=== PATIENT | female | born 1955 | race Caucasian/White ===

== ENCOUNTER 2016-06-07 20:31 | Emergency (ER) | payer OTHER ==
[~2016-06-07] VITALS: Ht 165.1 cm; Wt 168.6 kg
[2016-06-07 20:34] VITALS: TEMP 36.9; Ht 165.1 cm; Wt 168.6 kg
[2016-06-07] MEDS ORDERED: METHYLPREDNISOLONE 125 MG VIAL IV STA (20:52)
[2016-06-07] MEDS ORDERED: ALBUT/IPRATROP 3MG/0.5MG NEB 3 ML VIAL INH STA (20:52)
[2016-06-07 20:55] VITALS: O2SAT 94
[2016-06-07] MEDS ORDERED: MONT1TAB3 PO (21:18)
[2016-06-07] MEDS ORDERED: ATOR-22 PO (21:18)
[2016-06-07] MEDS ORDERED: VALS160T60 PO (21:18)
[2016-06-07] MEDS ORDERED: CLR/5 PO (21:18)
[2016-06-07] MEDS ORDERED: METF-384 PO (21:18)
[2016-06-07 21:21] LABS: BASO % 0.4 %; BASO ABS # 0.05 K/uL (0-0.2); COMPLETE YES; EOS % 3.5 %; HEMATOCRIT 40.5 % (37-47); IG% 0.3 %; LYMPH ABS # 4.29 K/uL (1.2-3.4); MEAN CELL VOLUME 89.8 fL (80-100); MEAN CORPUSCULAR HEMOGLOBIN 30.2 pg (25-34); MEAN CORPUSCULAR HGB CONC 33.6 g/dl (32-36); MONO % 10.4 %; NEUT % 48.4 %; PLATELET COUNT 293 K/uL (130-400); RED BLOOD COUNT 4.51 M/uL (4.2-5.4); WHITE BLOOD COUNT 11.59 K/uL (4.8-10.8)
--- NOTE | 2016-06-07 21:30 | DIAGNOSTIC IMAGING REPORT ---
SINGLE VIEW CHEST CLINICAL HISTORY: Dyspnea. FINDINGS: An AP, portable, upright chest radiographs are obtained. No prior studies are available for comparison at the time of dictation. The examination is degraded by portable technique, large body habitus, and patient rotation. The heart is top normal for projection. The mediastinal contour is within normal limits. The lungs and pleural spaces are clear. No pneumothorax is seen. The bony thorax is grossly intact. IMPRESSION: No acute cardiopulmonary abnormality. Electronically signed by: Candido Sullivan M.D. 06/07/2016 9:29 PM Dictated Date/Time: 06/07/2016 9:28 PM
[2016-06-07 21:41] LABS: BUN/CREATININE RATIO 13.1 (10-20); CALCIUM 8.8 mg/dl (8.5-10.1); CREATININE 0.81 mg/dl (0.60-1.20); POTASSIUM 3.3 mmol/L (3.5-5.1)
[2016-06-07 21:43] LABS: ALB/GLOB RATIO 0.8 (0.9-2)
[2016-06-07] MEDS ORDERED: PRED20TA2 PO (21:48)
[2016-06-07] MEDS ORDERED: ALBUTEROL HFA 8 GM INHALER INH ONE (22:00)
[2016-06-07 22:05] VITALS: BP 139/58; PULSE 83; O2SAT 92
[2016-06-07 23:18] LABS: INFLUENZA A PCR Neg for Influ A (NEG); INFLUENZA B PCR Neg for Influ B (NEG)
--- NOTE | 2016-06-07 23:19 | EMERGENCY ROOM VISIT NOTE ---
History Report prepared by Kenyatta: Margaret Carvajal Under the Supervision of: Dr. Eliecer Davis M.D. First contact with patient: 20:43 Chief Complaint: CONGESTION Stated Complaint: TIGHTNESS IN CHEST Nursing Triage Summary: Patient reports cough, congestion, and chest tightness since thursday. Patient states "I think I have bronchitis. It was worse but then thursday I felt better." Patient has non productive cough, denies hx asthma. History of Present Illness The patient is a 60 year old female who presents to the Emergency Room with complaints of worsening chest congestion for the past week. She reports a dry, non-productive cough and tightness in her chest. She has a history of bronchitis and states that this feels like her previous bronchitis. The patient has been taking DayQuil and NyQuil for her symptoms. She rates her pain as a 3/ 10. Source of History: patient Onset: 1 week ago Position: chest Symptom Intensity: 3/10 Quality: other (congestion/tightness) Timing: worsening Modifying Factors (Relieving): other (DayQuil/NyQuil) Associated Symptoms: + cough Review of Systems See HPI for pertinent positives & negatives. A total of 10 systems reviewed and were otherwise negative. Past Medical & Surgical Medical Problems: (1) Diabetes mellitus (2) Hypertension Family History Cancer Diabetes mellitus Hypertension Kidney disease Kidney stones Social History Smoking Status: Never Smoker Smokeless Tobacco Use: No Alcohol Use: none Housing Status: lives with family Occupation Status: employed Current/Historical Medications Scheduled Atorvastatin (Lipitor), 1 TAB PO DAILY Desloratadine (Clarinex), 10 MG PO QAM Metformin Hcl (Glucophage), 1,000 MG PO BID Montelukast Sodium (Singulair), 10 MG PO QPM Prednisone (Prednisone Tab), 0 PO DAILY Valsartan/Hctz (Diovan Hct 160MG/25MG), 1 TAB PO DAILY Allergies Coded Allergies: No Known Allergies (Unverified , 06/07/16) Physical Exam Vital Signs Date Time Temp Pulse Resp B/P Pulse Ox O2 Delivery O2 Flow Rate FiO2 06/07/16 22:05 83 20 139/58 92 06/07/16 21:30 87 06/07/16 20:55 94 Room Air 06/07/16 20:55 94 Room Air 06/07/16 20:45 94 Room Air 06/07/16 20:34 36.9 99 20 186/90 90 Room Air Pain Rating (0-10): 0 Physical Exam GENERAL: Patient is a healthy-appearing well-nourished 60 year old female. HEAD: Normocephalic atraumatic EYES: Ocular movements intact pupils equal and react to light OROPHARYNX mucous membranes are moist no exudates present no erythema or edema present NECK: Supple no nuchal rigidity CHEST: Good equal expansion LUNGS: Wheezes on the left CARDIAC: Normal S1 and S2 ABDOMEN: Soft nontender no guarding BACK: No CVA tenderness EXTREMITIES: No pain upon palpation normal muscle strength in all groups no clubbing cyanosis or edema NEURO: Patient is following commands is answering questions appropriately. Alert and oriented x3 Cranial Nerves 2-12 grossly intact Medical Decision & Procedures ER Provider Diagnostic Interpretation: Radiology results as stated below per my review and radiologist interpretation: SINGLE VIEW CHEST CLINICAL HISTORY: Dyspnea. FINDINGS: An AP, portable, upright chest radiographs are obtained. No prior studies are available for comparison at the time of dictation. The examination is degraded by portable technique, large body habitus, and patient rotation. The heart is top normal for projection. The mediastinal contour is within normal limits. The lungs and pleural spaces are clear. No pneumothorax is seen. The bony thorax is grossly intact. IMPRESSION: No acute cardiopulmonary abnormality. Electronically signed by: Candido Sullivan M.D. 06/07/2016 9:29 PM Dictated Date/Time: 06/07/2016 9:28 PM Laboratory Results 06/07/16 21:05 Red Blood Count 4.51, Mean Corpuscular Volume 89.8, Mean Corpuscular Hemoglobin 30.2, Mean Corpuscular Hemoglobin Concent 33.6, Mean Platelet Volume 11.0, Neutrophils (%) (Auto) 48.4, Lymphocytes (%) (Auto) 37.0, Monocytes (%) (Auto) 10.4, Eosinophils (%) (Auto) 3.5, Basophils (%) (Auto) 0.4, Neutrophils # (Auto ) 5.61, Lymphocytes # (Auto) 4.29, Monocytes # (Auto) 1.21, Eosinophils # (Auto ) 0.40, Basophils # (Auto) 0.05 06/07/16 21:05 Test 06/07/16 21:05 06/07/16 21:08 White Blood Count 11.59 K/uL (4.8-10.8) Red Blood Count 4.51 M/uL (4.2-5.4) Hemoglobin 13.6 g/dL (12.0-16.0) Hematocrit 40.5 % (37-47) Mean Corpuscular Volume 89.8 fL (80-100) Mean Corpuscular Hemoglobin 30.2 pg (25-34) Mean Corpuscular Hemoglobin Concent 33.6 g/dl (32-36) Platelet Count 293 K/uL (130-400) Mean Platelet Volume 11.0 fL (7.4-10.4) Neutrophils (%) (Auto) 48.4 % Lymphocytes (%) (Auto) 37.0 % Monocytes (%) (Auto) 10.4 % Eosinophils (%) (Auto) 3.5 % Basophils (%) (Auto) 0.4 % Neutrophils # (Auto) 5.61 K/uL (1.4-6.5) Lymphocytes # (Auto) 4.29 K/uL (1.2-3.4) Monocytes # (Auto) 1.21 K/uL (0.11-0.59) Eosinophils # (Auto) 0.40 K/uL (0-0.5) Basophils # (Auto) 0.05 K/uL (0-0.2) RDW Standard Deviation 48.3 fL (36.4-46.3) RDW Coefficient of Variation 14.8 % (11.5-14.5) Immature Granulocyte % (Auto) 0.3 % Immature Granulocyte # (Auto) 0.03 K/uL (0.00-0.02) Anion Gap 11.0 mmol/L (3-11) Est Creatinine Clear Calc Drug Dose 120.0 ml/min Estimated GFR () 92.1 Estimated GFR (Non- 79.5 BUN/Creatinine Ratio 13.1 (10-20) Calcium Level 8.8 mg/dl (8.5-10.1) Total Bilirubin 0.2 mg/dl (0.2-1) Aspartate Amino Transf (AST/SGOT) 26 U/L (15-37) Alanine Aminotransferase (ALT/SGPT) 29 U/L (12-78) Alkaline Phosphatase 67 U/L (45-117) Total Protein 7.6 gm/dl (6.4-8.2) Albumin 3.4 gm/dl (3.4-5.0) Globulin 4.2 gm/dl (2.5-4.0) Albumin/Globulin Ratio 0.8 (0.9-2) Influenza Type A (RT-PCR) Neg for Influ A (NEG) Influenza Type B (RT-PCR) Neg for Influ B (NEG) Labs reviewed by ED physician. Medications Administered Medications (Trade) Dose Ordered Sig/Hugo Route Start Time Stop Time Status Last Admin Dose Admin Albuterol/ Ipratropium (Duoneb) 3 ml NOW STAT INH 06/07/16 20:52 06/07/16 20:54 DC 06/07/16 21:07 3 ML Methylprednisolone Sodium Succinate (Solu-Medrol IV) 125 mg NOW STAT IV 06/07/16 20:52 06/07/16 20:54 DC 06/07/16 21:07 125 MG ECG Indication: chest pain Rate (beats per minute): 84 Rhythm: sinus rhythm Findings: PVC, no acute ischemic change ED Course 2042: Past medical records reviewed. The patient was evaluated in room B5. A complete history and physical examination was performed. 2051: Solu-Medrol 125 mg IV, Duoneb 3 ml INH 2145: I reassessed the patient at this time. She is feeling better and resting comfortably. I discussed the results and treatment plan with the patient. I answered all pertaining questions that she had. She expressed understanding and verbalized agreement. The patient will be discharged home. Medical Decision Differential diagnosis: Etiologies such as infections, reactive airway disease, pneumonia, pneumothorax , COPD, CHF, cardiac ischemia, pulmonary embolism, musculoskeletal, gastrointestinal, as well as others were entertained. This is a 60-year-old female who presents emergency department complaining of shortness of breath and cough. The patient has a history of bronchitis in the past. For this reason the patient was given hour-long breathing treatment and given Solu-Medrol. The patient is adamantly refusing to be admitted to the hospital. For this reason I'll place the patient on tapering prednisone I recommended breathing treatments twice every 6 hours read I recommended following up with her primary care physician. Patient was in agreement with the treatment plan. Impression Primary Impression: Bronchitis Scribe Attestation The scribe's documentation has been prepared under my direction and personally reviewed by me in its entirety. I confirm that the note above accurately reflects all work, treatment, procedures, and medical decision making performed by me. Departure Information Dispostion Home / Self-Care Prescriptions Prednisone (Prednisone Tab) 20 Mg Tab 0 PO DAILY, #7 TAB 2 TABS DAILY FOR 2 DAYS, THEN 1 TAB DAILY FOR 2 DAYS, THEN 1/2 TAB DAILY FOR 2 DAYS. Prov: Eliecer Davis MD 06/07/16 Referrals RV. Haji MD (PCP) Forms HOME CARE DOCUMENTATION FORM, School Instructions, Work Instructions, IMPORTANT VISIT INFORMATION Patient Instructions Bronchitis Acute, My [facility] Additional Instructions Use inhalers twice every 6 hours Be aware prednisone will increase your sugar You have been examined and treated today on an emergency basis only. This is not a substitute for, or an effort to provide, complete comprehensive medical care. It is impossible to recognize and treat all injuries or illnesses in a single emergency department visit. It is therefore important that you follow up closely with [facility]. Call as soon as possible for an appointment. Thank you for your time and consideration. I look forward to speaking with you again soon. Please don't hesitate to call us if you have any questions.
== END 2016-06-07 22:04 | disposition home or self-care (01) ==
LOC: C.EDB 20:32
DX: J40 Bronchitis, not specified as acute or chronic (principal); E11.9 Type 2 diabetes mellitus without complications; I10 Essential (primary) hypertension; Z79.899 Other long term (current) drug therapy; Z79.84 Long term (current) use of oral hypoglycemic drugs; Z83.3 Family history of diabetes mellitus; Z82.49 Family history of ischemic heart disease and other diseases of the circulatory system; Z84.1 Family history of disorders of kidney and ureter

== ENCOUNTER → 2016-10-07 | Outpatient (CLI) | payer OTHER ==
[~2016-10-07] MED LIST: ATOR-22 PO; CLR/5 PO; METF-384 PO; MONT1TAB3 PO; PRED20TA2 PO; VALS160T60 PO
[2016-10-07 09:38] LABS: URINE APPEARANCE CLEAR (CLEAR); URINE BILIRUBIN NEG (NEG); URINE COLOR YELLOW; URINE EPITHELIAL CELL AUTO >30 /lpf (0-5); URINE NITRITE NEG (NEG); URINE SPECIFIC GRAVITY 1.016 (1.000-1.030); UROBILINOGEN NEG (NEG); ZZUR CULT IF INDIC CLEAN CATCH YES
[2016-10-07 09:45] LABS: ALT/SGPT 23 U/L (12-78); BLOOD UREA NITROGEN 13 mg/dl (7-18); BUN/CREATININE RATIO 16.8 (10-20); CARBON DIOXIDE 31 mmol/L (21-32); CHLORIDE 100 mmol/L (98-107); CREATININE 0.78 mg/dl (0.60-1.20); GLUCOSE 173 mg/dl (70-99); POTASSIUM 3.5 mmol/L (3.5-5.1); SODIUM 141 mmol/L (136-145)
[2016-10-07 09:47] LABS: MANUAL MICROSCOPIC REQUIRED? NO; REVIEW REQ? NO
[2016-10-07 09:48] LABS: ALB/GLOB RATIO 0.7 (0.9-2); ALKALINE PHOSPHATASE 62 U/L (45-117); AST/SGOT 17 U/L (15-37)
[2016-10-07 09:54] LABS: CALCIUM 9.4 mg/dl (8.5-10.1)
[2016-10-07 10:10] LABS: RATIO 17.7 mcg/mg (0-30.0)
[2016-10-07 10:27] LABS: ESTIMATED AVERAGE GLUCOSE 206 mg/dl; HA1C FLAG Normal (Normal)
== END | disposition home or self-care (01) ==
LOC: C.LAB1850 07:31
PROVIDERS: ATTEND Internal Medicine
DX: E11.65 Type 2 diabetes mellitus with hyperglycemia (principal)

== ENCOUNTER → 2017-03-09 | Outpatient (CLI) | payer OTHER ==
[~2017-03-09] MED LIST changes: -PRED20TA2 PO
[2017-03-09 12:48] LABS: ESTIMATED AVERAGE GLUCOSE 157 mg/dl; HA1C FLAG Normal (Normal)
[2017-03-09 12:57] LABS: ALT/SGPT 17 U/L (12-78); AST/SGOT 10 U/L (15-37); BLOOD UREA NITROGEN 11 mg/dl (7-18); BUN/CREATININE RATIO 15.4 (10-20); CALCIUM 8.9 mg/dl (8.5-10.1); CARBON DIOXIDE 34 mmol/L (21-32); CHLORIDE 97 mmol/L (98-107); CREATININE 0.69 mg/dl (0.60-1.20); GLUCOSE 145 mg/dl (70-99); POTASSIUM 3.5 mmol/L (3.5-5.1); SODIUM 138 mmol/L (136-145)
[2017-03-09 13:00] LABS: ALB/GLOB RATIO 0.8 (0.9-2); ALKALINE PHOSPHATASE 69 U/L (45-117); CHOLESTEROL 142 mg/dl (0-200); CHOLESTEROL/HDL RATIO 3.2; HDL CHOLESTEROL 44 mg/dl; LDL CHOLESTEROL CALCULATED 70 mg/dl; TRIGLYCERIDES 140 mg/dl (0-150); VERY LOW DENSITY LIPOPROT CALC 28 mg/dl
== END | disposition home or self-care (01) ==
LOC: C.LAB1850 10:32
PROVIDERS: ATTEND Internal Medicine
DX: E11.65 Type 2 diabetes mellitus with hyperglycemia (principal)

== ENCOUNTER → 2017-08-17 | Outpatient (CLI) | payer OTHER | END | disposition home or self-care (01) | LOC: C.LABSPEC 13:13 | PROVIDERS: ATTEND Obstetrics & Gynecology | DX: Z11.3 Encounter for screening for infections with a predominantly sexual mode of transmission (principal) ==

== ENCOUNTER → 2017-08-17 | Outpatient (CLI) | payer OTHER | END | disposition home or self-care (01) | LOC: C.PAPS 13:45 | PROVIDERS: ATTEND Obstetrics & Gynecology | DX: Z12.4 Encounter for screening for malignant neoplasm of cervix (principal) ==

== ENCOUNTER 2022-06-25 17:10 | Inpatient (IN) ==
--- NOTE | 2022-06-25 17:34 | ED Triage Note ---
Date of Service June 25, 2022 History of Present Illness This patient was briefly evaluated while in triage. An abbreviated physical exam was performed. This patient is a 66-year-old Female who presents to the ED for evaluation of a right upper back infection. sent for abnormal CT-abscess of right posterior neck/upper back going on since March-treated in [place] Off antibiotics since May 16 Physical Exam GENERAL: NAD CARDIOVASCULAR: RRR RESPIRATORY: CTA ABDOMEN: BS x 4. Nontender to palpation. INTEGUMENTARY: Red, tender, indurated area, right shoulder and right chest Initial orders for labs and / or imaging were placed and patient was placed in the waiting area until a bed is available. Please see further documentation for the full ED course. MDM / Impression Impression Impression: Sepsis, Abscess of muscle of neck, Cellulitis, Elevated lactic acid level
[2022-06-25 18:28] LABS: Hematocrit (blood only) 40.9 % (37.0-47.0); Hemoglobin 13.2 g/dl (12.0-16.0); Mean Corpuscular Hemoglobin 28.9 pg (25.0-34.0); Mean Corpuscular Hgb Conc 32.3 g/dL (32.0-36.0); Mean Corpuscular Volume 89.5 fL (80.0-100.0); Mean Platelet Volume 11.3 fL (9.4-12.4); Platelet Count 342 K/uL (130-400); RDW Coefficient of Variation 15.5 % (11.5-14.5); RDW Standard Deviation 50.6 fL (36.4-46.3); Red Blood Count 4.57 M/uL (4.20-5.40)
[2022-06-25 18:49] LABS: Albumin Level 3.5 gm/dl (3.4-5.0); Anion Gap 11 (3-11); Bilirubin,Total 0.4 mg/dl (0.2-1.0); Calcium 9.1 mg/dl (8.5-10.1); Carbon Dioxide 31 mmol/L (21-32); Chloride 101 mmol/L (98-107); Sodium 143 mmol/L (136-145)
[2022-06-25 18:55] LABS: Alanine Aminotransferase 15 U/L (7-52); Albumin Globulin Ratio 0.9 (0.9-2); Alkaline Phosphatase 40 U/L (34-104); Aspartate Aminotransferase 27 U/L (13-39); BUN Creatinine Ratio 9.2 (10-20); Blood Urea Nitrogen 14 mg/dl (6-23); Est GFR (African American) 41.3 ml/min; Est GFR (Non-African American) 35.6 ml/min; Glucose 102 mg/dl (70-99(Fasting)); Total Protein 7.5 gm/dl (6.0-8.3)
[2022-06-25] MEDS ORDERED: SODIUM CHLORIDE 0.9% 1000ML 1,000 ML IV ONE (19:16)
[2022-06-25] MEDS ORDERED: CEFEPIME 2,000 MG in SYRINGE 0 ML IV STA (19:16)
[2022-06-25 19:17] LABS: ALC (manual) 6.57 K/uL (1.2-3.4); ANC (manual) 4.84 K/uL (1.4-6.5); Eosinophils % (manual) 4 %; Large Granular Lymph # (manua 4.34 K/uL; Large Granular Lymph % (manual) 35 %; Lymphocytes # (manual) 2.23 K/uL (1.2-3.4); Lymphocytes % (manual) 18 %; Monocytes % (manual) 4 %; Neutrophils # (manual) 4.84 K/uL (1.40-6.50); Neutrophils % (manual) 39 %
--- NOTE | 2022-06-25 19:21 | Emergency Department Note ---
History of Present Illness General Chief complaint: Abnormal Labs/Diagnostic Testing Stated complaint: ABNORMAL CT SCANS,REF BY DOC Time Seen by Provider: 06/25/22 19:02 Source: patient, family, RN notes reviewed and old records reviewed (Have reviewed the outpatient CT as well as the outpatient notes and her previous CAT scan from [facility]) Mode of arrival: ambulatory Limitations: no limitations History of Present Illness This patient was seen in triage. Initial orders were placed by Katia Ricardo PA-C. I went to see her in the process of seeing her I got a call that her lactic acid was 5.5. When I see the patient she looks well but says "I have an infection". She said that she was in [place] from April 16 through May 02 after she went to rehab. She was on IV medications for antibiotics and then will switch over to p.o. Augmentin which she finished on May 16 since then she has been getting increasingly weak and dizzy she has some swelling in her right shoulder towards her back. Denies any fever denies difficulty speaking or swallowing. She has had some nausea and her primary doctor started on Zofran 2 days ago. No abdominal pain no dysuria no fever no fall or trauma. She had an outpatient CAT scan which showed an abscess in the right shoulder into the soft tissue. Looking through her chart its and talking to the patient sounds like when she was at [place], she had a retropharyngeal abscess that according to the patient was drained. I did review the records she did have septic shock 70 to group a strep pneumo bacteremia arising from the right neck base cellulitis and associated retropharyngeal/deep neck abscess. She did have I&D of the retropharyngeal abscess on 04/21. Home Medications Medication Instructions Recorded Confirmed Type lancets 33 gauge (OneTouch Delica #100 ea 12/24/18 06/04/22 History Lancets) albuterol sulfate 90 mcg/actuation 1 - 2 puff inhalation Q4H PRN 05/01/20 06/25/22 Rx aerosol inhaler shortness of breath or wheezing #8.5 grams desloratadine 5 mg tablet 5 mg PO DAILY #90 tabs 06/20/21 06/25/22 Rx blood sugar diagnostic #100 ea 11/25/21 06/04/22 Rx melatonin 5 mg capsule 10 mg PO HS PRN Sleep 12/16/21 06/25/22 History lisinopril 20 1 tab PO DAILY #90 tabs 01/22/22 06/25/22 Rx mg-hydrochlorothiazide 12.5 mg tablet metformin 1,000 mg tablet 1,000 mg PO Q12H #180 tabs 01/22/22 06/25/22 Rx atorvastatin 10 mg tablet 10 mg PO HS #90 tabs 02/21/22 06/25/22 Rx glipizide 5 mg tablet, extended 5 mg PO BID #180 tabs 02/21/22 06/25/22 Rx release 24 hr sertraline 100 mg tablet 100 mg PO DAILY #90 tabs 02/21/22 06/25/22 Rx metoprolol succinate 25 mg 25 mg PO DAILY #90 tabs 06/04/22 06/25/22 Rx tablet,extended release 24 hr (Toprol XL) ondansetron HCl 4 mg tablet 4 mg PO Q8H PRN nausea and 06/20/22 06/25/22 Rx vomiting #30 tabs montelukast 10 mg tablet 10 mg PO DAILY #90 tabs 06/23/22 06/25/22 Rx Allergies Allergy/AdvReac Type Severity Reaction Status Date / Time amoxicillin [From Augmentin] Allergy Intermediate BLISTERED Verified 06/25/22 21:10 HANDS & FEET clavulanic acid Allergy Intermediate BLISTERED Verified 06/25/22 21:10 [From Augmentin] HANDS & FEET simvastatin AdvReac Intermediate MUSCLE Verified 06/25/22 21:10 PAIN IN SHOULDERS Past Med/Surg History Medical History Depression Diabetes mellitus type 2, uncontrolled Hyperlipidemia Obesity, morbid, BMI 40.0-49.9 Sleep disturbance Surgical History History of tubal ligation S/P tubal ligation Status post repair of nerve Family History Father Myocardial infarction Arthritis Diabetes Mother Diabetes Thyroid disorder Social History Smoking Status: Never smoker Hx Alcohol Use: Yes (social) Preferred Language: Uzbek Communication Ability: Effective Visual Impairment: No Limitations Hearing Ability: Normal Feels Safe at Home: Yes Seatbelt Use: always Review of Systems A total of 10 systems reviewed and were otherwise negative Physical Exam Vital Signs Vital Signs - 24 hr 06/25/22 17:32 06/25/22 19:22 06/25/22 19:31 Temperature 36.6 C Temperature Source Oral Pulse Rate 86 76 Pulse Rate [Apical] Respiratory Rate 18 Respiratory Effort / Characteristics Non-Labored Spontaneous Respiratory Depth Normal Respiratory Pattern Regular Blood Pressure 106/73 Blood Pressure [Left Arm] Blood Pressure Mean 84 Blood Pressure Mean [Left Arm] Blood Pressure Position Sitting Pulse Oximetry 96 94 Oxygen Delivery Method Room Air Room Air Sepsis Recent Fever Within 48 Hours No Sepsis New/Unexplained Change in Mental Status No Sepsis Action Taken by Nursing No Action Required 06/25/22 20:21 06/25/22 22:00 Temperature Temperature Source Pulse Rate Pulse Rate [Apical] 71 71 Respiratory Rate 17 18 Respiratory Effort / Characteristics Non-Labored Spontaneous Respiratory Depth Normal Respiratory Pattern Blood Pressure Blood Pressure [Left Arm] 95/58 L 121/72 Blood Pressure Mean Blood Pressure Mean [Left Arm] 70 88 Blood Pressure Position Pulse Oximetry 96 93 Oxygen Delivery Method Room Air Sepsis Recent Fever Within 48 Hours Sepsis New/Unexplained Change in Mental Status Sepsis Action Taken by Nursing General: Well developed well nourished [id number] nontoxic middle-age female in no acute distress, breathing comfortably on room air. Normal speech HEENT: Normal cephalic atraumatic. Pupils are equal round and reactive to light. Extraocular movements are intact. Oropharynx is pink with moist mucous membranes. No swelling of the mouth lips or tongue. Neck: Supple with a midline trachea. No meningeal signs or stiffness, no JVD or bruits. No Stridor. Speaking and swallowing without any difficulty Chest: Clear to auscultation bilaterally. No wheezes or rhonchi. No increased work of breathing. She does have a red indurated area in the right posterior shoulder. No drainage no fluctuance. The skin is mildly red. Heart: Regular rate and rhythm without murmurs or gallops. Abdomen: Soft nontender, nondistended without rebound guarding or rigidity. Extremities: No cyanosis clubbing or edema. No calf tenderness or assymetry Spine/Back. Non tender to palpation. No CVA tenderness Skin: Good turgor without rashes. Neurologic exam: Cranial nerves two through 12 are intact. Motor and sensation are intact and symmetrical throughout. Course Administered Medications Discontinued Medications Sodium Chloride (Nss 1000ml) 1,000 mls @ 999 mls/hr IV .Q1H1M ONE Stop: 06/25/22 20:16 Last Infusion: 06/25/22 21:26 Dose: 0 mls/hr Documented By: Admin: 06/25/22 20:16 Dose: 999 mls/hr Documented By: BENTON Cefepime HCl 2,000 mg/ Syringe 20 mls @ 5 mls/min IV NOW STA; Protocol Stop: 06/25/22 19:19 Last Admin: 06/25/22 19:43 Dose: 5 mls/min Documented By: SANDRA Vancomycin HCl 2,750 mg/ (Sodium Chloride) 555 mls @ 200 mls/hr IV NOW ONE Stop: 06/25/22 22:22 Last Admin: 06/25/22 21:14 Dose: 200 mls/hr Documented By: SANDRA Metronidazole (Flagyl) 500 mg in 100 mls @ 100 mls/hr IV NOW STA Stop: 06/25/22 20:37 Last Infusion: 06/25/22 21:26 Dose: 0 mls/hr Documented By: Admin: 06/25/22 20:15 Dose: 100 mls/hr Documented By: BENTON Sodium Chloride (Nss 1000ml) 500 mls @ 999 mls/hr IV .Q31M ONE Stop: 06/25/22 21:46 Last Admin: 06/25/22 22:14 Dose: 999 mls/hr Documented By: SANDRA Medical Decision Making Differential Diagnosis Sepsis, abscess, cellulitis, electrolyte or metabolic abnormality, infection Medical Records Attestation: I reviewed the patient's medical records. Home Medications Current Medication List: was personally reviewed by me Laboratory Data Attestation: I reviewed the patient's lab results. 06/25/22 18:06 06/25/22 18:06 Lab Results 06/25/22 06/25/22 06/25/22 Range/Units 18:06 18:06 18:06 WBC 12.40 H (4.8-10.8) K/ul RBC 4.57 (4.20-5.40) M/uL Hgb 13.2 (12.0-16.0) g/dl Hct 40.9 (37.0-47.0) % MCV 89.5 (80.0-100.0) fL MCH 28.9 (25.0-34.0) pg MCHC 32.3 (32.0-36.0) g/dL RDW Std Deviation 50.6 H (36.4-46.3) fL RDW Coeff of Geetha 15.5 H (11.5-14.5) % Plt Count 342 (130-400) K/uL MPV 11.3 (9.4-12.4) fL Neutrophils % (Manual) 39 % Lymphocytes % (Manual) 18 % Monocytes % (Manual) 4 % Eosinophils % (Manual) 4 % Neutrophils # (Manual) 4.84 (1.40-6.50) K/uL Total Absolute Neuts 4.84 (1.4-6.5) K/uL Lymphocytes # (Manual) 2.23 (1.2-3.4) K/uL Total Abs Lymphocytes 6.57 H (1.2-3.4) K/uL Monocytes # (Manual) 0.50 (0.11-0.59) K/uL Eosinophils # (Manual) 0.50 (0-0.50) K/uL Large Granular Lymphs 35 % # Lrg Granular Lymphs 4.34 K/uL Sodium 143 (136-145) mmol/L Potassium 3.0 L (3.5-5.1) mmol/L Chloride 101 (98-107) mmol/L Carbon Dioxide 31 (21-32) mmol/L Anion Gap 11 (3-11) BUN 14 (6-23) mg/dl Creatinine 1.52 H (0.6-1.2) mg/dl Est Cr Clr Drug Dosing Not Reportable Est GFR ( Amer) 41.3 ml/min Est GFR (Non-Af Amer) 35.6 ml/min BUN/Creatinine Ratio 9.2 L (10-20) Glucose 102 H (70-99(Fasting)) mg/dl Lactate 5.5 H* (0.4-2.0) mmol/L Calcium 9.1 (8.5-10.1) mg/dl Total Bilirubin 0.4 (0.2-1.0) mg/dl AST 27 (13-39) U/L ALT 15 (7-52) U/L Alkaline Phosphatase 40 (34-104) U/L Total Protein 7.5 (6.0-8.3) gm/dl Albumin 3.5 (3.4-5.0) gm/dl Globulin 4.0 (2.5-4.0) gm/dl Albumin/Globulin Ratio 0.9 (0.9-2) Procalcitonin (0-0.5) ng/ml SARS-CoV-2, RNA, NAAT (NEGATIVE) 06/25/22 06/25/22 06/25/22 Range/Units 18:06 19:34 19:52 WBC (4.8-10.8) K/ul RBC (4.20-5.40) M/uL Hgb (12.0-16.0) g/dl Hct (37.0-47.0) % MCV (80.0-100.0) fL MCH (25.0-34.0) pg MCHC (32.0-36.0) g/dL RDW Std Deviation (36.4-46.3) fL RDW Coeff of Geetha (11.5-14.5) % Plt Count (130-400) K/uL MPV (9.4-12.4) fL Neutrophils % (Manual) % Lymphocytes % (Manual) % Monocytes % (Manual) % Eosinophils % (Manual) % Neutrophils # (Manual) (1.40-6.50) K/uL Total Absolute Neuts (1.4-6.5) K/uL Lymphocytes # (Manual) (1.2-3.4) K/uL Total Abs Lymphocytes (1.2-3.4) K/uL Monocytes # (Manual) (0.11-0.59) K/uL Eosinophils # (Manual) (0-0.50) K/uL Large Granular Lymphs % # Lrg Granular Lymphs K/uL Sodium (136-145) mmol/L Potassium (3.5-5.1) mmol/L Chloride (98-107) mmol/L Carbon Dioxide (21-32) mmol/L Anion Gap (3-11) BUN (6-23) mg/dl Creatinine (0.6-1.2) mg/dl Est Cr Clr Drug Dosing Est GFR ( Amer) ml/min Est GFR (Non-Af Amer) ml/min BUN/Creatinine Ratio (10-20) Glucose (70-99(Fasting)) mg/dl Lactate 4.4 H* (0.4-2.0) mmol/L Calcium (8.5-10.1) mg/dl Total Bilirubin (0.2-1.0) mg/dl AST (13-39) U/L ALT (7-52) U/L Alkaline Phosphatase (34-104) U/L Total Protein (6.0-8.3) gm/dl Albumin (3.4-5.0) gm/dl Globulin (2.5-4.0) gm/dl Albumin/Globulin Ratio (0.9-2) Procalcitonin < 0.05 (0-0.5) ng/ml SARS-CoV-2, RNA, NAAT NEGATIVE (NEGATIVE) Imaging Data Attestation: I personally reviewed and interpreted this imaging study as follows: My Impression: Chest x-rayno acute infiltrate, failure, pneumothorax seen Radiologist's Impression: Chest X-Ray 06/25/22 19:25 XR chest 1V portable HISTORY: sepsis COMPARISON: Chest 06/07/2016 FINDINGS: The lungs are clear. Cardiac silhouette is normal in size. No pleural effusions. No pneumothorax. IMPRESSION: No acute process. ACT 112: Negative or not required by law. Electronically signed by: Varun Garcia M.D. 06/25/2022 7:45 PM ECG Data Attestation: I personally reviewed and interpreted this ECG as follows: Indication: + weakness Rate (beats per minute): 79 Rhythm: + normal sinus ECG Intervals/blocks: + Normal QRS, + Normal QT and + Normal [place] ECG [place]: + Normal ECG ST segments: + Normal ST segments ECG Findings: no PACs or no PVCs Comparison ECG Date: from (06/07/16) Change: the following changes noted (PVCs are now absent) MDM Narrative This patient comes in as described above. He was sent here by her primary doctor after she had a abnormal CAT scan which shows an abscess and cellulitis. She looks well and is stable vital signs but her lactic was 5.5 her white count is elevated she says it is actually down from when she left the hospital was concerned about sepsis I did gently hydrate her with normal saline and gave her one 1 L IV normal basal bolus initially in reviewing her chart she does have history of reduced EF. I did give her cefepime 2 g IV and multiple blood test was obtained. I did talk to Elizabeth our pharmacist at the hospital who recommended adding vancomycin as well as Flagyl I talked her about the doses of vancomycin as well. The patient did have a chest x-ray was unremarkable EKG was unremarkable. Her lactic acid came back elevated high at 5.5. I reviewed her CAT scan and her old records and I am concerned that she has a recurrent abscess and cellulitis and I do think needs to go back to [place] she has a very complicated patient and did have ENT drained retropharyngeal abscess before she tells me she is not nearly as sick as she was looking back through her chart she did have sepsis related to group a strep. I have discussed this with the family [facility] I did talk to the hospitalist there Dr. Abdi, and she feels that there is nothing we can do for the patient here and wants me to talk to our ENT doctor here. I did this I talked to Dr. Nolasco who looked at the CAT scan she felt the patient's airway and oropharynx looks fine but this abscess was more superficial in the neck and was more of a general surgery and not ENT problem. I also did discuss case with Dr. Edwards who is on-call for ICU and he felt that the patient did need source control. I called back and talk to Dr. Wyatt again who had me talk to their interventional radiologist, Dr. Ybarra, who told me that this was not then I talked to profile mill operator tape control Dr. Mendez who also did not feel the patient was an ICU level patient at this point. I did tell them that she did have 1 blood pressure in the 90s however now it is elevated her lactic acid what went from 5.5-4.4 she is getting fluids and antibiotics and feels well otherwise. Dr. Mendez felt that we should have our local surgeon see the patient and come up with a plan from there. I did consult Royal Chicas who is on-call for surgery. He did evaluate the patient talk to Dr. Chase they will be be operated on the patient's abscess. Medicine will be admitting the patient I did talk to Dr. Ken he saw the patient ER will admit the patient for further treatment evaluation Continuous cardiac monitoring: Orders placed in EMR for continuous cardiac monitoring. Upon my interpretation she was noted to be in normal sinus rhythm with a rate of 70 Impression & Plan Sepsis, Abscess of muscle of neck, Cellulitis, Elevated lactic acid level, Lab test negative for COVID-19 virus Discharge Plan Visit Data Chief Complaint: Abnormal Labs/Diagnostic Testing Stated Complaint: ABNORMAL CT SCANS,REF BY DOC ED Provider: Fracisco Alejandro Discharge Problem: Sepsis, Abscess of muscle of neck, Cellulitis, Elevated lactic acid level, Lab test negative for COVID-19 virus Forms Stand Alone Forms: My [facility] Prescriptions Prescriptions: No Action albuterol sulfate 90 mcg/actuation HFA aerosol inhaler 1 - 2 puff inhalation Q4H PRN (Reason: shortness of breath or wheezing) Qty: 8.5 5RF desloratadine 5 mg tablet 5 mg PO DAILY Qty: 90 3RF (DME) blood sugar diagnostic Strip See Dose Instructions .ROUTE .MEDSUPPLY Qty: 100 2RF Rx Instructions: test once daily dx E11.9 metformin 1,000 mg tablet 1,000 mg PO Q12H Qty: 180 3RF Rx Instructions: TAKE 1 TABLET EVERY 12 HOURS WITH FOOD lisinopril-hydrochlorothiazide 20-12.5 mg tablet 1 tab PO DAILY Qty: 90 3RF atorvastatin 10 mg tablet 10 mg PO HS Qty: 90 1RF glipizide 5 mg tablet extended release 24hr 5 mg PO BID Qty: 180 1RF sertraline 100 mg tablet 100 mg PO DAILY Qty: 90 3RF ondansetron HCl 4 mg tablet 4 mg PO Q8H PRN (Reason: nausea and vomiting) Qty: 30 0RF montelukast 10 mg tablet 10 mg PO DAILY Qty: 90 3RF (DME) lancets [OneTouch Delica Lancets] 33 gauge misc See Dose Instructions .ROUTE .MEDSUPPLY Qty: 100 Rx Instructions: check fasting blood sugar in morning as directed melatonin 5 mg capsule 10 mg PO HS PRN (Reason: Sleep) Patient Comments: as directed metoprolol succinate [Toprol XL] 25 mg tablet extended release 24 hr 25 mg PO DAILY Qty: 90 3RF Referrals Referrals: Van Jane MD [Primary Care Provider] -
[2022-06-25] MEDS ORDERED: VANCOMYCIN CONSULT ACTIVE PRN (19:36)
[2022-06-25] MEDS ORDERED: VANCOMYCIN HCL 2,750 MG in SODIUM CHLORIDE 0.9% 500 ML IV ONE (19:36)
[2022-06-25] MEDS ORDERED: metroNIDAZOLE 500 MG/100 ML BAG IV STA (19:38)
--- NOTE | 2022-06-25 19:46 | XRay Report ---
XR chest 1V portable HISTORY: sepsis COMPARISON: Chest 06/07/2016 FINDINGS: The lungs are clear. Cardiac silhouette is normal in size. No pleural effusions. No pneumot horax. IMPRESSION: No acute process. ACT 112: Negative or not required by law. Electronically signed by: Varun Garcia M.D. 06/25/2022 7:45 PM
[2022-06-25] MEDS ORDERED: SODIUM CHLORIDE 0.9% 1000ML 500 ML IV ONE (21:16)
--- NOTE | 2022-06-25 22:16 | History & Physical Report ---
Date of Service June 25, 2022 Assessment & Plan (1) Abscess of muscle of neck: Plan: Patient is a 66 yo female with PMHx of HTN, DM, HLD, depression/anxiety, pAfib, and recent retropharyngeal abscess admitted to [facility] on 06/25/22 for abscess of neck muscle and cellulitis. Abscess of muscle of neck and cellulitis - Patient recently w/ retropharyngeal abscess requiring I&D ~2 months ago at [place] - Completed IV abx therapy (Unasyn) and subsequent po abx therapy (Augmentin) on 05/16/22 - Since that time, patient with recurrent and progressive concern for cellulitis - CT soft tissue/neck 06/25: "4.2 x 2.7 cm partial peripheral enhancing collection within the right posterior lower neck which partially involves the right latissimus dorsi muscle consistent with a developing abscessandassociated subcutaneous fat stranding within the right posterior lower neck and extending into the right supraclavicular/upper right chest wall region consistent with a cellulitis." - Lactate 4.4 on admission; mild leukocytosis with WBC 12.4 - Fortunately, patient currently appears well and non-toxic. She is not tachycardic. She is not tachypneic. She is normotensive. - Patient does not meet sepsis criteria on admission - Continue to monitor closely - General surgery consulted -- plans to take patient to OR tomorrow morning for I&D - Patient to be made NPO at midnight. Will continue gentle IVF hydration given recent TTE w/ LVEF 40-44%. - Patient has received 1.5 L NSS in the ER with no signs or symptoms of fluid overload. - Blood cultures are pending - Patient received cefepime, vancomycin, and flagyl in the ER prior to admission. Will continue broad spectrum abx therapy with cefepime, vancomycin, and flagyl pending blood cultures and operative findings - Due to progressive weakness and recent inpatient rehab stay w/o subsequent home PT/OT, orders placed for PT/OT evals - Repeat CBC and BMP in AM Paroxysmal Atrial Fibrillation - Currently in NSR - Continue rate control with home metoprolol succinate 25mg po daily - Continue cardiac monitoring Diabetes Mellitus Type 2 - Most recent A1c 6.2% on 06/04/22 - Hold home glipizide and metformin - Start lantus 24 units BID and ISS Depression - Continue home sertraline Hyperlipidemia - Continue home statin Hypertension - Pt normotensive on admission - Hold home lisinopril-HCTZ Insomnia - Continue home melatonin prn Seasonal Allergies - Continue home Singulair and desloratadine DEVONI: NPO, IVF NSS at 125 cc/hr Dispo: admit to [facility] w/ tele Code status: Conditional -- accepts CPR, defibrillation, and ACLS medication; no artificial airway or ventilation Patient does not have advanced directives but states that in a situation where she can not make her own medical decisions, her daughter Bernadine would be medical decision maker. (2) Cellulitis: (3) H/O retropharyngeal abscess: (4) Paroxysmal A-fib: (5) Depression: (6) Hyperlipidemia: (7) Diabetes mellitus: (8) Sleep disturbance: (9) Hypertension: Plan Attending addendum: I have physically seen this patient, have supervised the medical residents activities, and agree with the H&P unless as otherwise noted. Assessment and Plan: Abscess of neck muscle on right side and cellulitis- Recent I&D about 2 months ago of retropharyngeal abscess at [place] Completed IV antibiotic treatment of Unasyn with conversion to oral Augmentin, all completed on 05/16/2022 Since that time, patient was concerned about the development of secondary infection N.p.o. after midnight for surgical drainage tomorrow IV fluid rehydration as noted Blood cultures ordered Vancomycin IV, cefepime IV and Flagyl IV as noted General deconditioning requiring PT/OT assessment and possible return to inpatient rehab Paroxysmal atrial fibrillation/hypertension- Continue metoprolol succinate 25 mg daily Holding lisinopril/HCTZ Diabetes mellitus- Hold glipizide and metformin Continue Lantus 24 units subcu twice daily Place on Accu-Cheks with NovoLog SSI Depression/insomnia- Continue sertraline and melatonin Hyperlipidemia- Continue atorvastatin Remaining orders and notations as noted History of Present Illness Chief Complaint: abscess Primary Care Provider: Van Jane MD Patient is a 66 yo female with PMHx of HTN, DM, HLD, depression/anxiety, pAfib, and recent retropharyngeal abscess who presented to [facility] ER on 06/25/22 with concern for infection. Patient was admitted at [facility] 04/16/22 to 05/02/22 for retropharyngeal abscess requiring I&D. Per chart review, patient also had OCHOA (Cr 5.7/GFR 8) and septic shock secondary to GAS bacteremia arising from the retropharyngeal abscess/right neck cellulitis. Patient required IVF, abx therapy, and pressor support. She did not require urgent intubation. Patient developed paroxysmal atrial fibrillation and was started on metoprolol. TTE 04/16 w/ LVEF 40-44% w/ no evidence of hemodynamically significant valvular abnormalities. On d/c, OCHOA had resolved and final Cr 0.7 and GFR > 90 mL/min. S he was discharged with IV Unasyn that completed on 05/04/22 and subsequently switched to Augmentin 875mg/125mg po BID which she completed on 05/16/22. Patient states that since completion of abx therapy, she has had progressive weakness, intermittent dizziness with standing and ambulation, and some swelling in her right shoulder/upper back that has continued to progress. Due to the weakness, patient states that she is now unable to ambulate independently w/o holding onto things; typically ambulates independently at baseline. She denies fever, throat pain, difficulty speaking, or difficulty swallowing. Patient notes that she was seen by her PCP and started on Zofran for nausea. She has not had any vomiting. Denies abdominal pain, dysuria, hematuria, urinary frequency. Patient had an outpatient CT scan due to ongoing discomfort on the skin above the right shoulder/right neck which revealed "4.2 x 2.7 cm partial peripheral enhancing collection within the right posterior lower neck which partially involves the right latissimus dorsi muscle consistent with a developing abscess and associated subcutaneous fat stranding within the right posterior lower neck and extending into the right supraclavicular/upper right chest wall region consistent with a cellulitis." Patient subsequently instructed to come to the ER for further evaluation. In the ER, labs revealed mild leukocytosis with WBC 12.4. Hypokalemia with K 3.0. OCHOA with Cr 1.52 / GFR 35. Lactate 4.4. Negative procal. Negative COVID. CT soft tissue/neck result reviewed as noted above. Per ED physician, attempted transfer back to [facility], however, patient was not accepted for transfer at this time. ED course: 1.5L NSS, cefepime, vancomycin, flagyl Allergies Allergy/AdvReac Type Severity Reaction Status Date / Time amoxicillin [From Augmentin] Allergy Intermediate BLISTERED Verified 06/25/22 21:10 HANDS & FEET clavulanic acid Allergy Intermediate BLISTERED Verified 06/25/22 21:10 [From Augmentin] HANDS & FEET simvastatin AdvReac Intermediate MUSCLE Verified 06/25/22 21:10 PAIN IN SHOULDERS Home Medications Medication Instructions Recorded Confirmed Type lancets 33 gauge (OneTouch Delica #100 ea 12/24/18 06/04/22 History Lancets) albuterol sulfate 90 mcg/actuation 1 - 2 puff inhalation Q4H PRN 05/01/20 06/25/22 Rx aerosol inhaler shortness of breath or wheezing #8.5 grams desloratadine 5 mg tablet 5 mg PO DAILY #90 tabs 06/20/21 06/25/22 Rx blood sugar diagnostic #100 ea 11/25/21 06/04/22 Rx melatonin 5 mg capsule 10 mg PO HS PRN Sleep 12/16/21 06/25/22 History lisinopril 20 1 tab PO DAILY #90 tabs 01/22/22 06/25/22 Rx mg-hydrochlorothiazide 12.5 mg tablet metformin 1,000 mg tablet 1,000 mg PO Q12H #180 tabs 01/22/22 06/25/22 Rx atorvastatin 10 mg tablet 10 mg PO HS #90 tabs 02/21/22 06/25/22 Rx glipizide 5 mg tablet, extended 5 mg PO BID #180 tabs 02/21/22 06/25/22 Rx release 24 hr sertraline 100 mg tablet 100 mg PO DAILY #90 tabs 02/21/22 06/25/22 Rx metoprolol succinate 25 mg 25 mg PO DAILY #90 tabs 06/04/22 06/25/22 Rx tablet,extended release 24 hr (Toprol XL) ondansetron HCl 4 mg tablet 4 mg PO Q8H PRN nausea and 06/20/22 06/25/22 Rx vomiting #30 tabs montelukast 10 mg tablet 10 mg PO DAILY #90 tabs 06/23/22 06/25/22 Rx Past Med/Surg History Medical History Depression Diabetes mellitus type 2, uncontrolled Hyperlipidemia Obesity, morbid, BMI 40.0-49.9 Sleep disturbance Surgical History (Updated 06/26/22 @ 13:12 by Jyoti Lew RN) History of incision and drainage (06/26/22) Incision and Drainage right shoulder/neck Abscess(Right) - Romeo Chase DO, FACS History of tubal ligation S/P tubal ligation Status post repair of nerve Family History Father Myocardial infarction Arthritis Diabetes Mother Diabetes Thyroid disorder Social History Smoking Status: Never smoker Second Hand Exposure: No; Do You Dip or Chew Tobacco: No; Tobacco Cessation Education Requested by Patient: No Hx Alcohol Use: Yes (social) Hx Substance Use: No Preferred Language: Turkmen Communication Ability: Effective Visual Impairment: No Limitations Hearing Ability: Normal Certified Addiction Counselor Required: No Beliefs That Will Affect Care: None Current Living Situation: Other Current Living Situation Comment: Has home but has been staying with mother, they take care of each other Other Information That Helps Us Care for You: No Feels Safe at Home: Yes Safety Concerns: Feels Safe At This Time Seatbelt Use: always Assistive Devices: Cane Review of Systems Review of Systems: See HPI Physical Exam Physical Exam: GENERAL: No acute distress. Non-toxic appearing. Well developed and well nourished. Vital signs reviewed. EYES: PERRLA. EOMI. Anicteric sclerae. HENT: Moist mucous membranes. No pharyngeal erythema or exudates. NECK: No spinous process tenderness to palpation. There is right paraspinal muscle tenderness to palpation over the right levator scapulae. RESPIRATORY: Clear to auscultation bilaterally. No wheezing, rales, or rhonchi. Unlabored respirations. No conversational dyspnea. CARDIOVASCULAR: Regular rate and rhythm. ABDOMEN: Soft and non-tender. Normal bowel sounds. EXTREMITIES: No edema. Non-tender. 5/5 strength in BUE and BLE. SKIN: Dry. There is an erythematous, indurated area of the right posterior shoulder with a few nodules that are non-tender and without active discharge or drainage. The skin is warm to touch. No streaking. NEUROLOGIC: A/O x3. Normal speech. No focal neurological deficits. Normal speec h. No sensorimotor deficits. PSYCHIATRIC: Cooperative. Appropriate mood and affect. Results & Data Results & Data ([facility]) Vital Signs (Past 12 Hours) Vital Signs Temp Pulse Pulse Resp BP BP Pulse Ox 06/25/22 20:21 71 17 95/58 L 96 06/25/22 19:31 94 06/25/22 19:22 76 06/25/22 17:32 36.6 C 86 18 106/73 96 O2 Del Method 06/25/22 20:21 Room Air 06/25/22 19:31 Room Air 06/25/22 19:22 06/25/22 17:32 Room Air Laboratory Results 06/25/22 06/25/22 06/25/22 Range/Units 19:52 19:34 18:06 WBC (4.8-10.8) K/ul RBC (4.20-5.40) M/uL Hgb (12.0-16.0) g/dl Hct (37.0-47.0) % MCV (80.0-100.0) fL MCH (25.0-34.0) pg MCHC (32.0-36.0) g/dL RDW Std Deviation (36.4-46.3) fL RDW Coeff of Geetha (11.5-14.5) % Plt Count (130-400) K/uL MPV (9.4-12.4) fL Neutrophils % (Manual) % Lymphocytes % (Manual) % Monocytes % (Manual) % Eosinophils % (Manual) % Neutrophils # (Manual) (1.40-6.50) K/uL Total Absolute Neuts (1.4-6.5) K/uL Lymphocytes # (Manual) (1.2-3.4) K/uL Total Abs Lymphocytes (1.2-3.4) K/uL Monocytes # (Manual) (0.11-0.59) K/uL Eosinophils # (Manual) (0-0.50) K/uL Large Granular Lymphs % # Lrg Granular Lymphs K/uL Sodium (136-145) mmol/L Potassium (3.5-5.1) mmol/L Chloride (98-107) mmol/L Carbon Dioxide (21-32) mmol/L Anion Gap (3-11) BUN (6-23) mg/dl Creatinine (0.6-1.2) mg/dl Est Cr Clr Drug Dosing Est GFR ( Amer) ml/min Est GFR (Non-Af Amer) ml/min BUN/Creatinine Ratio (10-20) Glucose (70-99(Fasting)) mg/dl Lactate 4.4 H* (0.4-2.0) mmol/L Calcium (8.5-10.1) mg/dl Total Bilirubin (0.2-1.0) mg/dl AST (13-39) U/L ALT (7-52) U/L Alkaline Phosphatase (34-104) U/L Total Protein (6.0-8.3) gm/dl Albumin (3.4-5.0) gm/dl Globulin (2.5-4.0) gm/dl Albumin/Globulin Ratio (0.9-2) Procalcitonin < 0.05 (0-0.5) ng/ml SARS-CoV-2, RNA, NAAT NEGATIVE (NEGATIVE) 06/25/22 06/25/22 06/25/22 Range/Units 18:06 18:06 18:06 WBC 12.40 H (4.8-10.8) K/ul RBC 4.57 (4.20-5.40) M/uL Hgb 13.2 (12.0-16.0) g/dl Hct 40.9 (37.0-47.0) % MCV 89.5 (80.0-100.0) fL MCH 28.9 (25.0-34.0) pg MCHC 32.3 (32.0-36.0) g/dL RDW Std Deviation 50.6 H (36.4-46.3) fL RDW Coeff of Geetha 15.5 H (11.5-14.5) % Plt Count 342 (130-400) K/uL MPV 11.3 (9.4-12.4) fL Neutrophils % (Manual) 39 % Lymphocytes % (Manual) 18 % Monocytes % (Manual) 4 % Eosinophils % (Manual) 4 % Neutrophils # (Manual) 4.84 (1.40-6.50) K/uL Total Absolute Neuts 4.84 (1.4-6.5) K/uL Lymphocytes # (Manual) 2.23 (1.2-3.4) K/uL Total Abs Lymphocytes 6.57 H (1.2-3.4) K/uL Monocytes # (Manual) 0.50 (0.11-0.59) K/uL Eosinophils # (Manual) 0.50 (0-0.50) K/uL Large Granular Lymphs 35 % # Lrg Granular Lymphs 4.34 K/uL Sodium 143 (136-145) mmol/L Potassium 3.0 L (3.5-5.1) mmol/L Chloride 101 (98-107) mmol/L Carbon Dioxide 31 (21-32) mmol/L Anion Gap 11 (3-11) BUN 14 (6-23) mg/dl Creatinine 1.52 H (0.6-1.2) mg/dl Est Cr Clr Drug Dosing Not Reportable Est GFR ( Amer) 41.3 ml/min Est GFR (Non-Af Amer) 35.6 ml/min BUN/Creatinine Ratio 9.2 L (10-20) Glucose 102 H (70-99(Fasting)) mg/dl Lactate 5.5 H* (0.4-2.0) mmol/L Calcium 9.1 (8.5-10.1) mg/dl Total Bilirubin 0.4 (0.2-1.0) mg/dl AST 27 (13-39) U/L ALT 15 (7-52) U/L Alkaline Phosphatase 40 (34-104) U/L Total Protein 7.5 (6.0-8.3) gm/dl Albumin 3.5 (3.4-5.0) gm/dl Globulin 4.0 (2.5-4.0) gm/dl Albumin/Globulin Ratio 0.9 (0.9-2) Procalcitonin (0-0.5) ng/ml SARS-CoV-2, RNA, NAAT (NEGATIVE) Diagnostic Findings [place], [place] [phone] CT Scan Report Patient:MIKE PEREIRA Admit Date:06/25/22 MR#:[id number] Address1:[place] [address] Acct ID:[id number] Address2: Date:1955 [facility] Zip:[place] [address] Age:66 Location:CT Sex:F Room/Bed: Att [facility]:RV. Haji MD Diagnosis:L02.11 - Cutaneous abscess of neck Suad Phy:RV. Haji MD Service Date:06/25/22 [facility] Phy: Interpreting Phy:Varun Garcia MDAdmit Phy: Ordering Phy:RV. Haji MD cc: ~ CT soft tissue neck w con HISTORY: L02.11 - Cutaneous abscess of neck TECHNIQUE: Multiaxial CT images of the neck were performed following the intravenous administration of 120 cc of Optiray 320. Sagittal and coronal reformations were performed at the lower station by the radiologist. COMPARISON STUDY: None. FINDINGS: The visualized brain parenchyma and orbits are unremarkable. The pterygopalatine fossa and parapharyngeal fat spaces are well-maintained. The major mucosal airways services are intact. Prevertebral soft tissues and the epiglottis are normal in thickness. The thyroid gland enhances normally. The main pulmonary artery is dilated up to 4.2 cm. There is a 5 mm anterior communicate artery aneurysm on image 71. The major cervical vessels enhance normally. The parotid and submandibular glands are symmetric. Mild lower right posterior cervical chain lymphadenopathy. This is likely reactive. There is extensive subcutaneous fat stranding within the right posterior lower neck and extending into the right supraclavicular/upper right chest wall region. There is a 4.2 x 2.7 cm partial peripheral enhancing collection within the right posterior lower neck which partially involves the right latissimus dorsi muscle best seen on image 243. This is consistent with a developing abscess. The lung apices are clear. No acute fractures identified. IMPRESSION: 1. There is a 4.2 x 2.7 cm partial peripheral enhancing collection within the right posterior lower neck which partially involves the right latissimus dorsi muscle consistent with a developing abscess. 2. There is associated subcutaneous fat stranding within the right posterior lower neck and extending into the right supraclavicular/upper right chest wall region consistent with a cellulitis. 3. Mild right lower posterior cervical chain lymphadenopathy which is likely reactive. 4. 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 5. This report was called/faxed to the referring physician following dictation. ACT 112: Positive. There are findings on this exam that require communication between the performing entity and the patient following Patient Test Result Information Act ([place] Act 112) guidelines. Electronically signed by: Varun Garcia M.D. 06/25/2022 2:37 PM Dictated:06/25/[id number] Transcribed: 06/25/22 [address] [facility], [place] [phone] XRay Report Patient:MIKE PEREIRA Admit Date:06/25/22 MR#:[id number] Address1:[place] [address] Acct ID:[id number] Address2: Date:1955 [facility] Zip:[place] [address] Age:66 Location:ED Sex:F Room/Bed: Att Phy: Diagnosis:ABNORMAL CT SCANS,REF BY DOC Suad Phy:RV. Haji MD Service Date:06/25/22 [facility] Phy: Interpreting Phy:Varun Garcia MDAdmit Phy: Ordering Phy:Fracisco Alejandro M.D. cc: ~ XR chest 1V portable HISTORY: sepsis COMPARISON: Chest 06/07/2016 FINDINGS: The lungs are clear. Cardiac silhouette is normal in size. No pleural effusions. No pneumothorax. IMPRESSION: No acute process. ACT 112: Negative or not required by law. Electronically signed by: Varun Garcia M.D. 06/25/2022 7:45 PM Dictated:06/25/221941 Transcribed: 06/25/221941 (2) Cellulitis Site of cellulitis: neck Qualified Code(s): L03.221 - Cellulitis of neck
--- NOTE | 2022-06-25 22:28 | Surgery Consultation ---
Date of Consultation June 25, 2022 Assessment & Plan (1) Abscess of muscle of neck: I discussed with the treating emergency room physician and he notes that he is having the patient mid on the hospitalist service. We recommend proceeding as follows: Implement n.p.o. status Provide hydration with IV fluids Follow serial labs Provide as needed analgesics and antiemetics The patient has had antibiotics in the form of metronidazole, vancomycin, and cefepime initiated. Would recommend continuing broad-spectrum antibiotics. Blood cultures have been sent and antibiotics can be further tailored based on the results of these Patient is scheduled for an incision and drainage of this neck abscess on 06/26/[address] Chase. Additional recommendations concerning the neck abscess in the patient's care will be made based on operative findings. At the present time is to be noted that the patient is normotensive without tachycardia or fever. She does not appear to be in any distress. Her extremities are warm and well perfused and she has palpable pulses in her extremities so it does not appear that she is in septic shock at this time.. History of Present Illness Reason for Consultation: Neck abscess History of Present Illness This is a 66-year-old female who was referred to the emergency department by her primary care physician secondary to concerning findings on a outpatient CT scan. This patient has a complicated Past medical history. The patient notes that she developed an infection on the right side of her posterior neck in the fall 2021. The patient says that she initially did not seek medical attention for this problem however and March 2022 the patient required admission to [facility] on 04/16/2022. The patient presented at that time with hypotension and was found to be septic shock secondary to group A strep bacteremia which was felt to arise from the base of the right side of her neck with associated cellulitis. The patient also had a associated retropharyngeal/deep neck abscess. During that admission the patient had nonoliguric acute kidney injury with hyperkalemia. Patient was treated with broad-spectrum antibiotics and hydration as well as pressor support. The patient underwent an incision and drainage of the retropharyngeal abscess on 04/21/2022 with otolaryngology. This was felt to be necessary as the patient had persistence of the infection despite antibiotics. Following this procedure the patient clinically improved and was weaned off pressor support. Patient was ultimately transitioned to IV antibiotics in form of Unasyn and a PICC line was placed. She was discharged with plans for her to receive intravenous Unasyn through April 27, 2022 with planned conversion to oral Augmentin. It is unclear how long she was taking this antibiotic but she did follow-up with her primary care physician on 06/04/2022 and at that time she was noted to not be taking any antibiotics. When patient saw her primary care physician at that time she noted that she was continuing to have ongoing discomfort at the right side of her neck and it was felt the patient may require general surgery evaluation. The patient was ultimately referred for a an outpatient CT scan of the neck by her primary care physician which was performed on 06/25/2022. This showed the patient had a 4.2 x 2.7 cm partial peripheral enhancing collection in the right posterior lower neck which was felt to be concerning for a developing abscess. Because of these findings her primary care physician referred her to the emergency department for further evaluation. In the emergency department the patient had labs and imaging which independent reviewed. Chest x-ray showed no evidence of pneumonia. Labs include a CBC were white blood cell count was 12.4. Hemoglobin and hematocrit were both within normal range as was her platelet count. Chemistry profile showed sodium was 143 with a potassium of 3.0. BUN and creatinine were 14 and 1.5. Initially upon presentation to the emergency department showed a lactic acid level of 5.5. She was given intravenous fluids and her lactic acid was checked approximately 2 hours later and had increased decreased to 4.4. There is no elevation of patient's procalcitonin that her liver function tests were unremarkable. A COVID test was noted to be negative. I did question the patient on her symptomatology and she denies any fevers, shakes, or chills. She does report some intermittent nausea without vomiting and denies any abdominal pain. She does note that she does feel lightheaded at times but has not had any falls or head injuries. She denies any cough or shortness of breath. She denies any dysphagia. She does report some generalized discomfort of her neck where the abscess is noted. At the time of my interview the patient was resting comfortably in bed and she was in no distress Allergies Allergy/AdvReac Type Severity Reaction Status Date / Time amoxicillin [From Augmentin] Allergy Intermediate BLISTERED Verified 06/25/22 21:10 HANDS & FEET clavulanic acid Allergy Intermediate BLISTERED Verified 06/25/22 21:10 [From Augmentin] HANDS & FEET simvastatin AdvReac Intermediate MUSCLE Verified 06/25/22 21:10 PAIN IN SHOULDERS Home Medications Medication Instructions Recorded Confirmed Type lancets 33 gauge (Pradip Vargas #100 ea 12/24/18 06/04/22 History Lancets) albuterol sulfate 90 mcg/actuation 1 - 2 puff inhalation Q4H PRN 05/01/20 06/25/22 Rx aerosol inhaler shortness of breath or wheezing #8.5 grams desloratadine 5 mg tablet 5 mg PO DAILY #90 tabs 06/20/21 06/25/22 Rx blood sugar diagnostic #100 ea 11/25/21 06/04/22 Rx melatonin 5 mg capsule 10 mg PO HS PRN Sleep 12/16/21 06/25/22 History lisinopril 20 1 tab PO DAILY #90 tabs 01/22/22 06/25/22 Rx mg-hydrochlorothiazide 12.5 mg tablet metformin 1,000 mg tablet 1,000 mg PO Q12H #180 tabs 01/22/22 06/25/22 Rx atorvastatin 10 mg tablet 10 mg PO HS #90 tabs 02/21/22 06/25/22 Rx glipizide 5 mg tablet, extended 5 mg PO BID #180 tabs 02/21/22 06/25/22 Rx release 24 hr sertraline 100 mg tablet 100 mg PO DAILY #90 tabs 02/21/22 06/25/22 Rx metoprolol succinate 25 mg 25 mg PO DAILY #90 tabs 06/04/22 06/25/22 Rx tablet,extended release 24 hr (Toprol XL) ondansetron HCl 4 mg tablet 4 mg PO Q8H PRN nausea and 06/20/22 06/25/22 Rx vomiting #30 tabs montelukast 10 mg tablet 10 mg PO DAILY #90 tabs 06/23/22 06/25/22 Rx Patient History Medical History Depression Diabetes mellitus type 2, uncontrolled Hyperlipidemia Obesity, morbid, BMI 40.0-49.9 Sleep disturbance Surgical History History of tubal ligation S/P tubal ligation Status post repair of nerve Family History Father Myocardial infarction Arthritis Diabetes Mother Diabetes Thyroid disorder Social History Smoking Status: Never smoker Hx Alcohol Use: Yes (social) Preferred Language: Colombian Communication Ability: Effective Visual Impairment: No Limitations Hearing Ability: Normal Feels Safe at Home: Yes Seatbelt Use: always Review of Systems Constitutional: no fever and no chills Eyes: no eye pain Ear, Nose, Mouth, Throat: no ear pain and no dysphagia Respiratory: no cough and no dyspnea Cardiovascular: no chest pain Gastrointestinal: + nausea; no abdominal pain and no vomiting Genitourinary: no dysuria Musculoskeletal: no back pain Integumentary: as per Subjective / HPI Neurologic: no localized weakness Physical Exam Physical Exam: The patient's neck was examined and on the right posterior lateral aspect at the base of her neck patient had approximate 8 cm x 6 cm area of erythema consistent with cellulitis. The central area of this was indurated with some fluctuance. There were no open areas or areas of drainage. There is no crepitus noted in the soft tissue. The area was slightly warm but was nontender to palpation. Constitutional: well developed, well nourished and + obese; no acute distress Eyes: no conjunctival abnormality ENMT: Ears: no hearing impairment and no external ear abnormality Mouth: no trismus The patient was able to converse in a normal manner. She did not have any difficulty with phonation. There is no stridor. Neck: trachea midline Please see above for description of neck cellulitis/area of infection Respiratory: normal respiratory effort; no respiratory distress and no labored breathing Cardiovascular: Rate/Rhythm: regular rate and regular rhythm Vessels: dorsalis pedis pulses present and radial pulses present Gastrointestinal (Abdomen): Abdomen is soft and rotund. It is nondistended. There is no rebound tenderness or guarding. There are no masses. There is no pain with palpation. Musculoskeletal: No calf tenderness. Feet are warm and nonmottled Skin: Please see above for description of neck cellulitis Neurologic: moves all extremities Psychiatric: Orientation: alert and oriented x 3 Results & Data ([facility]) Vital Signs (Past 12 Hours) Vital Signs Temp Pulse Pulse Resp BP BP Pulse Ox 06/25/22 22:00 71 18 121/72 93 06/25/22 20:21 71 17 95/58 L 96 06/25/22 19:31 94 06/25/22 19:22 76 06/25/22 17:32 36.6 C 86 18 106/73 96 O2 Del Method 06/25/22 22:00 06/25/22 20:21 Room Air 06/25/22 19:31 Room Air 06/25/22 19:22 06/25/22 17:32 Room Air PG Care Time/CCT Total # of Minutes Spent Total Time Spent with Patient: Total time spent is greater than 50% in coordination of care (as documented) at patient's floor/unit and/or counseling patient: Coding Level of Care Code 34501 INT INP/OBS CARE 375MIN Diagnoses Abscess of muscle of neck M60.08
[2022-06-26] MEDS ORDERED: ALBUTEROL HFA 8 GM INHALER INH PRN (02:13)
[2022-06-26] MEDS ORDERED: SODIUM CHLORIDE 0.9% 1000ML 1,000 ML IV SCH (02:13)
[2022-06-26] MEDS ORDERED: ONDANSETRON INJ 2 MG/ML 2 ML VIAL IV PRN (02:13)
[2022-06-26] MEDS ORDERED: GLUCOSE 40% GEL 15 GM TUBE PO PRN (02:13)
[2022-06-26] MEDS ORDERED: VANCOMYCIN CONSULT ACTIVE PRN (02:13)
[2022-06-26] MEDS ORDERED: CARBOHYDRATES FOR HYPOGLYCEMIA PO PRN (02:13)
[2022-06-26] MEDS ORDERED: GLUCOSE 10 TAB/TUBE PO PRN (02:13)
[2022-06-26] MEDS ORDERED: POLYETHYLENE (MIRALAX) 17 GM PACK PO PRN (02:13)
[2022-06-26] MEDS ORDERED: GLUCAGON FOR INJ 1 MG VIAL SQ PRN (02:13)
[2022-06-26] MEDS: metroNIDAZOLE 500 MG/100 ML BAG IV SCH ×2 (03:43→14:49)
[2022-06-26] MEDS ORDERED: CEFEPIME 2,000 MG in SYRINGE 0 ML IV SCH (04:00)
[2022-06-26 07:14] LABS: Hematocrit (blood only) 35.3 % (37.0-47.0); Hemoglobin 11.6 g/dl (12.0-16.0); Mean Corpuscular Hemoglobin 29.1 pg (25.0-34.0); Mean Corpuscular Hgb Conc 32.9 g/dL (32.0-36.0); Mean Corpuscular Volume 88.7 fL (80.0-100.0); Mean Platelet Volume 11.7 fL (9.4-12.4); Platelet Count 308 K/uL (130-400); RDW Coefficient of Variation 15.8 % (11.5-14.5); RDW Standard Deviation 51.1 fL (36.4-46.3); Red Blood Count 3.98 M/uL (4.20-5.40)
[2022-06-26] MEDS ORDERED: VANCOMYCIN HCL 2,000 MG in SODIUM CHLORIDE 0.9% 500 ML IV SCH (07:30)
[2022-06-26 07:31] LABS: Calcium 8.4 mg/dl (8.5-10.1); Creatinine Clr Calc Pharmacy 48.3 ml/min; Est GFR (African American) 36.8 ml/min; Est GFR (Non-African American) 31.8 ml/min
[2022-06-26 07:37] LABS: Basophils # (auto) 0.07 K/uL (0-0.2); Basophils % (auto) 0.6 %; Eosinophils # (auto) 0.36 K/uL (0-0.50); Eosinophils % (auto) 3.1 %; Immature Granulocytes # (auto) 0.03 K/uL (0.01-0.20); Immature Granulocytes % (auto) 0.3 %; Lymphocytes # (auto) 6.38 K/uL (1.2-3.4); Lymphocytes % (auto) 54.1 %; Monocytes # (auto) 1.18 K/uL (0.11-0.59); Neutrophils # (auto) 3.78 K/uL (1.40-6.50); Neutrophils % (auto) 31.9 %; RBC Morphology Unremarkable
[2022-06-26] MEDS: DEXTROSE 50% 50 ML SYRINGE IV PRN ×2 (08:12→11:34)
[2022-06-26] MEDS: INSULIN ASPART PER UNIT SC SCH ×4 (08:12→20:01)
[2022-06-26] MEDS: MONTELUKAST SODIUM 10 MG TABLET PO SCH (08:13)
[2022-06-26] MEDS: METOPROLOL SUCC 25MG EXT REL TAB PO SCH (08:13)
[2022-06-26] MEDS: SERTRALINE HCL 100 MG TABLET PO SCH (08:13)
[2022-06-26] MEDS: LORATADINE 10 MG TAB PO SCH (08:13)
[2022-06-26] MEDS: LANTUS PER UNIT CHARGE SQ SCH ×2 (08:45→20:52)
--- NOTE | 2022-06-26 10:08 | Medical Student Progress Note ---
Date of Service June 26, 2022 Assessment & Plan (1) Abscess of muscle of neck: Plan: Patient is a 66 yo female with PMHx of HTN, DM, HLD, depression/anxiety, pAfib, and recent retropharyngeal abscess admitted to [facility] on 06/25/22 for abscess of neck muscle and cellulitis. Abscess of muscle of neck and cellulitis - Patient w/ hx of similar deep neck abscess requiring I&D ~2 months ago at [place]. Completed IV abx therapy (Unasyn) and subsequent po abx therapy (Augmentin) on 05/16/22. Since that time, patient with recurrent and progressive concern for cellulitis. - CT soft tissue/neck 06/25: suggestive of possible 4x3cm abscess + cellulitis on R posterior shoulder. - On admission pt appeared well and non-toxic. Not tachycardic. Not tachypneic. She is normotensive. Elevated lactate (4.4) with mild leukocytosis (12.4). Blood cultures pending. - Patient has not met criteria for sepsis - General surgery consulted -- I&D performed - Patient received cefepime, vancomycin, and flagyl in ED. Will narrow abx therapy to cefepime & vancomycin, plan to switch to Bactrim at discharge Paroxysmal Atrial Fibrillation - Currently in NSR, continue cardiac monitoring - Continue rate control with home metoprolol succinate 25mg po daily Diabetes Mellitus Type 2 - Most recent A1c 6.2% on 06/04/22 - Hold home glipizide and metformin - Start lantus 24 units BID and ISS Depression - Continue home sertraline Hyperlipidemia - Continue home statin Hypertension - Normotensive. Hold home lisinopril-HCTZ Insomnia - Continue home melatonin prn Seasonal Allergies - Continue home Singulair and desloratadine FENGI: Carb consistent diet Dispo: medsurg w/ tele, - Consider d/c tomorrow if clinically stable. Code status: Conditional -- accepts CPR, defibrillation, and ACLS medication; no artificial airway or ventilation Patient does not have advanced directives but states that in a situation where she can not make her own medical decisions, her daughter Bernadine would be medical decision maker. (2) Cellulitis: Site of cellulitis: neck Qualified Code(s): L03.221 - Cellulitis of neck (3) H/O retropharyngeal abscess: (4) Paroxysmal A-fib: (5) Depression: (6) Hyperlipidemia: (7) Diabetes mellitus: (8) Sleep disturbance: (9) Hypertension: Admission and Anticipated Discharge Date Admission Date: June 25, 2022 Supervising Attestation I personally examined the patient and verified all flores points of history and exam, discussed case, and agree with decision making with A David CHATTERJEE and Dr Viveros Feeling okay postop. Surgery input greatly appreciated. Vitals noted, in general she is awake and alert pleasant no distress. HEENT normocephalic atraumatic mucous membranes moist. Breathing unlabored no accessory muscle use good effort. Skin shows no rashes no pallor or icterus. Neuro without focal deficits. Area of surgery dressed, dressing appears clean dry and intact, no erythema beyond margins. Recurrent cellulitis and phlegmonfortunately no abscess. Suspect resistant gram positives, versus far less likely gram-negative. No need for anaerobic coverage given no gas/gangrene situation. Continue Vanco and cefepime for now, follow overnight, anticipate probably safe for home on Bactrim tomorrow. DVT proph - heparin SQ Subjective Patient is a 66 yo female with PMHx of HTN, DM, HLD, depression/anxiety, pAfib, and recent retropharyngeal abscess admitted to [facility] on 06/25/22 for abscess of neck muscle and cellulitis. 32: Pt seen at bedside this AM. She is feeling well. Some pain over R shoulder/neck area. Denies fevers/chills/SOB/chest pain. Looking forward to [facility] & moving forward w/ recovery. Review of Systems Review of Systems: As per HPI. Physical Exam Physical Exam: GENERAL: No acute distress. Non-toxic appearing. Well developed and well nourished. Vital signs reviewed. RESPIRATORY: Clear to auscultation bilaterally. No wheezing, rales, or rhonchi. No increased work of breathing. CARDIOVASCULAR: RRR. No murmurs, rubs, or gallops. EXTREMITIES: No edema. Non-tender. SKIN: Dry. There is an erythematous, indurated area of the right posterior shoulder with a few nodules that are mildly tender to palpation. No active discharge or drainage. The skin is warm to touch. NEUROLOGIC: A/O x3. Normal speech. No focal neurological deficits. PSYCHIATRIC: Cooperative. Appropriate mood and affect. Results & Data ([facility]) Vital Signs (Past 12 Hours) Vital Signs Temp Pulse Pulse Resp BP BP Pulse Ox 06/26/22 07:42 36.6 C 68 20 135/81 95 06/26/22 02:37 06/26/22 02:13 36.8 C 78 18 164/71 H 95 06/26/22 01:52 74 18 128/76 95 06/26/22 01:00 76 18 133/72 94 06/25/22 23:22 71 06/25/22 23:00 73 20 127/79 92 06/25/22 22:00 71 18 121/72 93 O2 Del Method O2 Flow Rate 06/26/22 07:42 Nasal Cannula 2 06/26/22 02:37 Nasal Cannula 2 06/26/22 02:13 Nasal Cannula 2 06/26/22 01:52 Room Air 06/26/22 01:00 Room Air 06/25/22 23:22 06/25/22 23:00 Room Air 06/25/22 22:00
[2022-06-26 10:33] LABS: Appearance Urine Cloudy (Clear); Bacteria Urine Automated Negative (Negative); Bilirubin Urine Negative (Negative); Blood Urine 1+ (Negative); Color Urine Yellow; Epithelial Cell Urine Auto >30 /lpf (0-5); Glucose Urine UA Negative (Negative); Ketones Urine Trace (Negative); Leukocyte Esterase Urine 3+ (Negative); Nitrite Urine Negative (Negative); Protein Urine 1+ (Negative); RBC Urine Automated 0-4 /hpf (0-4); Specific Gravity Urine 1.037 (1.000-1.030); Urobilinogen Urine Negative (Negative); WBC Urine Automated >30 /hpf (0-5)
[2022-06-26] MEDS ORDERED: ePHEDrine sulfate 50 MG/ML AMP IV PRN (11:34)
[2022-06-26] MEDS ORDERED: ATROPINE SULFATE 0.1 MG/ML 10ML SYR IV PRN (11:34)
[2022-06-26] MEDS ORDERED: HYDROmorphone INJ 1 MG/ML SYRINGE IV PRN (11:34)
--- NOTE | 2022-06-26 11:34 | Anesthesiology Consultation ---
Date of Service June 26, 2022 Assessment & Plan Chart Review Chart Review: Acceptable Risk for Surgery Consults Requested none ASA ASA3 Proposed Anesthesia Anesthesia Type: General History Surgery Operation Date: 06/26/22 11:40 Proposed Procedures p Incision and Drainage Neck Abscess - Romeo Chase DO, FACS Height/Weight Height: 5 ft 5 in Weight: 142.3 kg Allergies Allergy/AdvReac Type Severity Reaction Status Date / Time amoxicillin [From Augmentin] Allergy Intermediate BLISTERED Verified 06/25/22 21:10 HANDS & FEET clavulanic acid Allergy Intermediate BLISTERED Verified 06/25/22 21:10 [From Augmentin] HANDS & FEET simvastatin AdvReac Intermediate MUSCLE Verified 06/25/22 21:10 PAIN IN SHOULDERS Medications Home Medications Medication Instructions Recorded Confirmed Last Taken lancets 33 gauge (OneTouch [employer] #100 ea 12/24/18 06/04/22 Unknown Lancets) albuterol sulfate 90 mcg/actuation 1 - 2 puff inhalation Q4H PRN 05/01/20 06/25/22 Unknown aerosol inhaler shortness of breath or wheezing #8.5 grams desloratadine 5 mg tablet 5 mg PO DAILY #90 tabs 06/20/21 06/25/22 06/25/22 blood sugar diagnostic #100 ea 11/25/21 06/04/22 Unknown melatonin 5 mg capsule 10 mg PO HS PRN Sleep 12/16/21 06/25/22 Unknown lisinopril 20 1 tab PO DAILY #90 tabs 01/22/22 06/25/22 06/25/22 mg-hydrochlorothiazide 12.5 mg tablet metformin 1,000 mg tablet 1,000 mg PO Q12H #180 tabs 01/22/22 06/25/22 06/25/22 atorvastatin 10 mg tablet 10 mg PO HS #90 tabs 02/21/22 06/25/22 06/25/22 glipizide 5 mg tablet, extended 5 mg PO BID #180 tabs 02/21/22 06/25/22 06/25/22 release 24 hr sertraline 100 mg tablet 100 mg PO DAILY #90 tabs 02/21/22 06/25/22 06/25/22 metoprolol succinate 25 mg 25 mg PO DAILY #90 tabs 06/04/22 06/25/22 06/25/22 tablet,extended release 24 hr (Toprol XL) ondansetron HCl 4 mg tablet 4 mg PO Q8H PRN nausea and 06/20/22 06/25/22 Unknown vomiting #30 tabs montelukast 10 mg tablet 10 mg PO DAILY #90 tabs 06/23/22 06/25/22 06/25/22 Active Medications Generic Name Dose Route Start Last Admin Trade Name Reedq PRN Reason Stop Dose Admin Dextrose 25 - 50 ml 06/26/22 02:13 06/26/22 11:34 Dextrose 50% 50 Ml Syringe IV 07/26/22 02:12 25 ml UD PRN Administration Hypoglycemia Protocol Protocol Metronidazole 500 mg in 100 mls @ 100 mls/hr 06/26/22 04:00 06/26/22 05:01 Flagyl IV 07/03/22 03:59 Infused Q8H LUCITA Infusion Insulin Aspart 0 units 06/26/22 07:30 06/26/22 11:27 Insulin Aspart Per Unit SC 07/26/22 07:29 Not Given ACHS LUCITA Insulin Glargine 24 units 06/26/22 09:00 06/26/22 08:45 Lantus Per Unit Charge SQ 07/26/22 08:59 10 units BID LUCITA Administration Loratadine 10 mg 06/26/22 09:00 06/26/22 08:13 Loratadine 10 Mg Tab PO 07/26/22 08:59 10 mg DAILY LUCITA Administration Metoprolol Succinate 25 mg 06/26/22 09:00 06/26/22 08:13 Metoprolol Succ 25mg Ext Rel Tab PO 07/26/22 08:59 25 mg DAILY LUCITA Administration Montelukast Sodium 10 mg 06/26/22 09:00 06/26/22 08:13 Montelukast Sodium 10 Mg Tablet PO 07/26/22 08:59 10 mg DAILY LUCITA Administration Sertraline HCl 100 mg 06/26/22 09:00 06/26/22 08:13 Sertraline Hcl 100 Mg Tablet PO 07/26/22 08:59 100 mg DAILY LUCITA Administration Past Medical History Medical History Depression Diabetes mellitus type 2, uncontrolled Hyperlipidemia Obesity, morbid, BMI 40.0-49.9 Sleep disturbance Past Family History Family History Father Myocardial infarction Arthritis Diabetes Mother Diabetes Thyroid disorder Past Surgical History Surgical History History of tubal ligation S/P tubal ligation Status post repair of nerve Social History Smoking Status: Never smoker Do You Dip or Chew Tobacco: No Hx Alcohol Use: Yes (social) Alcohol Intake Frequency Comment: Socially Hx Substance Use: No Physical Exam Vital Signs Last Vital Signs Temp 36.8 C 06/26/22 11:50 Pulse 69 06/26/22 11:50 Resp 18 06/26/22 11:50 BP 121/80 06/26/22 11:50 Pulse Ox 93 06/26/22 11:50 O2 Del Method Room Air 06/26/22 11:50 O2 Flow Rate 2 06/26/22 07:42 Testing Laboratory Results 06/26/22 05:50 06/26/22 05:50 Urine Color Yellow 06/26/22 10:10 Urine Appearance Cloudy (Clear) A 06/26/22 10:10 Urine pH 5.0 (4.5-7.5) 06/26/22 10:10 Ur Specific [place] 1.037 (1.000-1.030) H 06/26/22 10:10 Urine Protein 1+ (Negative) H 06/26/22 10:10 Urine Glucose (UA) Negative (Negative) 06/26/22 10:10 Urine Ketones Trace (Negative) H 06/26/22 10:10 Urine Nitrite Negative (Negative) 06/26/22 10:10 Ur Leukocyte Esterase 3+ (Negative) H 06/26/22 10:10 Urine WBC (Auto) >30 /hpf (0-5) H 06/26/22 10:10 Urine RBC (Auto) 0-4 /hpf (0-4) 06/26/22 10:10 U Hyaline Cast (Auto) 10-30 /lpf (0-5) H 06/26/22 10:10 U Epithel Cells (Auto) >30 /lpf (0-5) H 06/26/22 10:10 Urine Bacteria (Auto) Negative (Negative) 06/26/22 10:10 06/26/22 06/26/22 06/26/22 11:55 11:29 08:44 POC Glucose 95 64 L* 108 H 06/26/22 06/26/22 07:51 07:47 POC Glucose 64 L* 67 L*
[2022-06-26] MEDS ORDERED: ONDANSETRON INJ 2 MG/ML 2 ML VIAL ONE (11:47)
[2022-06-26] MEDS ORDERED: ROCURONIUM BROMIDE 10 MG/ML 5 ML VIAL IV ONE ×6 (11:47→13:47)
[2022-06-26] MEDS ORDERED: LIDOCAINE 2% MPF LOCAL 5 ML VIAL INFIL ONE (11:47)
[2022-06-26] MEDS ORDERED: MIDAZOLAM HCL 1 MG/ML 2ML VIAL ONE (11:47)
[2022-06-26] MEDS ORDERED: SUCCINYLCHOLINE CHLORIDE 20 MG/ML 10 ML VIAL IV ONE (11:47)
[2022-06-26] MEDS ORDERED: PROPOFOL IV EMULSION 10 MG/ML 20 ML VIAL IV ONE (11:47)
[2022-06-26] MEDS ORDERED: fentaNYL citrate 100 MCG/2 ML VIAL ONE (11:47)
[2022-06-26] MEDS ORDERED: BUPIVACAINE/EPINEPHRINE 0.5% MPF 1:200,000 30 ML VIAL ONE (12:07)
--- NOTE | 2022-06-26 12:10 | Surgery Progress Note ---
Date of Service June 26, 2022 Assessment & Plan (1) Abscess of muscle of neck: Plan: Right posterior neck/shoulder abscess Plan for incision and drainage of right posterior neck/shoulder abscess Discussed to include but not limited to bleeding, infection, recurrence, need for future more extensive surgery, demonstrating structures, and the risk of anesthesia Continue IV antibiotics, patient will likely need prolonged antibiotics for the extensive cellulitis and chronicity of her condition We will recommend wound care consult (2) Cellulitis: Admission and Anticipated Discharge Date Admission Date: June 25, 2022 Subjective 66-year-old female admitted with cellulitis of posterior neck/shoulder abscess. Physical Exam Constitutional: WD/WN, vitals as above + morbidly obese Skin: + erythema and + fluctulance Cellulitis on right posterior neck and shoulder extending anteriorly. Area of fluctuance and some bullae. Results & Data ([facility]) Vital Signs (Past 12 Hours) Vital Signs Temp Pulse Pulse Pulse Resp BP BP 06/26/22 11:50 36.8 C 69 18 121/80 06/26/22 11:44 36.8 C 72 72 18 143/74 H 06/26/22 09:46 06/26/22 07:42 36.6 C 68 20 135/81 06/26/22 02:37 06/26/22 02:13 36.8 C 78 18 164/71 H 06/26/22 01:52 74 18 128/76 06/26/22 01:00 76 18 133/72 Pulse Ox O2 Del Method O2 Flow Rate 06/26/22 11:50 93 Room Air 06/26/22 11:44 96 Room Air 06/26/22 09:46 Room Air 06/26/22 07:42 95 Nasal Cannula 2 06/26/22 02:37 Nasal Cannula 2 06/26/22 02:13 95 Nasal Cannula 2 06/26/22 01:52 95 Room Air 06/26/22 01:00 94 Room Air Diagnostic Findings Personally viewed and interpreted the CT scan by myself, agree with the assessment of 4 x 3 cm abscess in the right posterior neck/shoulder. There is extensive cellulitis surrounding this but no other drainable fluid collections on my read. CT soft tissue neck w con HISTORY: L02.11 - Cutaneous abscess of neck TECHNIQUE: Multiaxial CT images of the neck were performed following the intravenous administration of 120 cc of Optiray 320. Sagittal and coronal reformations were performed at the lower station by the radiologist. COMPARISON STUDY: None. FINDINGS: The visualized brain parenchyma and orbits are unremarkable. The pterygopalatine fossa and parapharyngeal fat spaces are well-maintained. The major mucosal airways services are intact. Prevertebral soft tissues and the epiglottis are normal in thickness. The thyroid gland enhances normally. The main pulmonary artery is dilated up to 4.2 cm. There is a 5 mm anterior communicate artery aneurysm on image 71. The major cervical vessels enhance normally. The parotid and submandibular glands are symmetric. Mild lower right posterior cervical chain lymphadenopathy. This is likely reactive. There is extensive subcutaneous fat stranding within the right posterior lower neck and extending into the right supraclavicular/upper right chest wall region. There is a 4.2 x 2.7 cm partial peripheral enhancing collection within the right posterior lower neck which partially involves the right latissimus dorsi muscle best seen on image 243. This is consistent with a developing abscess. The lung apices are clear. No acute fractures identified. IMPRESSION: 1. There is a 4.2 x 2.7 cm partial peripheral enhancing collection within the right posterior lower neck which partially involves the right latissimus dorsi muscle consistent with a developing abscess. 2. There is associated subcutaneous fat stranding within the right posterior lower neck and extending into the right supraclavicular/upper right chest wall region consistent with a cellulitis. 3. Mild right lower posterior cervical chain lymphadenopathy which is likely reactive. 4. 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 5. This report was called/faxed to the referring physician following dictation. PG Care Time/CCT Total # of Minutes Spent Total Time Spent with Patient: Total time spent is greater than 50% in coordination of care (as documented) at patient's floor/unit and/or counseling patient: Coding Level of Care Code 49636 SUB INP/OBS CARE 05/21MIN Diagnoses Abscess of muscle of neck M60.08 Cellulitis L03.221 Site of cellulitis: neck (2) Cellulitis Site of cellulitis: neck Qualified Code(s): L03.221 - Cellulitis of neck
[2022-06-26] MEDS ORDERED: NEOSTIGMINE METHYLSULFATE 1 MG/ML 10ML VIAL ONE (13:02)
[2022-06-26] MEDS ORDERED: GLYCOPYRROLATE 0.2 MG/ML VIAL ONE (13:02)
--- NOTE | 2022-06-26 13:11 | Operative Report ---
PG Post Operative Report Pre & Post Diagnosis Operation Date: 06/26/22 11:40 Pre-Op Diagnosis: Abscess, Cellulitis Post-Op Diagnosis: Abscess, Cellulitis I identified the patient and participated in the time-out.: Yes Procedure Operation Date: 06/26/22 11:40 Actual Procedures p Incision and Drainage right shoulder/neck Abscess(Right) - Romeo Chase DO, JAYE Surgeon Romeo Chase DO, JAYE Cash Register Repairer None Estimated Blood Loss 5 Findings Consistent with Post-Op Diagnosis Incision and drainage performed, mostly phlegmon with significant edema and small pockets of thick pus, muscle viable, no evidence of large abscess or necrotizing infection. Specimens Right shoulder abscess cavity Right shoulder abscess cultures Anesthesia Type General Complications none Disposition Accompanied Patient To Recovery: No Disposition: Recovery Room Indications 66-year-old female with history of retropharyngeal abscess and prolonged hospital stay at [facility], now with chronic cellulitis and possible abscess of her right shoulder/posterior neck. She underwent an outpatient CT scan which suggested a 4 x 2 cm abscess with significant surrounding cellulitis and edema. Plan for incision and drainage of right shoulder/posterior neck abscess. The risks of the procedure were discussed, all questions were answered, and the patient agreed to proceed with surgery as planned. Description of Procedure The patient was properly identified, consented, and taken to the operating room where she was placed in the supine position. General endotracheal anesthesia was induced. SCDs and a safety belt were placed. Preoperative antibiotics were administered. Patient was then placed in the prone position. The patient's posterior neck and right shoulder was prepped and draped in the standard sterile fashion. Surgical timeout was performed and all parties were in agreement that this was the correct patient and procedure to be performed and we continued as planned. Local anesthetic was injected along the skin incision. A elliptical incision was made overlying the abscess identified on CT and deepened down through the subcutaneous tissue with electrocautery. This was taken down to the muscular layer. There was significant edema within the soft tissues, and there were small pockets of pus throughout. There is no large fluid collection. This appeared to be mostly phlegmon in the area of concern. The muscle was viable and did not show any evidence of tracking and was not consistent with a necrotizing soft tissue infection. The elliptical incision was extended anteriorly and medially for other areas of induration and small pockets of pus. It appeared that everything was drained. The area was irrigated and hemostasis achieved. The wound was packed with 2 inch Kerlix gauze. A sterile dressing was applied. The patient was rolled into the supine position and extubated in the operating room and taken to the PACU where she recovered without apparent incident. All sponge, instrument and needle counts were correct at the conclusion of the procedure. The patient tolerated the procedure well. I attest to the content of the Intraoperative Record and any orders documented therein. Any exceptions are noted below.
--- NOTE | 2022-06-26 13:55 | Anesthesiology Progress Note ---
Date of Service June 26, 2022 Anesthesia Post Procedure Vital Signs Vital Signs: Temp Pulse Pulse Pulse Resp BP BP 06/26/22 13:50 70 15 114/72 06/26/22 13:40 72 16 119/64 06/26/22 13:30 77 12 115/70 06/26/22 13:25 36.0 C L 80 20 111/76 06/26/22 11:50 36.8 C 69 18 121/80 06/26/22 11:44 36.8 C 72 72 18 143/74 H 06/26/22 09:46 06/26/22 07:42 36.6 C 68 20 135/81 06/26/22 02:37 06/26/22 02:13 36.8 C 78 18 164/71 H 06/26/22 01:52 74 18 128/76 06/26/22 01:00 76 18 133/72 06/25/22 23:22 71 06/25/22 23:00 73 20 127/79 06/25/22 22:00 71 18 121/72 06/25/22 20:21 71 17 95/58 L 06/25/22 19:31 06/25/22 19:22 76 06/25/22 17:32 36.6 C 86 18 106/73 Pulse Ox O2 Del Method O2 Flow Rate 06/26/22 13:50 95 Nasal Cannula 2 06/26/22 13:40 98 Oxymask 3 06/26/22 13:30 98 Oxymask 6 06/26/22 13:25 96 Oxymask 6 06/26/22 11:50 93 Room Air 06/26/22 11:44 96 Room Air 06/26/22 09:46 Room Air 06/26/22 07:42 95 Nasal Cannula 2 06/26/22 02:37 Nasal Cannula 2 06/26/22 02:13 95 Nasal Cannula 2 06/26/22 01:52 95 Room Air 06/26/22 01:00 94 Room Air 06/25/22 23:22 06/25/22 23:00 92 Room Air 06/25/22 22:00 93 06/25/22 20:21 96 Room Air 06/25/22 19:31 94 Room Air 06/25/22 19:22 06/25/22 17:32 96 Room Air Pain Intensity Neck: Pain Intensity: 0 Transfer of Care Handoff Completed per policy Notes Mental Status: alert / awake / arousable and participated in evaluation Nausea / Vomiting: adequately controlled Pain: adequately controlled Airway Patency, RR, SpO2: stable & adequate BP & HR: stable & adequate Hydration State: stable & adequate Anesthetic Complications: no major complications apparent and Pt Satisfied with anesthetic care
[2022-06-26] MEDS ORDERED: oxyCODONE HCL IR 5 MG TAB (IMMEDIATE RELEASE) PO PRN (14:44)
[2022-06-26] MEDS ORDERED: MoRPHine SULFATE 2 MG/ML CARP IV PRN (14:44)
[2022-06-26] MEDS ORDERED: ACETAMINOPHEN 325 MG TAB PO PRN (14:44)
--- NOTE | 2022-06-26 15:24 | Pharmacy Report ---
Pharmacy PK ABX Note - Date of Service June 26, 2022 - Assessment and Plan Assessment * Ms Siegel is a 66 year old F receiving vancomycin/cefepime/metronidazole for treatment of neck cellulitis/abscess. * Pertinent microbiologic data includes: blood cx pending; wound cx obtained in OR today pending * Approx 2 months ago, pt was admitted to [facility] for retropharyngeal abscess requiring I&D. Reportedly, she also had septic shock 2/2 group A strep bacteremia during that admission, related to this abscess/cellulitis. After discharge, she continued to receive IV Unasyn (completed 05/04/22) and then Augmentin (completed 05/16/22). * Pt presented to [facility] with worsening weakness/dizziness/shoulder swelling. CT neck consistent w/ cellulitis and developing abscess. * Pt was taken to the OR today for I&D. * Some OCHOA on admission (SCr 1.52 --> 1.67, baseline ~0.8) Plan Vancomycin * Loading dose: 2750 mg IV x 1 * Maintenance dose: 1000 mg IV every 24 hours * Regimen is predicted to achieve target AUC/CHAMP of 400-600 mg/L.hr * Will obtain a random level tomorrow morning to assess appropriateness of dosing. Using caution in the setting of OCHOA and obesity (BMI 52.2). Flagyl 500mg IV q8h Cefepime 2gm IV q8h --> reduced to q12h today for CrCl <60mL/min Pharmacy will continue to follow and will adjust dose/frequency as necessary. Thank you. Pharmacy has transitioned to AUC monitoring for vancomycin. AUC/CHAMP is the preferred PK/PD target and is associated with decreased risk of nephrotoxicity compared to traditional trough targets.
[2022-06-26] MEDS: CEFEPIME 2,000 MG in SYRINGE 0 ML IV SCH (16:56)
--- NOTE | 2022-06-26 18:26 | Billing Data ---
Date of Service June 26, 2022 Coding Level of Care Code 61124 SUB INP/OBS CARE
[2022-06-26] MEDS ORDERED: VANCOMYCIN HCL 1,000 MG in SODIUM CHLORIDE 0.9% 250 ML IV SCH (20:00)
[2022-06-26] MEDS: ATORVASTATIN 10 MG TAB PO SCH (20:01)
[2022-06-26] MEDS: HEPARIN SOD 5,000 UNIT/0.5 ML VIAL SQ SCH (20:08)
--- NOTE | 2022-06-27 04:31 | Electrocardiogram Report ---
Test Reason : Blood Pressure : / mmHG Vent. Rate : 079 BPM Atrial Rate : 079 BPM P-R Int : 162 ms QRS Dur : 088 ms QT Int : 416 ms P-R-T Axes : 025 009 027 degrees QTc Int : 477 ms Poor data quality, interpretation may be adversely affected Normal sinus rhythm Nonspecific T wave abnormality Abnormal ECG When compared with ECG of 07-JUN-2016 20:35, Premature ventricular complexes are no longer Present Confirmed by John Montano ([id number]) on 06/27/2022 4:31:36 AM Referred By: Van Mckeon Confirmed By:John Montano
--- NOTE | 2022-06-27 04:45 | Billing Data ---
Date of Service June 27, 2022 Coding Level of Care Code 74490 INT INP/OBS CARE
[2022-06-27] MEDS: CEFEPIME 2,000 MG in SYRINGE 0 ML IV SCH ×3 (05:02→22:07)
[2022-06-27 07:13] LABS: Hematocrit (blood only) 36.6 % (37.0-47.0); Hemoglobin 11.9 g/dl (12.0-16.0); Mean Corpuscular Hemoglobin 28.9 pg (25.0-34.0); Mean Corpuscular Hgb Conc 32.5 g/dL (32.0-36.0); Mean Corpuscular Volume 88.8 fL (80.0-100.0); Mean Platelet Volume 11.4 fL (9.4-12.4); Platelet Count 273 K/uL (130-400); Red Blood Count 4.12 M/uL (4.20-5.40); White Blood Count 14.58 K/ul (4.8-10.8)
[2022-06-27 07:16] LABS: BUN Creatinine Ratio 10.8 (10-20); Calcium 8.4 mg/dl (8.5-10.1); Creatinine Clr Calc Pharmacy 58.2 ml/min; Est GFR (Non-African American) 39.7 ml/min; Potassium 3.2 mmol/L (3.5-5.1)
[2022-06-27 07:55] LABS: ALC (manual) 6.12 K/uL (1.2-3.4); Basophils # (manual) 0.15 K/uL (0-0.2); Basophils % (manual) 1 %; Eosinophils # (manual) 0.44 K/uL (0-0.50); Eosinophils % (manual) 3 %; Large Granular Lymph # (manua 4.67 K/uL; Large Granular Lymph % (manual) 32 %; Lymphocytes # (manual) 1.46 K/uL (1.2-3.4); Lymphocytes % (manual) 10 %; Monocytes # (manual) 0.87 K/uL (0.11-0.59); Monocytes % (manual) 6 %; Neutrophils % (manual) 48 %; RBC Morphology Unremarkable
[2022-06-27] MEDS: METOPROLOL SUCC 25MG EXT REL TAB PO SCH (08:39)
[2022-06-27] MEDS: LORATADINE 10 MG TAB PO SCH (08:39)
[2022-06-27] MEDS: SERTRALINE HCL 100 MG TABLET PO SCH (08:39)
[2022-06-27] MEDS: MONTELUKAST SODIUM 10 MG TABLET PO SCH (08:39)
[2022-06-27] MEDS: INSULIN ASPART PER UNIT SC SCH ×4 (08:40→20:01)
[2022-06-27] MEDS: HEPARIN SOD 5,000 UNIT/0.5 ML VIAL SQ SCH ×2 (08:41→20:00)
[2022-06-27] MEDS ORDERED: POTASSIUM CHLORIDE PWD 20 MEQ PACK PO ONE (08:50)
[2022-06-27] MEDS ORDERED: LACTATED RINGER'S 500 ML IV ONE (08:52)
--- NOTE | 2022-06-27 09:26 | Surgery Progress Note ---
Date of Service June 27, 2022 Assessment & Plan (1) Cellulitis of right shoulder: Plan: POD #1 incision and drainage of right shoulder/neck abscess. Majority of this was just severe cellulitis with no large pocket of fluid. Would recommend prolonged continued antibiotics, consider IV antibiotics, made 1 to discuss with ID Evaluated by wound care nurse at the time of my visit, will likely place V[facility], will turn wound care over to their service Dr. Hagen covering over weekend Surgery will follow peripherally, call with questions or concerns (2) Abscess of muscle of neck: Admission and Anticipated Discharge Date Admission Date: June 25, 2022 Subjective POD #1 incision and drainage of right shoulder abscess. No large fluid collec tion, mostly severe cellulitis with small pockets of fluid, muscle viable. Pain controlled, WBC up slightly, afebrile Physical Exam Constitutional: WD/WN, vitals as above Skin: no rashes, warm and dry + wound Dressing removed, good hemostasis. Cellulitis appears slightly improved, no obvious undrained fluid collections. Results & Data ([facility]) Vital Signs (Past 12 Hours) Vital Signs Temp Pulse Pulse Resp BP Pulse Ox O2 Del Method 06/27/22 07:00 36.6 C 68 16 117/69 94 Nasal Cannula 06/27/22 02:58 36.5 C 67 18 138/82 93 Nasal Cannula 06/26/22 22:00 78 06/26/22 22:58 37.0 C 65 18 131/81 95 Nasal Cannula 06/26/22 22:36 Nasal Cannula O2 Flow Rate 06/27/22 07:00 1 06/27/22 02:58 1 06/26/22 22:00 06/26/22 22:58 1 06/26/22 22:36 2 Laboratory Results Laboratory Results - last 24 hr 06/26/22 06/26/22 06/26/22 10:10 11:29 11:55 WBC RBC Hgb Hct MCV MCH MCHC RDW Std Deviation RDW Coeff of Geetha Plt Count MPV Immature Gran % (Auto) Neut % (Auto) Lymph % (Auto) [place] % (Auto) Eos % (Auto) Baso % (Auto) Neut # (Auto) Lymph # (Auto) [place] # (Auto) Eos # (Auto) Baso # (Auto) Immature Gran # (Auto) Absolute Nucleated RBC Nucleated RBC % (auto) Neutrophils % (Manual) Band Neutrophils % Lymphocytes % (Manual) Prolymphocyte % Reactive Lymphs % (Man) Monocytes % (Manual) Eosinophils % (Manual) Basophils % (Manual) Metamyelocytes % (Man) Myelocytes % (Man) Promyelocytes % (Man) Blast Cells % (Manual) Plasma Cell % (Manual) Other Cells % Nucleated RBC % Neutrophils # (Manual) Band Neutrophils # Total Absolute Neuts Lymphocytes # (Manual) Prolymphocyte # Reactive Lymphs # Total Abs Lymphocytes Monocytes # (Manual) Eosinophils # (Manual) Basophils # (Manual) Metamyelocytes # (Man) Myelocytes # (Manual) Promyelocytes # (Man) Blast Cells # (Man) Plasma Cell # (Manual) Other Cells # Nucleated RBCs # (Man) Hypersegmented Neuts Hyposegmented Neuts Hypogranular Neuts Large Granular Lymphs # Lrg Granular Lymphs Hairy Cells Smudge Cells Toxic Granulation Toxic Vacuolation Dohle Bodies Saima Rods Platelet Estimate Hypogranular Platelets Giant Platelets Platelet Satelliting RBC Morphology Polychromasia Hypochromasia Poikilocytosis Basophilic Stippling Anisocytosis Microcytosis Macrocytosis Spherocytes Pappenheimer Bodies Sickle Cells Target Cells Tear Drop Cells Ovalocytes Stomatocytes Chiu-Ozark Bodies Echinocytes Acanthocytes (Spur) Rouleaux RBC Agglutinates Schistocytes Sezary Cell Sodium Potassium Chloride Carbon Dioxide Anion Gap BUN Creatinine Est Cr Clr Drug Dosing Est GFR ( Amer) Est GFR (Non-Af Amer) BUN/Creatinine Ratio Glucose POC Glucose 64 L* 95 Calcium Magnesium Urine Color Yellow Urine Appearance Cloudy A Urine pH 5.0 Ur Specific Fowler 1.037 H Urine Protein 1+ H Urine Glucose (UA) Negative Urine Ketones Trace H Urine Blood 1+ H Urine Nitrite Negative Urine Bilirubin Negative Urine Urobilinogen Negative Ur Leukocyte Esterase 3+ H Urine WBC (Auto) >30 H Urine RBC (Auto) 0-4 U Hyaline Cast (Auto) 10-30 H U Epithel Cells (Auto) >30 H Urine Bacteria (Auto) Negative Random Vancomycin Blood Parasites ID 06/26/22 06/26/22 06/26/22 13:30 16:52 19:56 WBC RBC Hgb Hct MCV MCH MCHC RDW Std Deviation RDW Coeff of Geetha Plt Count MPV Immature Gran % (Auto) Neut % (Auto) Lymph % (Auto) [place] % (Auto) Eos % (Auto) Baso % (Auto) Neut # (Auto) Lymph # (Auto) [place] # (Auto) Eos # (Auto) Baso # (Auto) Immature Gran # (Auto) Absolute Nucleated RBC Nucleated RBC % (auto) Neutrophils % (Manual) Band Neutrophils % Lymphocytes % (Manual) Prolymphocyte % Reactive Lymphs % (Man) Monocytes % (Manual) Eosinophils % (Manual) Basophils % (Manual) Metamyelocytes % (Man) Myelocytes % (Man) Promyelocytes % (Man) Blast Cells % (Manual) Plasma Cell % (Manual) Other Cells % Nucleated RBC % Neutrophils # (Manual) Band Neutrophils # Total Absolute Neuts Lymphocytes # (Manual) Prolymphocyte # Reactive Lymphs # Total Abs Lymphocytes Monocytes # (Manual) Eosinophils # (Manual) Basophils # (Manual) Metamyelocytes # (Man) Myelocytes # (Manual) Promyelocytes # (Man) Blast Cells # (Man) Plasma Cell # (Manual) Other Cells # Nucleated RBCs # (Man) Hypersegmented Neuts Hyposegmented Neuts Hypogranular Neuts Large Granular Lymphs # Lrg Granular Lymphs Hairy Cells Smudge Cells Toxic Granulation Toxic Vacuolation Dohle Bodies Saima Rods Platelet Estimate Hypogranular Platelets Giant Platelets Platelet Satelliting RBC Morphology Polychromasia Hypochromasia Poikilocytosis Basophilic Stippling Anisocytosis Microcytosis Macrocytosis Spherocytes Pappenheimer Bodies Sickle Cells Target Cells Tear Drop Cells Ovalocytes Stomatocytes Chiu-[place] Bodies Echinocytes Acanthocytes (Spur) Rouleaux RBC Agglutinates Schistocytes Sezary Cell Sodium Potassium Chloride Carbon Dioxide Anion Gap BUN Creatinine Est Cr Clr Drug Dosing Est GFR ( Amer) Est GFR (Non-Af Amer) BUN/Creatinine Ratio Glucose POC Glucose 83 71 79 Calcium Magnesium Urine Color Urine Appearance Urine pH Ur Specific Fowler Urine Protein Urine Glucose (UA) Urine Ketones Urine Blood Urine Nitrite Urine Bilirubin Urine Urobilinogen Ur Leukocyte Esterase Urine WBC (Auto) Urine RBC (Auto) U Hyaline Cast (Auto) U Epithel Cells (Auto) Urine Bacteria (Auto) Random Vancomycin Blood Parasites ID 06/27/22 06/27/22 06/27/22 05:29 05:29 05:29 WBC Cancelled RBC Cancelled Hgb Cancelled Hct Cancelled MCV Cancelled MCH Cancelled MCHC Cancelled RDW Std Deviation Cancelled RDW Coeff of Geetha Cancelled Plt Count Cancelled MPV Cancelled Immature Gran % (Auto) Cancelled Neut % (Auto) Cancelled Lymph % (Auto) Cancelled [place] % (Auto) Cancelled Eos % (Auto) Cancelled Baso % (Auto) Cancelled Neut # (Auto) Cancelled Lymph # (Auto) Cancelled [place] # (Auto) Cancelled Eos # (Auto) Cancelled Baso # (Auto) Cancelled Immature Gran # (Auto) Cancelled Absolute Nucleated RBC Cancelled Nucleated RBC % (auto) Cancelled Neutrophils % (Manual) Cancelled Band Neutrophils % Cancelled Lymphocytes % (Manual) Cancelled Prolymphocyte % Cancelled Reactive Lymphs % (Man) Cancelled Monocytes % (Manual) Cancelled Eosinophils % (Manual) Cancelled Basophils % (Manual) Cancelled Metamyelocytes % (Man) Cancelled Myelocytes % (Man) Cancelled Promyelocytes % (Man) Cancelled Blast Cells % (Manual) Cancelled Plasma Cell % (Manual) Cancelled Other Cells % Cancelled Nucleated RBC % Cancelled Neutrophils # (Manual) Cancelled Band Neutrophils # Cancelled Total Absolute Neuts Cancelled Lymphocytes # (Manual) Cancelled Prolymphocyte # Cancelled Reactive Lymphs # Cancelled Total Abs Lymphocytes Cancelled Monocytes # (Manual) Cancelled Eosinophils # (Manual) Cancelled Basophils # (Manual) Cancelled Metamyelocytes # (Man) Cancelled Myelocytes # (Manual) Cancelled Promyelocytes # (Man) Cancelled Blast Cells # (Man) Cancelled Plasma Cell # (Manual) Cancelled Other Cells # Cancelled Nucleated RBCs # (Man) Cancelled Hypersegmented Neuts Cancelled Hyposegmented Neuts Cancelled Hypogranular Neuts Cancelled Large Granular Lymphs Cancelled # Lrg Granular Lymphs Cancelled Hairy Cells Cancelled Smudge Cells Cancelled Toxic Granulation Cancelled Toxic Vacuolation Cancelled Dohle Bodies Cancelled Saima Rods Cancelled Platelet Estimate Cancelled Hypogranular Platelets Cancelled Giant Platelets Cancelled Platelet Satelliting Cancelled RBC Morphology Cancelled Polychromasia Cancelled Hypochromasia Cancelled Poikilocytosis Cancelled Basophilic Stippling Cancelled Anisocytosis Cancelled Microcytosis Cancelled Macrocytosis Cancelled Spherocytes Cancelled Pappenheimer Bodies Cancelled Sickle Cells Cancelled Target Cells Cancelled Tear Drop Cells Cancelled Ovalocytes Cancelled Stomatocytes Cancelled Chiu-[place] Bodies Cancelled Echinocytes Cancelled Acanthocytes (Spur) Cancelled Rouleaux Cancelled RBC Agglutinates Cancelled Schistocytes Cancelled Sezary Cell Cancelled Sodium 142 Potassium 3.2 L Chloride 105 Carbon Dioxide 30 Anion Gap 7 BUN 15 Creatinine 1.39 H Est Cr Clr Drug Dosing 58.2 Est GFR ( Amer) 46.0 Est GFR (Non-Af Amer) 39.7 BUN/Creatinine Ratio 10.8 Glucose 84 POC Glucose Calcium 8.4 L Magnesium Urine Color Urine Appearance Urine pH Ur Specific Fowler Urine Protein Urine Glucose (UA) Urine Ketones Urine Blood Urine Nitrite Urine Bilirubin Urine Urobilinogen Ur Leukocyte Esterase Urine WBC (Auto) Urine RBC (Auto) U Hyaline Cast (Auto) U Epithel Cells (Auto) Urine Bacteria (Auto) Random Vancomycin Pending Blood Parasites ID Cancelled 06/27/22 06/27/22 06/27/22 06:46 06:47 07:19 WBC 14.58 H RBC 4.12 L Hgb 11.9 L Hct 36.6 L MCV 88.8 MCH 28.9 MCHC 32.5 RDW Std Deviation 52.0 H RDW Coeff of Geetha 16.0 H Plt Count 273 MPV 11.4 Immature Gran % (Auto) Neut % (Auto) Lymph % (Auto) [place] % (Auto) Eos % (Auto) Baso % (Auto) Neut # (Auto) Lymph # (Auto) [place] # (Auto) Eos # (Auto) Baso # (Auto) Immature Gran # (Auto) Absolute Nucleated RBC Nucleated RBC % (auto) Neutrophils % (Manual) 48 Band Neutrophils % Lymphocytes % (Manual) 10 Prolymphocyte % Reactive Lymphs % (Man) Monocytes % (Manual) 6 Eosinophils % (Manual) 3 Basophils % (Manual) 1 Metamyelocytes % (Man) Myelocytes % (Man) Promyelocytes % (Man) Blast Cells % (Manual) Plasma Cell % (Manual) Other Cells % Nucleated RBC % Neutrophils # (Manual) 7.00 H Band Neutrophils # Total Absolute Neuts 7.00 H Lymphocytes # (Manual) 1.46 Prolymphocyte # Reactive Lymphs # Total Abs Lymphocytes 6.12 H Monocytes # (Manual) 0.87 H Eosinophils # (Manual) 0.44 Basophils # (Manual) 0.15 Metamyelocytes # (Man) Myelocytes # (Manual) Promyelocytes # (Man) Blast Cells # (Man) Plasma Cell # (Manual) Other Cells # Nucleated RBCs # (Man) Hypersegmented Neuts Hyposegmented Neuts Hypogranular Neuts Large Granular Lymphs 32 # Lrg Granular Lymphs 4.67 Hairy Cells Smudge Cells Toxic Granulation Toxic Vacuolation Dohle Bodies Saima Rods Platelet Estimate Hypogranular Platelets Giant Platelets Platelet Satelliting RBC Morphology Unremarkable Polychromasia Hypochromasia Poikilocytosis Basophilic Stippling Anisocytosis Microcytosis Macrocytosis Spherocytes Pappenheimer Bodies Sickle Cells Target Cells Tear Drop Cells Ovalocytes Stomatocytes Chiu-[place] Bodies Echinocytes Acanthocytes (Spur) Rouleaux RBC Agglutinates Schistocytes Sezary Cell Sodium Potassium Chloride Carbon Dioxide Anion Gap BUN Creatinine Est Cr Clr Drug Dosing Est GFR ( Amer) Est GFR (Non-Af Amer) BUN/Creatinine Ratio Glucose POC Glucose 87 Calcium Magnesium Pending Urine Color Urine Appearance Urine pH Ur Specific Fowler Urine Protein Urine Glucose (UA) Urine Ketones Urine Blood Urine Nitrite Urine Bilirubin Urine Urobilinogen Ur Leukocyte Esterase Urine WBC (Auto) Urine RBC (Auto) U Hyaline Cast (Auto) U Epithel Cells (Auto) Urine Bacteria (Auto) Random Vancomycin Blood Parasites ID PG Care Time/CCT Total # of Minutes Spent Total Time Spent with Patient: Total time spent is greater than 50% in coordination of care (as documented) at patient's floor/unit and/or counseling patient: Coding Level of Care Code 99937 Post Operative Follow-Up Diagnoses Cellulitis of right shoulder L03.113 Abscess of muscle of neck M60.08
[2022-06-27] MEDS: LANTUS PER UNIT CHARGE SQ SCH (09:39)
[2022-06-27] MEDS: POTASSIUM CHLORIDE / WTR 10 MEQ/100 ML PLCT IV SCH ×2 (10:28→11:38)
[2022-06-27] MEDS: MAGNESIUM SULFATE / D5W 1 GM/100 ML BAG IV SCH ×4 (11:08→19:57)
--- NOTE | 2022-06-27 11:47 | Medical Student Progress Note ---
Date of Service June 27, 2022 Assessment & Plan (1) Abscess of muscle of neck: Plan: Patient is a 66 yo female with PMHx of HTN, DM, HLD, depression/anxiety, pAfib, and recent retropharyngeal abscess admitted to [facility] on 06/25/22 for abscess of neck muscle and cellulitis. Abscess of muscle of neck and cellulitis - Post op day 1: I&D performed for suspected recurrent abscess. Pervious abscess drained and treated with Augmentin. Per gen surg, "Majority of this was just severe cellulitis with no large pocket of fluid." - Wound care also monitoring and wound VAC placed today. - Leukocytosis with slight uptrend (14.58 from 11.80), pt afebrile, not tachycardic. Watchful waiting. - Continue empiric abx with cefepime & vancomycin, plan to switch to Bactrim at d/c. Orthostasis - Pt with orthostatic sx and increased thirst. Creatinine 1.39 (baseline <1), Mag down at 1.0. Orthostasis likely due to volume depletion in setting of recent infection. - Ordered Mag and LR bolus Paroxysmal Atrial Fibrillation - Currently in NSR, continue cardiac monitoring - Continue rate control w/ home metoprolol succinate 25mg qd - Recommend pt f/u with pcp/cardio outpt regarding anticoagulation Diabetes Mellitus Type 2 - Most recent A1c 6.2% on 06/04/22 - Hold home glipizide and metformin - Start lantus 24 units BID and ISS Depression - Continue home sertraline Hyperlipidemia - Continue home statin Hypertension - Normotensive. Hold home lisinopril-HCTZ Insomnia - Continue home melatonin prn Seasonal Allergies - Continue home Singulair and desloratadine FENGI: Carb consistent diet Dispo: medsurg w/ tele, - anticipate d/c to home pending further clinical improvement and home wound VAC set up Code status: Conditional -- accepts CPR, defibrillation, and ACLS medication; no artificial airway or ventilation Patient does not have advanced directives but states that in a situation where she can not make her own medical decisions, her daughter Bernadine would be medical decision maker. (2) Orthostasis: (3) Cellulitis: Site of cellulitis: neck Qualified Code(s): L03.221 - Cellulitis of neck (4) H/O retropharyngeal abscess: (5) Paroxysmal A-fib: (6) Depression: (7) Hyperlipidemia: (8) Diabetes mellitus: (9) Sleep disturbance: (10) Hypertension: Admission and Anticipated Discharge Date Admission Date: June 25, 2022 Supervising Attestation I personally examined the patient and verified all flores points of history and exam, discussed case, and agree with decision making with Yuliana CHATTERJEE and Dr Viveros Feeling pretty good overall. Okay with the need for wound VAC/etc. Vitals noted, in general she is awake and alert pleasant no distress. HEENT normocephalic atraumatic mucous membranes moist. Breathing unlabored no accessory muscle use good effort. Skin shows no rashes no pallor or icterus. Neuro without focal deficits. Wound VAC in place, dull surrounding erythema. CBC/BMP reviewed Recurrent cellulitis and phlegmonsuspect resistant gram positives, versus far less likely gram-negative. No need for anaerobic coverage given no gas/gangrene situation. Continue Vanco and cefepime for now, set up wound VAC for home. Continue current care for now. DVT proph - heparin SQ Otherwise as above Subjective Patient is a 66 yo female with PMHx of HTN, DM, HLD, depression/anxiety, pAfib, and recent retropharyngeal abscess admitted to [facility] on 06/25/22 for abscess of neck muscle and cellulitis. Day 1 s/p I&D of R posterior shoulder cellulitis. Pt seen at bedside this AM. She is feeling well and reports moderate but tolerable pain over surgical area. Denies fevers/chills/SOB/chest pain. Having some lightheadedness while standing and sitting upright. Admits to being "shakey on her feet" but feels she will be well enough for d/c home tomorrow. Pt is not interested in rehab facility. Review of Systems Review of Systems: As per HPI. Physical Exam Physical Exam: GENERAL: No acute distress. Non-toxic appearing. Well developed and well nourished. Vital signs reviewed. RESPIRATORY: Clear to auscultation bilaterally. No wheezing, rales, or rhonchi. No increased work of breathing. CARDIOVASCULAR: RRR. No murmurs, rubs, or gallops. EXTREMITIES: No edema. Non-tender. SKIN: Area of surgery dressed, dressing appears clean dry and intact, no erythema beyond margins. No active discharge or drainage. The skin is warm and dry to touch. NEUROLOGIC: A/O x3. Normal speech. No focal neurological deficits. PSYCHIATRIC: Cooperative. Appropriate mood and affect. Results & Data ([facility]) Vital Signs (Past 12 Hours) Vital Signs Temp Pulse Resp BP Pulse Ox O2 Del Method O2 Flow Rate 06/27/22 07:00 36.6 C 68 16 117/69 94 Nasal Cannula 1 06/27/22 02:58 36.5 C 67 18 138/82 93 Nasal Cannula 1 06/26/22 22:58 37.0 C 65 18 131/81 95 Nasal Cannula 1
[2022-06-27] MEDS: oxyCODONE HCL IR 5 MG TAB (IMMEDIATE RELEASE) PO PRN ×2 (11:51→20:00)
--- NOTE | 2022-06-27 13:57 | Pharmacy Report ---
Pharmacy PK ABX Note - Date of Service June 27, 2022 - Assessment and Plan Assessment 06/27/22 * Blood and shoulder cx are negative to date. * SCr is improving (1.67 --> 1.39 mg/dL). * Random vanc level obtained this morning and dosing regimen was adjusted. 06/26/22 * Ms Siegel is a 66 year old F receiving vancomycin/cefepime/metronidazole for treatment of neck cellulitis/abscess. * Pertinent microbiologic data includes: blood cx pending; wound cx obtained in OR today pending * Approx 2 months ago, pt was admitted to [facility] for retropharyngeal abscess requiring I&D. Reportedly, she also had septic shock 2/2 group A strep bacteremia during that admission, related to this abscess/cellulitis. After discharge, she continued to receive IV Unasyn (completed 05/04/22) and then Augmentin (completed 05/16/22). * Pt presented to [facility] with worsening weakness/dizziness/shoulder swelling. CT neck consistent w/ cellulitis and developing abscess. * Pt was taken to the OR today for I&D. * Some OCHOA on admission (SCr 1.52 --> 1.67, baseline ~0.8) Plan Vancomycin * Increase vancomycin to 1000mg IV q18h * Regimen is predicted to achieve target AUC/CHAMP of 400-600 mg/L.hr * No further levels have been ordered at this time. Will check a level in 1-2 days if patient remains hospitalized and on vanc therapy. * Cautious dosing in the setting of OCHOA and obesity (BMI 52.2) and high likelihood of drug accumulation Flagyl 500mg IV q8h Cefepime 2gm IV q8h --> reduced to q12h today for CrCl <60mL/min Pharmacy will continue to follow and will adjust dose/frequency as necessary. Thank you. Pharmacy has transitioned to AUC monitoring for vancomycin. AUC/CHAMP is the preferred PK/PD target and is associated with decreased risk of nephrotoxicity compared to traditional trough targets.
[2022-06-27] MEDS: VANCOMYCIN HCL 1,000 MG in SODIUM CHLORIDE 0.9% 250 ML IV SCH (14:19)
--- NOTE | 2022-06-27 19:57 | Billing Data ---
Date of Service June 27, 2022 Coding Level of Care Code 54925 SUB INP/OBS CARE
[2022-06-27] MEDS: ATORVASTATIN 10 MG TAB PO SCH (19:59)
[2022-06-27] MEDS: MELATONIN 3 MG TAB PO PRN (20:00)
[2022-06-27] MEDS ORDERED: COUGH DROP (SUGAR FREE) LOZ 24 LOZ/1 BOX BUCCAL PRN (22:34)
[2022-06-27 23:05] LABS: BUN Creatinine Ratio 11.5 (10-20); Calcium 8.1 mg/dl (8.5-10.1); Creatinine Clr Calc Pharmacy 62.3 ml/min; Est GFR (African American) 49.9 ml/min; Magnesium 1.5 mg/dl (1.7-2.4); Potassium 3.5 mmol/L (3.5-5.1)
[2022-06-28] MEDS ORDERED: MAGNESIUM SULFATE / D5W 1 GM/100 ML BAG IV SCH (00:30)
[2022-06-28] MEDS: MAGNESIUM SULFATE / D5W 1 GM/100 ML BAG IV SCH ×3 (01:03→11:39)
[2022-06-28] MEDS: CEFEPIME 2,000 MG in SYRINGE 0 ML IV SCH ×2 (05:35→13:28)
[2022-06-28] MEDS: VANCOMYCIN HCL 1,000 MG in SODIUM CHLORIDE 0.9% 250 ML IV SCH (05:35)
[2022-06-28 06:34] LABS: Basophils # (auto) 0.09 K/uL (0-0.2); Basophils % (auto) 0.9 %; Eosinophils # (auto) 0.67 K/uL (0-0.50); Eosinophils % (auto) 6.6 %; Hematocrit (blood only) 33.9 % (37.0-47.0); Hemoglobin 11.2 g/dl (12.0-16.0); Immature Granulocytes # (auto) 0.02 K/uL (0.01-0.20); Immature Granulocytes % (auto) 0.2 %; Lymphocytes # (auto) 4.69 K/uL (1.2-3.4); Mean Corpuscular Hemoglobin 28.9 pg (25.0-34.0); Mean Corpuscular Volume 87.6 fL (80.0-100.0); Mean Platelet Volume 11.3 fL (9.4-12.4); Monocytes # (auto) 1.15 K/uL (0.11-0.59); Monocytes % (auto) 11.3 %; Neutrophils # (auto) 3.57 K/uL (1.40-6.50); Platelet Count 274 K/uL (130-400); RDW Coefficient of Variation 15.8 % (11.5-14.5); RDW Standard Deviation 50.7 fL (36.4-46.3); Red Blood Count 3.87 M/uL (4.20-5.40); White Blood Count 10.19 K/ul (4.8-10.8)
--- NOTE | 2022-06-28 08:09 | Hospitalist Progress Note ---
Date of Service June 28, 2022 Assessment & Plan (1) Abscess of muscle of neck: Plan: 66 y/o female with PMHx of HTN, DM, HLD, depression/anxiety, parox afib, and recent retropharyngeal abscess admitted to [facility] on 06/25/22 for right neck wound/infection. severe cellulitis of neck - I&D on 06/26. Per gen surg, majority was severe cellulitis w/ no large pocket of fluid identified. Several months prior, patient had abscess drained and had comp leted outpatient Augmentin on 05/16, unclear if full adherence. - wound care consulted. wound VAC placed 06/27 - 06/25 blood cultures and 06/26 wound culture NGTD - vanc+cefepime+metronidazole->vanc+cefepime-> (06/28) vanc+ceftriaxone; tentatively Bactrim upon dispo acute kidney injury, improving, mild - baseline .8. 1.52 this admission-> 1.21 - hold home lisinopril-hctz. - avoid nephrotoxic agents. renally dose. follow BMP HFrEF - 03/2022 EF 40-44% - use caution if providing IV fluids orthostasis - s/p LR bolus. Hold home lisinopril-HCTZ paroxysmal atrial fibrillation - continue home metoprolol succinate 25mg daily - f/u with pcp/cardio outpatient regarding anticoagulation diabetes mellitus - a1c 6.2 06/04/22 - hold home glipizide and metformin - SSI while inpatient. not needing basal depression - continue home sertraline hyperlipidemia - continue home atorvastatin hypertension - normotensive. Hold home lisinopril-HCTZ. seasonal allergies - Continue home Singulair and desloratadine FENGI: DM2, low Na. No maintenance IV fluids Dispo: med tele Code status: conditional, no ventilation (2) Orthostasis: (3) Cellulitis: (4) H/O retropharyngeal abscess: (5) Paroxysmal A-fib: (6) Depression: (7) Hyperlipidemia: (8) Diabetes mellitus: (9) Sleep disturbance: (10) Hypertension: (11) OCHOA (acute kidney injury): Admission and Anticipated Discharge Date Admission Date: June 25, 2022 Supervising Physician Co-Signing Physician Notes I personally examined the patient and verified all flores points of history and exam, discussed case, and agree with decision making with Dr Ceja Feeling pretty good overall. waiting for vac to be set up. Vitals noted, in general she is awake and alert pleasant no distress. HEENT normocephalic atraumatic mucous membranes moist. Breathing unlabored no accessory muscle use good effort. Skin shows no rashes no pallor or icterus. Neuro without focal deficits. Wound VAC in place, dull surrounding erythema better than yesterday. CBC/BMP reviewed Recurrent cellulitis and phlegmonsuspect resistant gram positives, versus far less likely gram-negative. No need for anaerobic coverage given no gas/gangrene situation. continue IV abx, setting up vac for home DVT proph - heparin SQ Otherwise as above Subjective No complaints. No pain, cp, sob, diarr. No F/C. He states he had sore throat last night that was relieved by cough drops. Review of Systems Review of Systems: All systems reviewed & are unremarkable except as noted in HPI & below Physical Exam Physical Exam: General: Grossly A&Ox3. NAD. Cooperative. HEENT: Atraumatic, normocephalic. EOMI Pulm: CTAB anteriorly. -wheezes, -rales, -rhonchi. Symmetrical chest rise. No accessory muscle use. Cardiac: RRR, -mrg. Puffy ankles, no pitting Abdominal: Nontender, nondistended, soft. Integ: Wound vac attached to 2 locations at R neck. Some surrounding erythema slightly duller than yesterday's. Results & Data Results & Data ([facility]) Vital Signs (Past 12 Hours) Vital Signs Temp Pulse Pulse Pulse Resp BP Pulse Ox 06/28/22 07:54 36.5 C 59 L 18 135/83 94 06/27/22 23:15 36.7 C 62 18 105/66 92 06/27/22 23:08 68 06/27/22 22:57 O2 Del Method O2 Flow Rate 06/28/22 07:54 Room Air 06/27/22 23:15 Nasal Cannula 2 06/27/22 23:08 06/27/22 22:57 Nasal Cannula 2 Resident Activity Tracking Resident Involvement: Resident Care Provided Care Provided: Adult Hospital Medicine (3) Cellulitis Site of cellulitis: neck Qualified Code(s): L03.221 - Cellulitis of neck
[2022-06-28] MEDS: HEPARIN SOD 5,000 UNIT/0.5 ML VIAL SQ SCH ×2 (08:12→20:10)
[2022-06-28] MEDS: LORATADINE 10 MG TAB PO SCH (08:12)
[2022-06-28] MEDS: METOPROLOL SUCC 25MG EXT REL TAB PO SCH (08:12)
[2022-06-28] MEDS: MONTELUKAST SODIUM 10 MG TABLET PO SCH (08:12)
[2022-06-28] MEDS: SERTRALINE HCL 100 MG TABLET PO SCH (08:14)
[2022-06-28] MEDS: INSULIN ASPART PER UNIT SC SCH ×4 (08:20→20:24)
[2022-06-28 08:59] LABS: Calcium 8.3 mg/dl (8.5-10.1); Magnesium 1.9 mg/dl (1.7-2.4); Potassium 3.1 mmol/L (3.5-5.1)
[2022-06-28 09:05] LABS: BUN Creatinine Ratio 11.6 (10-20); Creatinine Clr Calc Pharmacy 67.5 ml/min; Est GFR (African American) 54.4 ml/min; Est GFR (Non-African American) 46.9 ml/min; Phosphorus 4.8 mg/dl (2.5-4.9)
[2022-06-28] MEDS ORDERED: POTASSIUM CHLORIDE PWD 20 MEQ PACK PO ONE ×2 (09:15→17:00)
--- NOTE | 2022-06-28 18:48 | Billing Data ---
Date of Service June 28, 2022 Coding Level of Care Code 61270 SUB INP/OBS CARE MIN
[2022-06-28] MEDS: ATORVASTATIN 10 MG TAB PO SCH (20:09)
[2022-06-28] MEDS: cefTRIAXone SODIUM 2,000 MG in DEXTROSE 5% 50 ML IV SCH (20:09)
[2022-06-29] MEDS: VANCOMYCIN HCL 1,000 MG in SODIUM CHLORIDE 0.9% 250 ML IV SCH ×2 (00:11→18:34)
[2022-06-29] MEDS: oxyCODONE HCL IR 5 MG TAB (IMMEDIATE RELEASE) PO PRN (00:11)
[2022-06-29] MEDS: MELATONIN 3 MG TAB PO PRN ×2 (00:11→21:20)
[2022-06-29 07:29] LABS: Hematocrit (blood only) 34.9 % (37.0-47.0); Hemoglobin 11.3 g/dl (12.0-16.0); Mean Corpuscular Hemoglobin 28.8 pg (25.0-34.0); Mean Corpuscular Hgb Conc 32.4 g/dL (32.0-36.0); Mean Corpuscular Volume 88.8 fL (80.0-100.0); Mean Platelet Volume 12.2 fL (9.4-12.4); Platelet Count 267 K/uL (130-400); RDW Coefficient of Variation 15.7 % (11.5-14.5); RDW Standard Deviation 50.6 fL (36.4-46.3); Red Blood Count 3.93 M/uL (4.20-5.40); White Blood Count 10.41 K/ul (4.8-10.8)
[2022-06-29 07:52] LABS: BUN Creatinine Ratio 11.2 (10-20); Calcium 8.8 mg/dl (8.5-10.1); Creatinine Clr Calc Pharmacy 68.8 ml/min; Est GFR (African American) 57.2 ml/min; Est GFR (Non-African American) 49.4 ml/min; Magnesium 1.7 mg/dl (1.7-2.4); Potassium 3.4 mmol/L (3.5-5.1)
[2022-06-29] MEDS: MONTELUKAST SODIUM 10 MG TABLET PO SCH (07:55)
[2022-06-29] MEDS: LORATADINE 10 MG TAB PO SCH (07:55)
[2022-06-29] MEDS: SERTRALINE HCL 100 MG TABLET PO SCH (07:55)
[2022-06-29] MEDS: METOPROLOL SUCC 25MG EXT REL TAB PO SCH (07:55)
[2022-06-29] MEDS: HEPARIN SOD 5,000 UNIT/0.5 ML VIAL SQ SCH ×2 (07:55→21:13)
[2022-06-29] MEDS: INSULIN ASPART PER UNIT SC SCH ×4 (08:05→21:20)
[2022-06-29 08:31] LABS: Eosinophils # (auto) 0.66 K/uL (0-0.50); Eosinophils % (auto) 6.3 %; Immature Granulocytes # (auto) 0.03 K/uL (0.01-0.20); Immature Granulocytes % (auto) 0.3 %; Lymphocytes % (auto) 50.9 %; Monocytes # (auto) 1.04 K/uL (0.11-0.59); Neutrophils # (auto) 3.28 K/uL (1.40-6.50); Neutrophils % (auto) 31.5 %
--- NOTE | 2022-06-29 08:51 | Hospitalist Progress Note ---
Date of Service June 29, 2022 Assessment & Plan (1) Abscess of muscle of neck: Plan: 66 y/o female with PMHx of HTN, DM, HLD, depression/anxiety, parox afib, and recent retropharyngeal abscess admitted to [facility] on 06/25/22 for right neck wound/infection. severe cellulitis of neck - I&D on 06/26. Per gen surg, majority was severe cellulitis w/ no large pocket of fluid identified. Several months prior, patient had abscess drained and had comp leted outpatient Augmentin on 05/16, unclear if full adherence. - wound care consulted. wound VAC placed 06/27 - 06/25 blood cultures and 06/26 wound culture NGTD - vanc+cefepime+metronidazole->vanc+cefepime-> (06/28) vanc+ceftriaxone; abx at dispo TBD, IV vs PO (i.e. Bactrim). acute kidney injury, improving, mild - baseline .8. 1.52 this admission-> 1.21 - hold home lisinopril-hctz. - avoid nephrotoxic agents. renally dose. follow BMP HFrEF - 03/2022 EF 40-44% - use caution if providing IV fluids orthostasis - improved. Hold home lisinopril-HCTZ paroxysmal atrial fibrillation - continue home metoprolol succinate 25mg daily - f/u with pcp/cardio outpatient regarding anticoagulation diabetes mellitus - a1c 6.2 06/04/22 - hold home glipizide and metformin - SSI while inpatient. not needing basal depression - continue home sertraline hyperlipidemia - continue home atorvastatin hypertension - normotensive. Hold home lisinopril-HCTZ. seasonal allergies - Continue home Singulair and desloratadine FENGI: DM2, low Na. No maintenance IV fluids Dispo: downgrade to med surg Code status: conditional, no ventilation (2) Orthostasis: (3) Cellulitis: (4) H/O retropharyngeal abscess: (5) Paroxysmal A-fib: (6) Depression: (7) Hyperlipidemia: (8) Diabetes mellitus: (9) Sleep disturbance: (10) Hypertension: (11) OCHOA (acute kidney injury): Admission and Anticipated Discharge Date Admission Date: June 25, 2022 Supervising Physician Co-Signing Physician Notes I personally examined the patient and verified all flores points of history and exam, discussed case, and agree with decision making with Dr Ceja No new complaints. No new problems. Still waiting for wound VAC to be set up. Vitals noted, in general she is awake and alert pleasant no distress. HEENT normocephalic atraumatic mucous membranes moist. Breathing unlabored no accessory muscle use good effort. Skin shows no rashes no pallor or icterus. Neuro without focal deficits. Wound VAC in place, dull surrounding erythema noted. CBC/BMP reviewed Recurrent cellulitis and phlegmonsuspect resistant gram positives, versus far less likely gram-negative. No need for anaerobic coverage given no gas/gangrene situation. continue IV abx for now, debate on whether to go home on prolonged p.o. such as Bactrim, or IVto be determined. setting up vac for home. hopefully home tomorrow then. DVT proph - heparin SQ Otherwise as above Subjective Doing well overall. Mild ache at R neck. Eating breakfast. Informed of tentative plan for outpt IV abx. States had peeling skin at feet from Augmentin. Review of Systems Review of Systems: All systems reviewed & are unremarkable except as noted in HPI & below Physical Exam Physical Exam: General: Grossly A&Ox3. NAD. Cooperative. HEENT: Atraumatic, normocephalic. EOMI Pulm: CTAB anteriorly. -wheezes, -rales, -rhonchi. Symmetrical chest rise. No accessory muscle use. Cardiac: RRR, -mrg. Puffy ankles, no pitting Abdominal: Nontender, nondistended, soft. Integ: Wound vac attached to 2 locations at R neck. Tactile warmth of feet. Results & Data Results & Data ([facility]) Vital Signs (Past 12 Hours) Vital Signs Temp Pulse Pulse Pulse Resp BP Pulse Ox 06/29/22 07:53 36.9 C 90 18 133/79 91 06/29/22 01:31 06/28/22 22:00 70 06/28/22 23:41 37.1 C 77 18 155/77 H 92 O2 Del Method 06/29/22 07:53 Room Air 06/29/22 01:31 Room Air 06/28/22 22:00 06/28/22 23:41 Room Air Resident Activity Tracking Resident Involvement: Resident Care Provided Care Provided: Adult Hospital Medicine (3) Cellulitis Site of cellulitis: neck Qualified Code(s): L03.221 - Cellulitis of neck
--- NOTE | 2022-06-29 10:28 | Pharmacy Report ---
Pharmacy PK ABX Note - Date of Service June 29, 2022 - Assessment and Plan Assessment 06/29/22: * Blood and should cultures NGTD * Renal function stable * Day # 5 antibiotic therapy * Random vanc level this AM (~ 6.5 hr level), 21.5mcg/mL expected to achieve an AUCss 509mg/L.hr, Probability of AUC24 > 400: 95 % Ctrough,ss: 17.9 mg/L -- therapeutic 06/27/22 * Blood and shoulder cx are negative to date. * SCr is improving (1.67 --> 1.39 mg/dL). * Random vanc level obtained this morning and dosing regimen was adjusted. 06/26/22 * Ms Siegel is a 66 year old F receiving vancomycin/cefepime/metronidazole for treatment of neck cellulitis/abscess. * Pertinent microbiologic data includes: blood cx pending; wound cx obtained in OR today pending * Approx 2 months ago, pt was admitted to [facility] for retropharyngeal abscess requiring I&D. Reportedly, she also had septic shock 2/2 group A strep bacteremia during that admission, related to this abscess/cellulitis. After discharge, she continued to receive IV Unasyn (completed 05/04/22) and then Augmentin (completed 05/16/22). * Pt presented to [facility] with worsening weakness/dizziness/shoulder swelling. CT neck consistent w/ cellulitis and developing abscess. * Pt was taken to the OR today for I&D. * Some OCHOA on admission (SCr 1.52 --> 1.67, baseline ~0.8) Plan Vancomycin * Continue vancomycin to 1000mg IV q18h * Regimen is predicted to achieve target AUC/CHAMP of 400-600 mg/L.hr * Will check a level in ~48h if patient remains hospitalized and on vanc therapy. * Cautious dosing in the setting of OCHOA and obesity (BMI 52.2) and high likelihood of drug accumulation Pharmacy will continue to follow and will adjust dose/frequency as necessary. Thank you. Pharmacy has transitioned to AUC monitoring for vancomycin. AUC/CHAMP is the preferred PK/PD target and is associated with decreased risk of nephrotoxicity compared to traditional trough targets.
[2022-06-29] MEDS ORDERED: POTASSIUM CHLORIDE CRTAB 20 MEQ TABCR PO STA (15:39)
[2022-06-29] MEDS: MAGNESIUM SULFATE / D5W 1 GM/100 ML BAG IV SCH ×2 (16:43→18:34)
--- NOTE | 2022-06-29 20:13 | Billing Data ---
Date of Service June 29, 2022 Coding Level of Care Code 52449 SUB INP/OBS CARE
[2022-06-29] MEDS: ATORVASTATIN 10 MG TAB PO SCH (21:13)
[2022-06-29] MEDS: cefTRIAXone SODIUM 2,000 MG in DEXTROSE 5% 50 ML IV SCH (21:37)
[2022-06-30 06:52] LABS: Hematocrit (blood only) 32.9 % (37.0-47.0); Hemoglobin 10.8 g/dl (12.0-16.0); Mean Corpuscular Hemoglobin 29.1 pg (25.0-34.0); Mean Corpuscular Hgb Conc 32.8 g/dL (32.0-36.0); Mean Corpuscular Volume 88.7 fL (80.0-100.0); Mean Platelet Volume 11.6 fL (9.4-12.4); Platelet Count 279 K/uL (130-400); RDW Coefficient of Variation 15.6 % (11.5-14.5); RDW Standard Deviation 50.4 fL (36.4-46.3); Red Blood Count 3.71 M/uL (4.20-5.40); White Blood Count 10.94 K/ul (4.8-10.8)
[2022-06-30 07:09] LABS: BUN Creatinine Ratio 9.4 (10-20); Calcium 8.9 mg/dl (8.5-10.1); Creatinine Clr Calc Pharmacy 67.1 ml/min; Est GFR (African American) 56.6 ml/min; Est GFR (Non-African American) 48.9 ml/min; Magnesium 1.6 mg/dl (1.7-2.4); Potassium 3.5 mmol/L (3.5-5.1)
[2022-06-30 07:54] LABS: ALC (manual) 6.24 K/uL (1.2-3.4); ANC (manual) 3.06 K/uL (1.4-6.5); Basophils # (manual) 0.44 K/uL (0-0.2); Basophils % (manual) 4 %; Eosinophils # (manual) 1.09 K/uL (0-0.50); Eosinophils % (manual) 10 %; Large Granular Lymph # (manua 4.38 K/uL; Large Granular Lymph % (manual) 40 %; Lymphocytes # (manual) 1.86 K/uL (1.2-3.4); Lymphocytes % (manual) 17 %; Monocytes # (manual) 0.11 K/uL (0.11-0.59); Monocytes % (manual) 1 %; Neutrophils # (manual) 3.06 K/uL (1.40-6.50); Neutrophils % (manual) 28 %; Target Cells 1+
[2022-06-30] MEDS: LORATADINE 10 MG TAB PO SCH (08:05)
[2022-06-30] MEDS: SERTRALINE HCL 100 MG TABLET PO SCH (08:06)
[2022-06-30] MEDS: METOPROLOL SUCC 25MG EXT REL TAB PO SCH (08:06)
[2022-06-30] MEDS: MONTELUKAST SODIUM 10 MG TABLET PO SCH (08:06)
[2022-06-30] MEDS: HEPARIN SOD 5,000 UNIT/0.5 ML VIAL SQ SCH ×2 (08:08→20:26)
[2022-06-30] MEDS: INSULIN ASPART PER UNIT SC SCH ×4 (09:10→20:40)
[2022-06-30] MEDS: oxyCODONE HCL IR 5 MG TAB (IMMEDIATE RELEASE) PO PRN ×2 (10:18→20:28)
[2022-06-30] MEDS: VANCOMYCIN HCL 1,000 MG in SODIUM CHLORIDE 0.9% 250 ML IV SCH (12:24)
[2022-06-30] MEDS: metroNIDAZOLE 500 MG/100 ML BAG IV SCH ×3 (12:39→20:27)
--- NOTE | 2022-06-30 15:19 | Hospitalist Progress Note ---
Medical Student Supervision Note: I was personally present during medical student patient encounter and independently interviewed and examined the patient and verified the flores history and physical, reviewed labs and image studies, discussed the case with Jemal Hilliard and agree with the findings and care plan. no concerns today. denies any pain at the wound site no fever o/e - no distress AAOx3 wound site on right lower neck region - mild erythema in surrounding area. wound vac in place. a/p - Cellulitis/Abscess of right neck - s/p recent abscess drained and treated with abx I and D on 06/26. Cultures negative. ID consult for input considering recurrence and neg culture - recommend adding flagyl to vanc+cefepime. --review abx duration and route in am Sujata - improving. hctz on hold chronic systolic CHF -staying euvolemic. Heparin SQ Date of Service June 30, 2022 Assessment & Plan (1) Abscess of muscle of neck: (2) Orthostasis: (3) Cellulitis: (4) H/O retropharyngeal abscess: (5) Paroxysmal A-fib: (6) Depression: (7) Hyperlipidemia: (8) Diabetes mellitus: (9) Sleep disturbance: (10) Hypertension: (11) SUJATA (acute kidney injury): Plan 66 y/o female with PMHx of HTN, DM, HLD, depression/anxiety, parox afib, and recent retropharyngeal abscess admitted to [facility] on 06/25/22 for right neck wound/infection. Severe cellulitis vs abscess of right neck - I&D on 06/26. Per gen surg, majority was severe cellulitis w/ no large pocket of fluid identified. Several months prior, patient had abscess drained and had completed outpatient Augmentin on 05/16, unclear if full adherence. - Wound care consulted. Wound VAC placed 06/27. Continuing to drain. - 06/25 blood cultures and 06/26 wound culture NGTD. - vanc+cefepime+metronidazole->vanc+cefepime-> (06/28) vanc+ceftriaxone - Given extensive nature of wound, history of recent prior hospital admission for similar, and negative wound cultures to date, consulted infectious disease on 06/30 for antibiotic regimen recommendations. - Adding Flagyl, futher ID recs to be determined. Acute kidney injury, improving, mild - Baseline .8. 1.52 this admission-> 1.17 today. - Hold home lisinopril-hctz. - Avoid nephrotoxic agents. Renally dose. Follow BMP. HFrEF - 03/2022 EF 40-44% - Use caution if providing IV fluids Orthostasis - resolved Paroxysmal atrial fibrillation - Continue home metoprolol succinate 25mg daily - f/u with pcp/cardio outpatient regarding anticoagulation Diabetes mellitus - a1c 6.2 06/04/22 - hold home glipizide and metformin - SSI while inpatient. not needing basal Depression - continue home sertraline Hyperlipidemia - continue home atorvastatin Hypertension - normotensive. see above. Seasonal allergies - Continue home Singulair and desloratadine FENGI: DM2, low Na. No maintenance IV fluids. Dispo: Med surg. Code status: conditional, no ventilation. Admission and Anticipated Discharge Date Admission Date: June 25, 2022 Tono Alonso is a 66 year old female with a past medical history of hypertension, diabetes mellitus, hyperlipidemia, depression/anxiety, paroxysmal atrial fibrillation, and past retropharyngeal abscess that was medically treated who presented to [facility] on 06/25/22 for a right neck abscess. Doing well overall today. Reports virtually no pain at R neck. Reports slight itch at the site of the wound vac but no other symptoms. Eating normal diet. States had peeling skin at feet from Augmentin. No headache, fever, or chills. Informed of tentative plan for outpatient IV abx and the need to confirm this discharge plan with infectious disease prior to discharge due to negative culture growth. Review of Systems Review of Systems: Constitutional: No fever, No chills, No fatigue. Respiratory: No shortness of breath, No cough, No wheezing. Cardiovascular: No lightheadedness/presyncope, No chest pain, No palpitations. Gastrointestinal: No nausea, No vomiting, No diarrhea, No constipation, No heartburn, No abdominal pain. Musculoskeletal: No back pain, Mild neck discomfort at infection/surgical site. No joint pain, No muscle pain, Normal range of motion. Skin: No rash, No pruritus. Peeling skin on feet. Mild itch at surgical site. Neurologic: No abnormal balance, No numbness, No tingling, No headache. Physical Exam Physical Exam: General: Alert and oriented x3. No acute distress. HEENT: Normocephalic, moist oral mucosa. Wound vac in place. Surgical site is intact, dry, with no evidence of erythema or inflammation. Cardiovascular: RRR, no M/R/G. Puffy ankles, no pitting. Respiratory: Lungs clear to auscultation, Respirations non-labored, Breath sounds equal. No wheezes, rales, rhonchi. Gastrointestinal: Soft, Non-tender, Non-distended, Normal bowel sounds. Musculoskeletal: Normal range of motion, normal strength. Neurologic: Normal sensory, Normal motor function, CN II-XII grossly intact. Integumentary: Warm, Dry. No rashes. Wound vac in place at right lateral neck. Continuing to drain. Surgical site is intact, dry, with no evidence of erythema or inflammation. Psych: Appropriate mood and affect. Speech is of normal pace and content Results & Data Results & Data ([facility]) Vital Signs (Past 12 Hours) Vital Signs Temp Pulse Pulse Pulse Resp BP Pulse Ox 06/30/22 07:42 36.6 C 66 16 139/85 94 06/29/22 21:20 06/29/22 21:11 36.8 C 68 16 137/73 94 06/29/22 18:01 68 95 06/29/22 17:31 37.0 C 69 18 146/73 H 91 06/29/22 15:23 37.3 C 64 18 129/79 97 06/29/22 15:00 71 Laboratory Results CBC 06/30/22 Range/Units 06:14 WBC 10.94 H (4.8-10.8) K/ul RBC 3.71 L (4.20-5.40) M/uL Hgb 10.8 L (12.0-16.0) g/dl Hct 32.9 L (37.0-47.0) % Plt Count 279 (130-400) K/uL Comprehensive Metabolic Panel 06/30/22 Range/Units 06:14 Sodium 142 (136-145) mmol/L Potassium 3.5 (3.5-5.1) mmol/L Chloride 108 H (98-107) mmol/L Carbon Dioxide 31 (21-32) mmol/L BUN 11 (6-23) mg/dl Creatinine 1.17 (0.6-1.2) mg/dl Glucose 108 H (70-99(Fasting)) mg/dl Calcium 8.9 (8.5-10.1) mg/dl Diagnostic Findings 06/26/22 12:52 Shoulder,Right Gram Stain - Final 06/26/22 12:52 Shoulder,Right Aerobic and Anaerobic Culture - Preliminary No growth to date. (3) Cellulitis Site of cellulitis: neck Qualified Code(s): L03.221 - Cellulitis of neck
[2022-06-30] MEDS ORDERED: POTASSIUM CHLORIDE PWD 20 MEQ PACK PO ONE (15:29)
[2022-06-30] MEDS: MAGNESIUM SULFATE / D5W 1 GM/100 ML BAG IV SCH ×2 (15:47→17:42)
[2022-06-30] MEDS: ATORVASTATIN 10 MG TAB PO SCH (20:26)
[2022-06-30] MEDS: cefTRIAXone SODIUM 2,000 MG in DEXTROSE 5% 50 ML IV SCH (20:27)
[2022-06-30] MEDS: MELATONIN 3 MG TAB PO PRN (20:28)
[2022-07-01] MEDS: metroNIDAZOLE 500 MG/100 ML BAG IV SCH ×3 (04:36→20:13)
[2022-07-01] MEDS: VANCOMYCIN HCL 1,000 MG in SODIUM CHLORIDE 0.9% 250 ML IV SCH (05:38)
[2022-07-01 07:17] LABS: Hematocrit (blood only) 32.4 % (37.0-47.0); Hemoglobin 10.7 g/dl (12.0-16.0); Mean Corpuscular Hemoglobin 29.6 pg (25.0-34.0); Mean Corpuscular Volume 89.5 fL (80.0-100.0); Mean Platelet Volume 11.7 fL (9.4-12.4); Platelet Count 316 K/uL (130-400); RDW Coefficient of Variation 15.9 % (11.5-14.5); RDW Standard Deviation 51.6 fL (36.4-46.3); Red Blood Count 3.62 M/uL (4.20-5.40); White Blood Count 11.73 K/ul (4.8-10.8)
[2022-07-01 07:47] LABS: BUN Creatinine Ratio 10.3 (10-20); C Reactive Protein 1.74 mg/dl (0-0.5); Calcium 8.9 mg/dl (8.5-10.1); Creatinine Clr Calc Pharmacy 67.1 ml/min; Est GFR (African American) 56.6 ml/min; Est GFR (Non-African American) 48.9 ml/min; Magnesium 1.6 mg/dl (1.7-2.4); Potassium 3.7 mmol/L (3.5-5.1)
[2022-07-01] MEDS: HEPARIN SOD 5,000 UNIT/0.5 ML VIAL SQ SCH ×2 (07:50→20:18)
[2022-07-01] MEDS: LORATADINE 10 MG TAB PO SCH (07:51)
[2022-07-01] MEDS: MONTELUKAST SODIUM 10 MG TABLET PO SCH (07:51)
[2022-07-01] MEDS: METOPROLOL SUCC 25MG EXT REL TAB PO SCH (07:51)
[2022-07-01] MEDS: SERTRALINE HCL 100 MG TABLET PO SCH (07:51)
--- NOTE | 2022-07-01 08:07 | Infectious Disease Consult ---
Date of Consultation July 01, 2022 Assessment & Plan (1) Cellulitis of right shoulder: #R shoulder upper back abscess s/p I+D #Recent h/o GAS septic shock, RP abscess #obesity 66yo F with h/o HTN, DM, HLD, depression/anxiety, pAfib, recently admitted to [facility] for GAS septic shock and retropharyngeal abscess s/p IV unasyn through 05/04/22 admitted to [facility] on 06/25 with right neck/shoulder infection. Infectious Diseases consulted for antibiotic management. Patient was admitted to [facility] 04/16/22 to 05/02/22 for retropharyngeal abscess requiring I&D. She developed septic shock secondary to GAS bacteremia arising from the retropharyngeal abscess and possibly Right neck cellulitis. A TTE on 04/16 revealed LVEF 40-44% no noted vegetations or valvular abnormalities. On d/c, OCHOA had resolved and final Cr 0.7 and GFR > 90 mL/min. She was discharged with IV Unasyn that completed on 05/04/22 and subsequently switched to Augmentin 875mg/125mg po BID which she completed on 05/16/22. She began to develop progressive weakness and shoulder/upper back pain and swelling that continued to progress. She had an outpatient CT on that area which showed 4.2 x 2.7 cm partial peripheral enhancing collection within the right posterior lower neck which partially involves the right latissimus dorsi muscle consistent with a developing abscess and associated subcutaneous fat stranding within the right posterior lower neck and extending into the right supraclavicular/upper right chest wall region consistent with a cellulitis. Admitted on 06/25, vitals stable. Labs WBC 12.4. Hypokalemia with K 3.0. OCHOA with Cr 1.52 / GFR 35. Lactate 4.4. 06/25 Blood cultures no growth. She was taken to OR by Dr. Chase on 06/26 for I+D. OR notable for significant edema within the soft tissues, and there were small pockets of pus throughout. No large fluid collection. No necrosis. Viable muscle Aerobic and anaerobic bacterial cultures are NG. Pathology shows Fibroadipose tissue with prominent granulomatous and acute/chronic inflammation. Currently on Vancomycin, Ceftriaxone, Flagyl Discussion: While I suspect this to be a bacterial process, pathology does show granulomatous tissue. There are no AFB cultures and therefore diagnosis for Nontuberculous mycobacterium skin lesions or other types of infections related to granulomas whould be difficult to make. I called pathology to discuss granuloma findings. If thre is further concern I will ask for staining of tissue if possible. (2) Abscess of muscle of neck: Plan -C/W Ceftriaxone 2G IV daily -Recommended adding Flagyl 500mg po TID -Currently on Vancomycin, although no MRSA growth and nares are negative we may consider continuing this given progression of abscess despite prior treatment (although could argue for lack of debridement and source control) -Surgery obtaining further imaging from [facility] Thank you for this consult. ID will follow Yesi Delarosa MD Department of Infectious Diseases [facility] Consultation Information Consultation was provided via telemedicine using two-way real-time interactive telecommunication between the patient and the telemedicine provider. For the duration of the visit, the provider was performing the assessment from a different facility than the patient. This includesuse of bluetooth stethoscope forauscultationperformed by the telepresenter that the telemedicine provider can hear if described in the physical exam. Ore Tester contact information: Please call [facility] [phone]. (Phone Number For Physician Use Only) After establishing a telemedicine visit, patient was: Patient was verified with two unique identifiers, Patient/authorized rep acknowledged consent and understanding and Gave permission to continue telehealth session Time Spent with Patient: Initial => 55 min History of Present Illness Reason for Consultation: Abscess of neck Requesting Physician: Linda Carbajal MD Attending Physician: Linda Carbajal MD History of Present Illness 66yo F with h/o HTN, DM, HLD, depression/anxiety, pAfib, recently admitted to [facility] for GAS septic shock and retropharyngeal abscess s/p IV unasyn through 05/04/22 admitted to [facility] on 06/25 with right neck/shoulder infection. Infectious Diseases consulted for antibiotic management. Patient was admitted to [facility] 04/16/22 to 05/02/22 for retropharyngeal abscess requiring I&D. She developed septic shock secondary to GAS bacteremia arising from the retropharyngeal abscess and possibly Right neck cellulitis. A TTE on 04/16 revealed LVEF 40-44% no noted vegetations or valvular abnormalities. On d/c, OCHOA had resolved and final Cr 0.7 and GFR > 90 mL/min. She was discharged with IV Unasyn that completed on 05/04/22 and subsequently switched to Augmentin 875mg/125mg po BID which she completed on 05/16/22. She began to develop progressive weakness and shoulder/upper back pain and swelling that continued to progress. She had an outpatient CT on that area which showed 4.2 x 2.7 cm partial peripheral enhancing collection within the right posterior lower neck which partially involves the right latissimus dorsi m uscle consistent with a developing abscess and associated subcutaneous fat stranding within the right posterior lower neck and extending into the right supraclavicular/upper right chest wall region consistent with a cellulitis. Admitted on 06/25, vitals stable. Labs WBC 12.4. Hypokalemia with K 3.0. OCHOA with Cr 1.52 / GFR 35. Lactate 4.4. 06/25 Blood cultures no growth. She was taken to OR by Dr. Chase on 06/26 for I+D. OR notable for significant edema within the soft tissues, and there were small pockets of pus throughout. No large fluid collection. No necrosis. Viable muscle Aerobic and anaerobic bacterial cultures are NG. Pathology shows Fibroadipose tissue with prominent granulomatous and acute/chronic inflammation. Currently on Vancomycin, Ceftriaxone, Flagyl Patient states lesion on back started as a small pimple in the fall. It was painful and tender at prior hospitalization but was never drained. She is feeling dizzy somewhat but overall improved. She did have blistering on hands and feet with Augmentin. I confirmed stop date on 05/16. Allergies Allergy/AdvReac Type Severity Reaction Status Date / Time amoxicillin [From Augmentin] Allergy Intermediate BLISTERED Verified 06/25/22 21:10 HANDS & FEET clavulanic acid Allergy Intermediate BLISTERED Verified 06/25/22 21:10 [From Augmentin] HANDS & FEET simvastatin AdvReac Intermediate MUSCLE Verified 06/25/22 21:10 PAIN IN SHOULDERS Home Medications Medication Instructions Recorded Confirmed Type lancets 33 gauge ([employer] Periscapeguillermina #100 ea 12/24/18 06/04/22 History Lancets) albuterol sulfate 90 mcg/actuation 1 - 2 puff inhalation Q4H PRN 05/01/20 06/25/22 Rx aerosol inhaler shortness of breath or wheezing #8.5 grams desloratadine 5 mg tablet 5 mg PO DAILY #90 tabs 06/20/21 06/25/22 Rx blood sugar diagnostic #100 ea 11/25/21 06/04/22 Rx melatonin 5 mg capsule 10 mg PO HS PRN Sleep 12/16/21 06/25/22 History lisinopril 20 1 tab PO DAILY #90 tabs 01/22/22 06/25/22 Rx mg-hydrochlorothiazide 12.5 mg tablet metformin 1,000 mg tablet 1,000 mg PO Q12H #180 tabs 01/22/22 06/25/22 Rx atorvastatin 10 mg tablet 10 mg PO HS #90 tabs 02/21/22 06/25/22 Rx glipizide 5 mg tablet, extended 5 mg PO BID #180 tabs 02/21/22 06/25/22 Rx release 24 hr sertraline 100 mg tablet 100 mg PO DAILY #90 tabs 02/21/22 06/25/22 Rx metoprolol succinate 25 mg 25 mg PO DAILY #90 tabs 06/04/22 06/25/22 Rx tablet,extended release 24 hr (Toprol XL) ondansetron HCl 4 mg tablet 4 mg PO Q8H PRN nausea and 06/20/22 06/25/22 Rx vomiting #30 tabs montelukast 10 mg tablet 10 mg PO DAILY #90 tabs 06/23/22 06/25/22 Rx Patient History Medical History (Updated 06/28/22 @ 17:53 by Prince Ceja MD) Cellulitis of right shoulder Depression Diabetes mellitus type 2, uncontrolled Hyperlipidemia Obesity, morbid, BMI 40.0-49.9 Sleep disturbance Surgical History (Updated 06/26/22 @ 13:12 by Jyoti Lew RN) History of incision and drainage (06/26/22) Incision and Drainage right shoulder/neck Abscess(Right) - Romeo Chase DO, FACS History of tubal ligation S/P tubal ligation Status post repair of nerve Family History Father Myocardial infarction Arthritis Diabetes Mother Diabetes Thyroid disorder Social History Smoking Status: Never smoker Second Hand Exposure: No; Hx Alcohol Use: Yes (social) Hx Substance Use: No Preferred Language: Pashto Communication Ability: Effective Visual Impairment: No Limitations Hearing Ability: Normal Operations Forester Required: No Beliefs That Will Affect Care: None Current Living Situation: Other Current Living Situation Comment: Has home but has been staying with mother, they take care of each other Feels Safe at Home: Yes Seatbelt Use: always Assistive Devices: Cane Review of System as per HPI Physical Exam Physical Exam: Appear well, NAD, OOB to chair Wound vac on R shoulder/upper back, draining serosanguinous fluid PIVs No rash or other skin lesions Results & Data ([facility]) Vital Signs (Past 12 Hours) Vital Signs Temp Pulse Pulse Resp BP Pulse Ox O2 Del Method 07/01/22 08:00 95 Room Air 07/01/22 07:18 36.6 C 62 16 130/84 93 Room Air 06/30/22 21:55 36.7 C 69 16 113/71 92 Room Air Laboratory Results Laboratory Results - last 48 hr 06/29/22 06/29/22 06/29/22 06:46 06:46 07:44 WBC RBC Hgb Hct MCV MCH MCHC RDW Std Deviation RDW Coeff of Geetha Plt Count MPV Immature Gran % (Auto) 0.3 Neut % (Auto) 31.5 Lymph % (Auto) 50.9 [place] % (Auto) 10.0 Eos % (Auto) 6.3 Baso % (Auto) 1.0 Neut # (Auto) 3.28 Lymph # (Auto) 5.30 H [place] # (Auto) 1.04 H Eos # (Auto) 0.66 H Baso # (Auto) 0.10 Immature Gran # (Auto) 0.03 Neutrophils % (Manual) Lymphocytes % (Manual) Monocytes % (Manual) Eosinophils % (Manual) Basophils % (Manual) Neutrophils # (Manual) Total Absolute Neuts Lymphocytes # (Manual) Total Abs Lymphocytes Monocytes # (Manual) Eosinophils # (Manual) Basophils # (Manual) Large Granular Lymphs # Lrg Granular Lymphs Blood Smear Review Target Cells ESR Sodium Potassium Chloride Carbon Dioxide Anion Gap BUN Creatinine Est Cr Clr Drug Dosing Est GFR ( Amer) Est GFR (Non-Af Amer) BUN/Creatinine Ratio Glucose POC Glucose 111 H Calcium Magnesium C-Reactive Protein Random Vancomycin 21.5 H 06/29/22 06/29/22 06/29/22 11:30 16:41 20:35 WBC RBC Hgb Hct MCV MCH MCHC RDW Std Deviation RDW Coeff of Geetha Plt Count MPV Immature Gran % (Auto) Neut % (Auto) Lymph % (Auto) [place] % (Auto) Eos % (Auto) Baso % (Auto) Neut # (Auto) Lymph # (Auto) [place] # (Auto) Eos # (Auto) Baso # (Auto) Immature Gran # (Auto) Neutrophils % (Manual) Lymphocytes % (Manual) Monocytes % (Manual) Eosinophils % (Manual) Basophils % (Manual) Neutrophils # (Manual) Total Absolute Neuts Lymphocytes # (Manual) Total Abs Lymphocytes Monocytes # (Manual) Eosinophils # (Manual) Basophils # (Manual) Large Granular Lymphs # Lrg Granular Lymphs Blood Smear Review Target Cells ESR Sodium Potassium Chloride Carbon Dioxide Anion Gap BUN Creatinine Est Cr Clr Drug Dosing Est GFR ( Amer) Est GFR (Non-Af Amer) BUN/Creatinine Ratio Glucose POC Glucose 130 H 105 H 141 H Calcium Magnesium C-Reactive Protein Random Vancomycin 06/30/22 06/30/22 06/30/22 06:14 06:14 08:01 WBC 10.94 H RBC 3.71 L Hgb 10.8 L Hct 32.9 L MCV 88.7 MCH 29.1 MCHC 32.8 RDW Std Deviation 50.4 H RDW Coeff of Geetha 15.6 H Plt Count 279 MPV 11.6 Immature Gran % (Auto) Neut % (Auto) Lymph % (Auto) [place] % (Auto) Eos % (Auto) Baso % (Auto) Neut # (Auto) Lymph # (Auto) [place] # (Auto) Eos # (Auto) Baso # (Auto) Immature Gran # (Auto) Neutrophils % (Manual) 28 Lymphocytes % (Manual) 17 Monocytes % (Manual) 1 Eosinophils % (Manual) 10 Basophils % (Manual) 4 Neutrophils # (Manual) 3.06 Total Absolute Neuts 3.06 Lymphocytes # (Manual) 1.86 Total Abs Lymphocytes 6.24 H Monocytes # (Manual) 0.11 Eosinophils # (Manual) 1.09 H Basophils # (Manual) 0.44 H Large Granular Lymphs 40 # Lrg Granular Lymphs 4.38 Blood Smear Review Target Cells 1+ ESR Sodium 142 Potassium 3.5 Chloride 108 H Carbon Dioxide 31 Anion Gap 3 BUN 11 Creatinine 1.17 Est Cr Clr Drug Dosing 67.1 Est GFR ( Amer) 56.6 Est GFR (Non-Af Amer) 48.9 BUN/Creatinine Ratio 9.4 L Glucose 108 H POC Glucose 107 H Calcium 8.9 Magnesium 1.6 L C-Reactive Protein Random Vancomycin 06/30/22 06/30/22 06/30/22 12:11 16:53 20:17 WBC RBC Hgb Hct MCV MCH MCHC RDW Std Deviation RDW Coeff of Geetha Plt Count MPV Immature Gran % (Auto) Neut % (Auto) Lymph % (Auto) [place] % (Auto) Eos % (Auto) Baso % (Auto) Neut # (Auto) Lymph # (Auto) [place] # (Auto) Eos # (Auto) Baso # (Auto) Immature Gran # (Auto) Neutrophils % (Manual) Lymphocytes % (Manual) Monocytes % (Manual) Eosinophils % (Manual) Basophils % (Manual) Neutrophils # (Manual) Total Absolute Neuts Lymphocytes # (Manual) Total Abs Lymphocytes Monocytes # (Manual) Eosinophils # (Manual) Basophils # (Manual) Large Granular Lymphs # Lrg Granular Lymphs Blood Smear Review Target Cells ESR Sodium Potassium Chloride Carbon Dioxide Anion Gap BUN Creatinine Est Cr Clr Drug Dosing Est GFR ( Amer) Est GFR (Non-Af Amer) BUN/Creatinine Ratio Glucose POC Glucose 135 H 128 H 153 H Calcium Magnesium C-Reactive Protein Random Vancomycin 07/01/22 07/01/22 07/01/22 06:35 06:35 06:35 WBC 11.73 H RBC 3.62 L Hgb 10.7 L Hct 32.4 L MCV 89.5 MCH 29.6 MCHC 33.0 RDW Std Deviation 51.6 H RDW Coeff of Geetha 15.9 H Plt Count 316 MPV 11.7 Immature Gran % (Auto) Neut % (Auto) Lymph % (Auto) [place] % (Auto) Eos % (Auto) Baso % (Auto) Neut # (Auto) Lymph # (Auto) [place] # (Auto) Eos # (Auto) Baso # (Auto) Immature Gran # (Auto) Neutrophils % (Manual) Lymphocytes % (Manual) Monocytes % (Manual) Eosinophils % (Manual) Basophils % (Manual) Neutrophils # (Manual) Total Absolute Neuts Lymphocytes # (Manual) Total Abs Lymphocytes Monocytes # (Manual) Eosinophils # (Manual) Basophils # (Manual) Large Granular Lymphs # Lrg Granular Lymphs Blood Smear Review Target Cells ESR 60 H Sodium 141 Potassium 3.7 Chloride 108 H Carbon Dioxide 29 Anion Gap 4 BUN 12 Creatinine 1.17 Est Cr Clr Drug Dosing 67.1 Est GFR ( Amer) 56.6 Est GFR (Non-Af Amer) 48.9 BUN/Creatinine Ratio 10.3 Glucose 125 H POC Glucose Calcium 8.9 Magnesium 1.6 L C-Reactive Protein 1.74 H Random Vancomycin Microbiology 06/25/22 20:07 Blood Aerobic Blood Culture - Final No growth in Aerobic bottle after 5 days. 06/25/22 20:07 Blood Anaerobic Blood Culture - Final No growth in Anaerobic bottle after 5 days. 06/25/22 18:06 Blood Aerobic Blood Culture - Final No growth in Aerobic bottle after 5 days. 06/25/22 18:06 Blood Anaerobic Blood Culture - Final No growth in Anaerobic bottle after 5 days. 06/26/22 12:52 Shoulder,Right Gram Stain - Final 06/26/22 12:52 Shoulder,Right Aerobic and Anaerobic Culture - Preliminary No growth to date. 06/26/22 10:10 Urine,Clean Catch Urine Culture - Final More than three types of organisms present, all high counts mixed probable skin drew - No further identifications or sensitivities to follow. Medications Administered Current Inpatient Medications Acetaminophen (Acetaminophen 325 Mg Tab) 650 mg PO Q4H PRN PRN Reason: Mild Pain (Scale 1, 2, 3) Stop: 07/26/22 14:43 Albuterol (Albuterol Hfa 8 Gm Inhaler) 1 - 2 puffs INH Q4H PRN PRN Reason: shortness of breath or wheezin Stop: 07/26/22 02:12 Atorvastatin Calcium (Atorvastatin 10 Mg Tab) 10 mg PO HS [facility] Stop: 07/26/22 20:59 Last Admin: 06/30/22 20:26 Dose: 10 mg Dextrose (Dextrose 50% 50 Ml Syringe) 25 - 50 ml IV UD PRN; Protocol PRN Reason: Hypoglycemia Protocol Stop: 07/26/22 02:12 Last Admin: 06/26/22 11:34 Dose: 25 ml Glucagon (Glucagon For Inj 1 Mg Vial) 1 mg SQ UD PRN; Protocol PRN Reason: Hypoglycemia Protocol Stop: 07/26/22 02:12 Glucose (Glucose 10 Tab/Tube) 4 - 8 tab PO UD PRN; Protocol PRN Reason: Hypoglycemia Treatment Stop: 07/26/22 02:12 Glucose (Glucose 40% Gel 15 Gm Tube) 15 - 30 gm PO UD PRN; Protocol PRN Reason: Hypoglycemia Protocol Stop: 07/26/22 02:12 Heparin Sodium (Porcine) (Heparin Sod 5,000 Unit/0.5 Ml Vial) 5,000 units SQ Q12 [facility] Stop: 07/26/22 20:59 Last Admin: 07/01/22 07:50 Dose: 5,000 units Vancomycin HCl 1,000 mg/ (Sodium Chloride) 270 mls @ 200 mls/hr IV Q18H [facility]; Protocol Stop: 07/07/22 11:59 Last Infusion: 07/01/22 07:55 Dose: Infused Ceftriaxone Sodium 2,000 mg/ (Dextrose) 70 mls @ 100 mls/hr IV Q24H [facility]; Protocol Stop: 07/05/22 20:59 Last Infusion: 06/30/22 21:51 Dose: Infused Metronidazole (Flagyl) 500 mg in 100 mls @ 100 mls/hr IV Q8H [facility] Stop: 07/07/22 12:29 Last Infusion: 07/01/22 05:38 Dose: Infused Insulin Aspart (Insulin Aspart Per Unit) 0 units SC ACHS [facility] Stop: 07/26/22 07:29 Last Admin: 06/30/22 20:40 Dose: 1 units Loratadine (Loratadine 10 Mg Tab) 10 mg PO DAILY [facility] Stop: 07/26/22 08:59 Last Admin: 07/01/22 07:51 Dose: 10 mg Melatonin (Melatonin 3 Mg Tab) 9 mg PO HS PRN PRN Reason: Sleep Stop: 07/26/22 02:53 Last Admin: 06/30/22 20:28 Dose: 9 mg Menthol (Cough Drop (Sugar Free) Kyung 24 Kyung/1 Box) 1 kyung BUCCAL Q1H PRN PRN Reason: Sore Throat Stop: 07/27/22 22:33 Last Admin: 06/28/22 01:02 Dose: 1 kyung Metoprolol Succinate (Metoprolol Succ 25mg Ext Rel Tab) 25 mg PO DAILY [facility] Stop: 07/26/22 08:59 Last Admin: 07/01/22 07:51 Dose: 25 mg Miscellaneous (Carbohydrates For Hypoglycemia ) 15 - 30 gm PO UD PRN PRN Reason: Hypoglycemia Protocol Stop: 07/26/22 02:12 Miscellaneous Information (Vancomycin Consult Active) 1 each N/A UD PRN PRN Reason: Consult Stop: 07/26/22 02:12 Montelukast Sodium (Montelukast Sodium 10 Mg Tablet) 10 mg PO DAILY [facility] Stop: 07/26/22 08:59 Last Admin: 07/01/22 07:51 Dose: 10 mg Morphine Sulfate (Morphine Sulfate 2 Mg/Ml Carp) 2 mg IV Q2H PRN PRN Reason: severe pain Stop: 07/10/22 14:43 Last Admin: 06/26/22 19:59 Dose: 2 mg Ondansetron HCl (Ondansetron Inj 2 Mg/Ml 2 Ml Vial) 4 mg IV Q6H PRN PRN Reason: Nausea Stop: 07/26/22 02:12 Oxycodone HCl (Oxycodone Hcl Ir 5 Mg Tab (Immediate Release)) 5 mg PO Q4H PRN PRN Reason: Moderate Pain (Scale 4, 5, 6) Stop: 07/10/22 14:43 Last Admin: 07/01/22 04:43 Dose: 5 mg Oxycodone HCl (Oxycodone Hcl Ir 5 Mg Tab (Immediate Release)) 10 mg PO Q4H PRN PRN Reason: Severe Pain (Scale 7, 8, 9,10) Stop: 07/10/22 14:43 Last Admin: 06/30/22 20:28 Dose: 10 mg Polyethylene Glycol (Polyethylene (Miralax) 17 Gm Pack) 17 gm PO DAILY PRN PRN Reason: Constipation Stop: 07/26/22 02:12 Sertraline HCl (Sertraline Hcl 100 Mg Tablet) 100 mg PO DAILY [facility] Stop: 07/26/22 08:59 Last Admin: 07/01/22 07:51 Dose: 100 mg
[2022-07-01] MEDS: INSULIN ASPART PER UNIT SC SCH ×4 (09:20→20:19)
[2022-07-01 09:23] LABS: Basophils # (auto) 0.08 K/uL (0-0.2); Basophils % (auto) 0.7 %; Eosinophils % (auto) 5.1 %; Immature Granulocytes # (auto) 0.02 K/uL (0.01-0.20); Immature Granulocytes % (auto) 0.2 %; Lymphocytes # (auto) 6.17 K/uL (1.2-3.4); Lymphocytes % (auto) 52.6 %; Monocytes # (auto) 1.14 K/uL (0.11-0.59); Monocytes % (auto) 9.7 %; Neutrophils # (auto) 3.72 K/uL (1.40-6.50); Neutrophils % (auto) 31.7 %; RBC Morphology Unremarkable
--- NOTE | 2022-07-01 12:58 | Hospitalist Progress Note ---
Medical Student Supervision Note: I was personally present during medical student patient encounter and independently interviewed and examined the patient and verified the flores history and physical, reviewed labs and image studies, discussed the case with Jemal Hilliard and agree with the findings and care plan. continues to deny any pain at the wound site no fever o/e - no distress AAOx3 unchanged exam - wound site on right lower neck region - mild erythema in surrounding area. wound vac in place. a/p - Cellulitis/Abscess of right neck - s/p recent abscess drained and treated with abx I and D on 06/26. Cultures negative. Wound vac + ID consult for input considering recurrence and neg culture - recommend adding flagyl to cefepime. ok to continue vanco. awaiting path report from [facility]. --to futher review abx duration Sujata - improving. hctz on hold chronic systolic CHF -staying euvolemic. Heparin SQ Date of Service July 01, 2022 Assessment & Plan (1) Abscess of muscle of neck: (2) Orthostasis: (3) Cellulitis: (4) H/O retropharyngeal abscess: (5) Paroxysmal A-fib: (6) Depression: (7) Hyperlipidemia: (8) Diabetes mellitus: (9) Sleep disturbance: (10) Hypertension: (11) SUJATA (acute kidney injury): Plan 66 y/o female with PMHx of HTN, DM, HLD, depression/anxiety, parox afib, and recent retropharyngeal abscess admitted to [facility] on 06/25/22 for right neck wound/infection. Severe cellulitis vs abscess of right neck - I&D on 06/26. Per gen surg, majority was severe cellulitis w/ no large pocket of fluid identified. Several months prior, patient had abscess drained and had completed outpatient Augmentin on 05/16, unclear if full adherence. - Wound care consulted. Wound VAC placed 06/27. Continuing to drain. - 06/25 blood cultures and 06/26 wound culture NGTD. - vanc+cefepime+metronidazole->vanc+cefepime-> (06/28) vanc+ceftriaxone - Given extensive nature of wound, history of recent prior hospital admission for similar, and negative wound cultures to date, consulted infectious disease on 06/30 for antibiotic regimen recommendations. - Added Flagyl, further ID recs to be determined after patient consult and review of pathology from previous hospitalization at [facility] facility. - Attempting to acquire [facility] radiology reports and ENT notes (I&D) from retropharyngeal abscess and neck cellulitis Acute kidney injury, improving, mild - Baseline .8. 1.52 on admission -> 1.17 today. - Hold home lisinopril-hctz. - Avoid nephrotoxic agents. Renally dose. Follow BMP. HFrEF - remains euvolemic - 03/2022 EF 40-44% - Use caution if providing IV fluids Orthostasis - resolved Paroxysmal atrial fibrillation - Continue home metoprolol succinate 25mg daily - f/u with pcp/cardio outpatient regarding anticoagulation Diabetes mellitus - a1c 6.2 06/04/22 - hold home glipizide and metformin - SSI while inpatient. not needing basal Depression - continue home sertraline Hyperlipidemia - continue home atorvastatin Hypertension - normotensive. see above. Seasonal allergies - Continue home Singulair and desloratadine FENGI: DM2, low Na. No maintenance IV fluids. DVT ppx: sq Heparin Dispo: Med surg. Code status: conditional, no ventilation. Admission and Anticipated Discharge Date Admission Date: June 25, 2022 Tono Alonso is a 66 year old female with a past medical history of hypertension, diabetes mellitus, hyperlipidemia, depression/anxiety, paroxysmal atrial fibrillation, and past retropharyngeal abscess that was medically treated who presented to [facility] on 06/25/22 for a right neck abscess. Doing well overall today. Reports virtually no pain at R neck, though there was some overnight following dressing change and wound vac replacement. No headache, fever, or chills. Informed of tentative plan for outpatient IV abx which would be delivered using home healthcare and the need to confirm this discharge plan with infectious disease prior to discharge due to negative culture growth. Review of Systems Review of Systems: Constitutional: No fever, No chills, No fatigue. Respiratory: No shortness of breath, No cough, No wheezing. Cardiovascular: No lightheadedness/presyncope, No chest pain, No palpitations. Gastrointestinal: No nausea, No vomiting, No diarrhea, No constipation, No heartburn, No abdominal pain. Musculoskeletal: No back pain, Mild neck discomfort at infection/surgical site. No joint pain, No muscle pain, Normal range of motion. Skin: No rash, No pruritus. Peeling skin on feet. Mild itch at surgical site. Neurologic: No abnormal balance, No numbness, No tingling, No headache. Physical Exam Physical Exam: General: Alert and oriented x3. No acute distress. HEENT: Normocephalic, moist oral mucosa. Wound vac in place. Surgical site is intact, dry, with no evidence of erythema or inflammation. Cardiovascular: RRR, no M/R/G. Puffy ankles, no pitting. Respiratory: Lungs clear to auscultation, Respirations non-labored, Breath sounds equal. No wheezes, rales, rhonchi. Gastrointestinal: Soft, Non-tender, Non-distended, Normal bowel sounds. Musculoskeletal: Normal range of motion, normal strength. Neurologic: Normal sensory, Normal motor function, CN II-XII grossly intact. Integumentary: Warm, Dry. No rashes. Wound vac in place at right lateral neck. Continuing to drain. Surgical site is clean, dry, and intact, with no erythema or inflammation. Psych: Appropriate mood and affect. Speech is of normal pace and content Results & Data Results & Data ([facility]) Vital Signs (Past 12 Hours) Vital Signs Temp Pulse Resp BP Pulse Ox O2 Del Method 07/01/22 08:00 95 Room Air 07/01/22 07:18 36.6 C 62 16 130/84 93 Room Air Laboratory Results CBC 07/01/22 Range/Units 06:35 WBC 11.73 H (4.8-10.8) K/ul RBC 3.62 L (4.20-5.40) M/uL Hgb 10.7 L (12.0-16.0) g/dl Hct 32.4 L (37.0-47.0) % Plt Count 316 (130-400) K/uL Neut # (Auto) 3.72 (1.40-6.50) K/uL Lymph # (Auto) 6.17 H (1.2-3.4) K/uL [place] # (Auto) 1.14 H (0.11-0.59) K/uL Eos # (Auto) 0.60 H (0-0.50) K/uL Baso # (Auto) 0.08 (0-0.2) K/uL Comprehensive Metabolic Panel 07/01/22 Range/Units 06:35 Sodium 141 (136-145) mmol/L Potassium 3.7 (3.5-5.1) mmol/L Chloride 108 H (98-107) mmol/L Carbon Dioxide 29 (21-32) mmol/L BUN 12 (6-23) mg/dl Creatinine 1.17 (0.6-1.2) mg/dl Glucose 125 H (70-99(Fasting)) mg/dl Calcium 8.9 (8.5-10.1) mg/dl (3) Cellulitis Site of cellulitis: neck Qualified Code(s): L03.221 - Cellulitis of neck
[2022-07-01] MEDS: cefTRIAXone SODIUM 2,000 MG in DEXTROSE 5% 50 ML IV SCH (20:14)
[2022-07-01] MEDS: ATORVASTATIN 10 MG TAB PO SCH (20:18)
[2022-07-01] MEDS: oxyCODONE HCL IR 5 MG TAB (IMMEDIATE RELEASE) PO PRN (20:21)
[2022-07-01] MEDS: MELATONIN 3 MG TAB PO PRN (20:21)
[2022-07-02] MEDS: VANCOMYCIN HCL 1,000 MG in SODIUM CHLORIDE 0.9% 250 ML IV SCH ×2 (00:22→18:08)
[2022-07-02] MEDS: metroNIDAZOLE 500 MG/100 ML BAG IV SCH (05:26)
[2022-07-02 07:46] LABS: Hematocrit (blood only) 32.5 % (37.0-47.0); Mean Corpuscular Hemoglobin 29.9 pg (25.0-34.0); Mean Corpuscular Hgb Conc 33.8 g/dL (32.0-36.0); Mean Corpuscular Volume 88.3 fL (80.0-100.0); Mean Platelet Volume 11.8 fL (9.4-12.4); Platelet Count 294 K/uL (130-400); RDW Coefficient of Variation 15.9 % (11.5-14.5); RDW Standard Deviation 51.8 fL (36.4-46.3); Red Blood Count 3.68 M/uL (4.20-5.40); White Blood Count 11.74 K/ul (4.8-10.8)
[2022-07-02 08:01] LABS: BUN Creatinine Ratio 11.1 (10-20); Calcium 8.8 mg/dl (8.5-10.1); Creatinine Clr Calc Pharmacy 68.9 ml/min; Est GFR (African American) 56.6 ml/min; Est GFR (Non-African American) 48.9 ml/min; Potassium 3.8 mmol/L (3.5-5.1)
[2022-07-02 08:39] LABS: ALC (manual) 7.16 K/uL (1.2-3.4); ANC (manual) 3.29 K/uL (1.4-6.5); Basophils # (manual) 0.23 K/uL (0-0.2); Basophils % (manual) 2 %; Eosinophils % (manual) 6 %; Large Granular Lymph # (manua 3.87 K/uL; Large Granular Lymph % (manual) 33 %; Lymphocytes # (manual) 3.29 K/uL (1.2-3.4); Lymphocytes % (manual) 28 %; Metamyelocytes # (manual) 0.12 K/uL (0-0); Metamyelocytes % (manual) 1 %; Monocytes # (manual) 0.35 K/uL (0.11-0.59); Monocytes % (manual) 3 %; Neutrophils # (manual) 3.29 K/uL (1.40-6.50); Neutrophils % (manual) 28 %
[2022-07-02] MEDS: oxyCODONE HCL IR 5 MG TAB (IMMEDIATE RELEASE) PO PRN ×2 (09:09→19:48)
[2022-07-02] MEDS: METOPROLOL SUCC 25MG EXT REL TAB PO SCH (09:44)
[2022-07-02] MEDS: SERTRALINE HCL 100 MG TABLET PO SCH (09:44)
[2022-07-02] MEDS: LORATADINE 10 MG TAB PO SCH (09:44)
[2022-07-02] MEDS: HEPARIN SOD 5,000 UNIT/0.5 ML VIAL SQ SCH ×2 (09:44→19:40)
[2022-07-02] MEDS: MONTELUKAST SODIUM 10 MG TABLET PO SCH (09:45)
[2022-07-02] MEDS: INSULIN ASPART PER UNIT SC SCH ×4 (09:57→21:53)
[2022-07-02] MEDS: metroNIDAZOLE 500 MG TAB PO SCH ×3 (09:57→19:40)
--- NOTE | 2022-07-02 10:29 | Hospitalist Progress Note ---
Date of Service July 02, 2022 Assessment & Plan (1) Abscess of muscle of neck: (2) Orthostasis: (3) Cellulitis: (4) H/O retropharyngeal abscess: (5) Paroxysmal A-fib: (6) Depression: (7) Hyperlipidemia: (8) Diabetes mellitus: (9) Sleep disturbance: (10) Hypertension: (11) SUJATA (acute kidney injury): Plan 66 y/o female with PMHx of HTN, DM, HLD, depression/anxiety, parox afib, and recent retropharyngeal abscess admitted to [facility] on 06/25/22 for right neck wound/infection. Severe cellulitis vs abscess of right neck - I&D on 06/26. Per gen surg, majority was severe cellulitis w/ no large pocket of fluid identified. Several months prior, patient had abscess drained and had completed outpatient Augmentin on 05/16, unclear if full adherence. - Wound care consulted. Wound VAC placed 06/27. Continuing to drain. - 06/25 blood cultures and 06/26 wound culture NGTD. - vanc+cefepime+metronidazole->vanc+cefepime-> (06/28) vanc+ceftriaxone - Given extensive nature of wound, history of recent prior hospital admission for similar, and negative wound cultures to date, consulted infectious disease on 06/30 for antibiotic regimen recommendations. - Added Flagyl, further ID recs to be determined after review of pathology and CT scans from previous hospitalization at [facility]. Acute kidney injury, improving, mild - Baseline .8. 1.52 on admission -> 1.17 today. - Hold home lisinopril-hctz. - Avoid nephrotoxic agents. Renally dose. Follow BMP. HFrEF - remains euvolemic - 03/2022 EF 40-44% - Use caution if providing IV fluids Orthostasis - resolved Paroxysmal atrial fibrillation - Continue home metoprolol succinate 25mg daily - f/u with pcp/cardio outpatient regarding anticoagulation Diabetes mellitus - a1c 6.2 06/04/22 - hold home glipizide and metformin - SSI while inpatient. not needing basal Depression - continue home sertraline Hyperlipidemia - continue home atorvastatin Hypertension - normotensive. see above. Seasonal allergies - Continue home Singulair and desloratadine FENGI: DM2, low Na. No maintenance IV fluids. DVT ppx: sq Heparin Dispo: Med surg. Code status: conditional, no ventilation. Admission and Anticipated Discharge Date Admission Date: June 25, 2022 Supervising Physician Co-Signing Physician Notes Medical Student Supervision Note: I was personally present during medical student patient encounter and independently interviewed and examined the patient and verified the flores history and physical, reviewed labs and image studies, discussed the case with Jemal Hilliard and agree with the findings and care plan. continues to deny any pain at the wound site no fever o/e - no distress AAOx3 unchanged exam - wound site on right lower neck region - mild erythema in surrounding area. wound vac in place. a/p - Cellulitis/Abscess of right neck - s/p recent abscess drained and treated with abx I and D on 06/26. Cultures negative. Wound vac + ID consult for input considering recurrence and neg culture - recommend adding flagyl to ceftriaxone 2gms. ok to continue vanco while inpatient - switch to PO on discharge. ---wkly cbc, cmp per pcp ---will need midline. Sujata - resolved. resume lisinopril/hctz - 15/04.5. chronic systolic CHF -staying euvolemic. Heparin SQ Subjective Celeste is a 66 year old female with a past medical history of hypertension, diabetes mellitus, hyperlipidemia, depression/anxiety, paroxysmal atrial fibrillation, and past retropharyngeal abscess that was medically treated who pr esented to [facility] on 06/25/22 for a right neck abscess. Doing well overall today. Reports virtually no pain at R neck, though yesterday it was sore after she used her shoulder more than normal. No headache, fever, or chills. Talked with ID yesterday. Informed of tentative plan for outpatient IV abx which would be delivered using home healthcare and the need to confirm this discharge plan and the duration of abx with infectious disease prior to discharge. Informed of steps needed to be taken prior to discharge and amenable. Review of Systems Review of Systems: Constitutional: No fever, No chills, No fatigue. Respiratory: No shortness of breath, No cough, No wheezing. Cardiovascular: Slight dizziness with standing, but this is at baseline for the patient. No chest pain, No palpitations. Gastrointestinal: No nausea, No vomiting, No diarrhea, No constipation, No heartburn, No abdominal pain. Musculoskeletal: No back pain, Mild neck discomfort at infection/surgical site, especially with movement. No joint pain, No muscle pain, Normal range of motion. Skin: No rash, No pruritus. Peeling skin on feet. Mild itch at surgical site. Neurologic: No abnormal balance, No numbness, No tingling, No headache. Physical Exam Physical Exam: General: Alert and oriented x3. No acute distress. HEENT: Normocephalic, moist oral mucosa. Wound vac in place. Surgical site is intact, dry, with no evidence of erythema or inflammation. Cardiovascular: RRR, no M/R/G. Puffy ankles, no pitting. Respiratory: Lungs clear to auscultation, Respirations non-labored, Breath sounds equal. No wheezes, rales, rhonchi. Gastrointestinal: Soft, Non-tender, Non-distended, Normal bowel sounds. Musculoskeletal: Normal range of motion, normal strength. Neurologic: Normal sensory, Normal motor function, CN II-XII grossly intact. Integumentary: Warm, Dry. No rashes. Wound vac in place at right lateral neck. Continuing to drain. Surgical site is clean, dry, and intact, with no erythema or inflammation. Psych: Appropriate mood and affect. Speech is of normal pace and content Results & Data Results & Data ([facility]) Vital Signs (Past 12 Hours) Vital Signs Temp Pulse Resp BP Pulse Ox O2 Del Method 07/02/22 07:53 36.7 C 64 17 142/83 H 90 Room Air Laboratory Results CBC 07/02/22 Range/Units 07:18 WBC 11.74 H (4.8-10.8) K/ul RBC 3.68 L (4.20-5.40) M/uL Hgb 11.0 L (12.0-16.0) g/dl Hct 32.5 L (37.0-47.0) % Plt Count 294 (130-400) K/uL Comprehensive Metabolic Panel 07/02/22 Range/Units 07:18 Sodium 143 (136-145) mmol/L Potassium 3.8 (3.5-5.1) mmol/L Chloride 110 H (98-107) mmol/L Carbon Dioxide 30 (21-32) mmol/L BUN 13 (6-23) mg/dl Creatinine 1.17 (0.6-1.2) mg/dl Glucose 124 H (70-99(Fasting)) mg/dl Calcium 8.8 (8.5-10.1) mg/dl (3) Cellulitis Site of cellulitis: neck Qualified Code(s): L03.221 - Cellulitis of neck
--- NOTE | 2022-07-02 11:57 | Communication Note ---
Date of Service: July 02, 2022 Obtained additional outside records. [facility] 04/21/22 deep wound culture from retropharyngeal abscess I&D w/ 2 colonies yeast, no anaerobic growt h. [facility] 04/15/22 blood culture w/ pansensitive group A strep. Reviewed radiology PACS images sent from [facility] ~04/21 CT soft tissue neck. Discussed w/ radiology. The 06/27/22 CT soft tissue neck shows marked improvement in the retropharyngeal abscess (abscess was more on left side, but inflammation is extensive and went to right as well). Possibility of prior sinus tract connection between the right posterior neck and the retropharyngeal space cannot be excluded on either scan when correlated with the clinical history.
--- NOTE | 2022-07-02 14:22 | Pharmacy Report ---
Pharmacy PK ABX Note - Date of Service July 02, 2022 - Assessment and Plan Assessment 07/02/22: * Random vanc level obtained this morning (~11hr level), indicating that current regimen is still appropriate. * SCr has been stable. No changes in micro. Pt remains afebrile. * No evidence of vancomycin accumulation, based on levels obtained throughout therapy thus far. 06/29/22 * Blood and should cultures NGTD * Renal function stable * Day # 5 antibiotic therapy * Random vanc level this AM (~ 6.5 hr level), 21.5mcg/mL expected to achieve an AUCss 509mg/L.hr, Probability of AUC24 > 400: 95 % * Ctrough,ss: 17.9 mg/L -- therapeutic 06/27/22 * Blood and shoulder cx are negative to date. * SCr is improving (1.67 --> 1.39 mg/dL). * Random vanc level obtained this morning and dosing regimen was adjusted. 06/26/22 * Ms Siegel is a 66 year old F receiving vancomycin/cefepime/metronidazole for treatment of neck cellulitis/abscess. * Pertinent microbiologic data includes: blood cx pending; wound cx obtained in OR today pending * Approx 2 months ago, pt was admitted to [facility] for retropharyngeal abscess requiring I&D. Reportedly, she also had septic shock 2/2 group A strep bacteremia during that admission, related to this abscess/cellulitis. After discharge, she continued to receive IV Unasyn (completed 05/04/22) and then Augmentin (completed 05/16/22). * Pt presented to [facility] with worsening weakness/dizziness/shoulder swelling. CT neck consistent w/ cellulitis and developing abscess. * Pt was taken to the OR today for I&D. * Some OCHOA on admission (SCr 1.52 --> 1.67, baseline ~0.8) Plan Vancomycin * Continue vancomycin to 1000mg IV q18h * Regimen is predicted to achieve target AUC/CHAMP of 400-600 mg/L.hr * No further levels have been ordered at this time. If patient remains hospitalized and on vancomycin therapy, will re-consider the need for additional monitoring in 2-3 days. Pharmacy will continue to follow and will adjust dose/frequency as necessary. Thank you. Pharmacy has transitioned to AUC monitoring for vancomycin. AUC/CHAMP is the preferred PK/PD target and is associated with decreased risk of nephrotoxicity compared to traditional trough targets.
--- NOTE | 2022-07-02 14:54 | Infectious Disease Progress Nt ---
Date of Service July 02, 2022 Assessment & Plan (1) Cellulitis of right shoulder: Plan: #R shoulder upper back abscess s/p I+D, Cultures are No Growth #Recent h/o GAS septic shock, RP abscess #obesity #Augmentin allergy 66yo F with h/o HTN, DM, HLD, depression/anxiety, pAfib, recently admitted to [facility] for GAS septic shock and retropharyngeal abscess s/p IV unasyn through 05/04/22 admitted to [facility] on 06/25 with right neck/shoulder infection. Infectious Diseases consulted for antibiotic management. Patient was admitted to [facility] 04/16/22 to 05/02/22 for retropharyngeal abscess requiring I&D. She developed septic shock secondary to GAS bacteremia arising from the retropharyngeal abscess and possibly Right neck cellulitis. A TTE on 04/16 revealed LVEF 40-44% no noted vegetations or valvular abnormalities. On d/c, OCHOA had resolved and final Cr 0.7 and GFR > 90 mL/min. She was discharged with IV Unasyn that completed on 05/04/22 and subsequently switched to Augmentin 875mg/125mg po BID which she completed on 05/16/22. She began to develop progressive weakness and shoulder/upper back pain and swelling that continued to progress. She had an outpatient CT on that area which showed 4.2 x 2.7 cm partial peripheral enhancing collection within the right posterior lower neck which partially involves the right latissimus dorsi muscle consistent with a developing abscess and associated subcutaneous fat stranding within the right posterior lower neck and extending into the right supraclavicular/upper right chest wall region consistent with a cellulitis. Admitted on 06/25, vitals stable. Labs WBC 12.4. Hypokalemia with K 3.0. OCHOA with Cr 1.52 / GFR 35. Lactate 4.4. 06/25 Blood cultures no growth. She was taken to OR by Dr. Chase on 06/26 for I+D. OR notable for significant edema within the soft tissues, and there were small pockets of pus throughout. No large fluid collection. No necrosis. Viable muscle Aerobic and anaerobic bacterial cultures are NG. Pathology shows Fibroadipose tissue with prominent granulomatous and acute/chronic inflammation. Currently on Vancomycin, Ceftriaxone, Flagyl Discussion: I spoke with pathology and confirmed no granulomas and c/w bacterial infection. She has not grown MRSA in past and nares are negative however her cellulitis seems to have resolved and returned. Would recommend a 3 week treatment for a deep SSTI. Given her obesity, I would recommend IV treatment focused on strep. We can change Vancomycin to doxycycline po and c/w flagyl for anaerobic coverage. (2) Abscess of muscle of neck: Plan -C/W Ceftriaxone 2G IV daily, Flagyl 500mg po TID through 07/17/22 -On discharge dc Vancomycin, and start Doxycycline 100mg po BID with food through 07/17/22 -While on oral doxycycline she should avoid taking medicine with dairy products or use of magnesium, calcium within 2 hours before and after medication -Weekly CBC with diff, CMP to patients primary care physician -Wound vac to be managed by Surgery -Can place midline I spoke with Dr. Ceja Please page me with any questions or concerns. ID will s/o at this time. Yesi Delarosa MD Department of Infectious Diseases [facility] Admission and Anticipated Discharge Date Admission Date: June 25, 2022 Subjective This patient recommendation is based on a telemedicine consult request which was completed asynchronously through chart review and information provided by the primary physician. The patient was not seen or examined today. The evaluation is consultative in nature and all patient care and treatment decisions can either be accepted or rejected by the patient's primary hospital-based treating physician using their own independent medical judgment for their patient. Time Spent Reviewing Chart: 21 - 30 minutes 24hours: MESERET I spoke with Pathology and there were no granulomas seen. Findings are c/w bacterial infection VSS WBC 11.7 Results & Data ([facility]) Vital Signs (Past 12 Hours) Vital Signs Temp Pulse Resp BP Pulse Ox O2 Del Method 07/02/22 12:02 36.6 C 61 18 152/83 H 94 Room Air 07/02/22 07:50 Room Air 07/02/22 07:53 36.7 C 64 17 142/83 H 90 Room Air Laboratory Results Short CBC 07/02/22 Range/Units 07:18 WBC 11.74 H (4.8-10.8) K/ul Hgb 11.0 L (12.0-16.0) g/dl Hct 32.5 L (37.0-47.0) % Plt Count 294 (130-400) K/uL BMP 07/02/22 07:18 Sodium 143 Potassium 3.8 Chloride 110 H Carbon Dioxide 30 BUN 13 Creatinine 1.17 Glucose 124 H Calcium 8.8 Microbiology 06/26/22 12:52 Shoulder,Right Gram Stain - Final 06/26/22 12:52 Shoulder,Right Aerobic and Anaerobic Culture - Final No growth 06/25/22 20:07 Blood Aerobic Blood Culture - Final No growth in Aerobic bottle after 5 days. 06/25/22 20:07 Blood Anaerobic Blood Culture - Final No growth in Anaerobic bottle after 5 days. 06/25/22 18:06 Blood Aerobic Blood Culture - Final No growth in Aerobic bottle after 5 days. 06/25/22 18:06 Blood Anaerobic Blood Culture - Final No growth in Anaerobic bottle after 5 days. 06/26/22 10:10 Urine,Clean Catch Urine Culture - Final More than three types of organisms present, all high counts mixed probable skin drew - No further identifications or sensitivities to follow. Medications Administered Current Inpatient Medications Acetaminophen (Acetaminophen 325 Mg Tab) 650 mg PO Q4H PRN PRN Reason: Mild Pain (Scale 1, 2, 3) Stop: 07/26/22 14:43 Albuterol (Albuterol Hfa 8 Gm Inhaler) 1 - 2 puffs INH Q4H PRN PRN Reason: shortness of breath or wheezin Stop: 07/26/22 02:12 Atorvastatin Calcium (Atorvastatin 10 Mg Tab) 10 mg PO HS [facility] Stop: 07/26/22 20:59 Last Admin: 07/01/22 20:18 Dose: 10 mg Dextrose (Dextrose 50% 50 Ml Syringe) 25 - 50 ml IV UD PRN; Protocol PRN Reason: Hypoglycemia Protocol Stop: 07/26/22 02:12 Last Admin: 06/26/22 11:34 Dose: 25 ml Glucagon (Glucagon For Inj 1 Mg Vial) 1 mg SQ UD PRN; Protocol PRN Reason: Hypoglycemia Protocol Stop: 07/26/22 02:12 Glucose (Glucose 10 Tab/Tube) 4 - 8 tab PO UD PRN; Protocol PRN Reason: Hypoglycemia Treatment Stop: 07/26/22 02:12 Glucose (Glucose 40% Gel 15 Gm Tube) 15 - 30 gm PO UD PRN; Protocol PRN Reason: Hypoglycemia Protocol Stop: 07/26/22 02:12 Heparin Sodium (Porcine) (Heparin Sod 5,000 Unit/0.5 Ml Vial) 5,000 units SQ Q12 [facility] Stop: 07/26/22 20:59 Last Admin: 07/02/22 09:44 Dose: 5,000 units Vancomycin HCl 1,000 mg/ (Sodium Chloride) 270 mls @ 200 mls/hr IV Q18H [facility]; Protocol Stop: 07/07/22 11:59 Last Infusion: 07/02/22 01:45 Dose: Infused Ceftriaxone Sodium 2,000 mg/ (Dextrose) 70 mls @ 100 mls/hr IV Q24H [facility]; Protocol Stop: 07/05/22 20:59 Last Infusion: 07/01/22 21:24 Dose: Infused Insulin Aspart (Insulin Aspart Per Unit) 0 units SC ACHS [facility] Stop: 07/26/22 07:29 Last Admin: 07/02/22 13:29 Dose: 3 units Loratadine (Loratadine 10 Mg Tab) 10 mg PO DAILY [facility] Stop: 07/26/22 08:59 Last Admin: 07/02/22 09:44 Dose: 10 mg Melatonin (Melatonin 3 Mg Tab) 9 mg PO HS PRN PRN Reason: Sleep Stop: 07/26/22 02:53 Last Admin: 07/01/22 20:21 Dose: 9 mg Menthol (Cough Drop (Sugar Free) Mya 24 Mya/1 Box) 1 mya BUCCAL Q1H PRN PRN Reason: Sore Throat Stop: 07/27/22 22:33 Last Admin: 06/28/22 01:02 Dose: 1 mya Metoprolol Succinate (Metoprolol Succ 25mg Ext Rel Tab) 25 mg PO DAILY [facility] Stop: 07/26/22 08:59 Last Admin: 07/02/22 09:44 Dose: 25 mg Metronidazole (Metronidazole 500 Mg Tab) 500 mg PO TID [facility] Stop: 07/07/22 23:59 Last Admin: 07/02/22 13:29 Dose: 500 mg Miscellaneous (Carbohydrates For Hypoglycemia ) 15 - 30 gm PO UD PRN PRN Reason: Hypoglycemia Protocol Stop: 07/26/22 02:12 Miscellaneous Information (Vancomycin Consult Active) 1 each N/A UD PRN PRN Reason: Consult Stop: 07/26/22 02:12 Montelukast Sodium (Montelukast Sodium 10 Mg Tablet) 10 mg PO DAILY [facility] Stop: 07/26/22 08:59 Last Admin: 07/02/22 09:45 Dose: 10 mg Morphine Sulfate (Morphine Sulfate 2 Mg/Ml Carp) 2 mg IV Q2H PRN PRN Reason: severe pain Stop: 07/10/22 14:43 Last Admin: 06/26/22 19:59 Dose: 2 mg Ondansetron HCl (Ondansetron Inj 2 Mg/Ml 2 Ml Vial) 4 mg IV Q6H PRN PRN Reason: Nausea Stop: 07/26/22 02:12 Oxycodone HCl (Oxycodone Hcl Ir 5 Mg Tab (Immediate Release)) 5 mg PO Q4H PRN PRN Reason: Moderate Pain (Scale 4, 5, 6) Stop: 07/10/22 14:43 Last Admin: 07/01/22 04:43 Dose: 5 mg Oxycodone HCl (Oxycodone Hcl Ir 5 Mg Tab (Immediate Release)) 10 mg PO Q4H PRN PRN Reason: Severe Pain (Scale 7, 8, 9,10) Stop: 07/10/22 14:43 Last Admin: 07/02/22 09:09 Dose: 10 mg Polyethylene Glycol (Polyethylene (Miralax) 17 Gm Pack) 17 gm PO DAILY PRN PRN Reason: Constipation Stop: 07/26/22 02:12 Sertraline HCl (Sertraline Hcl 100 Mg Tablet) 100 mg PO DAILY [facility] Stop: 07/26/22 08:59 Last Admin: 07/02/22 09:44 Dose: 100 mg
[2022-07-02] MEDS: cefTRIAXone SODIUM 2,000 MG in DEXTROSE 5% 50 ML IV SCH (19:39)
[2022-07-02] MEDS: ATORVASTATIN 10 MG TAB PO SCH (19:39)
[2022-07-02] MEDS: MELATONIN 3 MG TAB PO PRN (19:48)
[2022-07-03] MEDS: LORATADINE 10 MG TAB PO SCH (09:21)
[2022-07-03] MEDS: SERTRALINE HCL 100 MG TABLET PO SCH (09:21)
[2022-07-03] MEDS: metroNIDAZOLE 500 MG TAB PO SCH ×3 (09:21→20:36)
[2022-07-03] MEDS: MONTELUKAST SODIUM 10 MG TABLET PO SCH (09:21)
[2022-07-03] MEDS: METOPROLOL SUCC 25MG EXT REL TAB PO SCH (09:21)
[2022-07-03] MEDS: INSULIN ASPART PER UNIT SC SCH ×4 (09:21→20:14)
[2022-07-03] MEDS: HEPARIN SOD 5,000 UNIT/0.5 ML VIAL SQ SCH ×2 (09:22→20:37)
[2022-07-03] MEDS: LISINOPRIL/HCTZ 20/12.5MG 1 TAB TAB PO SCH (09:22)
[2022-07-03 11:27] LABS: Hematocrit (blood only) 33.7 % (37.0-47.0); Hemoglobin 10.9 g/dl (12.0-16.0); Mean Corpuscular Hemoglobin 29.1 pg (25.0-34.0); Mean Corpuscular Hgb Conc 32.3 g/dL (32.0-36.0); Mean Corpuscular Volume 89.9 fL (80.0-100.0); Mean Platelet Volume 11.4 fL (9.4-12.4); Platelet Count 324 K/uL (130-400); RDW Coefficient of Variation 16.2 % (11.5-14.5); RDW Standard Deviation 52.8 fL (36.4-46.3); Red Blood Count 3.75 M/uL (4.20-5.40); White Blood Count 11.76 K/ul (4.8-10.8)
--- NOTE | 2022-07-03 11:29 | Hospitalist Progress Note ---
Date of Service July 03, 2022 Assessment & Plan (1) Abscess of muscle of neck: (2) Orthostasis: (3) Cellulitis: (4) H/O retropharyngeal abscess: (5) Paroxysmal A-fib: (6) Depression: (7) Hyperlipidemia: (8) Diabetes mellitus: (9) Sleep disturbance: (10) Hypertension: (11) OCHOA (acute kidney injury): Plan 66 y/o female with PMHx of HTN, DM, HLD, depression/anxiety, parox afib, and recent retropharyngeal abscess admitted to [facility] on 06/25/22 for right neck wound/infection. Severe cellulitis vs abscess of right neck - I&D on 06/26. Per gen surg, majority was severe cellulitis w/ no large pocket of fluid identified. Several months prior, patient had abscess drained and had completed outpatient Augmentin on 05/16, unclear if full adherence. - Wound care consulted. Wound VAC placed 06/27. Continuing to drain. - 06/25 blood cultures and 06/26 wound culture NGTD. - vanc+cefepime+metronidazole->vanc+cefepime-> (06/28) vanc+ceftriaxone - Received and reviewed pathology and flims from past [facility] hospitalization. - Given the above, ID has given the following recommendations: -C/W Ceftriaxone 2G IV daily, Flagyl 500mg po TID through 07/17/22 -On discharge dc Vancomycin, and start Doxycycline 100mg po BID with food through 07/17/22 -While on oral doxycycline she should avoid taking medicine with dairy products or use of magnesium, calcium within 2 hours before and after medication -Weekly CBC with diff, CMP to patients primary care physician -Wound vac to be managed by Surgery -Can place midline - Consented and will place midline today or tomorrow. - Home health will start Thursday. Will plan to keep her overnight to receive antibiotics tomorrow morning and then discharge. Acute kidney injury - resolved - Baseline .8. 1.52 on admission. Stable at 1.17 today. - Resume home lisinopril-hctz. HFrEF - remains euvolemic - 03/2022 EF 40-44% - Use caution if providing IV fluids. Orthostasis - resolved Paroxysmal atrial fibrillation - Continue home metoprolol succinate 25mg daily - f/u with pcp/cardio outpatient regarding anticoagulation Diabetes mellitus - a1c 6.2 06/04/22 - hold home glipizide and metformin - SSI while inpatient. not needing basal Depression - continue home sertraline Hyperlipidemia - continue home atorvastatin Hypertension - normotensive. see above. Seasonal allergies - Continue home Singulair and desloratadine DEVONI: DM2, low Na. No maintenance IV fluids. DVT ppx: sq Heparin Dispo: Med surg. Code status: conditional, no ventilation. Admission and Anticipated Discharge Date Admission Date: June 25, 2022 Supervising Physician Co-Signing Physician Notes Medical Student Supervision Note: I was personally present during medical student patient encounter and independently interviewed and examined the patient and verified the flores history and physical, reviewed labs and image studies, discussed the case with Jemal Hilliard and agree with the findings and care plan. continues to deny any pain at the wound site no fever. no new concerns overnight. o/e - no distress AAOx3 unchanged exam - wound site on right lower neck region - mild erythema in surrounding area. wound vac in place. a/p - Cellulitis/Abscess of right neck - s/p recent abscess drained and treated with abx I and D on 06/26. Cultures negative. Wound vac + ID consult for input considering recurrence and neg culture - recommended adding flagyl to ceftriaxone 2gms. ok to continue vanco while inpatient - switch to PO Doxycycline on discharge. ---wkly cbc, cmp per pcp ---Has USG guided line which should suffice for the duration of antibiotic treatment. Ochoa - resolved. resume lisinopril/hctz - 12.5. chronic systolic CHF -staying euvolemic. Heparin SQ Subjective Celeste is a 66 year old female with a past medical history of hypertension, diabetes mellitus, hyperlipidemia, depression/anxiety, paroxysmal atrial fibrillation, and past retropharyngeal abscess that was medically treated who presented to [facility] on 06/25/22 for a right neck abscess. Doing well overall today. Reports virtually no pain at R neck, though can get sore after she uses her shoulder more and after dressing changes. No headache, fever, or chills. Amenable to plan for home IV abx via home health. Review of Systems Review of Systems: Constitutional: No fever, No chills, No fatigue. Respiratory: No shortness of breath, No cough, No wheezing. Cardiovascular: Slight dizziness with standing, but this is at baseline for the patient. No chest pain, No palpitations. Gastrointestinal: No nausea, No vomiting, No diarrhea, No constipation, No heartburn, No abdominal pain. Musculoskeletal: No back pain, Mild neck discomfort at infection/surgical site, especially with movement. No joint pain, No muscle pain, Normal range of motion. Skin: No rash, No pruritus. Peeling skin on feet. Mild itch at surgical site. Neurologic: No abnormal balance, No numbness, No tingling, No headache. Physical Exam Physical Exam: General: Alert and oriented x3. No acute distress. HEENT: Normocephalic, moist oral mucosa. Cardiovascular: RRR, no M/R/G. Puffy ankles, no pitting. Respiratory: Lungs clear to auscultation, Respirations non-labored, Breath sounds equal. No wheezes, rales, rhonchi. Gastrointestinal: Soft, Non-tender, Non-distended, Normal bowel sounds. Musculoskeletal: Normal range of motion, normal strength. Neurologic: Normal sensory, Normal motor function, CN II-XII grossly intact. Integumentary: Warm, Dry. No rashes. Wound vac in place at right lateral neck. Continuing to drain. Surgical site is clean, dry, and intact, with mild erythema or inflammation. Psych: Appropriate mood and affect. Speech is of normal pace and content Results & Data Results & Data ([facility]) Vital Signs (Past 12 Hours) Vital Signs Temp Pulse Resp BP Pulse Ox O2 Del Method 07/03/22 07:15 36.3 C L 65 16 120/70 94 Room Air Laboratory Results CBC 07/03/22 Range/Units 10:56 WBC 11.76 H (4.8-10.8) K/ul RBC 3.75 L (4.20-5.40) M/uL Hgb 10.9 L (12.0-16.0) g/dl Hct 33.7 L (37.0-47.0) % Plt Count 324 (130-400) K/uL Comprehensive Metabolic Panel 07/03/22 Range/Units 10:56 Sodium 142 (136-145) mmol/L Potassium 3.9 (3.5-5.1) mmol/L Chloride 107 (98-107) mmol/L Carbon Dioxide 31 (21-32) mmol/L BUN 11 (6-23) mg/dl Creatinine 1.17 (0.6-1.2) mg/dl Glucose 171 H (70-99(Fasting)) mg/dl Calcium 8.7 (8.5-10.1) mg/dl (3) Cellulitis Site of cellulitis: neck Qualified Code(s): L03.221 - Cellulitis of neck
[2022-07-03 11:47] LABS: BUN Creatinine Ratio 9.4 (10-20); Calcium 8.7 mg/dl (8.5-10.1); Creatinine Clr Calc Pharmacy 68.9 ml/min; Est GFR (African American) 56.6 ml/min; Est GFR (Non-African American) 48.9 ml/min; Potassium 3.9 mmol/L (3.5-5.1)
[2022-07-03 13:08] LABS: ALC (manual) 6.23 K/uL (1.2-3.4); Basophils # (manual) 0.24 K/uL (0-0.2); Basophils % (manual) 2 %; Eosinophils # (manual) 0.35 K/uL (0-0.50); Eosinophils % (manual) 3 %; Large Granular Lymph # (manua 3.53 K/uL; Large Granular Lymph % (manual) 30 %; Lymphocytes % (manual) 23 %; Monocytes # (manual) 0.35 K/uL (0.11-0.59); Monocytes % (manual) 3 %; Neutrophils % (manual) 40 %
[2022-07-03] MEDS: VANCOMYCIN HCL 1,000 MG in SODIUM CHLORIDE 0.9% 250 ML IV SCH (13:10)
[2022-07-03] MEDS: ATORVASTATIN 10 MG TAB PO SCH (20:37)
[2022-07-03] MEDS: cefTRIAXone SODIUM 2,000 MG in DEXTROSE 5% 50 ML IV SCH (20:42)
[2022-07-03] MEDS: MELATONIN 3 MG TAB PO PRN (20:42)
[2022-07-04] MEDS: VANCOMYCIN HCL 1,000 MG in SODIUM CHLORIDE 0.9% 250 ML IV SCH (05:59)
[2022-07-04] MEDS: metroNIDAZOLE 500 MG TAB PO SCH ×2 (08:34→14:09)
[2022-07-04] MEDS: METOPROLOL SUCC 25MG EXT REL TAB PO SCH (08:34)
[2022-07-04] MEDS: LORATADINE 10 MG TAB PO SCH (08:34)
[2022-07-04] MEDS: LISINOPRIL/HCTZ 20/12.5MG 1 TAB TAB PO SCH (08:35)
[2022-07-04] MEDS: SERTRALINE HCL 100 MG TABLET PO SCH (08:35)
[2022-07-04] MEDS: MONTELUKAST SODIUM 10 MG TABLET PO SCH (08:35)
[2022-07-04 08:36] LABS: Hematocrit (blood only) 32.7 % (37.0-47.0); Hemoglobin 10.7 g/dl (12.0-16.0); Mean Corpuscular Hemoglobin 29.1 pg (25.0-34.0); Mean Corpuscular Hgb Conc 32.7 g/dL (32.0-36.0); Mean Corpuscular Volume 88.9 fL (80.0-100.0); Mean Platelet Volume 11.6 fL (9.4-12.4); Nucleated RBC # (auto) 0.02 K/uL (0-0.12); Nucleated RBC % (auto) 0.2 %; Platelet Count 301 K/uL (130-400); RDW Coefficient of Variation 15.9 % (11.5-14.5); RDW Standard Deviation 51.1 fL (36.4-46.3); Red Blood Count 3.68 M/uL (4.20-5.40); White Blood Count 11.38 K/ul (4.8-10.8)
[2022-07-04] MEDS: INSULIN ASPART PER UNIT SC SCH ×2 (08:41→12:44)
[2022-07-04] MEDS: HEPARIN SOD 5,000 UNIT/0.5 ML VIAL SQ SCH (08:45)
[2022-07-04 09:01] LABS: Calcium 8.6 mg/dl (8.5-10.1); Potassium 3.8 mmol/L (3.5-5.1)
[2022-07-04 09:07] LABS: BUN Creatinine Ratio 10.2 (10-20); Creatinine Clr Calc Pharmacy 68.3 ml/min; Est GFR (Non-African American) 48.4 ml/min
--- NOTE | 2022-07-04 09:56 | Discharge Summary ---
Date of Service July 04, 2022 Admission HPI Per Admitting Provider Patient is a 66 yo female with PMHx of HTN, DM, HLD, depression/anxiety, pAfib, and recent retropharyngeal abscess who presented to [facility] on 06/25/22 with concern for infection. Patient was admitted at [facility] 04/16/22 to 05/02/22 for retropharyngeal abscess requiring I&D. Per chart review, patient also had OCHOA (Cr 5.7/GFR 8) and septic shock secondary to GAS bacteremia arising from the retropharyngeal abscess/right neck cellulitis. Patient required IVF, abx therapy, and pressor support. She did not require urgent intubation. Patient developed paroxysmal atrial fibrillation and was started on metoprolol. TTE 04/16 w/ LVEF 40-44% w/ no evidence of hemodynamically significant valvular abnormalities. On d/c, OCHOA had resolved and final Cr 0.7 and GFR > 90 mL/min. She was discharged with IV Unasyn that completed on 05/04/22 and subsequently switched to Augmentin 875mg/125mg po BID which she completed on 05/16/22. Patient states that since completion of abx therapy, she has had progressive weakness, intermittent dizziness with standing and ambulation, and some swelling in her right shoulder/upper back that has continued to progress. Due to the weakness, patient states that she is now unable to ambulate independently w/o holding onto things; typically ambulates independently at baseline. She denies fever, throat pain, difficulty speaking, or difficulty swallowing. Patient notes that she was seen by her PCP and started on Zofran for nausea. She has not had any vomiting. Denies abdominal pain, dysuria, hematuria, urinary frequency. Patient had an outpatient CT scan due to ongoing discomfort on the skin above the right shoulder/right neck which revealed "4.2 x 2.7 cm partial peripheral enhancing collection within the right posterior lower neck which partially involves the right latissimus dorsi muscle consistent with a developing abscess and associated subcutaneous fat stranding within the right posterior lower neck and extending into the right supraclavicular/upper right chest wall region consistent with a cellulitis." Patient subsequently instructed to come to the ER for further evaluation. In the ER, labs revealed mild leukocytosis with WBC 12.4. Hypokalemia with K 3.0. OCHOA with Cr 1.52 / GFR 35. Lactate 4.4. Negative procal. Negative COVID. CT soft tissue/neck result reviewed as noted above. Per ED physician, attempted transfer back to [facility], however, patient was not accepted for transfer at this time. ED course: 1.5L NSS, cefepime, vancomycin, flagyl Admission Exam Per Admitting Provider GENERAL: No acute distress. Non-toxic appearing. Well developed and well nourished. Vital signs reviewed. EYES: PERRLA. EOMI. Anicteric sclerae. HENT: Moist mucous membranes. No pharyngeal erythema or exudates. NECK: No spinous process tenderness to palpation. There is right paraspinal muscle tenderness to palpation over the right levator scapulae. RESPIRATORY: Clear to auscultation bilaterally. No wheezing, rales, or rhonchi. Unlabored respirations. No conversational dyspnea. CARDIOVASCULAR: Regular rate and rhythm. ABDOMEN: Soft and non-tender. Normal bowel sounds. EXTREMITIES: No edema. Non-tender. 5/5 strength in BUE and BLE. SKIN: Dry. There is an erythematous, indurated area of the right posterior shoulder with a few nodules that are non-tender and without active discharge or drainage. The skin is warm to touch. No streaking. NEUROLOGIC: A/O x3. Normal speech. No focal neurological deficits. Normal speech. No sensorimotor deficits. PSYCHIATRIC: Cooperative. Appropriate mood and affect. Principal Diagnosis Right neck wound Discharge Exam General: Alert and oriented x3. No acute distress. HEENT: Normocephalic, moist oral mucosa. Cardiovascular: RRR, no M/R/G. Puffy ankles, no pitting. Respiratory: Lungs clear to auscultation, Respirations non-labored, Breath sounds equal. No wheezes, rales, rhonchi. Gastrointestinal: Soft, Non-tender, Non-distended, Normal bowel sounds. Musculoskeletal: Normal range of motion, normal strength. Neurologic: Normal sensory, Normal motor function, CN II-XII grossly intact. Integumentary: Warm, Dry. No rashes. Wound vac in place at right lateral neck. Continuing to drain. Surgical site is clean, dry, and intact, with mild erythema and mild inflammation. Psych: Appropriate mood and affect. Speech is of normal pace and content Discharge Data Allergies Allergy/AdvReac Type Severity Reaction Status Date / Time amoxicillin [From Augmentin] Allergy Intermediate BLISTERED Verified 06/25/22 21:10 HANDS & FEET clavulanic acid Allergy Intermediate BLISTERED Verified 06/25/22 21:10 [From Augmentin] HANDS & FEET simvastatin AdvReac Intermediate MUSCLE Verified 06/25/22 21:10 PAIN IN SHOULDERS Consultations 06/25/22 22:17 ED Decision to Admit Stat 06/26/22 02:13 Consult General Surgery Routine 06/30/22 11:40 Consult Infectious Diseases Routine Procedures Performed Operation Date: 06/26/22 11:40 Actual Procedures p Incision and Drainage Neck Abscess(Right) - Romeo Chase, DO, FACS Ordered Studies CBC 07/03/22 07/04/22 Range/Units 10:56 07:54 WBC 11.76 H 11.38 H (4.8-10.8) K/ul RBC 3.75 L 3.68 L (4.20-5.40) M/uL Hgb 10.9 L 10.7 L (12.0-16.0) g/dl Hct 33.7 L 32.7 L (37.0-47.0) % Plt Count 324 301 (130-400) K/uL Comprehensive Metabolic Panel 07/03/22 07/04/22 Range/Units 10:56 07:54 Sodium 142 143 (136-145) mmol/L Potassium 3.9 3.8 (3.5-5.1) mmol/L Chloride 107 109 H (98-107) mmol/L Carbon Dioxide 31 30 (21-32) mmol/L BUN 11 12 (6-23) mg/dl Creatinine 1.17 1.18 (0.6-1.2) mg/dl Glucose 171 H 131 H (70-99(Fasting)) mg/dl Calcium 8.7 8.6 (8.5-10.1) mg/dl Microbiology 06/26/22 12:52 Shoulder,Right Gram Stain - Final 06/26/22 12:52 Shoulder,Right Aerobic and Anaerobic Culture - Final No growth 06/25/22 20:07 Blood Aerobic Blood Culture - Final No growth in Aerobic bottle after 5 days. 06/25/22 20:07 Blood Anaerobic Blood Culture - Final No growth in Anaerobic bottle after 5 days. 06/25/22 18:06 Blood Aerobic Blood Culture - Final No growth in Aerobic bottle after 5 days. 06/25/22 18:06 Blood Anaerobic Blood Culture - Final No growth in Anaerobic bottle after 5 days. 06/26/22 10:10 Urine,Clean Catch Urine Culture - Final More than three types of organisms present, all high counts mixed probable skin drew - No further identifications or sensitivities to follow. Chest X-Ray 06/25/22 19:25 XR chest 1V portable HISTORY: sepsis COMPARISON: Chest 06/07/2016 FINDINGS: The lungs are clear. Cardiac silhouette is normal in size. No pleural effusions. No pneumothorax. IMPRESSION: No acute process. ACT 112: Negative or not required by law. Electronically signed by: Varun Garcia M.D. 06/25/2022 7:[address] soft tissue neck w con HISTORY: L02.11 - Cutaneous abscess of neck TECHNIQUE: Multiaxial CT images of the neck were performed following the intravenous administration of 120 cc of Optiray 320. Sagittal and coronal reformations were performed at the lower station by the radiologist. COMPARISON STUDY: None. FINDINGS: The visualized brain parenchyma and orbits are unremarkable. The pterygopalatine fossa and parapharyngeal fat spaces are well-maintained. The major mucosal airways services are intact. Prevertebral soft tissues and the epiglottis are normal in thickness. The thyroid gland enhances normally. The main pulmonary artery is dilated up to 4.2 cm. There is a 5 mm anterior communicate artery aneurysm on image 71. The major cervical vessels enhance normally. The parotid and submandibular glands are symmetric. Mild lower right posterior cervical chain lymphadenopathy. This is likely reactive. There is extensive subcutaneous fat stranding within the right posterior lower neck and extending into the right supraclavicular/upper right chest wall region. There is a 4.2 x 2.7 cm partial peripheral enhancing collection within the right posterior lower neck which partially involves the right latissimus dorsi muscle best seen on image 243. This is consistent with a developing abscess. The lung apices are clear. No acute fractures identified. IMPRESSION: 1. There is a 4.2 x 2.7 cm partial peripheral enhancing collection within the right posterior lower neck which partially involves the right latissimus dorsi muscle consistent with a developing abscess. 2. There is associated subcutaneous fat stranding within the right posterior lower neck and extending into the right supraclavicular/upper right chest wall region consistent with a cellulitis. 3. Mild right lower posterior cervical chain lymphadenopathy which is likely reactive. 4. 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 5. This report was called/faxed to the referring physician following dictation. ACT 112: Positive. There are findings on this exam that require communication between the performing entity and the patient following Patient Test Result Information Act ([place] Act 112) guidelines. Electronically signed by: Varun Garcia M.D. 06/25/2022 2:37 PM EKG Test Reason : Blood Pressure : / mmHG Vent. Rate : 079 BPM Atrial Rate : 079 BPM P-R Int : 162 ms QRS Dur : 088 ms QT Int : 416 ms P-R-T Axes : 025 009 027 degrees QTc Int : 477 ms Poor data quality, interpretation may be adversely affected Normal sinus rhythm Nonspecific T wave abnormality Abnormal ECG When compared with ECG of 07-JUN-2016 20:35, Premature ventricular complexes are no longer Present Confirmed by John Montano ([id number]) on 06/27/2022 4:31:36 AM Hospital Course (1) Abscess of muscle of neck: (2) Orthostasis: (3) Cellulitis: (4) H/O retropharyngeal abscess: (5) Paroxysmal A-fib: (6) Depression: (7) Hyperlipidemia: (8) Diabetes mellitus: (9) Sleep disturbance: (10) Hypertension: (11) OCHOA (acute kidney injury): Plan 66 y/o female with PMHx of HTN, DM, HLD, depression/anxiety, parox afib, and recent retropharyngeal abscess admitted to [facility] on 06/25/22 for right neck wound/infection. Severe cellulitis vs abscess of right neck Patient presented with right neck deep cellulitis this admission. She had I&D of this on 06/26/22. As shown by the scanned pictures, the wound is large, but is progressively healing. Patient has been using wound vac. VISup CT images from 04/21 were reviewed w/ radiology and it is possible that the neck cellultis had connection to the retropharyngeal abscess from 04/21 2022. However, per the 06/26/22 CT, the retropharyngeal abscess has improved significantly/resolved while the right neck wound is relatively superficial. Patient received Rocephin+cefepime->Rocephin+metronidazole followed by Rocephin+metronidazole+azithro. Per ID rec, she will receive Rocephin 24h, doxycycline 100mg PO BID (for MRSA coverage), and metronidazole 500mg PO TID. End date for antibiotics will be on 06/19/22, PCP to extend if indicated. Weekly CBC w/ diff and CMP while on antibiotics. Outpatient follow-up with wound care and general surgery. Acute kidney injury - resolved - Baseline .8. 1.52 on admission. Stable at 1.17-8 throughout admission. - Resume home lisinopril-hctz. HFrEF - 03/2022 EF 40-44%; euvolemic Orthostasis - resolved Paroxysmal atrial fibrillation - Continue home metoprolol succinate 25mg daily - f/u with pcp/cardio outpatient regarding anticoagulation Diabetes mellitus - a1c 6.2 06/04/22 - hold home glipizide and metformin - SSI while inpatient. not needing basal Depression - continue home sertraline Hyperlipidemia - continue home atorvastatin Hypertension - normotensive. see above. Seasonal allergies - Continue home Singulair and desloratadine Patient was conditional code this admission - no mechanical ventilation. Total Time Total Time Spent Total Time Spent (In Minutes): Per attending addendum. Discharge Plan Discharge Items Patient Disposition: Home - Home Health Services Reason For Visit: ABSCESS, CELLULITIS Discharge Diagnosis: right neck infection Activity: Per Instructions section Non-emergency contact: Primary Care Provider Call non-emergency contact if: your symptoms worsen Follow-up/Referrals: Van Jane MD [Primary Care Provider] - 07/09/22 10:00 am Romeo Chase DO, FACS [Physician] - 07/28/22 10:30 am (follow up in clinic within 3-4 weeks) Diet: Regular Addtl Attending Provider Instructions: You were admitted to [facility] for infection of the right neck. You were treated with an incision and drainage and IV antibiotics while in the hospital. Follow-up: * You should be seen by your primary physician within the next week. * Please follow up with general surgery after discharge. * Please follow up with wound care as below in the additional technical healthcare consultant instructions. Medications: Your antibiotics will be taken through 07/17/22, w/ potential extension if deemed necessary. * You will be sent home with the intravenous (IV) antibiotic Ceftriaxone 2g daily to be administered once a day. This will be administered via the US- guided IV line. * You will be taking the oral antibiotic metronidazole (avoid alcohol) 500mg to take three times a day (approx every 8 hours) for two weeks. First dose is due 11:59PM 07/04/22. * You will be taking the oral antibiotic doxycycline (use sunscreen. take on empty stomach if possible. avoid milk, magnesium, and calcium supplement within 2 hours of taking) 100mg to take twice a day (approx every 12 hours) for two weeks. First dose is due 11:59 PM 07/04/22. While on the antibiotics, PCP to check weekly CBC w/ diff and CMP. CONTACT YOUR PRIMARY CARE PROVIDER if you experience any of the following: * Fevers or shaking chills * Shortness of breath not relieved by inhalers, fainting * Sudden abdominal distension not relieved by catheterization. * Difficulty following your treatment plan, or difficulty taking medications CALL 911 OR GO TO THE EMERGENCY DEPARTMENT if you experience any of the following: * Sudden, severe abdominal pain or nausea/vomiting * Severe chest pain, or chest pain that radiates (moves) to your jaw or arm * Sudden, severe shortness of breath or difficulty breathing Addtl Chef Assistant Provider Instructions: follow up in the wound care center upon discharge [address], [address], [place] [address] #[phone] Pending Studies at Discharge: No Stand-Alone Forms: [facility], Smoking Cessation Medications and DC Order Prescriptions: New metronidazole 500 mg Tablet 500 mg PO TID 15 Days Qty: 45 0RF doxycycline hyclate 100 mg capsule 100 mg PO BID 15 Days Qty: 30 0RF Continued albuterol sulfate 90 mcg/actuation HFA aerosol inhaler 1 - 2 puff inhalation Q4H PRN (Reason: shortness of breath or wheezing) Qty: 8.5 5RF (DME) blood sugar diagnostic Strip See Dose Instructions .ROUTE .MEDSUPPLY Qty: 100 2RF Rx Instructions: test once daily dx E11.9 metformin 1,000 mg tablet 1,000 mg PO Q12H Qty: 180 3RF Rx Instructions: TAKE 1 TABLET EVERY 12 HOURS WITH FOOD lisinopril-hydrochlorothiazide 20-12.5 mg tablet 1 tab PO DAILY Qty: 90 3RF atorvastatin 10 mg tablet 10 mg PO HS Qty: 90 1RF glipizide 5 mg tablet extended release 24hr 5 mg PO BID Qty: 180 1RF sertraline 100 mg tablet 100 mg PO DAILY Qty: 90 3RF ondansetron HCl 4 mg tablet 4 mg PO Q8H PRN (Reason: nausea and vomiting) Qty: 30 0RF montelukast 10 mg tablet 10 mg PO DAILY Qty: 90 3RF desloratadine 5 mg tablet 5 mg PO DAILY Qty: 90 3RF (DME) lancets [OneTouch Delica Lancets] 33 gauge misc See Dose Instructions .ROUTE .MEDSUPPLY Qty: 100 Rx Instructions: check fasting blood sugar in morning as directed melatonin 5 mg capsule 10 mg PO HS PRN (Reason: Sleep) Patient Comments: as directed metoprolol succinate [Toprol XL] 25 mg tablet extended release 24 hr 25 mg PO DAILY Qty: 90 3RF Discharge Orders: Discharge Order (Routine); Ordered 07/04/22 Ordered By: Prince Swenson/Other Patient Handouts: Negative Pressure Wound Therapy Admission Data Admit Date/Time: 06/25/22 23:03 Attending Provider: Linda Carbajal Admit Provider: Ginny Walters Primary Care Provider: Van Jane V. Other Providers: Byron Banuelos ; Romeo Chase ; Dejuan Luz ; Terra Menjivar ; Ryan Sosa ; Mayra Alvarado ; Sara Guerrero ; Zelda Gregorio ; Yesi Delarosa ; Willow Morales ; Cheryl Bedoya ; Nieves Nuno Other Interventions: Discharge Summary Assessment (RN) Last Done: 07/04/22 15:44 Supervising Physician Co-Signing Physician Notes Medical Student Supervision Note: I was personally present during medical student patient encounter and independently interviewed and examined the patient and verified the flores history and physical, reviewed labs and image studies, discussed the case with Jemal Hilliard and agree with the findings and care plan. 66 y/o F here for recurrence of neck abscess - this time on right side. Last abscess on left side - treated at [facility] with drainage, IV antibiotcs. See above for more detailed HPI. o/e - no distress AAOx3 unchanged exam - wound site on right lower neck region - mild erythema in surrounding area. wound vac in place. a/p - Severe Cellulitis/Abscess of right neck - s/p recent abscess drained and treated with abx I and D on 06/26. Cultures negative. Wound vac + ID consult for input considering recurrence and neg culture - received different combination of abx including cefepime, rocephin, azithromycin and flagyl. -ID recommended adding flagyl to ceftriaxone 2gms. ok to continue vanco while inpatient - switch to PO Doxycycline on discharge. -wkly cbc, cmp per pcp -Has USG guided line which should suffice for the duration of antibiotic treatment. End of abx on 07/17. [facility] CT images from 04/21 were reviewed w/ radiology and it is possible that the neck cellultis had connection to the retropharyngeal abscess from 04/21 2022. However, per the 06/26/22 CT, the retropharyngeal abscess has improved significantly/resolved while the right neck wound is relatively superficial. ---Outpatient f/u with surgery Ochoa - resolved. resumed lisinopril/hctz - 15/04.5 before discharge chronic systolic CHF -stayed euvolemic during hospital stay.
[2022-07-04] MEDS ORDERED: cefTRIAXone SODIUM 2,000 MG in DEXTROSE 5% 50 ML IV ONE (16:00)
== END 2022-07-04 17:13 | disposition home health service (06) | DRG 603 ==
LOC: ED 17:10 → SUATTDRO 23:03 → 2W 23:03 → 3N 06-29 17:34

== ENCOUNTER 2022-07-21 12:28 | Inpatient (IN) ==
--- NOTE | 2022-07-21 14:11 | Emergency Department Note ---
Impression & Plan Syncope, Hypomagnesemia, Hypokalemia, Diarrhea, Weakness ED Provider Note NAME: MIKE PEREIRA AGE: 66 SEX: F : 1955 ARRIVES VIA: Ambulance INFORMANT: Patient, ED PROVIDER(S): Kain Correa MD CHIEF COMPLAINT: Syncope, diarrhea MEDICAL DECISION MAKING: The patient did have blood work obtained and IV was established and the patient was ordered IV fluids. The patient is a white count 14 with a normal H&H and platelet count. Hypokalemia at 2.6 in addition to hypomagnesemia at 1. The patient was ordered 2 g of magnesium for replacement. COVID-negative. Troponin is slightly above normal. Patient denies any chest pains or shortness of breath given the patient's diarrheal illness stool culture and C. difficile were also obtained given her recent antibiotic use. I did speak the on-call hospital service Deirdre Cheng PA-C and the patient was admitted by Dr. Hayes. Prior /Outside records reviewed: Did review the patient's primary care visit from July 10 the patient did have a retropharyngeal abscess post I&D of right- sided shoulder neck subcutaneous infection patient was on Unasyn until May 04 and PICC line was removed. Oral Augmentin recommended until cellulitis had resolved until ID follow-up. I did review the patient's most recent discharge summary from July 04 which showed the patient does have prior history of hypertension diabetes hyperlipidemia cited pression A-fib recent retropharyngeal abscess patient was in admitted at the time of her most recent admission for cefepime Vanco and Flagyl. Patient did have progressively improving healing of her skin. The patient has been using the wound VAC. The patient was to receive Rocephin every 24 doxycycline 100 p.o. twice daily and Flagyl 3 times daily with expected end date of antibiotics to be July 17. Differential diagnosis: Vasovagal event, dehydration, infection, hypoglycemia, electrolyte abnormalities, cardiac sources, intracerebral event, pulmonary embolism, seizure, toxicologic, neurologic, as well as other pathologies. Diagnostics, as interpreted by me: ECG: Normal sinus rhythm, rate of 72, normal AL and QRS prolonged QTc, normal axis slight ST depressions in the lateral leads. No ST elevations. Cardiac monitoring: An order was placed for continuous cardiac monitoring. The monitor shows a rate of 77 with sinus rhythm. Patient was placed on pulse oximetry Medical decision rules: none Imaging studies: See below HPI: Patient presents due to concern for syncope. The patient states that she was having home health help with a bandage change for an area of wound VAC with the patient did have a surgical debridement completed by Dr. Chase in the past. The patient did have retropharyngeal abscess with subsequent extension into the neck and shoulder area back in April as recently admitted here in June. Patient denies any headache or neck pain. The patient has complained of decreased p.o. intake appetite as well as diarrhea of 4 bowel movements per day over the last several days that are primarily just water. Patient denies any abdominal pain. Patient states that when they were changing the wound VAC the patient did have a syncopal event. The patient does admit to feeling ligh theaded and dizzy. No reported trauma. PAST MEDICAL HISTORY: See Below PAST SURGICAL HISTORY: See Below SOCIAL HISTORY: See Below HOME MEDICATIONS: See Below ALLERGIES: See Below VITALS: See Below PHYSICAL EXAMINATION: GENERAL: NAD, wearing a mask, non-toxic. Morbidly obese. EYE EXAM: Normal conjunctiva. PERRL, no anisocoria and EOM's grossly intact w/o pain. Oropharynx: Dry mucous membranes. NECK: Supple, no nuchal rigidity, no adenopathy, non-tender. No signs of meningismus. FROM of the neck with good chin to chest and neck extension. No stridor. LUNGS: Clear to auscultation. Normal chest wall mechanics. HEART: NSR, no MRG. ABDOMEN: Abdomen soft, non-tender, normo-active bowel sounds, no masses, no rebound or guarding. BACK: No CVA TTP. SKIN: Bandage in place over the right mid trapezius area without any surrounding erythema fluctuance or drainage. UPPER EXTREMITIES: Upper extremities are grossly normal. LOWER EXTREMITIES: Grossly normal, no edema. NEURO EXAM: A&O x3, cranial nerves II-XII grossly intact, normal speech, moves all 4 extremities. Past Med/Surg History Medical History Abnormal blood test Abscess of skin of neck OCHOA (acute kidney injury) Cellulitis Cellulitis of right shoulder Diabetes mellitus Diabetes mellitus type 2, uncontrolled Elevated lactic acid level Health care maintenance High risk medication use Knee pain, bilateral Lab test negative for COVID-19 virus Left knee DJD Menopausal state Obesity, morbid, BMI 40.0-49.9 Orthostasis Pain medication agreement Right knee DJD Sepsis Sleep disturbance Surgical History History of incision and drainage (06/26/22) Incision and Drainage right shoulder/neck Abscess(Right) - Romeo Chase DO, FACS History of tubal ligation S/P tubal ligation Status post repair of nerve Family History Father Myocardial infarction Arthritis Diabetes Mother Diabetes Thyroid disorder Social History Smoking Status: Never smoker Second Hand Exposure: No; Hx Alcohol Use: Yes (social) Hx Substance Use: No Preferred Language: Spanish Communication Ability: Effective Visual Impairment: No Limitations Hearing Ability: Normal Surfacer Required: No Beliefs That Will Affect Care: None Current Living Situation: Other Current Living Situation Comment: Has home but has been staying with mother, they take care of each other Feels Safe at Home: Yes Seatbelt Use: always Assistive Devices: Cane Allergies Allergies Allergy/AdvReac Type Severity Reaction Status Date / Time amoxicillin [From Augmentin] Allergy Intermediate BLISTERED Verified 06/25/22 21:10 HANDS & FEET clavulanic acid Allergy Intermediate BLISTERED Verified 06/25/22 21:10 [From Augmentin] HANDS & FEET simvastatin AdvReac Intermediate MUSCLE Verified 06/25/22 21:10 PAIN IN SHOULDERS Home Meds Home Medications Medication Instructions Recorded Confirmed melatonin 5 mg capsule 10 mg PO HS PRN Sleep 12/16/21 07/21/22 Previous Rx's Medication Instructions Recorded albuterol sulfate 90 mcg/actuation 1 - 2 puff inhalation Q4H PRN 05/01/20 aerosol inhaler shortness of breath or wheezing #8.5 grams lisinopril 20 1 tab PO DAILY #90 tabs 01/22/22 mg-hydrochlorothiazide 12.5 mg tablet metformin 1,000 mg tablet 1,000 mg PO Q12H #180 tabs 01/22/22 atorvastatin 10 mg tablet 10 mg PO HS #90 tabs 02/21/22 glipizide 5 mg tablet, extended 5 mg PO BID #180 tabs 02/21/22 release 24 hr sertraline 100 mg tablet 100 mg PO DAILY #90 tabs 02/21/22 metoprolol succinate 25 mg 25 mg PO DAILY #90 tabs 06/04/22 tablet,extended release 24 hr (Toprol XL) montelukast 10 mg tablet 10 mg PO DAILY #90 tabs 06/23/22 desloratadine 5 mg tablet 5 mg PO DAILY #90 tabs 07/02/22 ondansetron HCl 4 mg tablet 4 mg PO Q8H PRN nausea and 07/11/22 vomiting #30 tabs Results & Data (ED) Vital Signs Vital Signs - 24 hr 07/21/22 12:43 07/21/22 12:56 07/21/22 12:56 Temperature 36.8 C Temperature Source Oral Pulse Rate 75 Pulse Rate [Right Apical] 71 Pulse Rate from SpO2 Sensor Respiratory Rate 18 18 Respiratory Effort / Characteristics Non-Labored Spontaneous Non-Labored Spontaneous Respiratory Depth Normal Normal Respiratory Pattern Regular Regular Blood Pressure 139/113 H Blood Pressure [Right Arm] 139/113 H Blood Pressure Mean 121 Blood Pressure Mean [Right Arm] 121 Pulse Oximetry 93 93 93 Oxygen Delivery Method Room Air Room Air Room Air Sepsis Recent Fever Within 48 Hours No Sepsis New/Unexplained Change in Mental Status No Sepsis Action Taken by Nursing No Action Required 07/21/22 12:59 07/21/22 13:42 07/21/22 13:03 Temperature Temperature Source Pulse Rate 72 71 Pulse Rate [Right Apical] Pulse Rate from SpO2 Sensor 71 Respiratory Rate 18 14 Respiratory Effort / Characteristics Respiratory Depth Respiratory Pattern Blood Pressure 144/85 H Blood Pressure [Right Arm] Blood Pressure Mean 104 Blood Pressure Mean [Right Arm] Pulse Oximetry 97 95 Oxygen Delivery Method Room Air Room Air Sepsis Recent Fever Within 48 Hours Sepsis New/Unexplained Change in Mental Status Sepsis Action Taken by Nursing 07/21/22 13:30 07/21/22 14:00 07/21/22 14:01 Temperature Temperature Source Pulse Rate Pulse Rate [Right Apical] Pulse Rate from SpO2 Sensor 67 66 Respiratory Rate 16 Respiratory Effort / Characteristics Respiratory Depth Respiratory Pattern Blood Pressure 156/90 H Blood Pressure [Right Arm] Blood Pressure Mean 112 134 Blood Pressure Mean [Right Arm] Pulse Oximetry 94 90 Oxygen Delivery Method Room Air Room Air Sepsis Recent Fever Within 48 Hours Sepsis New/Unexplained Change in Mental Status Sepsis Action Taken by Nursing 07/21/22 14:01 07/21/22 14:30 Temperature Temperature Source Pulse Rate Pulse Rate [Right Apical] Pulse Rate from SpO2 Sensor 65 63 Respiratory Rate Respiratory Effort / Characteristics Respiratory Depth Respiratory Pattern Blood Pressure Blood Pressure [Right Arm] Blood Pressure Mean Blood Pressure Mean [Right Arm] Pulse Oximetry 90 93 Oxygen Delivery Method Room Air Room Air Sepsis Recent Fever Within 48 Hours Sepsis New/Unexplained Change in Mental Status Sepsis Action Taken by [facility] Medications Current Medication List: was personally reviewed by me Laboratory Data Attestation: I reviewed the patient's lab results. 07/21/22 14:23 07/21/22 14:23 Lab Results 07/21/22 07/21/22 07/21/22 Range/Units 14:23 14: 14:23 WBC 14.30 H (4.8-10.8) K/ul RBC 4.67 (4.20-5.40) M/uL Hgb 13.6 (12.0-16.0) g/dl Hct 40.8 (37.0-47.0) % MCV 87.4 (80.0-100.0) fL MCH 29.1 (25.0-34.0) pg MCHC 33.3 (32.0-36.0) g/dL RDW Std Deviation 50.0 H (36.4-46.3) fL RDW Coeff of Geetha 15.9 H (11.5-14.5) % Plt Count 295 (130-400) K/uL MPV 12.1 (9.4-12.4) fL Neutrophils % (Manual) 69 % Lymphocytes % (Manual) 12 % Reactive Lymphs % (Man) 13 % Monocytes % (Manual) 6 % Neutrophils # (Manual) 9.87 H (1.40-6.50) K/uL Total Absolute Neuts 9.87 H (1.4-6.5) K/uL Lymphocytes # (Manual) 1.72 (1.2-3.4) K/uL Reactive Lymphs # 1.86 K/uL Total Abs Lymphocytes 3.58 H (1.2-3.4) K/uL Monocytes # (Manual) 0.86 H (0.11-0.59) K/uL Tear Drop Cells 1+ Sodium 143 (136-145) mmol/L Potassium 2.6 L (3.5-5.1) mmol/L Chloride 100 (98-107) mmol/L Carbon Dioxide 33 H (21-32) mmol/L Anion Gap 10 (3-11) BUN 17 (6-23) mg/dl Creatinine 1.19 (0.6-1.2) mg/dl Est Cr Clr Drug Dosing 64.3 ml/min Est GFR ( Amer) 55.5 ml/min Est GFR (Non-Af Amer) 47.9 ml/min BUN/Creatinine Ratio 14.3 (10-20) Glucose 97 (70-99(Fasting)) mg/dl Calcium 8.7 (8.6-10.3) mg/dl Magnesium 1.0 L (1.7-2.4) mg/dl Total Bilirubin 0.5 (0.2-1.0) mg/dl AST 55 H (13-39) U/L ALT 18 (7-52) U/L Alkaline Phosphatase 52 (34-104) U/L Troponin I High Sens 44.7 H (0-14) pg/ml Total Protein 7.4 (6.0-8.3) gm/dl Albumin 3.2 L (3.4-5.0) gm/dl Globulin 4.2 H (2.5-4.0) gm/dl Albumin/Globulin Ratio 0.8 L (0.9-2) Procalcitonin (0-0.5) ng/ml TSH 2.037 (0.300-4.500) uIu/ml SARS-CoV-2, RNA, NAAT (NEGATIVE) 07/21/22 07/21/22 Range/Units 14:23 16:00 WBC (4.8-10.8) K/ul RBC (4.20-5.40) M/uL Hgb (12.0-16.0) g/dl Hct (37.0-47.0) % MCV (80.0-100.0) fL MCH (25.0-34.0) pg MCHC (32.0-36.0) g/dL RDW Std Deviation (36.4-46.3) fL RDW Coeff of Geetha (11.5-14.5) % Plt Count (130-400) K/uL MPV (9.4-12.4) fL Neutrophils % (Manual) % Lymphocytes % (Manual) % Reactive Lymphs % (Man) % Monocytes % (Manual) % Neutrophils # (Manual) (1.40-6.50) K/uL Total Absolute Neuts (1.4-6.5) K/uL Lymphocytes # (Manual) (1.2-3.4) K/uL Reactive Lymphs # K/uL Total Abs Lymphocytes (1.2-3.4) K/uL Monocytes # (Manual) (0.11-0.59) K/uL Tear Drop Cells Sodium (136-145) mmol/L Potassium (3.5-5.1) mmol/L Chloride (98-107) mmol/L Carbon Dioxide (21-32) mmol/L Anion Gap (3-11) BUN (6-23) mg/dl Creatinine (0.6-1.2) mg/dl Est Cr Clr Drug Dosing ml/min Est GFR ( Amer) ml/min Est GFR (Non-Af Amer) ml/min BUN/Creatinine Ratio (10-20) Glucose (70-99(Fasting)) mg/dl Calcium (8.6-10.3) mg/dl Magnesium (1.7-2.4) mg/dl Total Bilirubin (0.2-1.0) mg/dl AST (13-39) U/L ALT (7-52) U/L Alkaline Phosphatase (34-104) U/L Troponin I High Sens (0-14) pg/ml Total Protein (6.0-8.3) gm/dl Albumin (3.4-5.0) gm/dl Globulin (2.5-4.0) gm/dl Albumin/Globulin Ratio (0.9-2) Procalcitonin < 0.05 (0-0.5) ng/ml TSH (0.300-4.500) uIu/ml SARS-CoV-2, RNA, NAAT NEGATIVE (NEGATIVE) Administered Medications Atorvastatin Calcium (Atorvastatin 10 Mg Tab) 10 mg PO HS LUCITA Stop: 08/20/22 20:59 Last Admin: 07/21/22 21:07 Dose: 10 mg Documented By: WILLIAM Heparin Sodium (Porcine) (Heparin Sod 5,000 Unit/0.5 Ml Vial) 5,000 units SQ Q12 LUCITA Stop: 08/20/22 20:59 Last Admin: 07/21/22 21:08 Dose: 5,000 units Documented By: WILLIAM Famotidine 20 mg/ Syringe 5 mls @ 2.5 mls/min IV QAM LUCITA Stop: 08/20/22 19:54 Last Admin: 07/21/22 21:06 Dose: 2.5 mls/min Documented By: WILLIAM Insulin Aspart (Insulin Aspart Per Unit Charge) 0 units SC ACHS [facility] Stop: 08/20/22 20:59 Last Admin: 07/22/22 08:25 Dose: Not Given Documented By: Admin: 07/21/22 20:52 Dose: Not Given Documented By: WILLIAM Melatonin (Melatonin 3 Mg Tab) 9 mg PO HSZ PRN PRN Reason: Sleep Stop: 08/20/22 20:10 Last Admin: 07/22/22 03:54 Dose: 9 mg Documented By: WILLIAM Metformin HCl (Metformin Hcl 500 Mg Tab) 1,000 mg PO BIDM [facility] Stop: 08/20/22 22:29 Last Admin: 07/21/22 23:48 Dose: 1,000 mg Documented By: WILLIAM Ondansetron HCl (Ondansetron Inj 2 Mg/Ml 2 Ml Vial) 4 mg IV Q6H PRN PRN Reason: Nausea Stop: 08/20/22 19:54 Last Admin: 07/22/22 00:29 Dose: 4 mg Documented By: WILLIAM Discontinued Medications Sodium Chloride (Nss 1000ml) 1,000 mls @ 999 mls/hr IV .Q1H1M [facility] Stop: 07/21/22 15:30 Last Infusion: 07/21/22 15:38 Dose: 0 mls/hr Documented By: Admin: 07/21/22 14:27 Dose: 999 mls/hr Documented By: KEISHA Magnesium Sulfate/Dextrose (Magnesium Sulfate / D5w) 1 gm in 100 mls @ 200 mls/hr IV Q30M [facility] Stop: 07/21/22 16:51 Last Infusion: 07/21/22 17:25 Dose: 0 mls/hr Documented By: Admin: 07/21/22 16:46 Dose: 200 mls/hr Documented By: Infusion: 07/21/22 16:39 Dose: 200 mls/hr Documented By: Admin: 07/21/22 16:09 Dose: 200 mls/hr Documented By: KEI Magnesium Sulfate/Dextrose (Magnesium Sulfate / D5w) 1 gm in 100 mls @ 50 mls/hr IV Q2H LCUITA Stop: 07/21/22 20:59 Last Infusion: 07/21/22 23:08 Dose: 0 mls/hr Documented By: Admin: 07/21/22 21:06 Dose: 50 mls/hr Documented By: Infusion: 07/21/22 20:52 Dose: 0 mls/hr Documented By: Admin: 07/21/22 18:43 Dose: 50 mls/hr Documented By: KEI Potassium Chloride/Sodium Chloride (Normal Saline W/20 Meq Kcl) 20 meq in 1,000 mls @ 80 mls/hr IV .[id number] [facility] Stop: 07/22/22 08:24 Last Admin: 07/21/22 21:06 Dose: 80 mls/hr Documented By: WILLIAM Potassium Chloride (Potassium Chloride Crtab 20 Meq Tabcr) 20 meq PO NOW STA Stop: 07/21/22 16:43 Last Admin: 07/21/22 18:43 Dose: 20 meq Documented By: KEI Potassium Chloride (Potassium Chloride Crtab 20 Meq Tabcr) 40 meq PO NOW STA Stop: 07/21/22 16:51 Last Admin: 07/21/22 18:43 Dose: 40 meq Documented By: KEI Raspberry (Raspberry Syrup 5 Ml Udp) 5 ml PO Q6 [facility]A Stop: 07/31/22 19:54 Last Admin: 07/21/22 21:07 Dose: 5 ml Documented By: WILLIAM Vancomycin HCl (Vancomycin Hcl 125 Mg/2.5ml Soln) 125 mg PO Q6 [facility]A Stop: 07/31/22 19:54 Last Admin: 07/21/22 21:07 Dose: 125 mg Documented By: WILLIAM Discharge Plan Visit Data Chief Complaint: Syncope Stated Complaint: SYNCOPE ED Provider: Kain Correa Discharge Problem: Syncope, Hypomagnesemia, Hypokalemia, Diarrhea, Weakness Patient Disposition: Admitted As Inpatient Discharge Instructions Interventions: ED Discharge Assessment Last Done: 07/21/22 19:32
[2022-07-21] MEDS ORDERED: SODIUM CHLORIDE 0.9% 1000ML 1,000 ML IV SCH (14:30)
[2022-07-21 14:49] LABS: Hematocrit (blood only) 40.8 % (37.0-47.0); Hemoglobin 13.6 g/dl (12.0-16.0); Mean Corpuscular Hemoglobin 29.1 pg (25.0-34.0); Mean Corpuscular Hgb Conc 33.3 g/dL (32.0-36.0); Mean Corpuscular Volume 87.4 fL (80.0-100.0); Mean Platelet Volume 12.1 fL (9.4-12.4); Platelet Count 295 K/uL (130-400); RDW Coefficient of Variation 15.9 % (11.5-14.5); Red Blood Count 4.67 M/uL (4.20-5.40)
[2022-07-21 15:11] LABS: Albumin Level 3.2 gm/dl (3.4-5.0); Bilirubin,Total 0.5 mg/dl (0.2-1.0); Calcium 8.7 mg/dl (8.6-10.3); Potassium 2.6 mmol/L (3.5-5.1)
[2022-07-21 15:17] LABS: Albumin Globulin Ratio 0.8 (0.9-2); BUN Creatinine Ratio 14.3 (10-20); Creatinine Clr Calc Pharmacy 64.3 ml/min; Est GFR (African American) 55.5 ml/min; Est GFR (Non-African American) 47.9 ml/min; Globulin 4.2 gm/dl (2.5-4.0); Total Protein 7.4 gm/dl (6.0-8.3); Troponin I High Sensitivity 44.7 pg/ml (0-14)
--- NOTE | 2022-07-21 15:17 | Electrocardiogram Report ---
Test Reason : Blood Pressure : / mmHG Vent. Rate : 072 BPM Atrial Rate : 072 BPM P-R Int : 180 ms QRS Dur : 094 ms QT Int : 440 ms P-R-T Axes : 067 024 008 degrees QTc Int : 481 ms Normal sinus rhythm Abnormal ECG When compared with ECG of 25-JUN-2022 17:58, Nonspecific T wave abnormality no longer evident in Anterior leads T wave inversion now evident in Lateral leads Confirmed by Oneil Warren ([id number]) on 07/21/2022 3:17:17 PM Referred By: Confirmed By:Oneil Warren
[2022-07-21 16:01] LABS: ALC (manual) 3.58 K/uL (1.2-3.4); ANC (manual) 9.87 K/uL (1.4-6.5); Lymphocytes # (manual) 1.72 K/uL (1.2-3.4); Lymphocytes % (manual) 12 %; Monocytes # (manual) 0.86 K/uL (0.11-0.59); Monocytes % (manual) 6 %; Neutrophils # (manual) 9.87 K/uL (1.40-6.50); Neutrophils % (manual) 69 %; Reactive Lymphocytes # (manual) 1.86 K/uL; Reactive Lymphocytes % (manual) 13 %; Tear Drop Cells 1+
[2022-07-21] MEDS: MAGNESIUM SULFATE / D5W 1 GM/100 ML BAG IV SCH ×4 (16:09→21:06)
--- NOTE | 2022-07-21 16:32 | History & Physical Report ---
Date of Service July 21, 2022 Assessment & Plan (1) Syncope: (2) Diarrhea: Plan: reported weakness, decreased PO intake ALCOHOL STILL OPERATOR/dehydration, recent abx for RPA -- long course -- see HPI for history since last March at [place] Mag found to be 1.0 on admission, K 2.5 Checking stool studies/cdiff given recent abx use/diarrhea, very possible she could have underlying cdiff, will place in isolation given reports diarrhea of note, recently started PPI w/ omeprazole and increased to BID for reflux symptoms will start empiric vancomycin QID given strong suspicion/diarrhea/recent PPI use Mag/K replacement ordered, suspect weakness partially attributed to electrolyte derangements, repeat labs this evening/additional replacement as indicated Check CXR/UA/KUB/blood cultures, check procal (note was negative last admit w/ current RPA) WBC 14k, similar to prior RPA -- repeat CT soft tissue for eval as well No fever/chills, other infectious obvious on exam at this time Monitor labs on repeat PT/OT consultations prior to dc (3) Weakness: Plan: likely 2nd to electrolyte derrangements replacement ordered and monitor on repeat check CXR/UA/CT soft tissue as above, blood cultures, procal PT/OT evals (4) Hypomagnesemia: Plan: Mag 1.0, K 2.6 IV mag/PO Kcl replacement ordered Monitor repeat labs this evening and further as needed Monitor in AM (5) Hypokalemia: Plan: as above (6) Paroxysmal A-fib: Plan: EKG on admit w/o evidence (however she notes possibly in EMS -- no record at present of such), not on anticoagulation prior paroxysmal hx in setting of GAS bacteremia at [facility] earlier this year TSH wnl On metoprolol, continued monitor on telemetry Keep K/mag replete as above (7) Hyperlipidemia: Plan: continue statin (8) H/O retropharyngeal abscess: Plan: hx of such as above check CT soft tissue give prior recurrence since March earlier this month for eval wound rn consulted for wound vac (9) Hypertension: Plan: continue lisinopril but will hold HCTZ to prevent dehydration for BP control (161/100 presently, no headache/CP/SOB reported) continue metoprolol 25mg daily Monitor (10) Diabetes mellitus: Plan: hold home agents, prior A1c 6.2 earlier this year BSG AC/HS while inpatient Monitor BSGs (11) Depression: Plan: continue sertraline (12) Gait difficulty: Plan: 2nd to prolonged hospitalizations/etc as above PT/OT consults will be undertaken DVT proph: Heparin SQ while inpatient Plan patient hopeful to return home tomorrow Admission and Anticipated Discharge Date Admission Date: I personally saw and examined the patient. I verified all flores points and agree with Deirdre Chen PA-C with the following exceptions and/or additions: 66 year old female admission for syncopal episode. She reported feeling lightheaded and dizzy prior to a syncopal episode this morning with her eyes rolling back. O/E A&Ox3, morbidly obese, HS RRR, no murmurs, Chest CTAB, Abdo SNT, wound vac in place on neck without surrounding cellulitis A/P Syncope - suspect due to orthostasis as below. Monitor on telemetry for arrhythmia. Echocardiogram completed in March and suspected alternative etiology therefore will not repeat. Orthostasis - this was present last admission and was noted to have resolved with holding lisinopril and HCTZ. These were however resumed on discharge. Will discontinue lisinopril and HCTZ. Orthostatics q shift. Acute hypokalemia/hypomagnesemia - suspect secondary to HCTZ, this should be discontinued, potassium supplementation as above Diarrhea - she reports this has been going on for the last few months since her admission at [place] and is no worse than usual. Will stop empiric vancomycin. Await stool and c. diff PCR. T2DM - HbA1C 6.2, will resume her usual medications to make sure hypoglycemia not contributing towards dizziness. Insulin for correction factor only. I suspect she is over treated and likely will need to reduce or stop her glipizide. Paroxysmal atrial fibrillation - I am unclear on the origin of this diagnosis. Added at PCP visit [06/03/22] mentions "cardiology given patient report paroxysmal AFib restarting prescription metoprolol 25 mg extended release once daily given fast heart rate/EKG June 04, 2022 88 beats per minute no evidence for arrhythmia", no a. fib on that outpatient EKG. She was advised to start taking "Toprol XL 12.5mg PO daily as part of GDMT" [facility] summary [05/02/22] which translates as guideline directed medical therapy for heart failure as her LVEF was noted to be 40-44% but no episode of atrial fibrillation mentioned. Recommend confirming with PCP tomorrow but I could not find any evidence of this is a true diagnosis. Cardiomyopathy - continue metoprolol succinate 25mg PO daily. She should have cardiology follow up for this. HFrEF noted on previous admission but I see no evidence of this - she has tolerated significant amounts of fluids fine and I do not see a need for diuretics with taking her off HCTZ for hypokalemia. History of Present Illness Chief Complaint: dehydration, diarrhea, weakness Primary Care Provider: Van Jane MD 66yo female with recent admission for retropharyngeal abscess s/p ID 06/[address] Chase and seen by ID and sent completed course of abx with Ceftriaxone IV, Flagyl PO, Doxycycline through 07/17. Previously was admitted at [facility] for septic shock 2nd to GAS bacteremia arising from RPA//right neck cellulitis. Did not require intubation at that time. Developed pAfib and was sta rted on metoprolol PACO at that time w/ LVEF 40-44% w/o significant valvular abnormalities. She had been d/c on Unasyn from [facility], complted on 05/04/22 and switched to Augmentin BID completed 05/16 prior to returning to [facility] ER 06/25/22. PMHx significant for HFrEF, paroxysmal afib, HTN, HLD, depression. Patient had home health come in today and concerns for decreased PO intake, 3-4 watery BM daily and reports when HH tried to change wound vac wasn't feeling well and felt like passing out. She notes that she had recently been started on omeprazole for reflux symptoms without significant improvement and had increased these to twice daily over the past week for assistance. Discussed concerns for cdiff, she does note all liquid BMs recently. No blood noted per patient. Completed her abx on 07/17 last week and tolerated well. Hopeful to not require any further antibiotics. No abdominal pain at present but did have nausea prior to the Zofran by EMS in route to hospital. No chest pain/shortness of breath, issues with oral intake/swallowing issues reported. Inquiring if she is able to have a gingerale. Dressing looks good for wound vac, some surrounding erythema appears from dressing (she agrees issues w/ prior), nontender. No fevers at home. Mag found to be 1.0, K 2.6. Denied any palpitations/cramping/dizziness but did feel like passing out as above. Hx paroxysmal afib w/ prior infection but NSR on EKG (she believes possible afib in EMS noted), not on anticoagulation. Trop 44.7. EKG NSR, TWI in lateral leads Chest CXR, negative for acute process, discussed w/ patient and will check CT soft tissue for eval/ensure prior sx resolved given leukocytosis. Making urine, denies urinary sx at present. Will be admitted for electrolyte replacement and monitoring. Patient full code, ok w/ CPR/intubation if needed temporarily but no [facility] measures. States her family are aware of her wishes as well. Allergies Allergy/AdvReac Type Severity Reaction Status Date / Time amoxicillin [From Augmentin] Allergy Intermediate BLISTERED Verified 06/25/22 21:10 HANDS & FEET clavulanic acid Allergy Intermediate BLISTERED Verified 06/25/22 21:10 [From Augmentin] HANDS & FEET simvastatin AdvReac Intermediate MUSCLE Verified 06/25/22 21:10 PAIN IN SHOULDERS Home Medications Medication Instructions Recorded Confirmed Type albuterol sulfate 90 mcg/actuation 1 - 2 puff inhalation Q4H PRN 05/01/20 07/21/22 Rx aerosol inhaler shortness of breath or wheezing #8.5 grams melatonin 5 mg capsule 10 mg PO HS PRN Sleep 12/16/21 07/21/22 History lisinopril 20 1 tab PO DAILY #90 tabs 01/22/22 07/21/22 Rx mg-hydrochlorothiazide 12.5 mg tablet metformin 1,000 mg tablet 1,000 mg PO Q12H #180 tabs 01/22/22 07/21/22 Rx atorvastatin 10 mg tablet 10 mg PO HS #90 tabs 02/21/22 07/21/22 Rx glipizide 5 mg tablet, extended 5 mg PO BID #180 tabs 02/21/22 07/21/22 Rx release 24 hr sertraline 100 mg tablet 100 mg PO DAILY #90 tabs 02/21/22 07/21/22 Rx metoprolol succinate 25 mg 25 mg PO DAILY #90 tabs 06/04/22 07/21/22 Rx tablet,extended release 24 hr (Toprol XL) montelukast 10 mg tablet 10 mg PO DAILY #90 tabs 06/23/22 07/21/22 Rx desloratadine 5 mg tablet 5 mg PO DAILY #90 tabs 07/02/22 07/21/22 Rx ondansetron HCl 4 mg tablet 4 mg PO Q8H PRN nausea and 07/11/22 07/21/22 Rx vomiting #30 tabs Past Med/Surg History Medical History Abnormal blood test Abscess of skin of neck OCHOA (acute kidney injury) Cellulitis Cellulitis of right shoulder Diabetes mellitus Diabetes mellitus type 2, uncontrolled Elevated lactic acid level Health care maintenance High risk medication use Knee pain, bilateral Lab test negative for COVID-19 virus Left knee DJD Menopausal state Obesity, morbid, BMI 40.0-49.9 Orthostasis Pain medication agreement Right knee DJD Sepsis Sleep disturbance Surgical History History of incision and drainage (06/26/22) Incision and Drainage right shoulder/neck Abscess(Right) - Romeo Chase DO, FACS History of tubal ligation S/P tubal ligation Status post repair of nerve Family History Father Myocardial infarction Arthritis Diabetes Mother Diabetes Thyroid disorder Social History Smoking Status: Never smoker Second Hand Exposure: No; Hx Alcohol Use: Yes (social) Hx Substance Use: No Preferred Language: [place] Communication Ability: Effective Visual Impairment: No Limitations Hearing Ability: Normal Motorcycle Mechanic Required: No Beliefs That Will Affect Care: None Current Living Situation: Other Current Living Situation Comment: Has home but has been staying with mother, they take care of each other Feels Safe at Home: Yes Seatbelt Use: always Assistive Devices: Cane Physical Exam Physical Exam: General: chronically ill appearing female sitting up in bed, NAD, inquiring about gingerale HEENT: head normocephalic, wound vac w/ tegaderm dressing in place to R neck/shoulder region, slight erythema around dressing but clear around sponge, no drainage/warmth Resp: CTA, on room air CV: RRR, frequent PVC, no significant m/r/g, no pitting edema/calf tenderness, pulses palpable GI: +BS, soft/NT : no perez MSK/Neuro: CN intact grossly, no deficit/slurred speech/facial droop Psych: AOx3, pleasant and cooperative Results & Data Results & Data Vital Signs (Past 12 Hours) Vital Signs Temp Pulse Pulse Resp BP BP Pulse Ox 07/21/22 13:30 16 156/90 H 94 07/21/22 13:03 71 14 144/85 H 95 07/21/22 13:42 18 97 07/21/22 12:59 72 07/21/22 12:56 71 18 139/113 H 93 07/21/22 12:56 93 07/21/22 12:43 36.8 C 75 18 139/113 H 93 O2 Del Method 07/21/22 13:30 Room Air 07/21/22 13:03 Room Air 07/21/22 13:42 Room Air 07/21/22 12:59 07/21/22 12:56 Room Air 07/21/22 12:56 Room Air 07/21/22 12:43 Room Air Laboratory Results 07/21/22 07/21/22 07/21/22 Range/Units 16:00 14:23 14:23 WBC (4.8-10.8) K/ul RBC (4.20-5.40) M/uL Hgb (12.0-16.0) g/dl Hct (37.0-47.0) % MCV (80.0-100.0) fL MCH (25.0-34.0) pg MCHC (32.0-36.0) g/dL RDW Std Deviation (36.4-46.3) fL RDW Coeff of Geetha (11.5-14.5) % Plt Count (130-400) K/uL MPV (9.4-12.4) fL Neutrophils % (Manual) % Lymphocytes % (Manual) % Reactive Lymphs % (Man) % Monocytes % (Manual) % Neutrophils # (Manual) (1.40-6.50) K/uL Total Absolute Neuts (1.4-6.5) K/uL Lymphocytes # (Manual) (1.2-3.4) K/uL Reactive Lymphs # K/uL Total Abs Lymphocytes (1.2-3.4) K/uL Monocytes # (Manual) (0.11-0.59) K/uL Tear Drop Cells Sodium 143 (136-145) mmol/L Potassium 2.6 L (3.5-5.1) mmol/L Chloride 100 (98-107) mmol/L Carbon Dioxide 33 H (21-32) mmol/L Anion Gap 10 (3-11) BUN 17 (6-23) mg/dl Creatinine 1.19 (0.6-1.2) mg/dl Est Cr Clr Drug Dosing 64.3 ml/min Est GFR ( Amer) 55.5 ml/min Est GFR (Non-Af Amer) 47.9 ml/min BUN/Creatinine Ratio 14.3 (10-20) Glucose 97 (70-99(Fasting)) mg/dl Calcium 8.7 (8.6-10.3) mg/dl Magnesium 1.0 L (1.7-2.4) mg/dl Total Bilirubin 0.5 (0.2-1.0) mg/dl AST 55 H (13-39) U/L ALT 18 (7-52) U/L Alkaline Phosphatase 52 (34-104) U/L Troponin I High Sens 44.7 H (0-14) pg/ml Total Protein 7.4 (6.0-8.3) gm/dl Albumin 3.2 L (3.4-5.0) gm/dl Globulin 4.2 H (2.5-4.0) gm/dl Albumin/Globulin Ratio 0.8 L (0.9-2) TSH 2.037 (0.300-4.500) uIu/ml SARS-CoV-2, RNA, NAAT NEGATIVE (NEGATIVE) 07/21/22 Range/Units 14:23 WBC 14.30 H (4.8-10.8) K/ul RBC 4.67 (4.20-5.40) M/uL Hgb 13.6 (12.0-16.0) g/dl Hct 40.8 (37.0-47.0) % MCV 87.4 (80.0-100.0) fL MCH 29.1 (25.0-34.0) pg MCHC 33.3 (32.0-36.0) g/dL RDW Std Deviation 50.0 H (36.4-46.3) fL RDW Coeff of Geetha 15.9 H (11.5-14.5) % Plt Count 295 (130-400) K/uL MPV 12.1 (9.4-12.4) fL Neutrophils % (Manual) 69 % Lymphocytes % (Manual) 12 % Reactive Lymphs % (Man) 13 % Monocytes % (Manual) 6 % Neutrophils # (Manual) 9.87 H (1.40-6.50) K/uL Total Absolute Neuts 9.87 H (1.4-6.5) K/uL Lymphocytes # (Manual) 1.72 (1.2-3.4) K/uL Reactive Lymphs # 1.86 K/uL Total Abs Lymphocytes 3.58 H (1.2-3.4) K/uL Monocytes # (Manual) 0.86 H (0.11-0.59) K/uL Tear Drop Cells 1+ Sodium (136-145) mmol/L Potassium (3.5-5.1) mmol/L Chloride (98-107) mmol/L Carbon Dioxide (21-32) mmol/L Anion Gap (3-11) BUN (6-23) mg/dl Creatinine (0.6-1.2) mg/dl Est Cr Clr Drug Dosing ml/min Est GFR ( Amer) ml/min Est GFR (Non-Af Amer) ml/min BUN/Creatinine Ratio (10-20) Glucose (70-99(Fasting)) mg/dl Calcium (8.6-10.3) mg/dl Magnesium (1.7-2.4) mg/dl Total Bilirubin (0.2-1.0) mg/dl AST (13-39) U/L ALT (7-52) U/L Alkaline Phosphatase (34-104) U/L Troponin I High Sens (0-14) pg/ml Total Protein (6.0-8.3) gm/dl Albumin (3.4-5.0) gm/dl Globulin (2.5-4.0) gm/dl Albumin/Globulin Ratio (0.9-2) TSH (0.300-4.500) uIu/ml SARS-CoV-2, RNA, NAAT (NEGATIVE) Diagnostic Findings Chest X-Ray 07/21/22 16:42 XR chest 1V portable HISTORY: 66 years-old Female leukocytosis COMPARISON: Chest radiograph 06/25/2022 TECHNIQUE: AP view of the chest FINDINGS: Cardiac silhouette is upper limits of normal in size. No pneumothorax, large pleural effusion or overt pulmonary edema. Degenerative changes of the shoulders and spine. IMPRESSION: No acute process. ACT 112: Negative or not required by law. The above report was generated using voice recognition software. It may contain grammatical, syntax or spelling errors. Electronically signed by: Beranbe Vilchis M.D. 07/21/2022 4:57 PM PG Care Time/CCT Total # of Minutes Spent Total Time Spent with Patient: Total time spent is greater than 50% in coordination of care (as documented) at patient's floor/unit and/or counseling patient: Coding Level of Care Code 81844 INT INP/OBS CARE 3/75MIN Diagnoses Syncope R55 Diarrhea R19.7 Weakness R53.1 Hypomagnesemia E83.42 Hypokalemia E87.6 Paroxysmal A-fib I48.0 Hyperlipidemia E78.5 H/O retropharyngeal abscess Z87.09 Hypertension I10 Diabetes mellitus E11.9 Depression F32.9 Gait difficulty R26.9
[2022-07-21] MEDS ORDERED: POTASSIUM CHLORIDE CRTAB 20 MEQ TABCR PO STA ×3 (16:41→16:50)
--- NOTE | 2022-07-21 16:58 | XRay Report ---
XR chest 1V portable HISTORY: 66 years-old Female leukocytosis COMPARISON: Chest radiograph 06/25/2022 TECHNIQUE: AP view of the chest FINDINGS: Cardiac silhouette is upper limits of normal in size. No pneumothorax, large pleural effusion or over t pulmonary edema. Degenerative changes of the shoulders and spine. IMPRESSION: No acute process. ACT 112: Negative or not required by law. The above report was generated using voice recognition software. It may contain grammatical, syntax o r spelling errors. Electronically signed by: Bernabe Vilchis M.D. 07/21/2022 4:57 PM
--- NOTE | 2022-07-21 18:41 | XRay Report ---
KUB HISTORY: Acute generalized abdominal pain leukocytosis, diarrhea, poor PO intake COMPARISON: Chest radiograph of same day FINDINGS: Stone filled gallbladder. Nonobstructive bowel gas pattern. Pelvic basin calcifications are suggestive of phleboliths. No renal calculi. No ureteral calculi. No pneumoperitoneum or pneumatosi s. Degenerative changes of the spine, pelvis and hips. No fracture. IMPRESSION: 1. Nonobstructive bowel gas pattern. 2. Cholelithiasis. ACT 112: Negative or not required by law. The above report was generated using voice recognition software. It may contain grammatical, syntax o r spelling errors. Electronically signed by: Bernabe Vilchis M.D. 07/21/2022 6:40 PM
--- NOTE | 2022-07-21 18:51 | CT Scan Report ---
CT soft tissue neck wo con HISTORY: 66 years-old Female hx RPA, leukocytosis acute neck pain with leukocytosis COMPARISON: CT soft tissue neck 06/25/2022 TECHNIQUE: Multiple axial CT images of the soft tissues of the neck were obtained without the IV cont rast. A dose lowering technique was used consistent with the principals of HAYDER. FINDINGS: Extensive inflammatory stranding with soft tissue thickening is again noted within the right superior back involving the superior fibers of the latissimus dorsi muscle. Evaluation for residual abscess i s limited without the use of IV contrast. Additional stranding extending into the right supraclavicul ar tissues and right upper chest similar to prior. Atherosclerosis of the left greater than right car otid bulbs. Decreased size of the previous noted right cervical chain lymph nodes which are likely re active and are now subcentimeter. 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 Patent airway. No prevertebral or parapharyngeal inflammation. Lung apices are clear. Mastoid air cells and paranasal sinuses are clear. Multilevel degenerative yamil nges of the cervical spine. IMPRESSION: 1. Prominent inflammatory changes of the right upper back extending into the latissimus dorsi muscle are redemonstrated and appear similar to the study from 06/25/2022. There is limited evaluation for res idual abscess without the use of IV contrast. 2. Improving reactive cervical chain lymphadenopathy. 3. No new or worsening inflammatory changes or fluid collections identified. ACT 112: Negative or not required by law. The above report was generated using voice recognition software. It may contain grammatical, syntax o r spelling errors. Electronically signed by: Bernabe Vilchis M.D. 07/21/2022 6:49 PM
[2022-07-21] MEDS ORDERED: GLUCOSE 40% GEL 15 GM TUBE PO PRN (19:55)
[2022-07-21] MEDS ORDERED: ALBUTEROL HFA 8 GM INHALER INH PRN (19:55)
[2022-07-21] MEDS ORDERED: GLUCAGON FOR INJ 1 MG VIAL SQ PRN (19:55)
[2022-07-21] MEDS ORDERED: RASPBERRY SYRUP 5 ML UDP PO SCH (19:55)
[2022-07-21] MEDS ORDERED: DEXTROSE 50% 50 ML SYRINGE IV PRN (19:55)
[2022-07-21] MEDS ORDERED: CARBOHYDRATES FOR HYPOGLYCEMIA PO PRN (19:55)
[2022-07-21] MEDS ORDERED: NSS + 20MEQ KCL 20 MEQ/1,000 ML BAG IV SCH (19:55)
[2022-07-21] MEDS ORDERED: VANCOMYCIN HCL 125 MG/2.5ML SOLN PO SCH (19:55)
[2022-07-21] MEDS ORDERED: ACETAMINOPHEN 325 MG TAB PO PRN (19:55)
[2022-07-21] MEDS ORDERED: GLUCOSE 10 TAB/TUBE PO PRN (19:55)
[2022-07-21] MEDS: INSULIN ASPART PER UNIT CHARGE SC SCH (20:52)
[2022-07-21] MEDS: FAMOTIDINE 20 MG in SYRINGE 3 ML IV SCH (21:06)
[2022-07-21] MEDS: ATORVASTATIN 10 MG TAB PO SCH (21:07)
[2022-07-21] MEDS: HEPARIN SOD 5,000 UNIT/0.5 ML VIAL SQ SCH (21:08)
[2022-07-21 23:13] LABS: Appearance Urine Cloudy (Clear); Bacteria Urine Automated Negative (Negative); Bilirubin Urine Negative (Negative); Blood Urine 2+ (Negative); Color Urine Dark Yellow; Epithelial Cell Urine Auto >30 /lpf (0-5); Glucose Urine UA Negative (Negative); Ketones Urine Trace (Negative); Leukocyte Esterase Urine 2+ (Negative); Nitrite Urine Negative (Negative); Protein Urine 1+ (Negative); Specific Gravity Urine 1.016 (1.000-1.030); Urobilinogen Urine Negative (Negative); WBC Urine Automated >30 /hpf (0-5)
[2022-07-21 23:47] LABS: BUN Creatinine Ratio 12.3 (10-20); Calcium 8.3 mg/dl (8.6-10.3); Creatinine Clr Calc Pharmacy 62.7 ml/min; Est GFR (African American) 53.8 ml/min; Est GFR (Non-African American) 46.5 ml/min; Magnesium 1.8 mg/dl (1.7-2.4); Potassium 2.7 mmol/L (3.5-5.1)
[2022-07-21] MEDS: metFORMIN HCL 500 MG TAB PO SCH (23:48)
[2022-07-21 23:51] LABS: Mucus Urine Present (None Prsent); RBC Urine Automated 0-4 /hpf (0-4)
[2022-07-22] MEDS: ONDANSETRON INJ 2 MG/ML 2 ML VIAL IV PRN ×2 (00:29→08:55)
[2022-07-22 00:39] LABS: Adenovirus F 40/41 PCR Not Detected (NotDetected); Astrovirus PCR Not Detected (NotDetected); Campylobacter PCR Not Detected (NotDetected); Cryptosporidium PCR Not Detected (NotDetected); Cyclospora cayetanensis PCR Not Detected (NotDetected); Entamoeba histolytica PCR Not Detected (NotDetected); Enteroaggregative E.coli(EAEC) Not Detected (NotDetected); Enteropathogenic E.coli (EPEC) Not Detected (NotDetected); Enterotoxigenic E.coli (ETEC) Not Detected (NotDetected); Giardia lamblia PCR Not Detected (NotDetected); Norovirus GI/GII PCR Not Detected (NotDetected); Plesiomonas shigelloides PCR Not Detected (NotDetected); Rotavirus A PCR Not Detected (NotDetected); Salmonella PCR Not Detected (NotDetected); Sapovirus PCR Not Detected (NotDetected); Shiga-like Toxin E.coli (STEC) Not Detected (NotDetected); Shigella/Enteroinvasive E.coli Not Detected (NotDetected); Vibrio cholerae PCR Not Detected (NotDetected); Vibrio species PCR Not Detected (NotDetected); Yersinia enterocolitica PCR Not Detected (NotDetected)
[2022-07-22 02:24] LABS: Hematocrit (blood only) 34.5 % (37.0-47.0); Hemoglobin 11.6 g/dl (12.0-16.0); Mean Corpuscular Hemoglobin 29.1 pg (25.0-34.0); Mean Corpuscular Hgb Conc 33.6 g/dL (32.0-36.0); Mean Corpuscular Volume 86.7 fL (80.0-100.0); Platelet Count 266 K/uL (130-400); RDW Coefficient of Variation 15.8 % (11.5-14.5); RDW Standard Deviation 49.7 fL (36.4-46.3); Red Blood Count 3.98 M/uL (4.20-5.40); White Blood Count 13.82 K/ul (4.8-10.8)
[2022-07-22 02:53] LABS: Albumin Globulin Ratio 0.8 (0.9-2); Albumin Level 2.8 gm/dl (3.4-5.0); BUN Creatinine Ratio 12.7 (10-20); Bilirubin,Total 0.5 mg/dl (0.2-1.0); Calcium 8.4 mg/dl (8.6-10.3); Creatinine Clr Calc Pharmacy 69.6 ml/min; Est GFR (Non-African American) 52.6 ml/min; Globulin 3.5 gm/dl (2.5-4.0); Magnesium 1.6 mg/dl (1.7-2.4); Potassium 3.3 mmol/L (3.5-5.1); Total Protein 6.3 gm/dl (6.0-8.3)
[2022-07-22 03:06] LABS: Basophils # (auto) 0.07 K/uL (0-0.2); Basophils % (auto) 0.5 %; Eosinophils # (auto) 0.23 K/uL (0-0.50); Eosinophils % (auto) 1.7 %; Immature Granulocytes # (auto) 0.05 K/uL (0.01-0.20); Immature Granulocytes % (auto) 0.4 %; Lymphocytes # (auto) 5.49 K/uL (1.2-3.4); Lymphocytes % (auto) 39.7 %; Monocytes # (auto) 1.34 K/uL (0.11-0.59); Monocytes % (auto) 9.7 %; Neutrophils # (auto) 6.64 K/uL (1.40-6.50); Target Cells 1+
[2022-07-22 03:15] LABS: Troponin I High Sensitivity 66.9 pg/ml (0-14)
[2022-07-22] MEDS: MELATONIN 3 MG TAB PO PRN ×2 (03:54→21:10)
--- NOTE | 2022-07-22 07:21 | Hospitalist Progress Note ---
Date of Service July 22, 2022 Assessment & Plan (1) Syncope: Plan: 66 y/o female presented to the ED after a syncopal episode admitted for management of electrolyte derangements, acute dehydration, and further workup. #Syncope #Dehydration Likely multifactorial with dehydration, orthostatic hypotension, and vasovagal response. Patient was sitting in a chair had prodromal symptoms of clamminess and feeling lightheaded while having her wound vac changed. She then had a syncopal episode. No head trauma. Patient has had GI upset while on abx for known right shoulder wound requiring wound vac. Patient was hospitalized several times over the last few months most recently 06/25-07/04. Patient decreased PO intake and diarrhea while on antibiotics. No blood in stools, no foul odor, is a mix of watery and loose. Patient was started on vanc on admit. C. dif negative d/c vanc and contact precautions. Patient s/p fluid resuscitation. Will continue maintenance fluids. Tolerating PO. Replete electrolytes as indicated. [] s/p fluid resuscitation [] patient tolerating PO [] QS orthostatics #Diarrhea/Nausea Likely in the setting of abx use. C. dif neg. Symptoms may be exacerbated by dyspepsia. Would aggressively acid suppress with pantoprazole BID and famotidine BID. Would also do zofran scheduled. [] AM EKG to monitor QTC [] Hugo Zofran [] PPI & H2 #Weakness Patient's weakness likely due to known wound, known diarrhea, and acute dehydration. CXR, UA, blood cx, CT soft tissue to r/o other causes for weakness. PT/OT [] PT/OT [] f/u cultures #DM Patient on metformin 1000 mg BID and glipizide at home. HbA1c 6.2. There is some concern that the patient may be overtreated as HbA1c corresponds to an average blood glucose of around 140. Patient has lost a significant amount of weight as well which may have lessened her insulin resistance. Thus, there may be a component of hypoglycemia contributing to recent syncopal episode. May consider de-escalating treatment outpatient. [] sliding scale while inpatient #Electrolyte derangements Hypo Mag/K. Replete as indicated #Wound Patient has had a long course with this would s/p multiple debridements and abx courses. Patient has current right shoulder wound s/p extended course of abx and wound vac placement. Wound not concerning at present as it does not appear to need debridement or further abx use. Continue with wound vac. #Cholelithiasis KUB notable for a stone filled gallbladder. No ductal stones noted. Unlikely that this is the cause of her symptoms. No obvious dilation or signs of gal lbladder irritation. Will continue to monitor. May rec outpatient cholecystectomy. 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 fib. No atrial fibrillation noted on d/c summary 05/02/22. Patient is not on anticoagulation. Would rec confirming diagnosis with PCP. 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 Patient appears euvolemic. Tolerating fluid resuscitation. Will closely monitor fluid status [] strict Is and Os #HLD continue statin #HTN Continue lisinopril for BP control. Hold HCTZ to prevent dehydration. Continue metoprolol 25mg daily. 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 She was initially seen at [facility] for septic shock 2/2 GAS bacteremia from this RPA/right neck cellulitis. Treated initially with Unasyn --> Augmentin with a 3 week course. She was seen here early June and underwent ID with wound vac placement 06/26. Patient then completed 21 day course of abx - ceftriaxone, flagyl, and doxycycline. Repeat CT soft tissue given prior recurrence/worsening of symptoms. CT did not show worsening. [] wound rn consulted for wound vac #Gait Disturbances 2nd to prolonged hospitalizations/etc as above PT/OT consults will be undertaken #Depression continue sertraline Code status: full DVT ppx: SQ Heparin FENGI: Light hydration 80 mL/hr NS. Carb consistent, heart healthy Dispo: med/tele - anticipate home with home-health (2) Diarrhea: (3) Weakness: (4) Hypomagnesemia: (5) Hypokalemia: (6) Paroxysmal A-fib: (7) Hyperlipidemia: (8) H/O retropharyngeal abscess: (9) Hypertension: (10) Diabetes mellitus: (11) Depression: (12) Gait difficulty: Admission and Anticipated Discharge Date Admission Date: July 21, 2022 Supervising Physician Co-Signing Physician Notes I personally examined the patient and verified all flores points of history and exam, discussed case, and agree with decision making with Dr Gil Feeling better, but still not really able to eat well. Diarrhea is slowing down some. Vitals noted, in general she is pleasant no distress. Breathing unlabored no accessory muscle use, wound VAC in place with no surrounding erythema nothing consistent with cellulitis, CBC, complete metabolic panel, magnesium, troponin all noted. Syncope/due to dehydrationwhich in turn is due to poor p.o. intake from nausea vomiting diarrheawhich appears inturned to be due to prolonged need for antibiotics. Since her need for antibiotics is now passed, hopefully this should improve with time. At the same time, to help her upper GI symptoms will manage as gastritis/a bit of a chemical induced nauseatwice daily Pepcid, twice daily Protonix, scheduled Zofran for now, p.o. intake as tolerated. As far as her diarrheano C. difficile, will try to slow down her diarrhea with fiber supplementation. Troponin likely demand ischemia. Hypomagnesemia, hypokalemia from diarrhea. otherwise as above Subjective Patient notes she is feeling better. Reports continued nausea described as "queasy". Has had 2 BM since admit. No pain. No fevers or chills. Is able to eat and drink. Review of Systems Review of Systems: See HPI Physical Exam Constitutional: Gen: well appearing female in NAD HEENT: AT NC Resp: CTAB no wheezing CV: RRR no m/r/g Abd: obese, soft, non-distended, non-tender Psych: appropriate mood and affect Neuro: alert and oriented MSK: moving all extremities spontaneously Wound right shoulder: no foul odor, adequate perfusion noted, no obvious necrotic tissue area pink Results & Data Results & Data Vital Signs (Past 12 Hours) Vital Signs Temp Pulse Pulse Resp BP Pulse Ox O2 Del Method 07/22/22 03:37 36.5 C 76 18 117/70 94 Room Air 07/21/22 23:44 74 07/21/22 20:15 71 07/21/22 23:17 37 C 76 18 105/65 94 Room Air 07/21/22 19:56 Room Air 07/21/22 19:55 36.8 C 72 20 142/79 H 90 Room Air Laboratory Results 07/22/22 02:05 07/22/22 02:05 Diagnostic Findings Chest X-Ray 07/21/22 16:42 XR chest 1V portable HISTORY: 66 years-old Female leukocytosis COMPARISON: Chest radiograph 06/25/2022 TECHNIQUE: AP view of the chest FINDINGS: Cardiac silhouette is upper limits of normal in size. No pneumothorax, large pleural effusion or overt pulmonary edema. Degenerative changes of the shoulders and spine. IMPRESSION: No acute process. Soft Tissue Neck CT 07/21/22 16:49 CT soft tissue neck wo con HISTORY: 66 years-old Female hx RPA, leukocytosis acute neck pain with leukocytosis COMPARISON: CT soft tissue neck 06/25/2022 TECHNIQUE: Multiple axial CT images of the soft tissues of the neck were obtained without the IV contrast. A dose lowering technique was used consistent with the principals of HAYDER. FINDINGS: Extensive inflammatory stranding with soft tissue thickening is again noted within the right superior back involving the superior fibers of the latissimus dorsi muscle. Evaluation for residual abscess is limited without the use of IV contrast. Additional stranding extending into the right supraclavicular tissues and right upper chest similar to prior. Atherosclerosis of the left greater than right carotid bulbs. Decreased size of the previous noted right cervical chain lymph nodes which are likely reactive and are now subcentimeter. 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 Patent airway. No prevertebral or parapharyngeal inflammation. Lung apices are clear. Mastoid air cells and paranasal sinuses are clear. Multilevel degenerative changes of the cervical spine. IMPRESSION: 1. Prominent inflammatory changes of the right upper back extending into the latissimus dorsi muscle are redemonstrated and appear similar to the study from 06/25/2022. There is limited evaluation for residual abscess without the use of IV contrast. 2. Improving reactive cervical chain lymphadenopathy. 3. No new or worsening inflammatory changes or fluid collections identified. KUB X-Ray 07/21/22 16:50 KUB HISTORY: Acute generalized abdominal pain leukocytosis, diarrhea, poor PO intake COMPARISON: Chest radiograph of same day FINDINGS: Stone filled gallbladder. Nonobstructive bowel gas pattern. Pelvic basin calcifications are suggestive of phleboliths. No renal calculi. No ureteral calculi. No pneumoperitoneum or pneumatosis. Degenerative changes of the spine, pelvis and hips. No fracture. IMPRESSION: 1. Nonobstructive bowel gas pattern. 2. Cholelithiasis. Resident Activity Tracking Resident Involvement: Resident Care Provided Care Provided: Adult [facility]
[2022-07-22] MEDS ORDERED: glipiZIDE ER 2.5 MG TABCR PO SCH (08:00)
[2022-07-22] MEDS ORDERED: POTASSIUM CHLORIDE CRTAB 20 MEQ TABCR PO STA (08:09)
[2022-07-22] MEDS: INSULIN ASPART PER UNIT CHARGE SC SCH ×4 (08:25→20:10)
[2022-07-22] MEDS: metFORMIN HCL 500 MG TAB PO SCH (08:38)
[2022-07-22] MEDS: MONTELUKAST SODIUM 10 MG TABLET PO SCH (08:40)
[2022-07-22] MEDS: HEPARIN SOD 5,000 UNIT/0.5 ML VIAL SQ SCH ×2 (08:40→20:06)
[2022-07-22] MEDS: SERTRALINE HCL 100 MG TABLET PO SCH (08:40)
[2022-07-22] MEDS: METOPROLOL SUCC 25MG EXT REL TAB PO SCH (08:41)
[2022-07-22] MEDS: FAMOTIDINE 20 MG in SYRINGE 3 ML IV SCH (08:53)
[2022-07-22] MEDS: MAGNESIUM SULFATE / D5W 1 GM/100 ML BAG IV SCH ×2 (08:53→11:17)
[2022-07-22] MEDS ORDERED: lisinopril 20 MG TAB PO SCH (09:00)
[2022-07-22] MEDS ORDERED: FAMOTIDINE 20 MG in SYRINGE 3 ML IV SCH (14:30)
[2022-07-22] MEDS: PSYLLIUM or GUAR GUM FIBER POWDER PACKET PO SCH (15:28)
[2022-07-22] MEDS: ONDANSETRON INJ 2 MG/ML 2 ML VIAL IV SCH ×2 (15:28→20:04)
[2022-07-22] MEDS ORDERED: SODIUM CHLORIDE 0.9% 1000ML 1,000 ML IV SCH (17:15)
--- NOTE | 2022-07-22 18:04 | Billing Data ---
Date of Service July 22, 2022 Coding Level of Care Code 74936 SUB INP/OBS CARE MIN
[2022-07-22] MEDS: PANTOprazole 40 MG TAB PO SCH (20:05)
[2022-07-22] MEDS: FAMOTIDINE 20 MG TAB PO SCH (20:05)
[2022-07-22] MEDS: LORATADINE 10 MG TAB PO SCH (20:05)
[2022-07-22] MEDS: ATORVASTATIN 10 MG TAB PO SCH (20:06)
[2022-07-23] MEDS: ONDANSETRON INJ 2 MG/ML 2 ML VIAL IV SCH ×3 (03:49→16:05)
[2022-07-23 06:54] LABS: Hematocrit (blood only) 34.5 % (37.0-47.0); Hemoglobin 11.4 g/dl (12.0-16.0); Mean Corpuscular Hemoglobin 28.9 pg (25.0-34.0); Mean Corpuscular Volume 87.6 fL (80.0-100.0); Mean Platelet Volume 12.4 fL (9.4-12.4); Platelet Count 265 K/uL (130-400); RDW Coefficient of Variation 15.4 % (11.5-14.5); RDW Standard Deviation 49.3 fL (36.4-46.3); Red Blood Count 3.94 M/uL (4.20-5.40)
[2022-07-23 07:46] LABS: Albumin Globulin Ratio 0.8 (0.9-2); Albumin Level 2.6 gm/dl (3.4-5.0); BUN Creatinine Ratio 9.3 (10-20); Bilirubin,Total 0.3 mg/dl (0.2-1.0); Calcium 8.2 mg/dl (8.6-10.3); Creatinine Clr Calc Pharmacy 65.2 ml/min; Est GFR (Non-African American) 48.4 ml/min; Globulin 3.3 gm/dl (2.5-4.0); Magnesium 1.7 mg/dl (1.7-2.4); Potassium 3.5 mmol/L (3.5-5.1); Total Protein 5.9 gm/dl (6.0-8.3)
[2022-07-23] MEDS: INSULIN ASPART PER UNIT CHARGE SC SCH ×4 (07:46→20:40)
--- NOTE | 2022-07-23 08:18 | Hospitalist Progress Note ---
Date of Service July 23, 2022 Assessment & Plan (1) Syncope: Plan: 66 y/o female presented to the ED after a syncopal episode admitted for management of electrolyte derangements, acute dehydration, and further workup now stable will work on strengthening with PT today and plan for discharge tomorrow. #Syncope #Dehydration Likely multifactorial with dehydration, orthostatic hypotension, and vasovagal response. Patient was sitting in a chair had prodromal symptoms of clamminess and feeling lightheaded while having her wound vac changed. She then had a syncopal episode. No head trauma. Patient has had GI upset while on abx for known right shoulder wound requiring wound vac. Patient was hospitalized several times over the last few months most recently 06/25-07/04. Patient decreased PO intake and diarrhea while on antibiotics. No blood in stools, no foul odor, is a mix of watery and loose. Patient was started on vanc on admit. C. dif negative d/c vanc and contact precautions. Patient s/p fluid resuscitation. Will continue maintenance fluids. Tolerating PO. Replete electrolytes as indicated. [] s/p fluid resuscitation [] patient tolerating PO [] QS orthostatics #Diarrhea/Nausea Likely in the setting of abx use. C. dif neg. Symptoms may be exacerbated by dyspepsia. Would aggressively acid suppress with pantoprazole BID and famotidine BID. Would also do zofran scheduled. [] AM EKG to monitor QTC [] Hugo Zofran [] PPI & H2 #Weakness Patient's weakness likely due to known wound, known diarrhea, and acute dehydration. CXR, UA, blood cx, CT soft tissue to r/o other causes for weakness. PT/OT [] PT/OT [] f/u cultures #DM Patient on metformin 1000 mg BID and glipizide at home. HbA1c 6.2. There is some concern that the patient may be overtreated as HbA1c corresponds to an average blood glucose of around 140. Patient has lost a significant amount of weight as well which may have lessened her insulin resistance. Thus, there may be a compon ent of hypoglycemia contributing to recent syncopal episode. May consider de- escalating treatment outpatient. [] sliding scale while inpatient #Electrolyte derangements Hypo Mag/K. Replete as indicated #Wound Patient has had a long course with this would s/p multiple debridements and abx courses. Patient has current right shoulder wound s/p extended course of abx and wound vac placement. Wound not concerning at present as it does not appear to need debridement or further abx use. Continue with wound vac. #Cholelithiasis KUB notable for a stone filled gallbladder. No ductal stones noted. Unlikely that this is the cause of her symptoms. No obvious dilation or signs of gallbladder irritation. Will continue to monitor. May rec outpatient cholecystectomy. 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 fib. No atrial fibrillation noted on d/c summary 05/02/22. Patient is not on anticoagulation. Would rec confirming diagnosis with PCP. Monitored on tele. 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 Patient appears euvolemic. Tolerating fluid resuscitation. Will closely monitor fluid status. Strict Is and Os #HLD continue statin #HTN Continue lisinopril for BP control. Hold HCTZ to prevent dehydration. Continue metoprolol 25mg daily. 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 She was initially seen at [facility] for septic shock 2/2 GAS bacteremia from this RPA/right neck cellulitis. Treated initially with Unasyn --> Augmentin with a 3 week course. She was seen here early June and underwent ID with wound vac placement 06/26. Patient then completed 21 day course of abx - ceftriaxone, flagyl, and doxycycline. Repeat CT soft tissue given prior recurrence/worsening of symptoms. CT did not show worsening. [] wound rn consulted for wound vac #Gait Disturbances 2nd to prolonged hospitalizations/etc as above PT/OT consults will be undertaken #Depression continue sertraline Code status: full DVT ppx: SQ Heparin FENGI: Light hydration 80 mL/hr NS. Carb consistent, heart healthy Dispo: med/tele - anticipate home with home-health (2) Diarrhea: (3) Weakness: (4) Hypomagnesemia: (5) Hypokalemia: (6) Paroxysmal A-fib: (7) Hyperlipidemia: (8) H/O retropharyngeal abscess: (9) Hypertension: (10) Diabetes mellitus: (11) Depression: (12) Gait difficulty: Admission and Anticipated Discharge Date Admission Date: July 21, 2022 Supervising Physician Co-Signing Physician Notes I personally examined the patient and verified all flores points of history and exam, discussed case, and agree with decision making with Dr Gil Feeling much better overall, but fairly weak. Really wants to go home and not rehab, but when directly asked to hypothetical ("it is 2 AM and you have to pee, does not go well or does it and with a wet bed or broken hip"she recognized that right now she would not be strong enough to navigate this kind of a faraz). He is eating and drinking much better, diarrhea has slowed significantly and stools are firming up. Vitals noted, in general she is awake and alert pleasant no distress. Looks much brighter. Breathing unlabored. CBC, BMP noted, AST 76. Syncope/due to dehydrationwhich in turn is due to poor p.o. intake from nausea vomiting diarrheawhich appears in turn to be due to prolonged need for antibiotics. Since her need for antibiotics is now passed, hopefully this should improve with time. Fortunately aggressive mucosal management/antiemetic management (twice daily Protonix, twice daily Pepcid, every 6 hours Zofran) has helpedreduce Zofran to as needed again. Diarrhea improving with fiber. T roponin likely demand ischemia. Hypomagnesemia, hypokalemia from diarrhea, have improved. As it relates to her weakness, she really would like to go home instead of rehab, but understands that in her current state she would be too weak. She would like to see if she gets strongerwe discussed that normally people only get weaker in the hospital given general lack of mobility and the unfortunately short duration at which inpatient therapy is able to work with someone, but at the same time given that today was the first use really ate or drank well, as today goes into tomorrow it would be very reasonable to watch for progress. If she is not really showing progress or improvement, then she u nderstands and would be amenable to look to go to rehab. DVT prophylaxisheparin subcu otherwise as above Subjective Notes feeling improved this AM. Less nausea. Stools are more formed. No fevers or chills. No wound pain. Overall improving. Does note feeling weak. Would like to work with PT today. Review of Systems Review of Systems: See HPI Physical Exam Physical Exam: Gen: well appearing female in NAD HEENT: AT NC Resp: CTAB no wheezing CV: RRR no m/r/g Abd: obese, soft, non-distended, non-tender Psych: appropriate mood and affect Neuro: alert and oriented MSK: moving all extremities spontaneously Results & Data Results & Data Vital Signs (Past 12 Hours) Vital Signs Temp Pulse Pulse Resp BP Pulse Ox O2 Del Method 07/23/22 07:57 36.5 C 73 20 149/69 H 96 Room Air 07/23/22 06:03 61 07/22/22 23:00 68 07/23/22 03:18 36.6 C 69 17 152/85 H 94 Room Air 07/22/22 22:50 36.6 C 67 18 145/84 H 93 Room Air Laboratory Results 07/23/22 06:19 07/23/22 06:19 Resident Activity Tracking Resident Involvement: Resident Care Provided Care Provided: Adult Hospital Medicine (1) Syncope Syncope type: unspecified Qualified Code(s): R55 - Syncope and collapse (2) Diarrhea Diarrhea type: unspecified type Qualified Code(s): R19.7 - Diarrhea, unspe cified
[2022-07-23] MEDS: PANTOprazole 40 MG TAB PO SCH ×2 (09:26→20:39)
[2022-07-23] MEDS: HEPARIN SOD 5,000 UNIT/0.5 ML VIAL SQ SCH ×2 (09:26→20:39)
[2022-07-23] MEDS: METOPROLOL SUCC 25MG EXT REL TAB PO SCH (09:27)
[2022-07-23] MEDS: MONTELUKAST SODIUM 10 MG TABLET PO SCH (09:27)
[2022-07-23] MEDS: FAMOTIDINE 20 MG TAB PO SCH ×2 (09:27→20:39)
[2022-07-23] MEDS: SERTRALINE HCL 100 MG TABLET PO SCH (09:27)
[2022-07-23] MEDS: PSYLLIUM or GUAR GUM FIBER POWDER PACKET PO SCH (09:27)
--- NOTE | 2022-07-23 13:06 | Electrocardiogram Report ---
Test Reason : Blood Pressure : / mmHG Vent. Rate : 070 BPM Atrial Rate : 070 BPM P-R Int : 156 ms QRS Dur : 088 ms QT Int : 316 ms P-R-T Axes : -19 025 -09 degrees QTc Int : 341 ms Normal sinus rhythm Low voltage QRS Possible Inferior infarct , age undetermined Abnormal ECG When compared with ECG of 21-JUL-2022 12:49, QRS voltage has decreased Nonspecific T wave abnormality now evident in Anterior leads Nonspecific T wave abnormality has replaced inverted T waves in Lateral leads QT has shortened Confirmed by Oneil Warren ([id number]) on 07/23/2022 1:06:35 PM Referred By: REFERRED SELF Confirmed By:Oneil Warren
--- NOTE | 2022-07-23 17:17 | Billing Data ---
Date of Service July 23, 2022 Coding Level of Care Code 47132 SUB INP/OBS CARE MIN
--- NOTE | 2022-07-23 17:21 | Billing Data ---
Date of Service July 23, 2022 Coding Level of Care Code 06830 SUB INP/OBS CARE MIN
[2022-07-23] MEDS: MELATONIN 3 MG TAB PO PRN (20:38)
[2022-07-23] MEDS: ATORVASTATIN 10 MG TAB PO SCH (20:39)
[2022-07-23] MEDS: LORATADINE 10 MG TAB PO SCH (20:39)
[2022-07-24] MEDS: ONDANSETRON INJ 2 MG/ML 2 ML VIAL IV PRN ×3 (03:25→16:39)
[2022-07-24 07:03] LABS: Hemoglobin 11.3 g/dl (12.0-16.0); Mean Corpuscular Hemoglobin 28.8 pg (25.0-34.0); Mean Corpuscular Hgb Conc 33.2 g/dL (32.0-36.0); Mean Corpuscular Volume 86.5 fL (80.0-100.0); Mean Platelet Volume 12.6 fL (9.4-12.4); Platelet Count 263 K/uL (130-400); RDW Standard Deviation 50.5 fL (36.4-46.3); Red Blood Count 3.93 M/uL (4.20-5.40); White Blood Count 11.48 K/ul (4.8-10.8)
--- NOTE | 2022-07-24 07:08 | Hospitalist Progress Note ---
Date of Service July 24, 2022 Assessment & Plan (1) Syncope: (2) Diarrhea: (3) Weakness: (4) Hypomagnesemia: (5) Hypokalemia: (6) Paroxysmal A-fib: (7) Hyperlipidemia: (8) H/O retropharyngeal abscess: (9) Hypertension: (10) Diabetes mellitus: (11) Depression: (12) Gait difficulty: Admission and Anticipated Discharge Date Admission Date: July 21, 2022 Subjective Notes feeling improved this AM. Less nausea. Stools are more formed. No fevers or chills. No wound pain. Overall improving. Does note feeling weak. Would like to work with PT today. Review of Systems Review of Systems: See HPI Results & Data Results & Data Vital Signs (Past 12 Hours) Vital Signs Temp Pulse Pulse Resp BP Pulse Ox O2 Del Method 07/23/22 23:00 64 07/24/22 03:27 60 18 123/85 95 Room Air 07/23/22 20:00 Room Air 07/23/22 23:00 36.6 C 63 18 113/71 94 Room Air 07/23/22 20:43 36.9 C 18 95 Room Air (1) Syncope Syncope type: unspecified Qualified Code(s): R55 - Syncope and collapse (2) Diarrhea Diarrhea type: unspecified type Qualified Code(s): R19.7 - Diarrhea, unspecified
[2022-07-24 07:32] LABS: Calcium 8.3 mg/dl (8.6-10.3); Creatinine Clr Calc Pharmacy 65.4 ml/min; Est GFR (Non-African American) 48.4 ml/min; Potassium 3.5 mmol/L (3.5-5.1)
[2022-07-24] MEDS: INSULIN ASPART PER UNIT CHARGE SC SCH ×3 (07:58→16:54)
[2022-07-24] MEDS: PANTOprazole 40 MG TAB PO SCH (08:01)
[2022-07-24] MEDS: FAMOTIDINE 20 MG TAB PO SCH (08:01)
[2022-07-24] MEDS: SERTRALINE HCL 100 MG TABLET PO SCH (08:02)
[2022-07-24] MEDS: MONTELUKAST SODIUM 10 MG TABLET PO SCH (08:02)
[2022-07-24] MEDS: PSYLLIUM or GUAR GUM FIBER POWDER PACKET PO SCH (08:02)
[2022-07-24] MEDS: METOPROLOL SUCC 25MG EXT REL TAB PO SCH (08:03)
[2022-07-24] MEDS: HEPARIN SOD 5,000 UNIT/0.5 ML VIAL SQ SCH (08:03)
--- NOTE | 2022-07-24 11:48 | Discharge Summary ---
Date of Service July 24, 2022 Admission HPI Per Admitting Provider Patient is a 66 yo female with PMHx of HTN, DM, HLD, depression/anxiety, pAfib, and recent retropharyngeal abscess who presented to [facility] ER on 06/25/22 with concern for infection. Patient was admitted at [facility] 04/16/22 to 05/02/22 for retropharyngeal abscess requiring I&D. Per chart review, patient also had OHCOA (Cr 5.7/GFR 8) and septic shock secondary to GAS bacteremia arising from the retropharyngeal abscess/right neck cellulitis. Patient required IVF, abx therapy, and pressor support. She did not require urgent intubation. Patient developed paroxysmal atrial fibrillation and was started on metoprolol. TTE 04/16 w/ LVEF 40-44% w/ no evidence of hemodynamically significant valvular abnormalities. On d/c, OCHOA had resolved and final Cr 0.7 and GFR > 90 mL/min. She was discharged with IV Unasyn that completed on 05/04/22 and subsequently switched to Augmentin 875mg/125mg po BID which she completed on 05/16/22. Patient states that since completion of abx therapy, she has had progressive weakness, intermittent dizziness with standing and ambulation, and some swelling in her right shoulder/upper back that has continued to progress. Due to the weakness, patient states that she is now unable to ambulate independently w/o holding onto things; typically ambulates independently at baseline. She denies fever, throat pain, difficulty speaking, or difficulty swallowing. Patient notes that she was seen by her PCP and started on Zofran for nausea. She has not had any vomiting. Denies abdominal pain, dysuria, hematuria, urinary frequency. Patient had an outpatient CT scan due to ongoing discomfort on the skin above the right shoulder/right neck which revealed "4.2 x 2.7 cm partial peripheral enhancing collection within the right posterior lower neck which partially involves the right latissimus dorsi muscle consistent with a developing abscess and associated subcutaneous fat stranding within the right posterior lower neck and extending into the right supraclavicular/upper right chest wall region consistent with a cellulitis." Patient subsequently instructed to come to the ER for further evaluation. In the ER, labs revealed mild leukocytosis with WBC 12.4. Hypokalemia with K 3.0. OCHOA with Cr 1.52 / GFR 35. Lactate 4.4. Negative procal. Negative COVID. CT soft tissue/neck result reviewed as noted above. Per ED physician, attempted transfer back to [facility], however, ludy carrizales was not accepted for transfer at this time. ED course: 1.5L NSS, cefepime, vancomycin, flagyl Admission Exam Per Admitting Provider General: chronically ill appearing female sitting up in bed, NAD, inquiring about gingerale HEENT: head normocephalic, wound vac w/ tegaderm dressing in place to R neck/shoulder region, slight erythema around dressing but clear around sponge, no drainage/warmth Resp: CTA, on room air CV: RRR, frequent PVC, no significant m/r/g, no pitting edema/calf tenderness, pulses palpable GI: +BS, soft/NT : no perez MSK/Neuro: CN intact grossly, no deficit/slurred speech/facial droop Psych: AOx3, pleasant and cooperative Principal Diagnosis dehydration syncope Discharge Exam Gen: well appearing female in NAD HEENT: AT AL Resp: CTAB no wheezing CV: RRR no m/r/g Abd: obese, soft, non-distended, non-tender Psych: appropriate mood and affect Neuro: alert and oriented MSK: moving all extremities spontaneously Discharge Data Allergies Allergy/AdvReac Type Severity Reaction Status Date / Time amoxicillin [From Augmentin] Allergy Intermediate BLISTERED Verified 06/25/22 21:10 HANDS & FEET clavulanic acid Allergy Intermediate BLISTERED Verified 06/25/22 21:10 [From Augmentin] HANDS & FEET simvastatin AdvReac Intermediate MUSCLE Verified 06/25/22 21:10 PAIN IN SHOULDERS Consultations 07/21/22 15:53 ED Decision to Admit Stat Ordered Studies 07/24/22 06:22 07/24/22 06:22 Chest X-Ray 07/21/22 16:42 XR chest 1V portable HISTORY: 66 years-old Female leukocytosis COMPARISON: Chest radiograph 06/25/2022 TECHNIQUE: AP view of the chest FINDINGS: Cardiac silhouette is upper limits of normal in size. No pneumothorax, large pleural effusion or overt pulmonary edema. Degenerative changes of the shoulders and spine. IMPRESSION: No acute process. Soft Tissue Neck CT 07/21/22 16:49 CT soft tissue neck wo con HISTORY: 66 years-old Female hx RPA, leukocytosis acute neck pain with leukocytosis COMPARISON: CT soft tissue neck 06/25/2022 TECHNIQUE: Multiple axial CT images of the soft tissues of the neck were obtained without the IV contrast. A dose lowering technique was used consistent with the principals of HAYDER. FINDINGS: Extensive inflammatory stranding with soft tissue thickening is again noted w ithin the right superior back involving the superior fibers of the latissimus dorsi muscle. Evaluation for residual abscess is limited without the use of IV contrast. Additional stranding extending into the right supraclavicular tissues and right upper chest similar to prior. Atherosclerosis of the left greater than right carotid bulbs. Decreased size of the previous noted right cervical chain lymph nodes which are likely reactive and are now subcentimeter. 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 Patent airway. No prevertebral or parapharyngeal inflammation. Lung apices are clear. Mastoid air cells and paranasal sinuses are clear. Multil evel degenerative changes of the cervical spine. IMPRESSION: 1. Prominent inflammatory changes of the right upper back extending into the latissimus dorsi muscle are redemonstrated and appear similar to the study from 06/25/2022. There is limited evaluation for residual abscess without the use of IV contrast. 2. Improving reactive cervical chain lymphadenopathy. 3. No new or worsening inflammatory changes or fluid collections identified. KUB X-Ray 07/21/22 16:50 KUB HISTORY: Acute generalized abdominal pain leukocytosis, diarrhea, poor PO intake COMPARISON: Chest radiograph of same day FINDINGS: Stone filled gallbladder. Nonobstructive bowel gas pattern. Pelvic basin calcifications are suggestive of phleboliths. No renal calculi. No ureteral calculi. No pneumoperitoneum or pneumatosis. Degenerative changes of the spine, pelvis and hips. No fracture. IMPRESSION: 1. Nonobstructive bowel gas pattern. 2. Cholelithiasis. Hospital Course (1) Syncope: 66 y/o female presented to the ED after a syncopal episode admitted for management of electrolyte derangements, acute dehydration, and further workup now stable will work on strengthening with PT today and plan for discharge today. #Syncope #Dehydration Likely multifactorial with dehydration, orthostatic hypotension, and vasovagal response. Patient was sitting in a chair had prodromal symptoms of clamminess and feeling lightheaded while having her wound vac changed. She then had a syncopal episode. No head trauma. Patient has had GI upset while on abx for known right shoulder wound requiring wound vac. Patient was hospitalized several times over the last few months most recently 06/25-07/04. Patient decreased PO intake and diarrhea while on antibiotics. No blood in stools, no foul odor, is a mix of watery and loose. Patient was started on vanc on admit. C. dif negative d/c vanc and contact precautions. Patient s/p fluid resuscitation. Will continue maintenance fluids. Tolerating PO. Repleted electrolytes as indicated. #Diarrhea/Nausea Likely in the setting of abx use. C. dif neg. Symptoms may be exacerbated by dyspepsia. Would aggressively acid suppress with pantoprazole BID and famotidine BID. In addition to zofran schedule for 24 hours then PRN. Will continue pantoprazole and famotidine BID outpatient. Likely 1 week of dual therapy. With a subsequent week of PPI. Would also do zofran PRN. Fiber does seem to be help ing as well. Would continue until BM normalize then attempt to taper. #Weakness Patient's weakness likely due to known wound, known diarrhea, and acute dehydration. CXR, UA, blood cx, CT soft tissue to r/o other causes for weakness. PT/OT. Cultures NGTD x48. #DM Patient on metformin 1000 mg BID and glipizide at home. HbA1c 6.2. There is some concern that the patient may be overtreated as HbA1c corresponds to an average blood glucose of around 140. Patient has lost a significant amount of weight as well which may have lessened her insulin resistance. Thus, there may be a component of hypoglycemia contributing to recent syncopal episode. May consider de-escalating treatment outpatient. #Electrolyte derangements Hypo Mag/K. Replete as indicated #Wound Patient has had a long course with this would s/p multiple debridements and abx courses. Patient has current right shoulder wound s/p extended course of abx and wound vac placement. Wound not concerning at present as it does not appear to need debridement or further abx use. Continue with wound vac. #Cholelithiasis KUB notable for a stone filled gallbladder. No ductal stones noted. Unlikely that this is the cause of her symptoms. No obvious dilation or signs of gallbladder irritation. Will continue to monitor. May rec outpatient cholecystectomy. 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 fib. No atrial fibrillation noted on d/c summary 05/02/22. Patient is not on anticoagulation. Would rec confirming diagnosis with PCP. Monitored on tele. 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 Patient appears euvolemic. Tolerating fluid resuscitation. Will closely monitor fluid status. Strict Is and Os #HLD continue statin #HTN Continue lisinopril for BP control. Hold HCTZ to prevent dehydration. Continue metoprolol 25mg daily. 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 She was initially seen at [facility] for septic shock 2/2 GAS bacteremia from this RPA/right neck cellulitis. Treated initially with Unasyn --> Augmentin with a 3 week course. She was seen here early June and underwent ID with wound vac placement 06/26. Patient then completed 21 day course of abx - ceftriaxone, flagyl, and doxycycline. Repeat CT soft tissue given prior recurrence/worsening of symptoms. CT did not show worsening. Would continue with current regimen. #Gait Disturbances 2nd to prolonged hospitalizations/etc as above PT/OT consults will be undertaken #Depression continue sertraline Code status: full DVT ppx: SQ Heparin FENGI: Light hydration 80 mL/hr NS. Carb consistent, heart healthy Dispo: med/tele - anticipate home with home-health (2) Diarrhea: (3) Weakness: (4) Hypomagnesemia: (5) Hypokalemia: (6) Paroxysmal A-fib: (7) Hyperlipidemia: (8) H/O retropharyngeal abscess: (9) Hypertension: (10) Diabetes mellitus: (11) Depression: (12) Gait difficulty: Total Time Total Time Spent Total Time Spent (In Minutes): <30 Discharge Plan Discharge Items Patient Disposition: Home - Home Health Services Reason For Visit: SYNCOPE Discharge Diagnosis: dehydration syncope Activity: Per Instructions section Non-emergency contact: Primary Care Provider Call non-emergency contact if: your symptoms worsen and your temperature is above 101.5 Follow-up/Referrals: Van Jane MD [Primary Care Provider] - 07/31/22 11:00 am (with Bhavani Licona ) Romeo Chase DO, JAYE [Physician] - 07/28/22 10:30 am Diet: Carb Consistent or DM2 and Heart Healthy Addtl Attending Provider Instructions: You were admitted to the hospital after passing out. This was likely multifactorial in the setting of dehydration, electrolyte imbalances, and vasovagal response. You were treated with anti-emetics, IV fluids, and acid suppression. Would recommend hydration and fiber supplementation. You are no longer on antibiotics so hopefully your diarrhea and appetite will improve. Would also give PPI and H2 matilde. Take pantoprazole 40 mg twice a day for the next two weeks. Take famotidine 20 mg twice a day for the next week. Follow up on GI symptoms with your primary care physician. A discharge summary will be sent to your primary care physician to ensure continuity of care. Please bring this discharge summary with you to your next office appointment so that your provider can review it at that time. Follow-up appointments: We have requested a follow-up appointment with your primary care physician within one week of discharge. Please call their office if you do not hear from them. Keep all your follow-up appointments as already scheduled. If you cannot make an appointment, notify your provider. Medications: Your medication list has been reviewed and reconciled upon discharge to ensure accuracy and continuity of care. An updated list of all your medications is included with your hospital discharge paperwork. Please review this list closely, and make note of any changes. -We sent a new medication called Metamucil to your pharmacy. Take this medication once a day for the next 1 week to help with diarrhea. Can wean off of this if having normal BMs. -We sent a new medication called pantoprazole to your pharmacy. Take this medication twice a day for the next 2 weeks for acid suppression. -We sent a new medication called famotidine to your pharmacy. Take this medication twice a day for the next week for acid suppression. -We sent a new medication called zofran to your pharmacy. Take this medication as needed for nausea/vomiting. If you have any issues filling these prescriptions, please call [phone] and ask to leave a message for Dr. Paules Take your medications as instructed; do not skip a dose of your medicines. Make sure all of your doctors know every medicine you are taking (including [id number] medicines, vitamins, and supplements). Call your primary care provider before taking any new medicines (including edtj-[id number] medicines, vitamins, and supplements), because some of these may interact with your current medications, or may make your symptoms worse. Tell your primary care provider if you cannot afford your medications. CONTACT YOUR PRIMARY CARE PROVIDER if you experience any of the following: nausea, vomiting, weakness passing out, heart racing, palpitations Difficulty following your treatment plan, or difficulty taking medications CALL 911 OR GO TO THE EMERGENCY DEPARTMENT if you experience any of the following: Sudden, severe abdominal pain or nausea/vomiting Severe chest pain, or chest pain that radiates (moves) to your jaw or arm Sudden, severe shortness of breath or difficulty breathing Thank you for allowing us to participate in your care Pending Studies at Discharge: No Stand-Alone Forms: [facility] [employer], Smoking Cessation Medications and DC Order Prescriptions: New famotidine 20 mg Tablet 20 mg PO BID 7 Days Qty: 14 0RF pantoprazole 40 mg Tablet,Delayed Release (Dr/Ec) 40 mg PO BID 14 Days Qty: 28 0RF Psyllium Or Guar Gum Fiber Sup [Metamucil Or Nutrisource Fiber Supplement] 1 pkg PO BID Qty: 1 1RF ondansetron 4 mg tablet,disintegrating 4 mg PO .PRN 5 Days Qty: 20 0RF Continued albuterol sulfate 90 mcg/actuation HFA aerosol inhaler 1 - 2 puff inhalation Q4H PRN (Reason: shortness of breath or wheezing) Qty: 8.5 5RF metformin 1,000 mg tablet 1,000 mg PO Q12H Qty: 180 3RF Rx Instructions: TAKE 1 TABLET EVERY 12 HOURS WITH FOOD lisinopril-hydrochlorothiazide 20-12.5 mg tablet 1 tab PO DAILY Qty: 90 3RF atorvastatin 10 mg tablet 10 mg PO HS Qty: 90 1RF glipizide 5 mg tablet extended release 24hr 5 mg PO BID Qty: 180 1RF sertraline 100 mg tablet 100 mg PO DAILY Qty: 90 3RF montelukast 10 mg tablet 10 mg PO DAILY Qty: 90 3RF desloratadine 5 mg tablet 5 mg PO DAILY Qty: 90 3RF ondansetron HCl 4 mg tablet 4 mg PO Q8H PRN (Reason: nausea and vomiting) Qty: 30 0RF melatonin 5 mg capsule 10 mg PO HS PRN (Reason: Sleep) Patient Comments: as directed metoprolol succinate [Toprol XL] 25 mg tablet extended release 24 hr 25 mg PO DAILY Qty: 90 3RF Discharge Orders: Discharge Order (Routine); Ordered 07/24/22 Ordered By: Jennifer Gil Admission Data Admit Date/Time: 07/21/22 17:01 Attending Provider: Dejuan Luz Admit Provider: Khadar Hayes Primary Care Provider: Van Jane V. Other Providers: Khadar Hayes Other Interventions: Discharge Summary Assessment (RN) Last Done: 07/24/22 13:32 Supervising Physician Co-Signing Physician Notes I personally examined the patient and verified all flores points of history and e xam, discussed case, and agree with decision making with Dr Gil Feeling much better overall. Feels better, was able to walk to the bathroom by herself, and feels like she would be safe at home. Vitals noted, in general she is awake and alert pleasant no distress. HEENT normocephalic atraumatic mucous membranes moist. Breathing unlabored no accessory muscle use good effort. Skin shows no rashes no pallor or icterus. Syncope/due to dehydrationwhich in turn is due to poor p.o. intake from nausea vomiting diarrheawhich appears in turn to be due to prolonged need for antibiotics. Since her need for antibiotics is now passed, hopefully this should improve with time. Fortunately aggressive mucosal management/antiemetic management (twice daily Protonix, twice daily Pepcid, every 6 hours Zofran) has helpedreduce Zofran to as needed again. Diarrhea improving with fiber. Troponin likely demand ischemia. Hypomagnesemia, hypokalemia from diarrhea, have improved. Fortunately safe/stable for home. Outpatient follow-up. DVT prophylaxisheparin subcu otherwise as above Resident Activity Tracking Resident Involvement: Resident Care Provided Care Provided: Adult Hospital Medicine
--- NOTE | 2022-07-24 17:07 | Billing Data ---
Date of Service July 24, 2022 Coding Level of Care Code 33669 IN/OBS DISCH 30 MIN/LESS
== END 2022-07-24 18:31 | disposition home health service (06) | DRG 641 ==
LOC: ED 12:28 → 2S 17:01 → SUATTDRO 17:01 → 2S 19:32

== ENCOUNTER 2022-07-25 01:40 | Inpatient (IN) ==
[2022-07-25] MEDS ORDERED: SODIUM CHLORIDE 0.9% 1000ML 500 ML IV ONE (01:49)
--- NOTE | 2022-07-25 01:53 | Emergency Department Note ---
History of Present Illness General Chief complaint: Leg Weakness, Bilateral Time Seen by Provider: 07/25/22 01:45 History of Present Illness 66-year-old female presents via EMS complaining of weakness. Patient states she was too weak to get up to go the bathroom and called EMS. She was just discharged. Patient denies chest pain, dyspnea, fevers, back pain, numbness, tingling. Patient states has been getting progressively more weak. Home Medications Medication Instructions Recorded Confirmed Type albuterol sulfate 90 mcg/actuation 1 - 2 puff inhalation Q4H PRN 05/01/20 07/25/22 Rx aerosol inhaler shortness of breath or wheezing #8.5 grams melatonin 5 mg capsule 10 mg PO HS PRN Sleep 12/16/21 07/25/22 History lisinopril 20 1 tab PO DAILY #90 tabs 01/22/22 07/25/22 Rx mg-hydrochlorothiazide 12.5 mg tablet metformin 1,000 mg tablet 1,000 mg PO Q12H #180 tabs 01/22/22 07/25/22 Rx atorvastatin 10 mg tablet 10 mg PO HS #90 tabs 02/21/22 07/25/22 Rx glipizide 5 mg tablet, extended 5 mg PO BID #180 tabs 02/21/22 07/25/22 Rx release 24 hr sertraline 100 mg tablet 100 mg PO DAILY #90 tabs 02/21/22 07/25/22 Rx metoprolol succinate 25 mg 25 mg PO DAILY #90 tabs 06/04/22 07/25/22 Rx tablet,extended release 24 hr (Toprol XL) montelukast 10 mg tablet 10 mg PO DAILY #90 tabs 06/23/22 07/25/22 Rx desloratadine 5 mg tablet 5 mg PO DAILY #90 tabs 07/02/22 07/25/22 Rx famotidine 20 mg tablet 20 mg PO BID 7 days #14 tabs 07/24/22 07/25/22 Rx pantoprazole 40 mg tablet,delayed 40 mg PO BID 2 weeks #28 tabs 07/24/22 07/25/22 Rx release ondansetron 4 mg disintegrating 4 mg PO Q8H PRN NAUSEA/VOMITING 07/25/22 07/25/22 History tablet psyllium 1 packet PO BID 07/25/22 07/25/22 History Allergies Allergy/AdvReac Type Severity Reaction Status Date / Time amoxicillin [From Augmentin] Allergy Intermediate BLISTERED Verified 07/25/22 02:20 HANDS & FEET clavulanic acid Allergy Intermediate BLISTERED Verified 07/25/22 02:20 [From Augmentin] HANDS & FEET simvastatin AdvReac Intermediate MUSCLE Verified 07/25/22 02:20 PAIN IN SHOULDERS Past Med/Surg History Medical History Abnormal blood test Abscess of skin of neck OCHOA (acute kidney injury) Cellulitis Cellulitis of right shoulder Diabetes mellitus Diabetes mellitus type 2, uncontrolled Elevated lactic acid level Health care maintenance High risk medication use Knee pain, bilateral Lab test negative for COVID-19 virus Left knee DJD Menopausal state Obesity, morbid, BMI 40.0-49.9 Orthostasis Pain medication agreement Right knee DJD Sepsis Sleep disturbance Surgical History History of incision and drainage (06/26/22) Incision and Drainage right shoulder/neck Abscess(Right) - Romeo Chase, , FACS History of tubal ligation S/P tubal ligation Status post repair of nerve Family History Father Myocardial infarction Arthritis Diabetes Mother Diabetes Thyroid disorder Social History Smoking Status: Former smoker Second Hand Exposure: No; Hx Alcohol Use: Yes (social) Hx Substance Use: No Preferred Language: [place] Communication Ability: Effective Visual Impairment: No Limitations Hearing Ability: Normal Cooker Operator Required: No Beliefs That Will Affect Care: None Current Living Situation: Other Current Living Situation Comment: Has home but has been staying with mother, they take care of each other Feels Safe at Home: Yes Seatbelt Use: always Assistive Devices: Walker Review of Systems A total of 10 systems reviewed and were otherwise negative Physical Exam Vital Signs Vital Signs - 24 hr 07/25/22 01:50 07/25/22 01:58 Temperature 36.7 C Temperature Source Oral Pulse Rate 71 77 Respiratory Rate 20 Respiratory Effort / Characteristics Non-Labored Spontaneous Respiratory Depth Normal Blood Pressure 148/79 H Blood Pressure Mean 102 Pulse Oximetry 97 Oxygen Delivery Method Room Air Sepsis Recent Fever Within 48 Hours No Sepsis New/Unexplained Change in Mental Status No Sepsis Action Taken by Nursing No Action Required VITALS: Vitals are noted on the nurse's note and reviewed by myself. Vital signs stable. GENERAL: White female with a wound VAC to the right upper shoulder blade, in no acute distress, nondiaphoretic, well-developed well-nourished. SKIN: Wound VAC to the right upper back, the rest of the skin was without rashes, erythema, or bruising. There is no tenting of the skin. Capillary reflex less than 2 seconds. HEAD: Normocephalic atraumatic. EARS: External auditory canals clear, EYES: Pupils equal round and reactive to light and accommodation. Conjunctivae without injection, sclerae without icterus. Extraocular movements intact. NOSE: Patent, turbinates without inflammation or discharge. MOUTH: Mucous membranes moist. Pharynx without erythema or exudate. Uvula midline. Airway patent. Tongue does not deviate. NECK: Supple without nuchal rigidity. No lymphadenopathy. No thyromegaly. Cervical spine is nontender. No JVD. HEART: Regular rate and rhythm LUNGS: Clear to auscultation bilaterally without wheezes, rales or rhonchi. No retractions or accessory muscle use. ABDOMEN: Positive bowel sounds x 4. Normal tympanic percussion. Soft, nontender, without masses or organomegaly. Babcock sign negative. No guarding or rebound tenderness. No CVA tenderness MUSCULOSKELETAL: No muscle atrophy, erythema, noted. No thoracic or lumbar tenderness. Patient can move all extremities. NEURO: Patient was alert and oriented to person place and time. Normal sensation to light and sharp touch. No focal neurological deficits. Course Administered Medications Discontinued Medications Sodium Chloride (Nss 1000ml) 500 mls @ 999 mls/hr IV .Q31M ONE Stop: 07/25/22 02:19 Last Admin: 07/25/22 03:02 Dose: 999 mls/hr Documented By: HARVINDER Medical Decision Making Medical Records Attestation: I reviewed the patient's medical records. Home Medications Current Medication List: was personally reviewed by me Laboratory Data Attestation: I reviewed the patient's lab results. 07/25/22 02:23 07/25/22 02:23 Lab Results 07/25/22 07/25/22 07/25/22 Range/Units 02:23 02:23 02:23 WBC 12.65 H (4.8-10.8) K/ul RBC 4.31 (4.20-5.40) M/uL Hgb 12.5 (12.0-16.0) g/dl Hct 37.5 (37.0-47.0) % MCV 87.0 (80.0-100.0) fL MCH 29.0 (25.0-34.0) pg MCHC 33.3 (32.0-36.0) g/dL RDW Std Deviation 50.5 H (36.4-46.3) fL RDW Coeff of Geetha 16.0 H (11.5-14.5) % Plt Count 293 (130-400) K/uL MPV 12.6 H (9.4-12.4) fL Immature Gran % (Auto) 0.4 % Neut % (Auto) 50.4 % Lymph % (Auto) 36.5 % [place] % (Auto) 9.1 % Eos % (Auto) 2.8 % Baso % (Auto) 0.8 % Neut # (Auto) 6.38 (1.40-6.50) K/uL Lymph # (Auto) 4.62 H (1.2-3.4) K/uL [place] # (Auto) 1.15 H (0.11-0.59) K/uL Eos # (Auto) 0.35 (0-0.50) K/uL Baso # (Auto) 0.10 (0-0.2) K/uL Immature Gran # (Auto) 0.05 (0.01-0.20) K/uL Sodium 140 (136-145) mmol/L Potassium 2.8 L (3.5-5.1) mmol/L Chloride 102 (98-107) mmol/L Carbon Dioxide 31 (21-32) mmol/L Anion Gap 7 (3-11) BUN 15 (6-23) mg/dl Creatinine 1.37 H (0.6-1.2) mg/dl Est Cr Clr Drug Dosing 57.5 ml/min Est GFR ( Amer) 46.8 ml/min Est GFR (Non-Af Amer) 40.4 ml/min BUN/Creatinine Ratio 10.9 (10-20) Glucose 133 H (70-99(Fasting)) mg/dl Calcium 8.7 (8.6-10.3) mg/dl Magnesium 1.3 L (1.7-2.4) mg/dl Total Bilirubin 0.4 (0.2-1.0) mg/dl AST 42 H (13-39) U/L ALT 29 (7-52) U/L Alkaline Phosphatase 55 (34-104) U/L Total Creatine Kinase 408 H (26-192) U/L Troponin I High Sens 199.9 H* (0-14) pg/ml Total Protein 7.4 D (6.0-8.3) gm/dl Albumin 3.2 L (3.4-5.0) gm/dl Globulin 4.2 H (2.5-4.0) gm/dl Albumin/Globulin Ratio 0.8 L (0.9-2) TSH 3.516 (0.300-4.500) uIu/ml Imaging Data Attestation: I personally reviewed and interpreted this imaging study as follows: MDM Narrative Prior records/ancillary studies reviewed and summarized above. Nursing notes reviewed. Additional history obtained from nursing. The patient's history was concerning for weakness. Differential diagnosis: Etiologies such as metabolic, infection, hypo/hyperglycemia, electrolyte abnormalities, cardiac sources, intracerebral event, toxicologic, neurologic, as well as others were entertained. Physical examination: As above. ER treatment provided: IV Lock An order was placed for continuous cardiac monitoring. The monitor shows a rate of 60-100 with a sinus rhythm per my interpretation. IV fluids, potassium and magnesium were ordered On reassessment the patient felt better. Diagnostics interpretation by me: ECG: Ordered for weakness EKG: Normal sinus, normal intervals, no acute ST-T wave changes. Impression normal sinus rhythm independently interpreted by myself I think arrhythmia is unlikely. EKG shows normal sinus rhythm with no interval abnormalities such as QT prolongation or WPW. There are no findings to suggest Brugada syndrome. Cardiac monitoring in the emergency department reveals no tachycardic or bradycardic dysrhythmia. Hypertrophic cardiomyopathy was considered but there are no clear historical elements pointing toward this. EKG is not suggestive. The QRS voltage is not extremely large and there are no suggestive Q waves. The labs Independently Interpreted by myself revealed low potassium and magnesium and this was replaced orally and intravenously Elevated troponin and repeat was ordered Imaging studies: Chest x-ray with no acute consolidation, pneumothorax or free air per my independent interpretation Consultation: A consultation was placed with the hospitalist. The case was discussed and diagnostics were reviewed. The patient was evaluated in the ER for further treatment. HEART SCORE: Hx: high/mod/low suspicion: 0 ECG: ST depression/nonspecific changes/normal: 0 Age: Greater than 65/45-64/less than 45: 2 Risk factors: (Hypertension, hyperlipidemia, diabetes, coronary disease, tobacco use, cocaine use): 2 Troponin: Greater than 2 times normal limits/1-2 times normal limits/normal: 2 Total: 6 Exam and history seem consistent with generalized weakness with electrolyte abnormalities and elevated troponin. EKG is nonischemic. Patient had no chest pain. Labs and diagnostics were independently interpreted by myself. Patient was too weak. Medicine is consulted and the case was discussed. She will be admitted to the medical service. By the evaluation outlined above emergent etiologies such as intracerebral event, toxologic, neurologic, abnormalities blood glucose, metabolic, as well as others were deemed relatively unlikely. The pt informed about the findings as listed above. All questions were answered and pleased with the treatment. The chart was completed utilizing [employer] Speech voice recognition software. Grammatical errors, random word insertions, pronoun errors, and incomplete sentences are an occassional consequence of this system due to software limitations, ambient noise, and hardware issues. Any formal questions or concerns about the content, text, or information contained within the body of this dictation should be directly addressed to the physician library clerical assistant for clarification. Impression & Plan Weakness, Elevated troponin, Hypomagnesemia, Hypokalemia Discharge Plan Visit Data Chief Complaint: Leg Weakness, Bilateral ED Provider: Romeo Gamino. ED Midlevel Provider: Ciera Gongora Discharge Problem: Weakness, Elevated troponin, Hypomagnesemia, Hypokalemia Patient Disposition: Admitted As Inpatient Condition: Good Forms Stand Alone Forms: My [employer] Prescriptions Prescriptions: No Action albuterol sulfate 90 mcg/actuation HFA aerosol inhaler 1 - 2 puff inhalation Q4H PRN (Reason: shortness of breath or wheezing) Qty: 8.5 5RF metformin 1,000 mg tablet 1,000 mg PO Q12H Qty: 180 3RF Rx Instructions: TAKE 1 TABLET EVERY 12 HOURS WITH FOOD lisinopril-hydrochlorothiazide 20-12.5 mg tablet 1 tab PO DAILY Qty: 90 3RF atorvastatin 10 mg tablet 10 mg PO HS Qty: 90 1RF glipizide 5 mg tablet extended release 24hr 5 mg PO BID Qty: 180 1RF sertraline 100 mg tablet 100 mg PO DAILY Qty: 90 3RF montelukast 10 mg tablet 10 mg PO DAILY Qty: 90 3RF desloratadine 5 mg tablet 5 mg PO DAILY Qty: 90 3RF melatonin 5 mg capsule 10 mg PO HS PRN (Reason: Sleep) Patient Comments: as directed metoprolol succinate [Toprol XL] 25 mg tablet extended release 24 hr 25 mg PO DAILY Qty: 90 3RF famotidine 20 mg Tablet 20 mg PO BID 7 Days Qty: 14 0RF pantoprazole 40 mg Tablet,Delayed Release (Dr/Ec) 40 mg PO BID 14 Days Qty: 28 0RF Metamucil Packet 1 packet PO BID Rx Instructions: mix into at least 8 oz of water or juice before administering ondansetron 4 mg tablet,disintegrating 4 mg PO Q8H PRN (Reason: NAUSEA/VOMITING) Referrals Referrals: Van Jane MD [Primary Care Provider] -
[2022-07-25 02:45] LABS: Basophils % (auto) 0.8 %; Eosinophils # (auto) 0.35 K/uL (0-0.50); Eosinophils % (auto) 2.8 %; Hematocrit (blood only) 37.5 % (37.0-47.0); Hemoglobin 12.5 g/dl (12.0-16.0); Immature Granulocytes # (auto) 0.05 K/uL (0.01-0.20); Immature Granulocytes % (auto) 0.4 %; Lymphocytes # (auto) 4.62 K/uL (1.2-3.4); Lymphocytes % (auto) 36.5 %; Mean Corpuscular Hgb Conc 33.3 g/dL (32.0-36.0); Mean Platelet Volume 12.6 fL (9.4-12.4); Monocytes # (auto) 1.15 K/uL (0.11-0.59); Monocytes % (auto) 9.1 %; Neutrophils # (auto) 6.38 K/uL (1.40-6.50); Neutrophils % (auto) 50.4 %; Platelet Count 293 K/uL (130-400); RDW Standard Deviation 50.5 fL (36.4-46.3); Red Blood Count 4.31 M/uL (4.20-5.40); White Blood Count 12.65 K/ul (4.8-10.8)
[2022-07-25 03:21] LABS: Albumin Globulin Ratio 0.8 (0.9-2); Albumin Level 3.2 gm/dl (3.4-5.0); BUN Creatinine Ratio 10.9 (10-20); Bilirubin,Total 0.4 mg/dl (0.2-1.0); Calcium 8.7 mg/dl (8.6-10.3); Creatinine Clr Calc Pharmacy 57.5 ml/min; Est GFR (African American) 46.8 ml/min; Est GFR (Non-African American) 40.4 ml/min; Globulin 4.2 gm/dl (2.5-4.0); Magnesium 1.3 mg/dl (1.7-2.4); Potassium 2.8 mmol/L (3.5-5.1); Total Protein 7.4 gm/dl (6.0-8.3); Troponin I High Sensitivity 199.9 pg/ml (0-14)
[2022-07-25] MEDS ORDERED: POTASSIUM CHLORIDE 10 MEQ TABCR PO STA (03:34)
[2022-07-25] MEDS: MAGNESIUM SULFATE / D5W 1 GM/100 ML BAG IV SCH ×4 (04:05→15:25)
[2022-07-25] MEDS: POTASSIUM CHLORIDE / WTR 10 MEQ/100 ML PLCT IV SCH ×2 (04:06→06:43)
--- NOTE | 2022-07-25 04:20 | History & Physical Report ---
Date of Service July 25, 2022 Assessment & Plan (1) Ambulatory dysfunction: Plan: 66 yo female PMHx of HFrEF, paroxysmal afib, HTN, HLD, depression, DM2, and GERD presents for weakness. #Lower extremity weakness #Ambulatory dysfunction -Likely multifactorial from recent hospitalization, morbid obesity, hypokalemia, hypomagnesemia, dehydration. No signs for saddle anesthesia or active infection. -PT/OT ordered -will likely need SNF/rehab following this hospitalization #Hypokalemia -2.8 on admission -replenished, recheck am #Hypomagnesemia -1.3 on admission -replenished, recheck am #Elevated troponin -199 on admission. 2hr repeat 220. Cont. to trend. EKG with subtle ST depressions. Pt denies chest pain. Suspect demand however cannot r/o ACS. #DM2 -hold home meds -placed on SSI #Wound R shoulder -wound vac in place, due for follow up. #HTN #HFrEF #Afib -cont. lisinopril-HCTZ combo, metoprolol #HLD -cont. 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 Initially seen at [facility] for septic shock 2/2 GAS bacteremia from this RPA/right neck cellulitis. Treated initially with Unasyn --> Augmentin with a 3 week course. She was seen here early June and underwent ID with wound vac placement 06/26. Patient then completed 21 day course of abx - ceftriaxone, flagyl, and doxycycline. Repeat CT soft tissue without worsening. -wound vac in place, due for follow up. #Depression -cont. sertraline DVT ppx: lovenox FEN/GI: HH, DM2 Code Status: full Dispo: med surg (2) Elevated troponin: (3) Weakness: (4) Hypokalemia: (5) Hypomagnesemia: (6) Paroxysmal A-fib: (7) Hyperlipidemia: (8) Depression: (9) Diabetes mellitus: (10) Obesity, morbid, BMI 40.0-49.9: (11) Cellulitis of right shoulder: History of Present Illness Chief Complaint: weakness Primary Care Provider: Van Jane MD 66 yo female PMHx of HFrEF, paroxysmal afib, HTN, HLD, depression, DM2, and GERD presents for weakness. She was just discharged from the hospital yesterday evening after being hospitalized for syncopal event attributed to multifactorial causes including with dehydration, orthostatic hypotension, and vasovagal response. She states when she got home she was doing well with walker but felt a little weak in her legs. When she went to use toilet later in the night she was so weak she could barely stand and sat down on the toilet and was unable to get up prompting her to go the ER. Denies headache, dysuria, chest pain, sob, fever, abd pain, N/V/D, constipation, lower extremity numbness/tingling, back pain. No symptoms of saddle anesthesia. She thinks she needs rehab. Allergies Allergy/AdvReac Type Severity Reaction Status Date / Time amoxicillin [From Augmentin] Allergy Intermediate BLISTERED Verified 07/25/22 02:20 HANDS & FEET clavulanic acid Allergy Intermediate BLISTERED Verified 07/25/22 02:20 [From Augmentin] HANDS & FEET simvastatin AdvReac Intermediate MUSCLE Verified 07/25/22 02:20 PAIN IN SHOULDERS Home Medications Medication Instructions Recorded Confirmed Type albuterol sulfate 90 mcg/actuation 1 - 2 puff inhalation Q4H PRN 05/01/20 07/25/22 Rx aerosol inhaler shortness of breath or wheezing #8.5 grams melatonin 5 mg capsule 10 mg PO HS PRN Sleep 12/16/21 07/25/22 History lisinopril 20 1 tab PO DAILY #90 tabs 01/22/22 07/25/22 Rx mg-hydrochlorothiazide 12.5 mg tablet metformin 1,000 mg tablet 1,000 mg PO Q12H #180 tabs 01/22/22 07/25/22 Rx atorvastatin 10 mg tablet 10 mg PO HS #90 tabs 02/21/22 07/25/22 Rx glipizide 5 mg tablet, extended 5 mg PO BID #180 tabs 02/21/22 07/25/22 Rx release 24 hr sertraline 100 mg tablet 100 mg PO DAILY #90 tabs 02/21/22 07/25/22 Rx metoprolol succinate 25 mg 25 mg PO DAILY #90 tabs 06/04/22 07/25/22 Rx tablet,extended release 24 hr (Toprol XL) montelukast 10 mg tablet 10 mg PO DAILY #90 tabs 06/23/22 07/25/22 Rx desloratadine 5 mg tablet 5 mg PO DAILY #90 tabs 07/02/22 07/25/22 Rx famotidine 20 mg tablet 20 mg PO BID 7 days #14 tabs 07/24/22 07/25/22 Rx pantoprazole 40 mg tablet,delayed 40 mg PO BID 2 weeks #28 tabs 07/24/22 07/25/22 Rx release ondansetron 4 mg disintegrating 4 mg PO Q8H PRN NAUSEA/VOMITING 07/25/22 07/25/22 History tablet psyllium 1 packet PO BID 07/25/22 07/25/22 History Past Med/Surg History Medical History Abnormal blood test Abscess of skin of neck OCHOA (acute kidney injury) Cellulitis Cellulitis of right shoulder Diabetes mellitus Diabetes mellitus type 2, uncontrolled Elevated lactic acid level Health care maintenance High risk medication use Knee pain, bilateral Lab test negative for COVID-19 virus Left knee DJD Menopausal state Obesity, morbid, BMI 40.0-49.9 Orthostasis Pain medication agreement Right knee DJD Sepsis Sleep disturbance Surgical History History of incision and drainage (06/26/22) Incision and Drainage right shoulder/neck Abscess(Right) - Romeo Chase, , FACS History of tubal ligation S/P tubal ligation Status post repair of nerve Family History Father Myocardial infarction Arthritis Diabetes Mother Diabetes Thyroid disorder Social History Smoking Status: Never smoker Second Hand Exposure: No; Hx Alcohol Use: Yes Hx Substance Use: Yes Preferred Language: [place] Communication Ability: Effective Visual Impairment: No Limitations Hearing Ability: Normal Infusion Nurse Required: No Beliefs That Will Affect Care: None Current Living Situation: Alone Current Living Situation Comment: Has home but has been staying with mother, they take care of each other Other Information That Helps Us Care for You: No Feels Safe at Home: Yes Safety Concerns: Feels Safe At This Time Seatbelt Use: always Assistive Devices: Walker and Other Review of Systems Review of Systems: All systems reviewed & are unremarkable except as noted in HPI & below Physical Exam Physical Exam: Constitutional: morbidly obese, in no acute distress, pleasant. AOx3. Vitals as above. HEENT: No scleral injection or discharge. Moist mucous membranes. Neck: Supple without lymphadenopathy or thyromegaly. Trachea midline. Lungs: Clear to auscultation bilaterally with good effort. Cardiac: Regular rate and rhythm. No murmurs. No extremity edema. 2+ distal peripheral pulses. Abdomen: Soft, nontender, and nondistended.No guarding. No hepatosplenomegaly. MSK: No cyanosis or clubbing. Extremities motor strength 5/5. Neg straight leg raise. Full sensation. Skin: +wound vac R posterior shoulder Neurologic: no focal deficits Results & Data Results & Data Vital Signs (Past 12 Hours) Vital Signs Temp Pulse Pulse Resp BP BP Pulse Ox 07/25/22 04:10 63 17 97 07/25/22 04:10 63 17 135/92 98 07/25/22 01:58 77 07/25/22 01:50 36.7 C 71 20 148/79 H 97 O2 Del Method 07/25/22 04:10 Room Air 07/25/22 04:10 Room Air 07/25/22 01:58 07/25/22 01:50 Room Air Laboratory Results Laboratory Results WBC 12.65 K/ul (4.8-10.8) H 07/25/22 02:23 RBC 4.31 M/uL (4.20-5.40) 07/25/22 02:23 Hgb 12.5 g/dl (12.0-16.0) 07/25/22 02:23 Hct 37.5 % (37.0-47.0) 07/25/22 02:23 MCV 87.0 fL (80.0-100.0) 07/25/22 02:23 MCH 29.0 pg (25.0-34.0) 07/25/22 02:23 MCHC 33.3 g/dL (32.0-36.0) 07/25/22 02:23 RDW Std Deviation 50.5 fL (36.4-46.3) H 07/25/22 02:23 RDW Coeff of Geetha 16.0 % (11.5-14.5) H 07/25/22 02:23 Plt Count 293 K/uL (130-400) 07/25/22 02: MPV 12.6 fL (9.4-12.4) H 07/25/22 02:23 Immature Gran % (Auto) 0.4 % 07/25/22 02: Neut % (Auto) 50.4 % 07/25/22 02: Lymph % (Auto) 36.5 % 07/25/22 02:23 [place] % (Auto) 9.1 % 07/25/22 02:23 Eos % (Auto) 2.8 % 07/25/22 02:23 Baso % (Auto) 0.8 % 07/25/22 02: Neut # (Auto) 6.38 K/uL (1.40-6.50) 07/25/22 02: Lymph # (Auto) 4.62 K/uL (1.2-3.4) H 07/25/22 02:23 [place] # (Auto) 1.15 K/uL (0.11-0.59) H 07/25/22 02:23 Eos # (Auto) 0.35 K/uL (0-0.50) 07/25/22 02:23 Baso # (Auto) 0.10 K/uL (0-0.2) 07/25/22 02:23 Immature Gran # (Auto) 0.05 K/uL (0.01-0.20) 07/25/22 02:23 Sodium 140 mmol/L (136-145) 07/25/22 02:23 Potassium 2.8 mmol/L (3.5-5.1) L 07/25/22 02: Chloride 102 mmol/L (98-107) 07/25/22 02:23 Carbon Dioxide 31 mmol/L (21-32) 07/25/22 02:23 Anion Gap 7 (3-11) 07/25/22 02:23 BUN 15 mg/dl (6-23) 07/25/22 02:23 Creatinine 1.37 mg/dl (0.6-1.2) H 07/25/22 02: Est Cr Clr Drug Dosing 57.5 ml/min 07/25/22 02:23 Est GFR ( Amer) 46.8 ml/min 07/25/22 02:23 Est GFR (Non-Af Amer) 40.4 ml/min 07/25/22 02:23 BUN/Creatinine Ratio 10.9 (10-20) 07/25/22 02:23 Glucose 133 mg/dl (70-99(Fasting)) H 07/25/22 02:23 Calcium 8.7 mg/dl (8.6-10.3) 07/25/22 02:23 Magnesium 1.3 mg/dl (1.7-2.4) L 07/25/22 02:23 Total Bilirubin 0.4 mg/dl (0.2-1.0) 07/25/22 02:23 AST 42 U/L (13-39) H 07/25/22 02:23 ALT 29 U/L (7-52) 07/25/22 02:23 Alkaline Phosphatase 55 U/L (34-104) 07/25/22 02:23 Total Creatine Kinase 408 U/L (26-192) H 07/25/22 02:23 Troponin I High Sens 222.9 pg/ml (0-14) H* 07/25/22 03:34 Total Protein 7.4 gm/dl (6.0-8.3) D 07/25/22 02:23 Albumin 3.2 gm/dl (3.4-5.0) L 07/25/22 02:23 Globulin 4.2 gm/dl (2.5-4.0) H 07/25/22 02:23 Albumin/Globulin Ratio 0.8 (0.9-2) L 07/25/22 02:23 TSH 3.516 uIu/ml (0.300-4.500) 07/25/22 02:23 Urine Color Yellow 07/25/22 03:14 Urine Appearance Cloudy (Clear) A 07/25/22 03:14 Urine pH 6.0 (4.5-7.5) 07/25/22 03:14 Ur Specific [place] 1.010 (1.000-1.030) 07/25/22 03:14 Urine Protein Negative (Negative) 07/25/22 03:14 Urine Glucose (UA) Negative (Negative) 07/25/22 03:14 Urine Ketones Negative (Negative) 07/25/22 03:14 Urine Blood Negative (Negative) 07/25/22 03:14 Urine Nitrite Negative (Negative) 07/25/22 03:14 Urine Bilirubin Negative (Negative) 07/25/22 03:14 Urine Urobilinogen Negative (Negative) 07/25/22 03:14 Ur Leukocyte Esterase 1+ (Negative) H 07/25/22 03:14 Urine WBC (Auto) 5-10 /hpf (0-5) H 07/25/22 03:14 Urine RBC (Auto) 0-4 /hpf (0-4) 07/25/22 03:14 U Hyaline Cast (Auto) 1-5 /lpf (0-5) 07/25/22 03:14 U Epithel Cells (Auto) >30 /lpf (0-5) H 07/25/22 03:14 Urine Bacteria (Auto) Negative (Negative) 07/25/22 03:14 Code Status & VTE Plan VTE Prophylaxis Plan VTE Prophylaxis will be ordered: Yes Supervising Physician Co-Signing Physician Notes Attending addendum: I have physically seen this patient, have supervised the medical residents activities, and agree with the H&P unless as otherwise noted. Assessment and Plan: Elevated troponin/hypertension/HFrEF/A-fib-The patient will be admitted to telemetry for serial cardiac enzymes, serial EKG's, cardiac rhythm monitoring Troponin 199 on admission with follow-up 220 Likely supply demand mismatch Continue metoprolol, lisinopril Hold HCTZ, since likely cause of low potassium and low magnesium Ambulatory dysfunction/failure to thrive- Chronic lower extremity weakness, patient reports difficulty getting up off the toilet and called EMS Contributing factors include but not limited to recent hospitalization, morbid obesity, hypokalemia, hypomagnesemia and dehydration Consult PT/OT Will need inpatient rehab Hypokalemia- Potassium 2.8 on admission Replace both orally and IV and recheck laboratories in a.m. Hypomagnesemia- Magnesium 1.3 on admission Replace both orally and IV and recheck laboratories in a.m. Remaining orders and notations as noted Resident Activity Tracking Resident Involvement: Resident Care Provided Care Provided: Adult [facility]
[2022-07-25 04:38] LABS: Appearance Urine Cloudy (Clear); Bacteria Urine Automated Negative (Negative); Bilirubin Urine Negative (Negative); Blood Urine Negative (Negative); Color Urine Yellow; Epithelial Cell Urine Auto >30 /lpf (0-5); Glucose Urine UA Negative (Negative); Ketones Urine Negative (Negative); Leukocyte Esterase Urine 1+ (Negative); Nitrite Urine Negative (Negative); Protein Urine Negative (Negative); RBC Urine Automated 0-4 /hpf (0-4); Urobilinogen Urine Negative (Negative)
--- NOTE | 2022-07-25 07:53 | XRay Report ---
XR chest 1V portable HISTORY: 66 years-old Female weakness acute weakness COMPARISON: 07/21/2022 TECHNIQUE: AP view of the chest FINDINGS: Cardiac silhouette is enlarged. No pneumothorax, large pleural effusion, airspace consolidation or pu lmonary edema. Degenerative changes of the shoulders and spine. IMPRESSION: Cardiomegaly without acute process. ACT 112: Negative or not required by law. The above report was generated using voice recognition software. It may contain grammatical, syntax o r spelling errors. Electronically signed by: Bernabe Vilchis M.D. 07/25/2022 7:52 AM
[2022-07-25] MEDS ORDERED: GLUCOSE 40% GEL 15 GM TUBE PO PRN (10:12)
[2022-07-25] MEDS ORDERED: ACETAMINOPHEN 325 MG TAB PO PRN (10:12)
[2022-07-25] MEDS ORDERED: GLUCAGON FOR INJ 1 MG VIAL SQ PRN (10:12)
[2022-07-25] MEDS ORDERED: GLUCOSE 10 TAB/TUBE PO PRN (10:12)
[2022-07-25] MEDS ORDERED: DEXTROSE 50% 50 ML SYRINGE IV PRN (10:12)
[2022-07-25] MEDS ORDERED: CARBOHYDRATES FOR HYPOGLYCEMIA PO PRN (10:12)
[2022-07-25 10:53] LABS: Magnesium 1.6 mg/dl (1.7-2.4)
[2022-07-25 10:55] LABS: BUN Creatinine Ratio 10.4 (10-20); Calcium 8.5 mg/dl (8.6-10.3); Est GFR (African American) 52.3 ml/min; Est GFR (Non-African American) 45.1 ml/min; Potassium 3.1 mmol/L (3.5-5.1)
[2022-07-25] MEDS: ENOXAPARIN INJ 40 MG/0.4 ML SYR SQ SCH ×2 (11:33→20:31)
[2022-07-25] MEDS: METOPROLOL SUCC 25MG EXT REL TAB PO SCH (11:34)
[2022-07-25] MEDS: MONTELUKAST SODIUM 10 MG TABLET PO SCH (11:34)
[2022-07-25] MEDS: PSYLLIUM or GUAR GUM FIBER POWDER PACKET PO SCH ×2 (11:34→20:31)
[2022-07-25] MEDS: LISINOPRIL/HCTZ 20/12.5MG 1 TAB TAB PO SCH (11:34)
[2022-07-25] MEDS: FAMOTIDINE 20 MG TAB PO SCH ×2 (11:34→20:30)
[2022-07-25] MEDS: SERTRALINE HCL 100 MG TABLET PO SCH (11:34)
[2022-07-25] MEDS: LORATADINE 10 MG TAB PO SCH (11:34)
[2022-07-25] MEDS: PANTOprazole 40 MG TAB PO SCH ×2 (11:34→20:31)
[2022-07-25] MEDS: INSULIN ASPART PER UNIT CHARGE SC SCH ×4 (11:35→20:34)
[2022-07-25 11:45] LABS: Troponin I High Sensitivity 268.9 pg/ml (0-14)
--- NOTE | 2022-07-25 12:45 | Hospitalist Progress Note ---
Date of Service July 25, 2022 Assessment & Plan (1) Ambulatory dysfunction: Plan: 66 yo female PMHx of HFrEF, paroxysmal afib, HTN, HLD, depression, DM2, and GERD presents for weakness. #Lower extremity weakness #Ambulatory dysfunction -Likely multifactorial from recent hospitalization, morbid obesity, hypokalemia, hypomagnesemia, dehydration. No signs for saddle anesthesia or active infection. -PT/OT ordered -will likely need SNF/rehab following this hospitalization #Hypoxia Patient seen in the ED this AM. Patient acutely hypoxic while asleep. Oxygenation improved with rebreather. No SOB or CP. Asymptomatic. Notes that her saturation does drop while sleeping. No previous sleep study. No diagnosis of EPHRAIM. Likely OHS. Hypoxia resolved. Patient on RA. Would benefit from outpatient sleep study vs overnight pulse ox. May require CPAP at night. #Hypokalemia -2.8 on admission -replenished, recheck am #Hypomagnesemia -1.3 on admission -replenished, recheck am #Elevated troponin -199 on admission. 2hr repeat 220. Cont. to trend. EKG with subtle ST depressions. Pt denies chest pain. Suspect demand however cannot r/o ACS. [] ECHO [] afternoon HStrop #DM2 -hold home meds -placed on SSI #Wound R shoulder -wound vac in place, due for follow up. #HTN #HFrEF #Afib -cont. lisinopril-HCTZ combo, metoprolol #HLD -cont. 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 Initially seen at [facility] for septic shock 2/2 GAS bacteremia from this RPA/right neck cellulitis. Treated initially with Unasyn --> Augmentin with a 3 week course. She was seen here early June and underwent ID with wound vac placement 06/26. Patient then completed 21 day course of abx - ceftriaxone, flagyl, and doxycycline. Repeat CT soft tissue without worsening. -wound vac in place, due for follow up. #Depression -cont. sertraline DVT ppx: lovenox FEN/GI: HH, DM2 Code Status: full Dispo: med surg, may need inpatient rehab (2) Elevated troponin: (3) Weakness: (4) Hypokalemia: (5) Hypomagnesemia: (6) Paroxysmal A-fib: (7) Hyperlipidemia: (8) Depression: (9) Diabetes mellitus: (10) Obesity, morbid, BMI 40.0-49.9: (11) Cellulitis of right shoulder: Admission and Anticipated Discharge Date Admission Date: July 25, 2022 Supervising Physician Co-Signing Physician Notes I personally examined the patient and verified all flores points of history and exam, discussed case, and agree with decision making with Dr Gil Given hypoxia this morning, but rapid resolution. Deliberately wait until later in the day to see patient to ensure stability. Absolutely no breathing issues now. Notes that she was just weak at home. Try to go to the bathroom, was really too weak to do anythingso she was able to sit on the toilet without falling. And then came back to the ER for rehab placement. No distress vitals noted 97 on room air no conversational dyspnea no accessory muscles. Suspect hypoxia was either erroneous reading, some sleep apnea physiology, or combination of both. Weakness/deconditioningwas weak here, but progressed to where by all accounts she looks like she would be okay at home, unfortunately she was not. For rehab placement. Otherwise as above Subjective Patient seen in the ED this AM. Patient acutely hypoxic while asleep. Oxygenation improved with rebreather. No SOB or CP. Asymptomatic. Notes that her saturation does drop while sleeping. No previous sleep study. No diagnosis of EPHRAIM. In addition she became weak again once she got home. Review of Systems Review of Systems: See HPI Physical Exam Physical Exam: Constitutional: morbidly obese, in no acute distress, pleasant. AOx3. Vitals as above. HEENT: No scleral injection or discharge. Moist mucous membranes. Neck: Supple without lymphadenopathy or thyromegaly. Trachea midline. Lungs: No increased work of breathing CV: Clinically well perfused Abdomen: Non-distended, soft MSK: No cyanosis or clubbing. Well perfused. No bruising Skin: +wound vac R posterior shoulder Neurologic: no focal deficits Results & Data Results & Data Vital Signs (Past 12 Hours) Vital Signs Temp Pulse Pulse Resp BP BP Pulse Ox 07/25/22 11:38 36.6 C 75 17 146/73 H 96 07/25/22 10:42 36.9 C 65 16 145/106 H 95 07/25/22 10:09 36.8 C 71 20 145/106 H 95 07/25/22 09:42 63 18 147/72 H 97 07/25/22 08:30 100 07/25/22 08:10 62 14 148/83 H 100 07/25/22 08:10 50 L 07/25/22 05:37 72 07/25/22 04:10 63 17 97 07/25/22 04:10 63 17 135/92 98 07/25/22 01:58 77 07/25/22 01:50 36.7 C 71 20 148/79 H 97 O2 Del Method O2 Flow Rate 07/25/22 11:38 Room Air 07/25/22 10:42 Room Air 07/25/22 10:09 Room Air 07/25/22 09:42 Nasal Cannula 2 07/25/22 08:30 Nasal Cannula 2 07/25/22 08:10 Non-rebreather 15 07/25/22 08:10 Room Air 07/25/22 05:37 07/25/22 04:10 Room Air 07/25/22 04:10 Room Air 07/25/22 01:58 07/25/22 01:50 Room Air Laboratory Results 07/25/22 07/25/22 07/25/22 Range/Units Unknown 11:28 10:24 WBC (4.8-10.8) K/ul RBC (4.20-5.40) M/uL Hgb (12.0-16.0) g/dl Hct (37.0-47.0) % MCV (80.0-100.0) fL MCH (25.0-34.0) pg MCHC (32.0-36.0) g/dL RDW Std Deviation (36.4-46.3) fL RDW Coeff of Geetha (11.5-14.5) % Plt Count (130-400) K/uL MPV (9.4-12.4) fL Immature Gran % (Auto) % Neut % (Auto) % Lymph % (Auto) % [place] % (Auto) % Eos % (Auto) % Baso % (Auto) % Neut # (Auto) (1.40-6.50) K/uL Lymph # (Auto) (1.2-3.4) K/uL [place] # (Auto) (0.11-0.59) K/uL Eos # (Auto) (0-0.50) K/uL Baso # (Auto) (0-0.2) K/uL Immature Gran # (Auto) (0.01-0.20) K/uL Sodium 142 (136-145) mmol/L Potassium 3.1 L (3.5-5.1) mmol/L Chloride 105 (98-107) mmol/L Carbon Dioxide 32 (21-32) mmol/L Anion Gap 5 (3-11) BUN 13 (6-23) mg/dl Creatinine 1.25 H (0.6-1.2) mg/dl Est Cr Clr Drug Dosing 63.0 ml/min Est GFR ( Amer) 52.3 ml/min Est GFR (Non-Af Amer) 45.1 ml/min BUN/Creatinine Ratio 10.4 (10-20) Glucose 117 H (70-99(Fasting)) mg/dl POC Glucose 103 H (70-99) mg/dl Calcium 8.5 L (8.6-10.3) mg/dl Magnesium (1.7-2.4) mg/dl Total Bilirubin (0.2-1.0) mg/dl AST (13-39) U/L ALT (7-52) U/L Alkaline Phosphatase (34-104) U/L Total Creatine Kinase 349 H (26-192) U/L Troponin I High Sens (0-14) pg/ml Total Protein (6.0-8.3) gm/dl Albumin (3.4-5.0) gm/dl Globulin (2.5-4.0) gm/dl Albumin/Globulin Ratio (0.9-2) TSH (0.300-4.500) uIu/ml Urine Color Urine Appearance (Clear) Urine pH (4.5-7.5) Ur Specific [place] (1.000-1.030) Urine Protein (Negative) Urine Glucose (UA) (Negative) Urine Ketones (Negative) Urine Blood (Negative) Urine Nitrite (Negative) Urine Bilirubin (Negative) Urine Urobilinogen (Negative) Ur Leukocyte Esterase (Negative) Urine WBC (Auto) (0-5) /hpf Urine RBC (Auto) (0-4) /hpf U Hyaline Cast (Auto) (0-5) /lpf U Epithel Cells (Auto) (0-5) /lpf Urine Bacteria (Auto) (Negative) SARS-CoV-2 (PCR) SARS-CoV-2, RNA, NAAT NEGATIVE (NEGATIVE) 07/25/22 07/25/22 07/25/22 Range/Units 10:24 04:35 03:34 WBC (4.8-10.8) K/ul RBC (4.20-5.40) M/uL Hgb (12.0-16.0) g/dl Hct (37.0-47.0) % MCV (80.0-100.0) fL MCH (25.0-34.0) pg MCHC (32.0-36.0) g/dL RDW Std Deviation (36.4-46.3) fL RDW Coeff of Geetha (11.5-14.5) % Plt Count (130-400) K/uL MPV (9.4-12.4) fL Immature Gran % (Auto) % Neut % (Auto) % Lymph % (Auto) % [place] % (Auto) % Eos % (Auto) % Baso % (Auto) % Neut # (Auto) (1.40-6.50) K/uL Lymph # (Auto) (1.2-3.4) K/uL [place] # (Auto) (0.11-0.59) K/uL Eos # (Auto) (0-0.50) K/uL Baso # (Auto) (0-0.2) K/uL Immature Gran # (Auto) (0.01-0.20) K/uL Sodium (136-145) mmol/L Potassium (3.5-5.1) mmol/L Chloride (98-107) mmol/L Carbon Dioxide (21-32) mmol/L Anion Gap (3-11) BUN (6-23) mg/dl Creatinine (0.6-1.2) mg/dl Est Cr Clr Drug Dosing ml/min Est GFR ( Amer) ml/min Est GFR (Non-Af Amer) ml/min BUN/Creatinine Ratio (10-20) Glucose (70-99(Fasting)) mg/dl POC Glucose (70-99) mg/dl Calcium (8.6-10.3) mg/dl Magnesium 1.6 L (1.7-2.4) mg/dl Total Bilirubin (0.2-1.0) mg/dl AST (13-39) U/L ALT (7-52) U/L Alkaline Phosphatase (34-104) U/L Total Creatine Kinase (26-192) U/L Troponin I High Sens 268.9 H* D 222.9 H* (0-14) pg/ml Total Protein (6.0-8.3) gm/dl Albumin (3.4-5.0) gm/dl Globulin (2.5-4.0) gm/dl Albumin/Globulin Ratio (0.9-2) TSH (0.300-4.500) uIu/ml Urine Color Urine Appearance (Clear) Urine pH (4.5-7.5) Ur Specific [place] (1.000-1.030) Urine Protein (Negative) Urine Glucose (UA) (Negative) Urine Ketones (Negative) Urine Blood (Negative) Urine Nitrite (Negative) Urine Bilirubin (Negative) Urine Urobilinogen (Negative) Ur Leukocyte Esterase (Negative) Urine WBC (Auto) (0-5) /hpf Urine RBC (Auto) (0-4) /hpf U Hyaline Cast (Auto) (0-5) /lpf U Epithel Cells (Auto) (0-5) /lpf Urine Bacteria (Auto) (Negative) SARS-CoV-2 (PCR) Cancelled SARS-CoV-2, RNA, NAAT (NEGATIVE) 07/25/22 07/25/22 07/25/22 Range/Units 03:14 02:23 02:23 WBC (4.8-10.8) K/ul RBC (4.20-5.40) M/uL Hgb (12.0-16.0) g/dl Hct (37.0-47.0) % MCV (80.0-100.0) fL MCH (25.0-34.0) pg MCHC (32.0-36.0) g/dL RDW Std Deviation (36.4-46.3) fL RDW Coeff of Geetha (11.5-14.5) % Plt Count (130-400) K/uL MPV (9.4-12.4) fL Immature Gran % (Auto) % Neut % (Auto) % Lymph % (Auto) % [place] % (Auto) % Eos % (Auto) % Baso % (Auto) % Neut # (Auto) (1.40-6.50) K/uL Lymph # (Auto) (1.2-3.4) K/uL [place] # (Auto) (0.11-0.59) K/uL Eos # (Auto) (0-0.50) K/uL Baso # (Auto) (0-0.2) K/uL Immature Gran # (Auto) (0.01-0.20) K/uL Sodium 140 (136-145) mmol/L Potassium 2.8 L (3.5-5.1) mmol/L Chloride 102 (98-107) mmol/L Carbon Dioxide 31 (21-32) mmol/L Anion Gap 7 (3-11) BUN 15 (6-23) mg/dl Creatinine 1.37 H (0.6-1.2) mg/dl Est Cr Clr Drug Dosing 57.5 ml/min Est GFR ( Amer) 46.8 ml/min Est GFR (Non-Af Amer) 40.4 ml/min BUN/Creatinine Ratio 10.9 (10-20) Glucose 133 H (70-99(Fasting)) mg/dl POC Glucose (70-99) mg/dl Calcium 8.7 (8.6-10.3) mg/dl Magnesium 1.3 L (1.7-2.4) mg/dl Total Bilirubin 0.4 (0.2-1.0) mg/dl AST 42 H (13-39) U/L ALT 29 (7-52) U/L Alkaline Phosphatase 55 (34-104) U/L Total Creatine Kinase 408 H (26-192) U/L Troponin I High Sens 199.9 H* (0-14) pg/ml Total Protein 7.4 D (6.0-8.3) gm/dl Albumin 3.2 L (3.4-5.0) gm/dl Globulin 4.2 H (2.5-4.0) gm/dl Albumin/Globulin Ratio 0.8 L (0.9-2) TSH 3.516 (0.300-4.500) uIu/ml Urine Color Yellow Urine Appearance Cloudy A (Clear) Urine pH 6.0 (4.5-7.5) Ur Specific [place]orman 1.010 (1.000-1.030) Urine Protein Negative (Negative) Urine Glucose (UA) Negative (Negative) Urine Ketones Negative (Negative) Urine Blood Negative (Negative) Urine Nitrite Negative (Negative) Urine Bilirubin Negative (Negative) Urine Urobilinogen Negative (Negative) Ur Leukocyte Esterase 1+ H (Negative) Urine WBC (Auto) 5-10 H (0-5) /hpf Urine RBC (Auto) 0-4 (0-4) /hpf U Hyaline Cast (Auto) 1-5 (0-5) /lpf U Epithel Cells (Auto) >30 H (0-5) /lpf Urine Bacteria (Auto) Negative (Negative) SARS-CoV-2 (PCR) SARS-CoV-2, RNA, NAAT (NEGATIVE) 07/25/22 Range/Units 02:23 WBC 12.65 H (4.8-10.8) K/ul RBC 4.31 (4.20-5.40) M/uL Hgb 12.5 (12.0-16.0) g/dl Hct 37.5 (37.0-47.0) % MCV 87.0 (80.0-100.0) fL MCH 29.0 (25.0-34.0) pg MCHC 33.3 (32.0-36.0) g/dL RDW Std Deviation 50.5 H (36.4-46.3) fL RDW Coeff of Geetha 16.0 H (11.5-14.5) % Plt Count 293 (130-400) K/uL MPV 12.6 H (9.4-12.4) fL Immature Gran % (Auto) 0.4 % Neut % (Auto) 50.4 % Lymph % (Auto) 36.5 % [place] % (Auto) 9.1 % Eos % (Auto) 2.8 % Baso % (Auto) 0.8 % Neut # (Auto) 6.38 (1.40-6.50) K/uL Lymph # (Auto) 4.62 H (1.2-3.4) K/uL [place] # (Auto) 1.15 H (0.11-0.59) K/uL Eos # (Auto) 0.35 (0-0.50) K/uL Baso # (Auto) 0.10 (0-0.2) K/uL Immature Gran # (Auto) 0.05 (0.01-0.20) K/uL Sodium (136-145) mmol/L Potassium (3.5-5.1) mmol/L Chloride (98-107) mmol/L Carbon Dioxide (21-32) mmol/L Anion Gap (3-11) BUN (6-23) mg/dl Creatinine (0.6-1.2) mg/dl Est Cr Clr Drug Dosing ml/min Est GFR ( Amer) ml/min Est GFR (Non-Af Amer) ml/min BUN/Creatinine Ratio (10-20) Glucose (70-99(Fasting)) mg/dl POC Glucose (70-99) mg/dl Calcium (8.6-10.3) mg/dl Magnesium (1.7-2.4) mg/dl Total Bilirubin (0.2-1.0) mg/dl AST (13-39) U/L ALT (7-52) U/L Alkaline Phosphatase (34-104) U/L Total Creatine Kinase (26-192) U/L Troponin I High Sens (0-14) pg/ml Total Protein (6.0-8.3) gm/dl Albumin (3.4-5.0) gm/dl Globulin (2.5-4.0) gm/dl Albumin/Globulin Ratio (0.9-2) TSH (0.300-4.500) uIu/ml Urine Color Urine Appearance (Clear) Urine pH (4.5-7.5) Ur Specific [place] (1.000-1.030) Urine Protein (Negative) Urine Glucose (UA) (Negative) Urine Ketones (Negative) Urine Blood (Negative) Urine Nitrite (Negative) Urine Bilirubin (Negative) Urine Urobilinogen (Negative) Ur Leukocyte Esterase (Negative) Urine WBC (Auto) (0-5) /hpf Urine RBC (Auto) (0-4) /hpf U Hyaline Cast (Auto) (0-5) /lpf U Epithel Cells (Auto) (0-5) /lpf Urine Bacteria (Auto) (Negative) SARS-CoV-2 (PCR) SARS-CoV-2, RNA, NAAT (NEGATIVE) Diagnostic Findings Chest X-Ray 07/25/22 01:46 XR chest 1V portable HISTORY: 66 years-old Female weakness acute weakness COMPARISON: 07/21/2022 TECHNIQUE: AP view of the chest FINDINGS: Cardiac silhouette is enlarged. No pneumothorax, large pleural effusion, airspace consolidation or pulmonary edema. Degenerative changes of the shoulders and spine. IMPRESSION: Cardiomegaly without acute process. Resident Activity Tracking Resident Involvement: Resident Care Provided Care Provided: Adult Hospital Medicine
--- NOTE | 2022-07-25 13:43 | XCELERA ---
[id number] \\[id number]
[2022-07-25] MEDS: POTASSIUM CHLORIDE CRTAB 20 MEQ TABCR PO SCH ×4 (13:55→20:30)
--- NOTE | 2022-07-25 14:44 | Electrocardiogram Report ---
Test Reason : Blood Pressure : / mmHG Vent. Rate : 070 BPM Atrial Rate : 070 BPM P-R Int : 166 ms QRS Dur : 096 ms QT Int : 420 ms P-R-T Axes : 007 022 023 degrees QTc Int : 453 ms Normal sinus rhythm Nonspecific ST abnormality Abnormal ECG When compared with ECG of 22-JUL-2022 17:18, Borderline criteria for Inferior infarct are no longer Present Nonspecific T wave abnormality, improved in Inferior leads Nonspecific T wave abnormality no longer evident in Anterolateral leads QT has lengthened Confirmed by Oneil Warren ([id number]) on 07/25/2022 2:44:07 PM Referred By: REFERRED SELF Confirmed By:Oneil Warren
[2022-07-25] MEDS: ATORVASTATIN 10 MG TAB PO SCH (20:30)
[2022-07-26 07:42] LABS: Hematocrit (blood only) 33.2 % (37.0-47.0); Mean Corpuscular Hemoglobin 29.4 pg (25.0-34.0); Mean Corpuscular Hgb Conc 33.1 g/dL (32.0-36.0); Mean Corpuscular Volume 88.8 fL (80.0-100.0); Mean Platelet Volume 12.3 fL (9.4-12.4); Platelet Count 272 K/uL (130-400); RDW Coefficient of Variation 16.2 % (11.5-14.5); RDW Standard Deviation 52.6 fL (36.4-46.3); Red Blood Count 3.74 M/uL (4.20-5.40); White Blood Count 10.51 K/ul (4.8-10.8)
[2022-07-26] MEDS: INSULIN ASPART PER UNIT CHARGE SC SCH ×4 (07:45→20:44)
[2022-07-26 08:03] LABS: Albumin Globulin Ratio 0.8 (0.9-2); Albumin Level 2.8 gm/dl (3.4-5.0); Bilirubin,Total 0.3 mg/dl (0.2-1.0); Calcium 8.7 mg/dl (8.6-10.3); Creatinine Clr Calc Pharmacy 70.8 ml/min; Est GFR (African American) 61.7 ml/min; Est GFR (Non-African American) 53.2 ml/min; Globulin 3.5 gm/dl (2.5-4.0); Magnesium 1.7 mg/dl (1.7-2.4); Potassium 3.8 mmol/L (3.5-5.1); Total Protein 6.3 gm/dl (6.0-8.3)
[2022-07-26] MEDS: LISINOPRIL/HCTZ 20/12.5MG 1 TAB TAB PO SCH (08:18)
[2022-07-26] MEDS: LORATADINE 10 MG TAB PO SCH (08:18)
[2022-07-26] MEDS: PSYLLIUM or GUAR GUM FIBER POWDER PACKET PO SCH ×2 (08:18→20:58)
[2022-07-26] MEDS: FAMOTIDINE 20 MG TAB PO SCH ×2 (08:18→20:57)
[2022-07-26] MEDS: PANTOprazole 40 MG TAB PO SCH ×2 (08:18→20:56)
[2022-07-26] MEDS: METOPROLOL SUCC 25MG EXT REL TAB PO SCH (08:18)
[2022-07-26] MEDS: SERTRALINE HCL 100 MG TABLET PO SCH (08:19)
[2022-07-26] MEDS: MONTELUKAST SODIUM 10 MG TABLET PO SCH (08:19)
[2022-07-26] MEDS: ENOXAPARIN INJ 40 MG/0.4 ML SYR SQ SCH ×2 (08:19→20:58)
--- NOTE | 2022-07-26 08:19 | Hospitalist Progress Note ---
Date of Service July 26, 2022 Assessment & Plan (1) Ambulatory dysfunction: Plan: 66 yo female PMHx of HFrEF, paroxysmal afib, HTN, HLD, depression, DM2, and GERD presents for weakness. Lower extremity weakness/ambulatory dysfunction -Likely multifactorial from recent hospitalization, morbid obesity, hypokalemia, hypomagnesemia, dehydration. No signs for saddle anesthesia or active infection. -Will likely need placement to SNF/inpatient rehab. Currently awaiting PT/OT recommendations. * Appreciate PT recs Hypoxia resolved Patient seen in the ED this AM. Patient acutely hypoxic while asleep. Oxygenatio n improved with rebreather. No SOB or CP. Asymptomatic. Notes that her saturation does drop while sleeping. No previous sleep study. No diagnosis of EPHRAIM. Likely OHS. Hypoxia resolved. Patient on RA. Would benefit from outpatient sleep study vs overnight pulse ox. May require CPAP at night. Hypokalemiaresolved -2.8 on admission. Repleted per protocol * Trend daily labs Hypomagnesemiaresolved -1.3 on admission. Repleted following admission. * Trend daily labs. Elevated troponinresolved -199 on admission. 2hr repeat 220. EKG with subtle ST depressions. Pt denies chest pain. -Echocardiogram: Normal LV systolic function without wall motion abnormalities; EF = 55-60%; mild MR; borderline concentric LVH. -Downtrending (206.9) as of 07/25/2022. DM2 -Home glipizide, metformin held on admission. 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 Initially seen at [facility] for septic shock 2/2 GAS bacteremia from this RPA/right neck cellulitis. Treated initially with Unasyn --> Augmentin with a 3 week course. -She was seen here early June: underwent ID with wound vac placement 06/26, completed 21-day total antibiotics course (ceftriaxone, flagyl, doxycycline). -Repeat CT soft tissue without worsening. * Wound VAC, as above. Otherwise nothing to do. Depression * Continue home sertraline DVT ppx: Lovenox FEN/GI: Heart healthy; carb consistent Code Status: Full code Dispo: med surg. Awaiting PT OT evaluation, likely dispo to SNF/inpatient rehab (2) Elevated troponin: (3) Weakness: (4) Hypokalemia: (5) Hypomagnesemia: (6) Paroxysmal A-fib: (7) Hyperlipidemia: (8) Depression: (9) Diabetes mellitus: (10) Obesity, morbid, BMI 40.0-49.9: (11) Cellulitis of right shoulder: Admission and Anticipated Discharge Date Admission Date: July 25, 2022 Supervising Physician Co-Signing Physician Notes I personally examined the patient and verified all flores points of history and exam, discussed case, and agree with decision making with Dr Keating Only new complaint is that I had forgotten to alter her diet from heart healthy so that she could have shelton for breakfast. Still weak, happy that she got out of bed, happy that she was able to get on and off the toilet on her own, but notes that she still definitely feels like she needs rehab. I agree. Vitals noted, in general she is awake and alert pleasant no distress. HEENT normocephalic atraumatic mucous membranes moist. Breathing unlabored no accessory muscle use good effort. Skin shows no rashes no pallor or icterus. Neuro without focal deficits. Suspect hypoxia was either erroneous reading, some sleep apnea physiology, or combination of both. Weakness/deconditioningwas weak here, but progressed to where by all accounts she looks like she would be okay at home, unfortunately she was not. Stable for rehab placement once insurance approval. Subjective On arrival, patient is awake in bed. She has no acute concerns or complaints at this time. Review of Systems Review of Systems: All systems reviewed & are unremarkable except as noted in HPI & below Physical Exam Physical Exam: General: No acute distress HEENT: PERRLA. Normal conjunctiva, anicteric sclera. Oropharynx normal. Respiratory: Normal respiratory effort, CTABL. Cardiovascular: RRR without murmurs, gallops, or rubs. No edema. GI: Soft abdomen with normal bowel sounds heard on auscultation. Nontender x4 quadrants Neuro: Alert and oriented x3. Results & Data Results & Data Vital Signs (Past 12 Hours) Vital Signs Temp Pulse Pulse Resp BP Pulse Ox O2 Del Method 07/26/22 08:09 36.5 C 65 18 143/76 H 19 L Nasal Cannula 07/26/22 01:48 64 07/26/22 01:50 Nasal Cannula 07/26/22 01:50 36.7 C 66 20 112/75 96 Room Air 07/25/22 23:45 67 07/25/22 22:30 36.6 C 63 18 122/80 96 Room Air 07/25/22 20:47 36.5 C 61 18 119/66 96 Room Air O2 Flow Rate 07/26/22 08:09 2.0 07/26/22 01:48 07/26/22 01:50 2 07/26/22 01:50 07/25/22 23:45 07/25/22 22:30 07/25/22 20:47 Resident Activity Tracking Resident Involvement: Resident Care Provided Care Provided: Adult Hospital Medicine
--- NOTE | 2022-07-26 16:56 | Billing Data ---
Date of Service July 26, 2022 Coding Level of Care Code 67153 SUB INP/OBS CARE
[2022-07-26] MEDS: ATORVASTATIN 10 MG TAB PO SCH (20:56)
--- NOTE | 2022-07-26 21:39 | Billing Data ---
Date of Service July 26, 2022 Coding Level of Care Code 27825 INT INP/OBS CARE
[2022-07-26] MEDS: MELATONIN 3 MG TAB PO PRN (21:40)
[2022-07-27 07:41] LABS: Hematocrit (blood only) 33.7 % (37.0-47.0); Hemoglobin 11.2 g/dl (12.0-16.0); Mean Corpuscular Hgb Conc 33.2 g/dL (32.0-36.0); Mean Corpuscular Volume 87.3 fL (80.0-100.0); Mean Platelet Volume 12.1 fL (9.4-12.4); Platelet Count 272 K/uL (130-400); RDW Coefficient of Variation 16.7 % (11.5-14.5); RDW Standard Deviation 53.2 fL (36.4-46.3); Red Blood Count 3.86 M/uL (4.20-5.40); White Blood Count 13.14 K/ul (4.8-10.8)
[2022-07-27 07:54] LABS: Albumin Globulin Ratio 0.8 (0.9-2); Albumin Level 2.9 gm/dl (3.4-5.0); BUN Creatinine Ratio 12.6 (10-20); Bilirubin,Total 0.2 mg/dl (0.2-1.0); Calcium 8.8 mg/dl (8.6-10.3); Creatinine Clr Calc Pharmacy 64.9 ml/min; Est GFR (African American) 55.5 ml/min; Est GFR (Non-African American) 47.9 ml/min; Globulin 3.5 gm/dl (2.5-4.0); Magnesium 1.4 mg/dl (1.7-2.4); Phosphorus 4.6 mg/dl (2.5-4.9); Potassium 3.9 mmol/L (3.5-5.1); Total Protein 6.4 gm/dl (6.0-8.3)
[2022-07-27] MEDS: MONTELUKAST SODIUM 10 MG TABLET PO SCH (08:29)
[2022-07-27] MEDS: SERTRALINE HCL 100 MG TABLET PO SCH (08:29)
[2022-07-27] MEDS: PSYLLIUM or GUAR GUM FIBER POWDER PACKET PO SCH ×2 (08:29→20:15)
[2022-07-27] MEDS: PANTOprazole 40 MG TAB PO SCH ×2 (08:30→20:14)
[2022-07-27] MEDS: FAMOTIDINE 20 MG TAB PO SCH ×2 (08:30→20:13)
[2022-07-27] MEDS: LISINOPRIL/HCTZ 20/12.5MG 1 TAB TAB PO SCH (08:30)
[2022-07-27] MEDS: METOPROLOL SUCC 25MG EXT REL TAB PO SCH (08:30)
[2022-07-27] MEDS: LORATADINE 10 MG TAB PO SCH (08:30)
[2022-07-27] MEDS: INSULIN ASPART PER UNIT CHARGE SC SCH ×4 (08:36→20:15)
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
[2022-07-27] MEDS: ENOXAPARIN INJ 40 MG/0.4 ML SYR SQ SCH ×2 (10:42→21:09)
[2022-07-27] MEDS: MAGNESIUM SULFATE / D5W 1 GM/100 ML BAG IV SCH ×4 (11:43→17:59)
--- NOTE | 2022-07-27 15:02 | Billing Data ---
Date of Service July 27, 2022 Coding Level of Care Code 25831 SUB INP/OBS CARE
[2022-07-27] MEDS: ATORVASTATIN 10 MG TAB PO SCH (20:14)
[2022-07-27] MEDS: MELATONIN 3 MG TAB PO PRN (20:22)
--- NOTE | 2022-07-28 06:17 | Hospitalist Progress Note ---
Date of Service July 28, 2022 Assessment & Plan (1) Ambulatory dysfunction: Plan: 66 yo female PMHx of HFrEF, paroxysmal afib, HTN, HLD, depression, DM2, and GERD presents for weakness. Lower extremity weakness/ambulatory dysfunction -Likely multifactorial from recent hospitalization, morbid obesity, hypokalemia, hypomagnesemia, dehydration. No signs for saddle anesthesia or active infection. -PT recommends short-term rehab placement. 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 Initially seen at [facility] for septic shock 2/2 GAS bacteremia from this RPA/right neck cellulitis. Treated initially with Unasyn --> Augmentin with a 3 week course. -She was seen here early June: underwent ID with wound vac placement 06/26, completed 21-day total antibiotics course (ceftriaxone, flagyl, doxycycline). -Repeat CT soft tissue without worsening. -Wound VAC, as above. Stable at this time. Elevated troponinresolved -199 on admission. 2hr repeat 220. EKG with subtle ST depressions. Pt denies chest pain. -Echocardiogram: Normal LV systolic function without wall motion abnormalities; EF = 55-60%; mild MR; borderline concentric LVH. -Downtrending (206.9) as of 07/25/2022. Hypoxia nocturnal -Recommend outpatient sleep study. May require CPAP at night. DM2 -Home glipizide, metformin held on admission. -SSI, per protocol Hypertension/HFrEF/A-fib -Continue home lisinopril-HCTZ, metoprolol Hyperlipidemia -Continue home atorvastatin Depression -Continue home sertraline DVT ppx: Lovenox FEN/GI: Heart healthy; carb consistent Code Status: Full code Dispo: med surg. Pending placement (2) Elevated troponin: (3) Weakness: (4) Hypokalemia: (5) Hypomagnesemia: (6) Paroxysmal A-fib: (7) Hyperlipidemia: (8) Depression: (9) Diabetes mellitus: (10) Obesity, morbid, BMI 40.0-49.9: (11) Cellulitis of right shoulder: Admission and Anticipated Discharge Date Admission Date: July 25, 2022 Supervising Physician Co-Signing Physician Notes Resident Physician Supervision Note: I independently interviewed and examined the patient and verified the flores history and physical, reviewed labs and image studies and agree with resident findings and care plan. Subjective Patient was seen bedside this morning. No issues or concerns at this time. States that she has been breathing okay and not having any shortness of breath. States that she has been using a walker around the room with PT, denies use of a walker at home. Review of Systems Review of Systems: All systems reviewed & are unremarkable except as noted in Subjective Physical Exam Constitutional: WD/WN, vitals as above Eyes: PERRL, conjunctivae normal, anicteric sclerae ENMT: external ear and nose normal, oropharynx normal Respiratory: normal respiratory effort, lungs clear to auscultation Cardiovascular: RRR, no murmur, no edema Gastrointestinal (Abdomen): normal bowel sounds, soft, nontender, no hepatosplenomegaly Musculoskeletal: no cyanosis or clubbing, extremities motor strength 5/5 Skin: Right shoulder wound VAC in place Psychiatric: A+Ox3, euthymic affect Results & Data Results & Data Vital Signs (Past 12 Hours) Vital Signs Temp Pulse Pulse Resp BP BP Pulse Ox 07/27/22 22:00 07/27/22 22:00 37.1 C 71 18 115/68 96 07/27/22 19:47 36.8 C 60 18 148/82 H 96 07/27/22 19:48 O2 Del Method 07/27/22 22:00 Room Air 07/27/22 22:00 Room Air 07/27/22 19:47 Room Air 07/27/22 19:48 Room Air Resident Activity Tracking Resident Involvement: Resident Care Provided Care Provided: Adult Hospital Medicine
[2022-07-28 08:39] LABS: Hematocrit (blood only) 32.7 % (37.0-47.0); Hemoglobin 11.1 g/dl (12.0-16.0); Mean Corpuscular Hgb Conc 33.9 g/dL (32.0-36.0); Mean Corpuscular Volume 85.4 fL (80.0-100.0); Mean Platelet Volume 12.7 fL (9.4-12.4); Platelet Count 263 K/uL (130-400); RDW Coefficient of Variation 16.6 % (11.5-14.5); Red Blood Count 3.83 M/uL (4.20-5.40); White Blood Count 9.98 K/ul (4.8-10.8)
[2022-07-28] MEDS: METOPROLOL SUCC 25MG EXT REL TAB PO SCH (09:00)
[2022-07-28] MEDS: FAMOTIDINE 20 MG TAB PO SCH ×2 (09:00→20:55)
[2022-07-28] MEDS: PANTOprazole 40 MG TAB PO SCH ×2 (09:00→20:55)
[2022-07-28] MEDS: LISINOPRIL/HCTZ 20/12.5MG 1 TAB TAB PO SCH (09:00)
[2022-07-28] MEDS: LORATADINE 10 MG TAB PO SCH (09:00)
[2022-07-28] MEDS: MONTELUKAST SODIUM 10 MG TABLET PO SCH (09:00)
[2022-07-28] MEDS: PSYLLIUM or GUAR GUM FIBER POWDER PACKET PO SCH ×2 (09:06→20:53)
[2022-07-28] MEDS: ENOXAPARIN INJ 40 MG/0.4 ML SYR SQ SCH ×2 (09:07→20:55)
[2022-07-28] MEDS: INSULIN ASPART PER UNIT CHARGE SC SCH ×4 (09:17→21:02)
[2022-07-28] MEDS: SERTRALINE HCL 100 MG TABLET PO SCH (09:18)
[2022-07-28 09:50] LABS: Albumin Globulin Ratio 0.8 (0.9-2); Albumin Level 2.8 gm/dl (3.4-5.0); BUN Creatinine Ratio 10.4 (10-20); Bilirubin,Total 0.2 mg/dl (0.2-1.0); Calcium 8.7 mg/dl (8.6-10.3); Creatinine Clr Calc Pharmacy 57.7 ml/min; Est GFR (African American) 48.1 ml/min; Est GFR (Non-African American) 41.5 ml/min; Globulin 3.4 gm/dl (2.5-4.0); Magnesium 1.8 mg/dl (1.7-2.4); Phosphorus 4.9 mg/dl (2.5-4.9); Potassium 3.5 mmol/L (3.5-5.1); Total Protein 6.2 gm/dl (6.0-8.3)
[2022-07-28] MEDS: ATORVASTATIN 10 MG TAB PO SCH (20:55)
[2022-07-28] MEDS: MELATONIN 3 MG TAB PO PRN (20:55)
--- NOTE | 2022-07-29 06:45 | Hospitalist Progress Note ---
Date of Service July 29, 2022 Assessment & Plan (1) Ambulatory dysfunction: Plan: 66 yo female PMHx of HFrEF, paroxysmal afib, HTN, HLD, depression, DM2, and GERD presents for weakness. Lower extremity weakness/ambulatory dysfunction -Likely multifactorial from recent hospitalization, morbid obesity, hypokalemia, hypomagnesemia, dehydration. No signs for saddle anesthesia or active infection. -PT recommends short-term rehab placement. 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 Initially seen at [facility] for septic shock 2/2 GAS bacteremia from this RPA/right neck cellulitis. Treated initially with Unasyn --> Augmentin with a 3 week course. -She was seen here early June: underwent ID with wound vac placement 06/26, completed 21-day total antibiotics course (ceftriaxone, flagyl, doxycycline). -Repeat CT soft tissue without worsening. -Wound VAC, as above. Stable at this time. Elevated troponinresolved -199 on admission. 2hr repeat 220. EKG with subtle ST depressions. Pt denies chest pain. -Echocardiogram: Normal LV systolic function without wall motion abnormalities; EF = 55-60%; mild MR; borderline concentric LVH. -Downtrending (206.9) as of 07/25/2022. Hypoxia nocturnal -Recommend outpatient sleep study. May require CPAP at night. DM2 -Home glipizide, metformin held on admission. -SSI, per protocol Hypertension/HFrEF/A-fib -Continue home lisinopril-HCTZ, metoprolol Hyperlipidemia -Continue home atorvastatin Depression -Continue home sertraline DVT ppx: Lovenox FEN/GI: Heart healthy; carb consistent Code Status: Full code Dispo: med surg. Pending placement (2) Elevated troponin: (3) Weakness: (4) Hypokalemia: (5) Hypomagnesemia: (6) Paroxysmal A-fib: (7) Hyperlipidemia: (8) Depression: (9) Diabetes mellitus: (10) Obesity, morbid, BMI 40.0-49.9: (11) Cellulitis of right shoulder: Admission and Anticipated Discharge Date Admission Date: July 25, 2022 Results & Data Results & Data Vital Signs (Past 12 Hours) Vital Signs Temp Pulse Resp BP Pulse Ox O2 Del Method 07/28/22 20:30 Room Air 07/28/22 21:19 36.8 C 67 16 128/85 95 Room Air
[2022-07-29 07:15] LABS: Eosinophils # (auto) 0.57 K/uL (0-0.50); Eosinophils % (auto) 5.6 %; Hematocrit (blood only) 34.4 % (37.0-47.0); Hemoglobin 11.3 g/dl (12.0-16.0); Immature Granulocytes # (auto) 0.03 K/uL (0.01-0.20); Immature Granulocytes % (auto) 0.3 %; Lymphocytes # (auto) 4.28 K/uL (1.2-3.4); Lymphocytes % (auto) 41.7 %; Mean Corpuscular Hgb Conc 32.8 g/dL (32.0-36.0); Mean Corpuscular Volume 88.4 fL (80.0-100.0); Mean Platelet Volume 12.1 fL (9.4-12.4); Monocytes # (auto) 1.31 K/uL (0.11-0.59); Monocytes % (auto) 12.8 %; Neutrophils # (auto) 3.97 K/uL (1.40-6.50); Neutrophils % (auto) 38.6 %; Platelet Count 294 K/uL (130-400); RDW Coefficient of Variation 16.4 % (11.5-14.5); RDW Standard Deviation 51.9 fL (36.4-46.3); Red Blood Count 3.89 M/uL (4.20-5.40); White Blood Count 10.26 K/ul (4.8-10.8)
[2022-07-29 07:29] LABS: Albumin Globulin Ratio 0.8 (0.9-2); BUN Creatinine Ratio 11.1 (10-20); Bilirubin,Total 0.3 mg/dl (0.2-1.0); Calcium 8.8 mg/dl (8.6-10.3); Creatinine Clr Calc Pharmacy 56.7 ml/min; Est GFR (African American) 47.6 ml/min; Est GFR (Non-African American) 41.1 ml/min; Globulin 3.6 gm/dl (2.5-4.0); Magnesium 1.5 mg/dl (1.7-2.4); Potassium 3.7 mmol/L (3.5-5.1); Total Protein 6.6 gm/dl (6.0-8.3)
[2022-07-29] MEDS: INSULIN ASPART PER UNIT CHARGE SC SCH ×2 (09:03→12:49)
[2022-07-29] MEDS: LISINOPRIL/HCTZ 20/12.5MG 1 TAB TAB PO SCH (09:16)
[2022-07-29] MEDS: PANTOprazole 40 MG TAB PO SCH (09:16)
[2022-07-29] MEDS: MONTELUKAST SODIUM 10 MG TABLET PO SCH (09:17)
[2022-07-29] MEDS: LORATADINE 10 MG TAB PO SCH (09:17)
[2022-07-29] MEDS: SERTRALINE HCL 100 MG TABLET PO SCH (09:17)
[2022-07-29] MEDS: METOPROLOL SUCC 25MG EXT REL TAB PO SCH (09:18)
[2022-07-29] MEDS: PSYLLIUM or GUAR GUM FIBER POWDER PACKET PO SCH (09:19)
[2022-07-29] MEDS: FAMOTIDINE 20 MG TAB PO SCH (09:36)
[2022-07-29] MEDS: ENOXAPARIN INJ 40 MG/0.4 ML SYR SQ SCH (10:13)
--- NOTE | 2022-07-29 11:12 | Discharge Summary ---
Date of Service July 29, 2022 Admission HPI Per Admitting Provider 66 yo female PMHx of HFrEF, paroxysmal afib, HTN, HLD, depression, DM2, and GERD presents for weakness. She was just discharged from the hospital yesterday evening after being hospitalized for syncopal event attributed to multifactorial causes including with dehydration, orthostatic hypotension, and vasovagal response. She states when she got home she was doing well with walker but felt a little weak in her legs. When she went to use toilet later in the night she was so weak she could barely stand and sat down on the toilet and was unable to get up prompting her to go the ER. Denies headache, dysuria, chest pain, sob, fever, abd pain, N/V/D, constipation, lower extremity numbness/tingling, back pain. No symptoms of saddle anesthesia. She thinks she needs rehab. Admission Exam Per Admitting Provider Constitutional: morbidly obese, in no acute distress, pleasant. AOx3. Vitals as above. HEENT: No scleral injection or discharge. Moist mucous membranes. Neck: Supple without lymphadenopathy or thyromegaly. Trachea midline. Lungs: Clear to auscultation bilaterally with good effort. Cardiac: Regular rate and rhythm. No murmurs. No extremity edema. 2+ distal peripheral pulses. Abdomen: Soft, nontender, and nondistended.No guarding. No hepatosplenomegaly. MSK: No cyanosis or clubbing. Extremities motor strength 5/5. Neg straight leg raise. Full sensation. Skin: +wound vac R posterior shoulder Neurologic: no focal deficits Principal Diagnosis Lower extremity weakness/ambulatory dysfunction Discharge Exam Constitutional WD/WN, vitals as above Eyes PERRL, conjunctivae normal, anicteric sclerae ENMT external ear and nose normal, oropharynx normal Respiratory normal respiratory effort, lungs clear to auscultation Cardiovascular RRR, no murmur, no edema Gastrointestinal (Abdomen) normal bowel sounds, soft, nontender, no hepatosplenomegaly Musculoskeletal no cyanosis or clubbing, extremities motor strength 5/5 Psychiatric A+Ox3, euthymic affect Discharge Data Allergies Allergy/AdvReac Type Severity Reaction Status Date / Time amoxicillin [From Augmentin] Allergy Intermediate BLISTERED Verified 07/25/22 02:20 HANDS & FEET clavulanic acid Allergy Intermediate BLISTERED Verified 07/25/22 02:20 [From Augmentin] HANDS & FEET simvastatin AdvReac Intermediate MUSCLE Verified 07/25/22 02:20 PAIN IN SHOULDERS Consultations 07/25/22 03:32 ED Decision to Admit Stat Ordered Studies Chest X-Ray 07/25/22 01:46 XR chest 1V portable HISTORY: 66 years-old Female weakness acute weakness COMPARISON: 07/21/2022 TECHNIQUE: AP view of the chest FINDINGS: Cardiac silhouette is enlarged. No pneumothorax, large pleural effusion, airspace consolidation or pulmonary edema. Degenerative changes of the shoulders and spine. IMPRESSION: Cardiomegaly without acute process. ACT 112: Negative or not required by law. The above report was generated using voice recognition software. It may contain grammatical, syntax or spelling errors. Electronically signed by: Bernabe Vilchis M.D. 07/25/2022 7:52 AM Abnormal lab results 07/28/22 07/28/22 07/29/22 Range/Units 17:07 20:44 06:25 RBC (4.20-5.40) M/uL Hgb (12.0-16.0) g/dl Hct (37.0-47.0) % RDW Std Deviation (36.4-46.3) fL RDW Coeff of Geetha (11.5-14.5) % Lymph # (Auto) (1.2-3.4) K/uL [place] # (Auto) (0.11-0.59) K/uL Eos # (Auto) (0-0.50) K/uL Carbon Dioxide 33 H (21-32) mmol/L Creatinine 1.35 H (0.6-1.2) mg/dl Glucose 135 H (70-99(Fasting)) mg/dl POC Glucose 115 H 134 H (70-99) mg/dl Magnesium 1.5 L (1.7-2.4) mg/dl Albumin 3.0 L (3.4-5.0) gm/dl Albumin/Globulin Ratio 0.8 L (0.9-2) 07/29/22 07/29/22 07/29/22 Range/Units 06:25 07:59 11:48 RBC 3.89 L (4.20-5.40) M/uL Hgb 11.3 L (12.0-16.0) g/dl Hct 34.4 L (37.0-47.0) % RDW Std Deviation 51.9 H (36.4-46.3) fL RDW Coeff of Geetha 16.4 H (11.5-14.5) % Lymph # (Auto) 4.28 H (1.2-3.4) K/uL [place] # (Auto) 1.31 H (0.11-0.59) K/uL Eos # (Auto) 0.57 H (0-0.50) K/uL Carbon Dioxide (21-32) mmol/L Creatinine (0.6-1.2) mg/dl Glucose (70-99(Fasting)) mg/dl POC Glucose 145 H 156 H (70-99) mg/dl Magnesium (1.7-2.4) mg/dl Albumin (3.4-5.0) gm/dl Albumin/Globulin Ratio (0.9-2) Hospital Course (1) Ambulatory dysfunction: 66 yo female PMHx of HFrEF, paroxysmal afib, HTN, HLD, depression, DM2, and GERD presents for weakness. Lower extremity weakness/ambulatory dysfunction -Likely multifactorial from recent hospitalization, morbid obesity, hypokalemia, hypomagnesemia, dehydration. No signs for saddle anesthesia or active infection. -PT recommended short-term rehab placement. Wound R shoulder sec to I and D retroperitoneal abscess -Wound VAC in place, changed on 07/28. 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 Initially seen at [facility] for septic shock 2/2 GAS bacteremia from this RPA/right neck cellulitis. Treated initially with Unasyn --> Augmentin with a 3 week course. -She was seen here early June: underwent ID with wound vac placement 06/26, completed 21-day total antibiotics course (ceftriaxone, flagyl, doxycycline). -Repeat CT soft tissue without worsening. -Wound VAC, as above. Stable through hospital stay. Elevated troponinresolved -199 on admission. 2hr repeat 220 and then downtrended. EKG with subtle ST depressions. Pt denies chest pain. -Echocardiogram:Normal LV systolic function without wall motion abnormalities; EF = 55-60%; mild MR; borderline concentric LVH. -Likely demand ischemia Hypoxia nocturnal -Recommend outpatient sleep study. May require CPAP at night. DM2 -Home glipizide, metformin held on admission. -SSI, per protocol during admission. -Can restart home medications at time of discharge. Hypertension/HFrEF/A-fib -Continue home lisinopril-HCTZ, metoprolol Hyperlipidemia -Continue home atorvastatin Depression -Continue home sertraline (2) Elevated troponin: (3) Weakness: (4) Hypokalemia: (5) Hypomagnesemia: (6) Paroxysmal A-fib: (7) Hyperlipidemia: (8) Depression: (9) Diabetes mellitus: (10) Obesity, morbid, BMI 40.0-49.9: (11) Cellulitis of right shoulder: Total Time Total Time Spent Total Time Spent (In Minutes): 20 Discharge Plan Discharge Items Patient Disposition: Transfer [facility] Reason For Visit: HYPOXIA Discharge Diagnosis: Lower extremity weakness/ambulatory dysfunction Condition on Discharge: Good Activity: Per Instructions section Non-emergency contact: Primary Care Provider Call non-emergency contact if: your pain is not controlled, your pain is concerning for you, your temperature is above 101.5, your wound has increased redness, your wound has increased drainage and your wound pain has increased Follow-up/Referrals: Van Jane MD [Primary Care Provider] - Diet: Carb Consistent or DM2 Addtl Attending Provider Instructions: 66 yo female PMHx of HFrEF, paroxysmal afib, HTN, HLD, depression, DM2, and GERD presents for weakness. Lower extremity weakness/ambulatory dysfunction -Likely multifactorial from recent hospitalization, morbid obesity, hypokalemia, hypomagnesemia, dehydration. No signs for saddle anesthesia or active infection. -PT recommends short-term rehab placement. Wound R shoulder sec to I and D retroperitoneal abscess -Wound VAC in place, changed on 07/28. 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 Initially seen at [facility] for septic shock 2/2 GAS bacteremia from this RPA/right neck cellulitis. Treated initially with Unasyn --> Augmentin with a 3 week course. -She was seen here early June: underwent ID with wound vac placement 06/26, completed 21-day total antibiotics course (ceftriaxone, flagyl, doxycycline). -Repeat CT soft tissue without worsening. -Wound VAC, as above. Stable at this time. Elevated troponinresolved -199 on admission. 2hr repeat 220. EKG with subtle ST depressions. Pt denies chest pain. -Echocardiogram:Normal LV systolic function without wall motion abnormalities; EF = 55-60%; mild MR; borderline concentric LVH. -Downtrending (206.9) as of 07/25/2022. Hypoxia nocturnal -Recommend outpatient sleep study. May require CPAP at night. DM2 -Home glipizide, metformin held on admission. -SSI, per protocol during admission. -Can restart home medications at time of discharge. Hypertension/HFrEF/A-fib -Continue home lisinopril-HCTZ, metoprolol Hyperlipidemia -Continue home atorvastatin Depression -Continue home sertraline Pending Studies at Discharge: No Stand-Alone Forms: [facility] Skilled Items Patient informed of condition?: Yes DNR: No Discharge Level of Care: Skilled Communicable Disease: No Discharge Prognosis: Improving Lines: None Urinary Catheter: No Medications and DC Order Prescriptions: Continued albuterol sulfate 90 mcg/actuation HFA aerosol inhaler 1 - 2 puff inhalation Q4H PRN (Reason: shortness of breath or wheezing) Qty: 8.5 5RF metformin 1,000 mg tablet 1,000 mg PO Q12H Qty: 180 3RF Rx Instructions: TAKE 1 TABLET EVERY 12 HOURS WITH FOOD lisinopril-hydrochlorothiazide 20-12.5 mg tablet 1 tab PO DAILY Qty: 90 3RF atorvastatin 10 mg tablet 10 mg PO HS Qty: 90 1RF glipizide 5 mg tablet extended release 24hr 5 mg PO BID Qty: 180 1RF sertraline 100 mg tablet 100 mg PO DAILY Qty: 90 3RF montelukast 10 mg tablet 10 mg PO DAILY Qty: 90 3RF desloratadine 5 mg tablet 5 mg PO DAILY Qty: 90 3RF melatonin 5 mg capsule 10 mg PO HS PRN (Reason: Sleep) Patient Comments: as directed metoprolol succinate [Toprol XL] 25 mg tablet extended release 24 hr 25 mg PO DAILY Qty: 90 3RF famotidine 20 mg Tablet 20 mg PO BID 7 Days Qty: 14 0RF pantoprazole 40 mg Tablet,Delayed Release (Dr/Ec) 40 mg PO BID 14 Days Qty: 28 0RF psyllium Packet 1 packet PO BID Rx Instructions: mix into at least 8 oz of water or juice before administering ondansetron 4 mg tablet,disintegrating 4 mg PO Q8H PRN (Reason: NAUSEA/VOMITING) Discharge Orders: Discharge Order (Routine); Ordered 07/29/22 Ordered By: Candido Stroud Admission Data Admit Date/Time: 07/25/22 08:34 Attending Provider: Linda Carbajal Admit Provider: Dejuan Luz Primary Care Provider: Van Jane V. [facility] ; Byron Banuelos ; Dejuan Luz Other Interventions: Discharge Summary Assessment (RN) Last Done: 07/29/22 11:24 Supervising Physician Co-Signing Physician Notes Resident Physician Supervision Note: I independently interviewed and examined the patient and verified the flores history and physical, reviewed labs and image studies and agree with resident findings and care plan. Resident Activity Tracking Resident Involvement: Resident Care Provided Care Provided: Adult Hospital Medicine
== END 2022-07-29 13:21 | DRG 556 ==
LOC: ED 01:40 → 1E 08:34 → SUATTDRO 08:34 → 1E 09:43 → 2S 07-26 01:27 → 3W 07-27 22:04

== ENCOUNTER 2022-10-01 11:40 | Inpatient (IN) ==
[2022-10-01] MEDS ORDERED: SODIUM CHLORIDE 0.9% 1000ML 1,000 ML IV ONE (12:51)
[2022-10-01 13:03] LABS: Hematocrit (blood only) 43.7 % (37.0-47.0); Hemoglobin 14.4 g/dl (12.0-16.0); Mean Corpuscular Hemoglobin 28.9 pg (25.0-34.0); Mean Corpuscular Volume 87.6 fL (80.0-100.0); Mean Platelet Volume 11.9 fL (9.4-12.4); Platelet Count 255 K/uL (130-400); RDW Coefficient of Variation 15.7 % (11.5-14.5); RDW Standard Deviation 49.7 fL (36.4-46.3); Red Blood Count 4.99 M/uL (4.20-5.40); White Blood Count 15.32 K/ul (4.8-10.8)
[2022-10-01 13:06] LABS: Albumin Globulin Ratio 0.9 (0.9-2); Albumin Level 3.5 gm/dl (3.4-5.0); BUN Creatinine Ratio 20.7 (10-20); Bilirubin,Total 0.6 mg/dl (0.2-1.0); Calcium 9.3 mg/dl (8.6-10.3); Creatinine Clr Calc Pharmacy 34.7 ml/min; Est GFR (African American) 26.8 ml/min; Est GFR (Non-African American) 23.2 ml/min; Globulin 3.7 gm/dl (2.5-4.0); Potassium 4.4 mmol/L (3.5-5.1); Total Protein 7.2 gm/dl (6.0-8.3)
--- NOTE | 2022-10-01 13:14 | XRay Report ---
XR chest 1V portable HISTORY: 66 years-old Female dizziness COMPARISON: 07/25/2022 TECHNIQUE: AP view of the chest FINDINGS: Cardiac silhouette is enlarged. No pneumothorax, large pleural effusion, airspace consolidation or pu lmonary edema. Degenerative changes of the shoulders and spine. IMPRESSION: Cardiomegaly without acute process. ACT 112: Negative or not required by law. The above report was generated using voice recognition software. It may contain grammatical, syntax o r spelling errors. Electronically signed by: Bernabe Vlichis M.D. 10/01/2022 1:12 PM
[2022-10-01 13:49] LABS: Basophils # (auto) 0.07 K/uL (0-0.2); Basophils % (auto) 0.5 %; Eosinophils # (auto) 1.18 K/uL (0-0.50); Eosinophils % (auto) 7.7 %; Immature Granulocytes # (auto) 0.06 K/uL (0.01-0.20); Immature Granulocytes % (auto) 0.4 %; Lymphocytes % (auto) 39.2 %; Monocytes # (auto) 1.15 K/uL (0.11-0.59); Monocytes % (auto) 7.5 %; Neutrophils # (auto) 6.86 K/uL (1.40-6.50); Neutrophils % (auto) 44.7 %
--- NOTE | 2022-10-01 14:42 | Emergency Department Note ---
Impression & Plan Acute on chronic renal insufficiency, Hypomagnesemia, Leukocytosis ED Provider Note NAME: MIKE PEREIRA AGE: 66 SEX: F ARRIVES VIA: Ambulance INFORMANT: Patient ED PROVIDER(S): Genaro Davison MD CHIEF COMPLAINT: Generalized weakness, lightheadedness, poor appetite, referred. PLAN: Disposition: Admit MEDICAL DECISION MAKING: The patient is a pleasant 66-year-old woman with a past medical history of CHF with reduced EF, paroxysmal atrial fibrillation, hypertension, hyperlipidemia, depression, type 2 diabetes, GERD who presents to the emergency department referred from her PCPs office for symptoms of generalized weakness, lightheadedness developing over the past month where she reports having near fainting episodes over the past several days and her report of having low blood pressure with a systolic in the 60s at the wound clinic recently. She recently had a complicated medical course related to retropharyngeal/deep neck abscess for which she is status post incision and drainage, wound VAC and IV antibiotics at [facility] in March 2022 and then was admitted to this facility for a right shoulder abscess status post incision and drainage and antibiotics. The patient reports since her prolonged medical course she has had increased acid reflux/ind igestion with poor oral intake despite being on antacids. She denies any fevers, chills, cough, congestion, urinary symptoms or diarrhea. On arrival the patient is fatigued appearing but no distress, afebrile stable vital signs. She appears clinically dry. She has no focal neurologic deficits. EKG without overt acute ischemia. CXR negative for acute cardiopulmonary process. WBC 15.3K with neutrophil predominance though no left shift, nonspecific. H/H and platelets within normal limits. Chemistry without metabolic acidosis. Creatinine is 2.17 with BUN of 45 increased from recent values of creatinine of approximately 1.5. LFTs unremarkable. CPK within normal limits. High-sensitivity troponin 6.8, within normal limits. CT of the abdomen pelvis demonstrates cholelithiasis without evidence of cholecystitis. CT of the head was negative for acute normalities. CT of the neck demonstrates interval improvement in inflammatory changes of the right upper back is suggestive of infectious myositis/cellulitis however given the patient's reassuring exam without tenderness, discharge or discoloration in this region suspect likely residual changes following recent and with incision and drainage. However, blood cultures were drawn. Procalcitonin was undetectable. Lactic acid was 1.8 , within normal limits. The patient was treated with IV fluid hydration. Findings reviewed with the patient and she agreed with plan for admission for further management. Dr. Call, [facility] [place], to evaluate the patient for admission. Triage Nursing notes reviewed and agree them. Prior/outside medical records reviewed Vital Signs: reviewed Differential diagnosis: Infection, dehydration, metabolic abnormality, hypo/hyperglycemia, electrolyte disturbance, anemia, hypoxia, cardiac sources, intracerebral event, toxicologic, neurologic, as well as other pathologies. ER treatment provided: See below. Diagnostics interpreted by me: ECG: Normal sinus rhythm, 72 bpm, no ectopy, no overt ST elevation or depression, QTc 427, QRS 92 Cardiac Monitoring: An order for continuous cardiac monitoring was placed and demonstrated normal sinus rhythm, 72 bpm, no ectopy. Laboratory studies: See below Imaging studies: See below Consultation(s): Dr. Call, [facility] [place] HPI: The patient is a pleasant 66-year-old woman with a past medical history of CHF with reduced EF, paroxysmal atrial fibrillation, hypertension, hyperlipidemia, depression, type 2 diabetes, GERD who presents to the emergency department referred from her PCPs office for symptoms of generalized weakness, lightheadedness developing over the past month where she reports having near fainting episodes over the past several days and her report of having low blood pressure with a systolic in the 60s at the wound clinic recently. She recently had a complicated medical course related to retropharyngeal/deep neck abscess for which she is status post incision and drainage, wound VAC and IV antibiotics at [facility] in March 2022 and then was admitted to this facility for a right shoulder abscess status post incision and drainage and antibiotics. The patient reports since her prolonged medical course she has had increased acid reflux/indigestion with poor oral intake despite being on antacids. She denies any fevers, chills, cough, congestion, urinary symptoms or diarrhea. ROS: See above HPI for pertinent positives & negatives. A total of 10 systems reviewed and were otherwise negative. VITALS:See Below PHYSICAL EXAMINATION: GENERAL: Awake, alert, well-appearing, in no distress HENT: Normocephalic, atraumatic. Oropharynx with dry mucous membranes and oth erwise unremarkable. EYES: Normal conjunctiva. Sclera non-icteric. EOMI. No nystamgus. PEARRL. NECK: Supple. No nuchal rigidity. FROM. No JVD. RESPIRATORY: Clear to auscultation. CARDIAC: Regular rate, normal rhythm. Extremities warm and well perfused. Pulses equal. ABDOMEN: Soft, non-distended. Mild epigastric discomfort without discrete tenderness to palpation. No rebound or guarding. No masses. RECTAL: Deferred. MUSCULOSKELETAL: Chest examination reveals no tenderness. The back is symmetrica l on inspection without obvious abnormality. There is no CVA tenderness to palpation. No joint edema. LOWER EXTREMITIES: Calves are equal size bilaterally and non-tender. No edema. No discoloration. NEURO: Normal sensorium. No sensory or motor deficits noted. SKIN: Right lower neck/upper back prior abscess site appears well-healed and is clean dry and intact with out discoloration, induration, underlying fluctuance or tenderness. No rash or jaundice noted. ED COURSE: Critical Care: I have personally spent greater than 35 minutes of critical care time in the direct management of this patient. This includes bedside care, interpretation of diagnostic studies, and testing, discussion with consultants, patient, and family members, and other required patient management activities. This 35 minutes is in excess of all separately billable procedures. Genaro Davison MD Past Med/Surg History Medical History Abnormal blood test Abscess of muscle of neck Abscess of skin of neck OCHOA (acute kidney injury) Cellulitis Cellulitis of right shoulder Diabetes mellitus Diabetes mellitus type 2, uncontrolled Diarrhea Elevated lactic acid level Elevated troponin Health care maintenance High risk medication use Hypokalemia Hypomagnesemia Knee pain, bilateral Lab test negative for COVID-19 virus Left knee DJD Menopausal state Obesity, morbid, BMI 40.0-49.9 Orthostasis Pain medication agreement Right knee DJD Sepsis Sleep disturbance Syncope Weakness Surgical History History of incision and drainage (06/26/22) Incision and Drainage right shoulder/neck Abscess(Right) - Romeo Chase, , FACS History of tubal ligation S/P tubal ligation Status post repair of nerve Family History Father Myocardial infarction Arthritis Diabetes Mother Diabetes Thyroid disorder Social History Smoking Status: Never smoker Second Hand Exposure: No; Do You Dip or Chew Tobacco: No; Hx Alcohol Use: Yes Hx Substance Use: Yes Preferred Language: Kazakh Communication Ability: Effective Visual Impairment: No Limitations Hearing Ability: Normal Railroad Hand Required: No Beliefs That Will Affect Care: None Current Living Situation: Alone Current Living Situation Comment: Has home but has been staying with mother, they take care of each other Feels Safe at Home: Yes Diet: regular caffeine: Yes during the past year weight has: decreased > 10 lbs Seatbelt Use: always Assistive Devices: Walker and Other Allergies Allergies Allergy/AdvReac Type Severity Reaction Status Date / Time amoxicillin [From Augmentin] Allergy Intermediate BLISTERED Verified 10/01/22 10:39 HANDS & FEET clavulanic acid Allergy Intermediate BLISTERED Verified 10/01/22 10:39 [From Augmentin] HANDS & FEET simvastatin AdvReac Intermediate MUSCLE Verified 10/01/22 10:39 PAIN IN SHOULDERS Home Meds Home Medications Medication Instructions Recorded Confirmed melatonin 5 mg capsule 10 mg PO HS PRN Sleep 12/16/21 10/01/22 desloratadine 5 mg tablet 5 mg PO DAILY 10/01/22 10/01/22 psyllium 1 packet PO DAILY 10/01/22 10/01/22 Previous Rx's Medication Instructions Recorded albuterol sulfate 90 mcg/actuation 1 - 2 puff inhalation Q4H PRN 05/01/20 aerosol inhaler shortness of breath or wheezing #8.5 grams lisinopril 20 1 tab PO DAILY #90 tabs 01/22/22 mg-hydrochlorothiazide 12.5 mg tablet metformin 1,000 mg tablet 1,000 mg PO Q12H #180 tabs 01/22/22 sertraline 100 mg tablet 100 mg PO DAILY #90 tabs 02/21/22 metoprolol succinate 25 mg 25 mg PO DAILY #90 tabs 06/04/22 tablet,extended release 24 hr (Toprol XL) montelukast 10 mg tablet 10 mg PO DAILY #90 tabs 06/23/22 atorvastatin 10 mg tablet 10 mg PO HS #90 tabs 08/28/22 glipizide 5 mg tablet, extended 5 mg PO BID #180 tabs 08/28/22 release 24 hr aspirin 81 mg tablet,delayed 81 mg PO DAILY #90 tabs 09/12/22 release (Adult Low Dose Aspirin) ondansetron 4 mg disintegrating 4 mg PO BID PRN NAUSEA/VOMITING 09/12/22 tablet #60 tabs pantoprazole 40 mg tablet,delayed 40 mg PO DAILY #90 tabs 09/12/22 release tramadol 50 mg tablet 50 mg PO DAILY PRN pain #30 tabs 09/12/22 Results & Data (ED) Vital Signs Vital Signs - 24 hr 10/01/22 11:34 10/01/22 12:28 10/01/22 12:17 Temperature 36.8 C Temperature Source Oral Pulse Rate 78 71 71 Respiratory Rate 23 12 Respiratory Effort / Characteristics Non-Labored Respiratory Depth Normal Blood Pressure 104/56 L Blood Pressure Mean 72 Pulse Oximetry 92 92 Oxygen Delivery Method Room Air Sepsis Recent Fever Within 48 Hours No Sepsis New/Unexplained Change in Mental Status No Sepsis Action Taken by Nursing No Action Required 10/01/22 12:30 10/01/22 12:30 10/01/22 13:00 Temperature Temperature Source Pulse Rate 71 67 Respiratory Rate 13 14 Respiratory Effort / Characteristics Respiratory Depth Blood Pressure 104/66 Blood Pressure Mean 71 Pulse Oximetry 94 93 92 Oxygen Delivery Method Sepsis Recent Fever Within 48 Hours Sepsis New/Unexplained Change in Mental Status Sepsis Action Taken by Nursing 10/01/22 13:01 10/01/22 13:01 10/01/22 13:30 Temperature Temperature Source Pulse Rate 74 Respiratory Rate 12 Respiratory Effort / Characteristics Respiratory Depth Blood Pressure 103/61 138/76 Blood Pressure Mean 71 107 Pulse Oximetry 93 Oxygen Delivery Method Sepsis Recent Fever Within 48 Hours Sepsis New/Unexplained Change in Mental Status Sepsis Action Taken by Nursing 10/01/22 13:30 Temperature Temperature Source Pulse Rate 61 Respiratory Rate 11 L Respiratory Effort / Characteristics Respiratory Depth Blood Pressure Blood Pressure Mean Pulse Oximetry Oxygen Delivery Method Sepsis Recent Fever Within 48 Hours Sepsis New/Unexplained Change in Mental Status Sepsis Action Taken by Nursing Laboratory Data Attestation: I reviewed the patient's lab results. 10/01/22 12:06 10/01/22 12:06 Lab Results 10/01/22 10/01/22 10/01/22 Range/Units 12:06 12:06 12:06 WBC 15.32 H (4.8-10.8) K/ul RBC 4.99 (4.20-5.40) M/uL Hgb 14.4 (12.0-16.0) g/dl Hct 43.7 (37.0-47.0) % MCV 87.6 (80.0-100.0) fL MCH 28.9 (25.0-34.0) pg MCHC 33.0 (32.0-36.0) g/dL RDW Std Deviation 49.7 H (36.4-46.3) fL RDW Coeff of Geetha 15.7 H (11.5-14.5) % Plt Count 255 (130-400) K/uL MPV 11.9 (9.4-12.4) fL Immature Gran % (Auto) 0.4 % Neut % (Auto) 44.7 % Lymph % (Auto) 39.2 % Coke % (Auto) 7.5 % Eos % (Auto) 7.7 % Baso % (Auto) 0.5 % Neut # (Auto) 6.86 H (1.40-6.50) K/uL Lymph # (Auto) 6.00 H (1.2-3.4) K/uL Coke # (Auto) 1.15 H (0.11-0.59) K/uL Eos # (Auto) 1.18 H (0-0.50) K/uL Baso # (Auto) 0.07 (0-0.2) K/uL Immature Gran # (Auto) 0.06 (0.01-0.20) K/uL Sodium 140 (136-145) mmol/L Potassium 4.4 (3.5-5.1) mmol/L Chloride 104 (98-107) mmol/L Carbon Dioxide 26 (21-32) mmol/L Anion Gap 10 (3-11) BUN 45 H (6-23) mg/dl Creatinine 2.17 H (0.6-1.2) mg/dl Est Cr Clr Drug Dosing 34.7 ml/min Est GFR ( Amer) 26.8 ml/min Est GFR (Non-Af Amer) 23.2 ml/min BUN/Creatinine Ratio 20.7 H (10-20) Glucose 104 H (70-99(Fasting)) mg/dl Lactate (0.4-2.0) mmol/L Calcium 9.3 (8.6-10.3) mg/dl Phosphorus 4.1 (2.5-4.9) mg/dl Magnesium 1.0 L (1.7-2.4) mg/dl Total Bilirubin 0.6 (0.2-1.0) mg/dl AST 11 L (13-39) U/L ALT 6 L (7-52) U/L Alkaline Phosphatase 59 (34-104) U/L Total Creatine Kinase 28 (26-192) U/L Troponin I High Sens 6.8 (0-14) pg/ml Total Protein 7.2 (6.0-8.3) gm/dl Albumin 3.5 (3.4-5.0) gm/dl Globulin 3.7 (2.5-4.0) gm/dl Albumin/Globulin Ratio 0.9 (0.9-2) Lipase 15 (11-82) U/L Procalcitonin (0-0.5) ng/ml TSH 2.786 (0.300-4.500) uIu/ml 10/01/22 10/01/22 Range/Units 12:06 17:25 WBC (4.8-10.8) K/ul RBC (4.20-5.40) M/uL Hgb (12.0-16.0) g/dl Hct (37.0-47.0) % MCV (80.0-100.0) fL MCH (25.0-34.0) pg MCHC (32.0-36.0) g/dL RDW Std Deviation (36.4-46.3) fL RDW Coeff of Geetha (11.5-14.5) % Plt Count (130-400) K/uL MPV (9.4-12.4) fL Immature Gran % (Auto) % Neut % (Auto) % Lymph % (Auto) % Coke % (Auto) % Eos % (Auto) % Baso % (Auto) % Neut # (Auto) (1.40-6.50) K/uL Lymph # (Auto) (1.2-3.4) K/uL Coke # (Auto) (0.11-0.59) K/uL Eos # (Auto) (0-0.50) K/uL Baso # (Auto) (0-0.2) K/uL Immature Gran # (Auto) (0.01-0.20) K/uL Sodium (136-145) mmol/L Potassium (3.5-5.1) mmol/L Chloride (98-107) mmol/L Carbon Dioxide (21-32) mmol/L Anion Gap (3-11) BUN (6-23) mg/dl Creatinine (0.6-1.2) mg/dl Est Cr Clr Drug Dosing ml/min Est GFR ( Amer) ml/min Est GFR (Non-Af Amer) ml/min BUN/Creatinine Ratio (10-20) Glucose (70-99(Fasting)) mg/dl Lactate 1.8 (0.4-2.0) mmol/L Calcium (8.6-10.3) mg/dl Phosphorus (2.5-4.9) mg/dl Magnesium (1.7-2.4) mg/dl Total Bilirubin (0.2-1.0) mg/dl AST (13-39) U/L ALT (7-52) U/L Alkaline Phosphatase (34-104) U/L Total Creatine Kinase (26-192) U/L Troponin I High Sens (0-14) pg/ml Total Protein (6.0-8.3) gm/dl Albumin (3.4-5.0) gm/dl Globulin (2.5-4.0) gm/dl Albumin/Globulin Ratio (0.9-2) Lipase (11-82) U/L Procalcitonin < 0.05 (0-0.5) ng/ml TSH (0.300-4.500) uIu/ml Administered Medications Discontinued Medications Sodium Chloride (Nss 1000ml) 1,000 mls @ 999 mls/hr IV .Q1H1M ONE Stop: 10/01/22 13:51 Last Infusion: 10/01/22 15:01 Dose: 0 mls/hr Documented By: Admin: 10/01/22 13:07 Dose: 999 mls/hr Documented By: JAVID Imaging Data Radiologist's Impression: Chest X-Ray 10/01/22 12:51 XR chest 1V portable HISTORY: 66 years-old Female dizziness COMPARISON: 07/25/2022 TECHNIQUE: AP view of the chest FINDINGS: Cardiac silhouette is enlarged. No pneumothorax, large pleural effusion, airspace consolidation or pulmonary edema. Degenerative changes of the shoulders and spine. IMPRESSION: Cardiomegaly without acute process. ACT 112: Negative or not required by law. The above report was generated using voice recognition software. It may contain grammatical, syntax or spelling errors. Electronically signed by: Bernabe Vilchis M.D. 10/01/2022 1:12 PM Abdomen/Pelvis CT 10/01/22 15:00 CT abd pelvis wo con CLINICAL HISTORY: abd pain, nausea, acute on chronic RI TECHNIQUE: Helical axial images of the abdomen and pelvis were obtained. Automated dose lowering techniques and/or adjustment according to patient size were utilized for this exam. This exam was performed without intravenous contrast. COMPARISON: None available at the time of this dictation. FINDINGS: Lower chest: No acute abnormality. Liver: Hepatic steatosis is noted. Gallbladder and biliary tree: Cholelithiasis is seen without evidence of cholecystitis. No intra- or extrahepatic biliary ductal dilation. Pancreas: Fatty replacement of the pancreas is seen. Spleen: Unremarkable. Adrenals: Unremarkable. Kidneys and ureters: Perinephric stranding is noted bilaterally. Bladder: Unremarkable. Reproductive organs: Unremarkable. Bowel: The appendix is normal. Lymph nodes Retroperitoneal: Unremarkable. Pelvic: Unremarkable. Mesenteric: Unremarkable. Peritoneum: Normal. Vessels: Unremarkable. Abdominal wall: Unremarkable. Bones: Degenerative changes in the visualized spine. IMPRESSION: 1. No acute abnormalities are seen. 2. Cholelithiasis without cholecystitis. ACT 112: Negative or not required by law. Electronically signed by: Bryan Krishnan M.D. 10/01/2022 4:[address] 10/01/22 15:00 CT head/brain wo con CLINICAL HISTORY: 66 years-old Female with Dizziness, nausea. Acute dizziness with nausea TECHNIQUE: Multiple axial CT images of the head were obtained without contrast. A dose lowering technique was utilized adhering to the principles of ALARA. CT DOSE: 2572.59 mGy.cm COMPARISON: None. FINDINGS: No acute intracranial hemorrhage, midline shift, intracranial mass, hydrocephalus, territorial ischemia or abnormal extra-axial collection. The calvarium is intact. The paranasal sinuses, mastoid air cells, and middle ear cavities are clear. IMPRESSION: No acute intracranial abnormality. ACT 112: Negative or not required by law. The above report was generated using voice recognition software. It may contain grammatical, syntax or spelling errors. Electronically signed by: Bernabe Vilchis M.D. 10/01/2022 4:[address] Tissue Neck [address] 10/01/22 15:01 CT soft tissue neck wo con HISTORY: 66 years-old Female weakness, leukocytosis, h/o neck/shoul infection acute weakness with leukocytosis COMPARISON: 07/21/2022, 06/25/2022 TECHNIQUE: Multiple axial CT images of the soft tissues of the neck were obtained without the use of IV contrast. FINDINGS: Extensive inflammatory stranding with soft tissue thickening is again noted within the right superior back involving the superior fibers of the latissimus dorsi muscle. Evaluation for any potential abscess is limited without the use of IV contrast. Additional stranding extending into the right supraclavicular tissues and right upper chest the degree of inflammation has mildly decreased compared to the most recent comparison. No new or progressive inflammatory changes. Atherosclerosis of the left greater than right carotid bulbs. Subcentimeter benign appearing cervical chain lymph nodes. Patent airway. No prevertebral or parapharyngeal inflammation. Lung apices are clear. Mastoid air cells and paranasal sinuses are clear. Multilevel degenerative changes of the cervical spine. IMPRESSION: 1. Prominent inflammatory changes of the right upper back extending into the latissimus dorsi muscle are again noted suggestive of an infectious myositis and cellulitis with findings mildly improved compared to the 07/21/2022 exam. No definite abscess identified, however evaluation is limited without the use of IV contrast. 2. Subcentimeter reactive cervical chain lymph nodes. 3. No new or worsening inflammatory changes. ACT 112: Negative or not required by law. The above report was generated using voice recognition software. It may contain grammatical, syntax or spelling errors. Electronically signed by: Bernabe Vilchis M.D. 10/01/2022 4:55 PM Discharge Plan Visit Data Chief Complaint: Illness Stated Complaint: DIZZINESS, LIGHTHEADED, HYPOTENSION ED Provider: Genaro Davison Discharge Problem: Acute on chronic renal insufficiency, Hypomagnesemia, Leukocytosis Forms Stand Alone Forms: [facility] [employer] Prescriptions Prescriptions: No Action albuterol sulfate 90 mcg/actuation HFA aerosol inhaler 1 - 2 puff inhalation Q4H PRN (Reason: shortness of breath or wheezing) Qty: 8.5 5RF metformin 1,000 mg tablet 1,000 mg PO Q12H Qty: 180 3RF Rx Instructions: TAKE 1 TABLET EVERY 12 HOURS WITH FOOD lisinopril-hydrochlorothiazide 20-12.5 mg tablet 1 tab PO DAILY Qty: 90 3RF Hold Instructions: pt told to hold sertraline 100 mg tablet 100 mg PO DAILY Qty: 90 3RF montelukast 10 mg tablet 10 mg PO DAILY Qty: 90 3RF atorvastatin 10 mg tablet 10 mg PO HS Qty: 90 1RF glipizide 5 mg tablet extended release 24hr 5 mg PO BID Qty: 180 1RF melatonin 5 mg capsule 10 mg PO HS PRN (Reason: Sleep) Patient Comments: as directed metoprolol succinate [Toprol XL] 25 mg tablet extended release 24 hr 25 mg PO DAILY Qty: 90 3RF ondansetron 4 mg tablet,disintegrating 4 mg PO BID PRN (Reason: NAUSEA/VOMITING) Qty: 60 1RF pantoprazole 40 mg tablet,delayed release (DR/EC) 40 mg PO DAILY Qty: 90 3RF tramadol 50 mg tablet 50 mg PO DAILY PRN (Reason: pain) Qty: 30 1RF aspirin [Adult Low Dose Aspirin] 81 mg tablet,delayed release (DR/EC) 81 mg PO DAILY Qty: 90 3RF desloratadine 5 mg tablet 5 mg PO DAILY psyllium Packet 1 packet PO DAILY Rx Instructions: mix into at least 8 oz of water or juice before administering Referrals Referrals: Van Jane MD [Primary Care Provider] -
[2022-10-01 15:00] LABS: Phosphorus 4.1 mg/dl (2.5-4.9)
[2022-10-01 15:05] LABS: Troponin I High Sensitivity 6.8 pg/ml (0-14)
--- NOTE | 2022-10-01 16:55 | CT Scan Report ---
CT abd pelvis wo con CLINICAL HISTORY: abd pain, nausea, acute on chronic RI TECHNIQUE: Helical axial images of the abdomen and pelvis were obtained. Automated dose lowering tech niques and/or adjustment according to patient size were utilized for this exam. This exam was perfor med without intravenous contrast. COMPARISON: None available at the time of this dictation. FINDINGS: Lower chest: No acute abnormality. Liver: Hepatic steatosis is noted. Gallbladder and biliary tree: Cholelithiasis is seen without evidence of cholecystitis. No intra- or extrahepatic biliary ductal dilation. Pancreas: Fatty replacement of the pancreas is seen. Spleen: Unremarkable. Adrenals: Unremarkable. Kidneys and ureters: Perinephric stranding is noted bilaterally. Bladder: Unremarkable. Reproductive organs: Unremarkable. Bowel: The appendix is normal. Lymph nodes Retroperitoneal: Unremarkable. Pelvic: Unremarkable. Mesenteric: Unremarkable. Peritoneum: Normal. Vessels: Unremarkable. Abdominal wall: Unremarkable. Bones: Degenerative changes in the visualized spine. IMPRESSION: 1. No acute abnormalities are seen. 2. Cholelithiasis without cholecystitis. ACT 112: Negative or not required by law. Electronically signed by: Bryan Krishnan M.D. 10/01/2022 4:54 PM
--- NOTE | 2022-10-01 16:56 | CT Scan Report ---
CT head/brain wo con CLINICAL HISTORY: 66 years-old Female with Dizziness, nausea. Acute dizziness with nausea TECHNIQUE: Multiple axial CT images of the head were obtained without contrast. A dose lowering tech nique was utilized adhering to the principles of ALARA. CT DOSE: 2572.59 mGy.cm COMPARISON: None. FINDINGS: No acute intracranial hemorrhage, midline shift, intracranial mass, hydrocephalus, territorial ischem ia or abnormal extra-axial collection. The calvarium is intact. The paranasal sinuses, mastoid air cells, and middle ear cavities are clear . IMPRESSION: No acute intracranial abnormality. ACT 112: Negative or not required by law. The above report was generated using voice recognition software. It may contain grammatical, syntax o r spelling errors. Electronically signed by: Bernabe Vilchis M.D. 10/01/2022 4:54 PM
--- NOTE | 2022-10-01 16:57 | CT Scan Report ---
CT soft tissue neck wo con HISTORY: 66 years-old Female weakness, leukocytosis, h/o neck/shoul infection acute weakness with le ukocytosis COMPARISON: 07/21/2022, 06/25/2022 TECHNIQUE: Multiple axial CT images of the soft tissues of the neck were obtained without the use of IV contrast. FINDINGS: Extensive inflammatory stranding with soft tissue thickening is again noted within the right superior back involving the superior fibers of the latissimus dorsi muscle. Evaluation for any potential absc ess is limited without the use of IV contrast. Additional stranding extending into the right supracla vicular tissues and right upper chest the degree of inflammation has mildly decreased compared to the most recent comparison. No new or progressive inflammatory changes. Atherosclerosis of the left grea ter than right carotid bulbs. Subcentimeter benign appearing cervical chain lymph nodes. Patent airway. No prevertebral or parapharyngeal inflammation. Lung apices are clear. Mastoid air oneal ls and paranasal sinuses are clear. Multilevel degenerative changes of the cervical spine. IMPRESSION: 1. Prominent inflammatory changes of the right upper back extending into the latissimus dorsi muscle are again noted suggestive of an infectious myositis and cellulitis with findings mildly improved com pared to the 07/21/2022 exam. No definite abscess identified, however evaluation is limited without th e use of IV contrast. 2. Subcentimeter reactive cervical chain lymph nodes. 3. No new or worsening inflammatory changes. ACT 112: Negative or not required by law. The above report was generated using voice recognition software. It may contain grammatical, syntax o r spelling errors. Electronically signed by: Bernabe Vilchis M.D. 10/01/2022 4:55 PM
--- NOTE | 2022-10-01 17:33 | History & Physical Report ---
Date of Service October 01, 2022 Assessment & Plan (1) Myositis: Plan: ? Right neck cellulitis, acute on chronic with history of GIS and MRSA -CTneck without contrast soft tissue: 1. Prominent inflammatory changes of the right upper back extending into the latissimus dorsi muscle are again noted suggestive of an infectious myositis and cellulitis with findings mildly improved compared to the 07/21/2022 exam. No definite abscess identified, however evaluation is limited without the use of IV contrast.2. Subcentimeter reactive cervical chain lymph nodes. 3. No new or worsening inflammatory changes. -CThead: No acute findings -CTA/P: No acute findings, cholelithiasis without cholecystitis -CXR: No acute findings, cardiomegaly is noted Prior Hospitalization Review: 04/2022 isinger discharge: Culture from 04/16/2022 was positive for group A strep. I&D of RP abscess 04/21/2022 with ENT was performed Unasyn 3 g every 6 hours via PICC until 05/04/2022. Transitioned on 05/05/2021 3 to Augmentin 875/125 mg twice daily with total course to be based on follow-up. Received 1 dose of Diflucan for symptoms of yeast infection - Augmentin was continued until 05/16/2022 06/25/2022 - 07/05/2019, [facility] SOR[facility] adamsarah Presented with elevated lactate, leukocytosis Seen by general surgery, had I&D with cultures positive for MRSA Received empiric cefepime/vancomycin/Flagyl on ER, and was continued on cefepime/vancomycin/Flagyl on admission Was narrowed to Vanco/cefepime, and then further narrowed on 06/28 to Lynch/ceftriaxone. ID was consulted 07/01/2022. Was recommended to continue Rocephin 2 g daily, add Flagyl 500 mg p.o. 3 times daily. Vancomycin was continued due to progression of her abscess, although cultures were not positive for MRSA at that time. Vancomycin was discontinued on discharge. At discharge 07/04/2022: Flagyl 500 mg p.o. 3 times daily through 07/17/2022, doxycycline 100 mg p.o. twice daily through 07/17/2022 07/21/2022 - 07/24/2022, [facility] admit Diarrhea and stomach upset in the setting of antibiotic use Reportedly with A-fib at that time, however this was never captured on EKG and was thought to be paroxysmal in the setting of bacteremia earlier in the year No worsening on CT at that time, did not recommend additional antibiotics at that time 07/25/2022 - 07/29/2022, [facility] admit Admitted for ambulatory dysfunction and weakness Repeat CT without worsening, wound VAC monitor, stable through admission. No additional antibiotics at that time - While CT is improved compared to 07/21/2022, she does have leukocytosis and hypotension and is felt increasingly poor. Given 3 months since prior exam with continued CT findings and clinical worsening, will admit on daptomycin for coverage of MRSA noted on wound specimen 09/12/2022, and Rocephin based on prior treatment/cultures above CRP ordered on admit, trended CBC daily Follow cultures and progression, recommend ID consult in a.m. if ongoing antibiotics indicated due to complex history OCHOA on CKD, acute on chronic, unstable Baseline creatinine around 1.55, acutely elevated on admission to 2.17 Likely prerenal Elevated ratio at 20.7 Encourage fluids, trend BMP Creatinine clearance 34/estimated GFR 23 on admit. Renally dose as necessary Type 2 diabetes mellitus, chronic On metformin 1 g twice daily, glipizide 5 mg XR twice daily Admitting glucose 104 Convert to basal bolus SSI Type II DM diet Hypertension, chronic and stable as recently hypotensive in the setting of infection Hypotensive more recently Home antihypertensives changed due to insurance changes, has been moved to lisinopril/HCTZ Given presenting hypotension will hold lisinopril/HCTZ, continue beta-matilde given history of A-fib Heart failure with reduced ejection fraction, chronic currently stable TTE 06/2022: EF 55 to 60%, LV SF normal, no regional wall motion abnormalities. Patient had 1 echo with reduced ejection fraction 2019 to March which subsequently improved Continue aspirin Atorvastatin held while on daptomycin Continue metoprolol 25 XR daily Depression, chronic Continue sertraline Paroxysmal A-fib versus single provoked A-fib - Reports 1 episode at [place] in the setting of bacteremia. This was noted at prior [facility] hospitalization as reported, but no EKG documenting such was seen [id number] 6 EKGs are available in MUSE for review, all of these show sinus rhythm. If she has recurrent paroxysmal A-fib A-fib she is high risk for cardioembolic stroke and should be on anticoagulation. This was discussed with her at the bedside on admission. Given that her initial episode was provoked, and there is no clear record of her being back in A-fib is reasonable to continue on monitoring at this time. If A-fib is not observed, start indefinite anticoagulation. If no A-fib is observed during hospitalization, pursue 30-day Holter to ensure she does not have underlying paroxysmal A-fib burden as outpatient Asthma, chronic, stable Continue montelukast Albuterol as needed No respiratory symptoms on admission GERD, chronic Continue Protonix DVT prophylaxis: Heparin due to OCHOA Diet: Type II DM, heart healthy, low-sodium Disposition: Medical telemetry for A-fib monitoring CODE STATUS: DNR/DNI, discussed with patient at bedside (2) Diabetes mellitus: (3) Hypertension: (4) Hyperlipidemia: (5) Depression: (6) Paroxysmal A-fib: (7) H/O retropharyngeal abscess: (8) Ambulatory dysfunction: History of Present Illness Primary Care Provider: Van Jane MD Celeste Siegel is a 66-year-old female with a past medical history of HFrEF, paroxysmal A-fib, hypertension, hyperlipidemia, type II DM, GERD, depression who presents from PCPs office for weakness, lightheadedness over the last month with lightheadedness and presyncopal episodes, and hypotension while in the wound clinic. Celeste reports went to the PCPs today and had a BP of 60/50 and was recommended to go to the ER. Bp is normally high and takes BP medications. Yesterday and today did not take her blood pressure medications. Was also on afib in the past on toprol which she took this morning. She is not on blood thinners. Takes a baby aspirin. No hx of bleeding problems. No history of stomach ulcers or GI bleeding. Occasional 'burp that needs to come out' otherwise no epigastric pain. No recent fevers or chills, thinks the room is a little cold in ER Gets shakey intermittently. NO shaking chills. No chest pain or chest pressure No shortness of breath +nausea, no vomiting or diarrhea. Nausea is chronic. Hx of neck cellulitis with abscess. Per pt first episode was around of this year. She was not seen until Apr 16 and was taken by ambulance to [facility] who lifeflighted to [place] for sepsis. At that time was on antibiotics, does not remember which but was on three different ones by IV. Had PICC line at th [facility]. Shakila tto rehab and was on IV abx for 3 weeks while at rehab. Then continued oral antibiotics she think sfor a few eweek sbut does not remember. Developed worsening pain in April. Was discharged home, several days later again became fatigued and weak. REports she got mroe antibiotics but does not remember what and it upset her stomach. In June had I&D with Dr. Chase and then woundvac placed. Seemed to get better until this week when her BP and BSG have been low. Medical History: Reviewed Medications: Reviewed. Took AM medications Surgical History: Reviewed Family history: Reviewed Allergies: Reviewed Social History: No tobacco product use, no alcohol Code Status: DNR/DNI. Allergies Allergy/AdvReac Type Severity Reaction Status Date / Time amoxicillin [From Augmentin] Allergy Intermediate BLISTERED Verified 10/01/22 10:39 HANDS & FEET clavulanic acid Allergy Intermediate BLISTERED Verified 10/01/22 10:39 [From Augmentin] HANDS & FEET simvastatin AdvReac Intermediate MUSCLE Verified 10/01/22 10:39 PAIN IN SHOULDERS Home Medications Medication Instructions Recorded Confirmed Type albuterol sulfate 90 mcg/actuation 1 - 2 puff inhalation Q4H PRN 05/01/20 10/01/22 Rx aerosol inhaler shortness of breath or wheezing #8.5 grams melatonin 5 mg capsule 10 mg PO HS PRN Sleep 12/16/21 10/01/22 History lisinopril 20 1 tab PO DAILY #90 tabs 01/22/22 10/01/22 Rx mg-hydrochlorothiazide 12.5 mg tablet metformin 1,000 mg tablet 1,000 mg PO Q12H #180 tabs 01/22/22 10/01/22 Rx sertraline 100 mg tablet 100 mg PO DAILY #90 tabs 02/21/22 10/01/22 Rx metoprolol succinate 25 mg 25 mg PO DAILY #90 tabs 06/04/22 10/01/22 Rx tablet,extended release 24 hr (Toprol XL) montelukast 10 mg tablet 10 mg PO DAILY #90 tabs 06/23/22 10/01/22 Rx atorvastatin 10 mg tablet 10 mg PO HS #90 tabs 08/28/22 10/01/22 Rx glipizide 5 mg tablet, extended 5 mg PO BID #180 tabs 08/28/22 10/01/22 Rx release 24 hr aspirin 81 mg tablet,delayed 81 mg PO DAILY #90 tabs 09/12/22 10/01/22 Rx release (Adult Low Dose Aspirin) ondansetron 4 mg disintegrating 4 mg PO BID PRN NAUSEA/VOMITING 09/12/22 10/01/22 Rx tablet #60 tabs pantoprazole 40 mg tablet,delayed 40 mg PO DAILY #90 tabs 09/12/22 10/01/22 Rx release tramadol 50 mg tablet 50 mg PO DAILY PRN pain #30 tabs 09/12/22 10/01/22 Rx desloratadine 5 mg tablet 5 mg PO DAILY 10/01/22 10/01/22 History psyllium 1 packet PO DAILY 10/01/22 10/01/22 History Past Med/Surg History Medical History Abnormal blood test Abscess of muscle of neck Abscess of skin of neck OCHOA (acute kidney injury) Cellulitis Cellulitis of right shoulder Diabetes mellitus Diabetes mellitus type 2, uncontrolled Diarrhea Elevated lactic acid level Elevated troponin Health care maintenance High risk medication use Hypokalemia Hypomagnesemia Knee pain, bilateral Lab test negative for COVID-19 virus Left knee DJD Menopausal state Obesity, morbid, BMI 40.0-49.9 Orthostasis Pain medication agreement Right knee DJD Sepsis Sleep disturbance Syncope Weakness Surgical History History of incision and drainage (06/26/22) History of tubal ligation S/P tubal ligation Status post repair of nerve Family History Father Myocardial infarction Arthritis Diabetes Mother Diabetes Thyroid disorder Social History Smoking Status: Never smoker Second Hand Exposure: No; Do You Dip or Chew Tobacco: No; Hx Alcohol Use: Yes Hx Substance Use: Yes Preferred Language: American Communication Ability: Effective Visual Impairment: No Limitations Hearing Ability: Normal Chaperon Required: No Beliefs That Will Affect Care: None Current Living Situation: Alone Current Living Situation Comment: Has home but has been staying with mother, they take care of each other Feels Safe at Home: Yes Diet: regular caffeine: Yes during the past year weight has: decreased > 10 lbs Seatbelt Use: always Assistive Devices: Walker and Other Review of Systems Review of Systems: All systems reviewed & are unremarkable except as noted in HPI & below Physical Exam Physical Exam: General: A&Ox3. NAD. Cooperative. Skin: Right neck wound healed with no dehiscence/purulence/discharge. [place] without overt erythema/warmth. No fluctuance or crepitus. Mild tenderness to palpation HEENT: Atraumatic, normocephalic. Pulm: CTAB A&P. -wheezes, -rales, -rhonchi. Symmetrical chest rise. No increased work of breathing. No respiratory distress. Cardiac: RRR, -mrg. Radial pulses intact and symmetrical. Abdominal: Nontender, nondistended, soft. BS present. Extremities: Warm, dry Results & Data Results & Data Vital Signs (Past 12 Hours) Vital Signs Temp Pulse Resp BP Pulse Ox O2 Del Method 10/01/22 13:30 61 11 L 10/01/22 13:30 138/76 10/01/22 13:01 74 12 10/01/22 13:01 103/61 93 10/01/22 13:00 67 14 92 10/01/22 12:30 71 13 93 10/01/22 12:30 104/66 94 10/01/22 12:17 71 12 92 10/01/22 12:28 71 10/01/22 11:34 36.8 C 78 23 104/56 L 92 Room Air PG Care Time/CCT Total # of Minutes Spent Total Time Spent with Patient: Total time spent is greater than 50% in coordination of care (as documented) at patient's floor/unit and/or counseling patient: Coding Level of Care Code 66499 INT INP/OBS CARE 3/75MIN Diagnoses Myositis M60.9 Diabetes mellitus E11.9 Hypertension I10 Hyperlipidemia E78.5 Depression F32.9 Paroxysmal A-fib I48.0 H/O retropharyngeal abscess Z87.09 Ambulatory dysfunction R26.2
[2022-10-01] MEDS: MAGNESIUM SULFATE / D5W 1 GM/100 ML BAG IV SCH ×2 (19:20→20:38)
[2022-10-01 19:46] LABS: Appearance Urine Cloudy (Clear); Bacteria Urine Automated Negative (Negative); Bilirubin Urine Negative (Negative); Blood Urine Trace (Negative); Color Urine Yellow; Epithelial Cell Urine Auto >30 /lpf (0-5); Glucose Urine UA Negative (Negative); Ketones Urine Negative (Negative); Leukocyte Esterase Urine 2+ (Negative); Nitrite Urine Negative (Negative); Protein Urine Negative (Negative); RBC Urine Automated 0-4 /hpf (0-4); Specific Gravity Urine 1.015 (1.000-1.030); Urobilinogen Urine Negative (Negative); WBC Urine Automated >30 /hpf (0-5)
[2022-10-01] MEDS ORDERED: DEXTROSE 50% 50 ML SYRINGE IV PRN (23:44)
[2022-10-01] MEDS ORDERED: traMADol HCL 50 MG TABLET PO PRN (23:44)
[2022-10-01] MEDS ORDERED: MELATONIN 3 MG TAB PO PRN (23:44)
[2022-10-01] MEDS ORDERED: CARBOHYDRATES FOR HYPOGLYCEMIA PO PRN (23:44)
[2022-10-01] MEDS ORDERED: GLUCOSE 40% GEL 15 GM TUBE PO PRN (23:44)
[2022-10-01] MEDS ORDERED: GLUCAGON FOR INJ 1 MG VIAL SQ PRN (23:44)
[2022-10-01] MEDS ORDERED: ALBUTEROL HFA 8 GM INHALER INH PRN (23:44)
[2022-10-01] MEDS ORDERED: GLUCOSE 10 TAB/TUBE PO PRN (23:44)
[2022-10-01] MEDS: MAGNESIUM OXIDE 400 MG TAB PO SCH (23:50)
[2022-10-02] MEDS: MAGNESIUM SULFATE / D5W 1 GM/100 ML BAG IV SCH (00:37)
[2022-10-02 00:38] LABS: C Reactive Protein 1.21 mg/dl (0-0.5)
[2022-10-02] MEDS: LANTUS PER UNIT CHARGE SQ SCH ×3 (01:00→21:23)
[2022-10-02] MEDS: INSULIN ASPART PER UNIT CHARGE SC SCH ×5 (01:02→21:23)
[2022-10-02] MEDS: DAPTOmycin 350 MG in SYRINGE 0 ML IV SCH ×2 (01:04→23:57)
[2022-10-02] MEDS: cefTRIAXone SODIUM 2,000 MG in DEXTROSE 5% 50 ML IV SCH ×2 (02:24→23:57)
--- NOTE | 2022-10-02 08:40 | Hospitalist Progress Note ---
Date of Service October 02, 2022 Assessment & Plan (1) Myositis: Plan: Right neck myositis/cellulitis, acute on chronic with history of GAS and MRSA -CTneck without contrast soft tissue: 1. Prominent inflammatory changes of the right upper back extending into the latissimus dorsi muscle are again noted suggestive of an infectious myositis and cellulitis with findings mildly improved compared to the 07/21/2022 exam. No definite abscess identified, however evaluation is limited without the use of IV contrast.2. Subcentimeter reactive cervical chain lymph nodes. 3. No new or worsening inflammatory changes. -CThead: No acute findings did have leukocytosis and hypotension, which are improving on daptomycin/ceftriaxone -Follow cultures and progression, ID consulted and appreciate recommendations, case discussed with Dr. Delarosa (2) OCHOA (acute kidney injury): Plan: OCHOA on CKD, acute on chronic, unstable Baseline creatinine around 1.55, acutely elevated on admission to 2.17, repeat tomorrow, suspect prerenal/hypotension-related Encourage fluids, trend BMP (3) Diabetes mellitus: Plan: -On metformin 1 g twice daily, glipizide 5 mg XR twice daily; holding in favor of basal/bolus insulin (4) Hypertension: Plan: -Hypotensive on admission but resolving -Home antihypertensives changed due to insurance changes, has been moved to lisinopril/HCTZ -Given presenting hypotension will continue to hold lisinopril/HCTZ, continue beta-matilde given history of A-fib (5) Paroxysmal A-fib: Plan: -Reports 1 episode at [place] in the setting of bacteremia. This was noted at prior [facility] hospitalization as reported, but no EKG documenting such was seen -[id number] -If she has recurrent paroxysmal A-fib A-fib she is high risk for cardioembolic stroke and should be on anticoagulation. If A-fib is observed, start anticoagulation. If no A-fib is observed during hospitalization, pursue 30-day Holter to ensure she does not have underlying paroxysmal A-fib burden as outpatient (6) CHF (congestive heart failure): Plan: HFimpEF TTE 06/2022: EF 55 to 60%, LV SF normal, no regional wall motion abnormalities. Patient had 1 echo with reduced ejection fraction 2019 to March which subsequently improved Continue aspirin Atorvastatin held while on daptomycin Continue metoprolol 25 XR daily (7) Ambulatory dysfunction: Plan: Uses a cane for ambulation, is at her baseline. Declines home therapy on discharge, continue to reassess if ambulatory function declines Plan May need IV abx on discharge, hopefully can transition to PO, follow with ID Admission and Anticipated Discharge Date Admission Date: October 01, 2022 Subjective No acute events overnight. Patient reports feeling less dizzy today. Blood pressures improved to 110s systolic today. No complaints of chest pain or shortness of breath. Does not report much right neck/trap pain. Review of Systems Review of Systems: All systems reviewed & are unremarkable except as noted in Subjective Physical Exam Constitutional: WD/WN, vitals as above Respiratory: normal respiratory effort, lungs clear to auscultation Gastrointestinal (Abdomen): normal bowel sounds, soft, nontender, no hepatosplenomegaly Skin: no rashes, warm and dry Right low neck/trap dressing clean, dry, mildly tender, slightly warm to the touch Psychiatric: A+Ox3, euthymic affect Results & Data Results & Data Vital Signs (Past 12 Hours) Vital Signs Temp Pulse Pulse Resp BP BP BP 10/02/22 07:57 36.9 C 60 18 123/82 10/02/22 07:20 66 10/02/22 01:00 80 10/02/22 04:00 36.6 C 66 18 110/73 10/01/22 22:00 70 10/01/22 23:23 82 10/02/22 00:40 36.6 C 100 H 20 105/61 10/01/22 23:00 36.6 C 68 18 134/77 10/01/22 21:42 10/01/22 21:00 67 14 10/01/22 21:00 110/62 Pulse Ox O2 Del Method 10/02/22 07:57 97 Room Air 10/02/22 07:20 10/02/22 01:00 10/02/22 04:00 95 Room Air 10/01/22 22:00 10/01/22 23:23 10/02/22 00:40 98 Room Air 10/01/22 23:00 95 Room Air 10/01/22 21:42 Room Air 10/01/22 21:00 10/01/22 21:00 PG Care Time/CCT Total # of Minutes Spent Total Time Spent with Patient: Total time spent is greater than 50% in coordination of care (as documented) at patient's floor/unit and/or counseling patient: Coding Level of Care Code 13757 SUB INP/OBS CARE MIN Diagnoses Myositis M60.9 OCHOA (acute kidney injury) N17.9 Diabetes mellitus E11.9 Hypertension I10 Paroxysmal A-fib I48.0 CHF (congestive heart failure) I50.9 Ambulatory dysfunction R26.2
[2022-10-02] MEDS: ASPIRIN 81 MG ECTAB PO SCH (09:15)
[2022-10-02] MEDS: PANTOprazole 40 MG TAB PO SCH (09:16)
[2022-10-02] MEDS: METOPROLOL SUCC 25MG EXT REL TAB PO SCH (09:16)
[2022-10-02] MEDS: MONTELUKAST SODIUM 10 MG TABLET PO SCH (09:16)
[2022-10-02] MEDS: SERTRALINE HCL 100 MG TABLET PO SCH (09:16)
[2022-10-02] MEDS: MAGNESIUM OXIDE 400 MG TAB PO SCH ×2 (09:16→22:25)
[2022-10-02 10:28] LABS: Magnesium 1.6 mg/dl (1.7-2.4)
[2022-10-02 10:34] LABS: C Reactive Protein 1.22 mg/dl (0-0.5)
[2022-10-02] MEDS: ONDANSETRON 4 MG OD TAB PO PRN (13:29)
[2022-10-02 19:11] LABS: A calco-baum cmplx NotReported Not Detected (NotDetected); Bact fragilis Not Reported Not Detected (NotDetected); C auris Not Reported Not Detected (NotDetected); Calbicans Not Reported Not Detected (NotDetected); Candida glabrata Not Reported Not Detected (NotDetected); Candida krusei Not Reported Not Detected (NotDetected); Cneoformans/gatti Not Reported Not Detected (NotDetected); Cparapsilosis Not Reported Not Detected (NotDetected); Ctropicalis Not Reported Not Detected (NotDetected); E cloacae compx Not Reported Not Detected (NotDetected); Efaecalis Not Reported Not Detected (NotDetected); Efaecium Not Reported Not Detected (NotDetected); Enterobacterales Not Reported Not Detected (NotDetected); Escherichia coli Not Reported Not Detected (NotDetected); H influenzae Not Reported Not Detected (NotDetected); K aerogenes Not Reported Not Detected (NotDetected); Koxytoca Not Reported Not Detected (NotDetected); Kpneumoniae grp Not Reported Not Detected (NotDetected); Lmonocyt Not Reported Not Detected (NotDetected); N meningitidis Not Reported Not Detected (NotDetected); P aeruginosa Not Reported Not Detected (NotDetected); Proteus spp Not Reported Not Detected (NotDetected); Salmonella spp Not Reported Not Detected (NotDetected); Smarcescens Not Reported Not Detected (NotDetected); Staph lugdunensis Not Reported Not Detected (NotDetected); Staph spp. Not Reported DETECTED (NotDetected); Staphaureus Not Reported Not Detected (NotDetected); Staphepi Not Reported DETECTED (NotDetected); Stenmaltophilia Not Reported Not Detected (NotDetected); Strep agal(GrpB) Not Reported Not Detected (NotDetected); Strep pneum Not Reported Not Detected (NotDetected); Strep pyog (GrpA) Not Reported Not Detected (NotDetected); Strep spp Not Reported Not Detected (NotDetected); mecAC Resistant Gene DETECTED (NotDetected)
[2022-10-02 19:33] LABS: Staphylococcus epidermidis DETECTED (NotDetected); Staphylococcus spp. DETECTED (NotDetected)
[2022-10-02] MEDS: NYSTATIN POWDER 15GM BTL EXT SCH (21:23)
[2022-10-02] MEDS: DOCUSATE SODIUM 100 MG CAP PO SCH (22:25)
--- NOTE | 2022-10-03 05:55 | Electrocardiogram Report ---
Test Reason : Blood Pressure : / mmHG Vent. Rate : 072 BPM Atrial Rate : 072 BPM P-R Int : 174 ms QRS Dur : 092 ms QT Int : 390 ms P-R-T Axes : 010 024 015 degrees QTc Int : 427 ms Normal sinus rhythm Normal ECG When compared with ECG of 25-JUL-2022 01:54, No significant change was found Confirmed by John Montano [id number]) on 10/03/2022 5:54:53 AM Referred By: Confirmed By:John Montano
[2022-10-03 06:24] LABS: Hemoglobin 13.6 g/dl (12.0-16.0); Mean Corpuscular Hemoglobin 29.1 pg (25.0-34.0); Mean Corpuscular Volume 85.7 fL (80.0-100.0); Platelet Count 243 K/uL (130-400); RDW Coefficient of Variation 15.6 % (11.5-14.5); RDW Standard Deviation 48.8 fL (36.4-46.3); Red Blood Count 4.67 M/uL (4.20-5.40); White Blood Count 15.01 K/ul (4.8-10.8)
[2022-10-03 06:37] LABS: BUN Creatinine Ratio 17.9 (10-20); Calcium 9.5 mg/dl (8.6-10.3); Creatinine Clr Calc Pharmacy 36.7 ml/min; Est GFR (African American) 29.4 ml/min; Est GFR (Non-African American) 25.4 ml/min; Magnesium 1.5 mg/dl (1.7-2.4)
--- NOTE | 2022-10-03 07:34 | Infectious Disease Consult ---
Date of Consultation October 03, 2022 Assessment & Plan (1) Leukocytosis: (2) Myositis: (3) Obesity, morbid, BMI 40.0-49.9: (4) H/O retropharyngeal abscess: Plan #Leukocytosis, hypotension, concerning for sepsis # history of R shoulder upper back abscess s/p I+D on 06/26/22, Cultures are No Growth # h/o GAS septic shock, RP abscess #obesity #Augmentin allergy MICRO 10/01 blood cultures 04/30 bottles GPC clusters Biofire positive for Staph epi 10/01 Ucx Proteus mirabilis 60,000 CFU/ml, pansensitive 10/03 blood cultures in lab ABX Daptomycin 10/02- Ceftriaxone 10/02- 66yo F with h/o HTN, DM, HLD, depression/anxiety, pAfib, augmentin allergy, admission to OSH in 04/17 for GAS septic shock and retropharyngeal abscess s/p IV unasyn with admissions to [facility] for right neck/shoulder infection and right shoulder abscess. Patient was admitted on 10/01 with weakness and hypotension. Infectious Diseases consulted for antibiotic management in setting of right shoulder cellulitis. Multiple prior admissions include: -Prior admission 04/16/22 to 05/02/22 for retropharyngeal abscess requiring I&D. She developed septic shock secondary to GAS bacteremia arising from the retropharyngeal abscess and possibly Right neck cellulitis. A TTE on 04/16 revealed LVEF 40-44% no noted vegetations or valvular abnormalities. On d/c, OCHOA had resolved and final Cr 0.7 and GFR > 90 mL/min. She was discharged with IV Unasyn that completed on 05/04/22 and subsequently switched to Augmentin 875mg/125mg po BID which she completed on 05/16/22. 06/2022 CT with 4.2 x 2.7 cm partial peripheral enhancing collection within the right posterior lower neck which partially involves the right latissimus dorsi muscle consistent with a developing abscess s/p I+D on 06/26. OR and Blood cultures no growth. Treated with Vancomycin, Ceftriaxone, Flagyl and discharged on Ceftriaxone and flagyl through 07/17/22. Doxycycline was also added to outpatient course. She had overall poor oral intake and increased fatigue and admitted on 10/01. Low blood pressure noted. WBC 15.3K, H/H and platelets within normal limits. Creatinine is 2.17 CT of the neck demonstrates interval improvement in inflammatory changes of the right upper back is suggestive of infectious myositis/cellulitis without abscess. 10/01 blood cultures 1/ bottles GPC clusters Biofire positive for Staph epi, Ucx Proteus mirabilis 60,000 CFU/ml, pansensitive Recommend I dont see any overlying cellulitis on R upper back area If blood cultures are negative at 48 hours would dc abx Suspect Staph epi is a contaminant I have repeated blood cultures Check am CPK level while on daptomycin (i dont see she is on a statin) I spoke with Primary team Please page OTW with questions, Dr. Alvarado to start service on Thursday Yesi Delarosa MD Infectious Diseases Consultation Information Consultation was provided via telemedicine using two-way real-time interactive telecommunication between the patient and the telemedicine provider. For the duration of the visit, the provider was performing the assessment from a di fferent facility than the patient. This includesuse of bluetooth stethoscope forauscultationperformed by the telepresenter that the telemedicine provider can hear if described in the physical exam. Meteorology Professor contact information: Please call [facility] [phone]. (Phone Number For Physician Use Only) After establishing a telemedicine visit, patient was: Patient was verified with two unique identifiers, Patient/authorized rep acknowledged consent and understanding and Gave permission to continue telehealth session Time Spent with Patient: Initial => 55 min History of Present Illness Reason for Consultation: Sepsis Requesting Physician: Dr. Riggs Attending Physician: Jeny Fonseca DO History of Present Illness 66yo F with h/o HTN, DM, HLD, depression/anxiety, pAfib, augmentin allergy, admission to OSH in 04/17 for GAS septic shock and retropharyngeal abscess s/p IV unasyn with admissions to [facility] for right neck/shoulder infection and right shoulder abscess. Patient was admitted on 10/01 with weakness and hypotension. Infectious Diseases consulted for antibiotic management in setting of right shoulder cellulitis. Multiple [facility] include: [facility] for retropharyngeal abscess requiring I&D. She developed septic shock secondary to GAS bacteremia arising from the retropharyngeal abscess and possibly Right neck cellulitis. A TTE on 04/16 revealed LVEF 40-44% no noted vegetations or valvular abnormalities. On d/c, OCHOA had resolved and final Cr 0.7 and GFR > 90 mL/min. She was discharged with IV Unasyn that completed on 05/04/22 and subsequently switched to Augmentin 875mg/125mg po BID which she completed on 05/16/22. -[facility] admission in 06/2022 She began to develop progressive weakness and shoulder/upper back pain and swelling that continued to progress. She had an outpatient CT on that area which showed 4.2 x 2.7 cm partial peripheral enhancing collection within the right posterior lower neck which partially involves the right latissimus dorsi muscle consistent with a developing abscess s/p I+D on 06/26. OR notable for significant edema within the soft tissues, and there were small pockets of pus throughout. No large fluid collection. No necrosis. Viable muscle Aerobic and anaerobic bacterial cultures are NG. Blood cultures no growth. Treated with Vancomycin, Ceftriaxone, Flagyl and discharged on Ceftriaxone and flagyl through 07/17/22. Doxycycline was also added to outpatient course. She had overall poor oral intake and increased fatigue and admitted on 10/01. Low blood pressure noted. WBC 15.3K, H/H and platelets within normal limits. Creatinine is 2.17 CT of the neck demonstrates interval improvement in inflammatory changes of the right upper back is suggestive of infectious myositis/cellulitis without abscess. 10/01 blood cultures 04/30 bottles GPC clusters Biofire positive for Staph epi, Ucx Proteus mirabilis 60,000 CFU/ml, pansensitive I spoke with Hospitalist service and discussed Daptomycin and Ceftriaxone treatment while awaiting further workup. Patient states the antibiotics are making her nauseated. Patient was scheduled for EKG but woke up sick and canceled. During that visit her BP 80s/60s. She also noted low blood glucose. She was sent to ED. She feels nauseated but better Lines:PIV from this hospitalization Allergies Allergy/AdvReac Type Severity Reaction Status Date / Time amoxicillin [From Augmentin] Allergy Intermediate BLISTERED Verified 10/01/22 10:39 HANDS & FEET clavulanic acid Allergy Intermediate BLISTERED Verified 10/01/22 10:39 [From Augmentin] HANDS & FEET simvastatin AdvReac Intermediate MUSCLE Verified 10/01/22 10:39 PAIN IN SHOULDERS Home Medications Medication Instructions Recorded Confirmed Type albuterol sulfate 90 mcg/actuation 1 - 2 puff inhalation Q4H PRN 05/01/20 10/01/22 Rx aerosol inhaler shortness of breath or wheezing #8.5 grams melatonin 5 mg capsule 10 mg PO HS PRN Sleep 12/16/21 10/01/22 History lisinopril 20 1 tab PO DAILY #90 tabs 01/22/22 10/01/22 Rx mg-hydrochlorothiazide 12.5 mg tablet metformin 1,000 mg tablet 1,000 mg PO Q12H #180 tabs 01/22/22 10/01/22 Rx sertraline 100 mg tablet 100 mg PO DAILY #90 tabs 02/21/22 10/01/22 Rx metoprolol succinate 25 mg 25 mg PO DAILY #90 tabs 06/04/22 10/01/22 Rx tablet,extended release 24 hr (Toprol XL) montelukast 10 mg tablet 10 mg PO DAILY #90 tabs 06/23/22 10/01/22 Rx atorvastatin 10 mg tablet 10 mg PO HS #90 tabs 08/28/22 10/01/22 Rx glipizide 5 mg tablet, extended 5 mg PO BID #180 tabs 08/28/22 10/01/22 Rx release 24 hr aspirin 81 mg tablet,delayed 81 mg PO DAILY #90 tabs 09/12/22 10/01/22 Rx release (Adult Low Dose Aspirin) ondansetron 4 mg disintegrating 4 mg PO BID PRN NAUSEA/VOMITING 09/12/22 10/01/22 Rx tablet #60 tabs pantoprazole 40 mg tablet,delayed 40 mg PO DAILY #90 tabs 09/12/22 10/01/22 Rx release tramadol 50 mg tablet 50 mg PO DAILY PRN pain #30 tabs 09/12/22 10/01/22 Rx desloratadine 5 mg tablet 5 mg PO DAILY 10/01/22 10/01/22 History psyllium 1 packet PO DAILY 10/01/22 10/01/22 History Patient History Medical History (Updated 10/03/22 @ 10:20 by Jeny Fonseca DO) Abnormal blood test Abscess of muscle of neck Abscess of skin of neck OCHOA (acute kidney injury) Cellulitis Cellulitis of right shoulder Diabetes mellitus Diabetes mellitus type 2, uncontrolled Diarrhea Elevated lactic acid level Elevated troponin Health care maintenance High risk medication use Hypokalemia Hypomagnesemia Knee pain, bilateral Lab test negative for COVID-19 virus Left knee DJD Menopausal state Obesity, morbid, BMI 40.0-49.9 Orthostasis Pain medication agreement Right knee DJD Sepsis Sleep disturbance Syncope Weakness Surgical History History of incision and drainage (06/26/22) Incision and Drainage right shoulder/neck Abscess(Right) - Romeo Chase DO, FACS History of tubal ligation S/P tubal ligation Status post repair of nerve Family History Father Myocardial infarction Arthritis Diabetes Mother Diabetes Thyroid disorder Social History Smoking Status: Never smoker Second Hand Exposure: No; Do You Dip or Chew Tobacco: No; Hx Alcohol Use: No Hx Substance Use: No Preferred Language: Indonesian Communication Ability: Effective Visual Impairment: No Limitations Hearing Ability: Normal Video Game Designer Required: No Beliefs That Will Affect Care: Religion Current Living Situation: Parent Current Living Situation Comment: Has home but has been staying with mother, they take care of each other Feels Safe at Home: Yes Safety Concerns: Feels Safe At This Time Diet: regular caffeine: Yes during the past year weight has: decreased > 10 lbs Seatbelt Use: always Assistive Devices: Cane and Walker Physical Exam Physical Exam: NAD OOB to chair R neck wound no openings no cellulitis Results & Data Vital Signs (Past 12 Hours) Vital Signs Temp Pulse Pulse Resp BP Pulse Ox O2 Del Method 10/03/22 04:00 36.6 C 64 18 133/83 94 Room Air 10/02/22 22:04 65 10/02/22 23:05 36.8 C 62 18 117/75 94 Room Air Laboratory Results Laboratory Results - last 48 hr 10/01/22 10/01/22 10/01/22 12:06 12:06 12:06 WBC 15.32 H RBC 4.99 Hgb 14.4 Hct 43.7 MCV 87.6 MCH 28.9 MCHC 33.0 RDW Std Deviation 49.7 H RDW Coeff of Geetha 15.7 H Plt Count 255 MPV 11.9 Immature Gran % (Auto) 0.4 Neut % (Auto) 44.7 Lymph % (Auto) 39.2 Chambers % (Auto) 7.5 Eos % (Auto) 7.7 Baso % (Auto) 0.5 Neut # (Auto) 6.86 H Lymph # (Auto) 6.00 H Chambers # (Auto) 1.15 H Eos # (Auto) 1.18 H Baso # (Auto) 0.07 Immature Gran # (Auto) 0.06 Sodium 140 Potassium 4.4 Chloride 104 Carbon Dioxide 26 Anion Gap 10 BUN 45 H Creatinine 2.17 H Est Cr Clr Drug Dosing 34.7 Est GFR ( Amer) 26.8 Est GFR (Non-Af Amer) 23.2 BUN/Creatinine Ratio 20.7 H Glucose 104 H POC Glucose Lactate Calcium 9.3 Phosphorus 4.1 Magnesium 1.0 L Total Bilirubin 0.6 AST 11 L ALT 6 L Alkaline Phosphatase 59 Total Creatine Kinase 28 Troponin I High Sens 6.8 C-Reactive Protein 1.21 H Total Protein 7.2 Albumin 3.5 Globulin 3.7 Albumin/Globulin Ratio 0.9 Lipase 15 Procalcitonin TSH 2.786 Urine Color Urine Appearance Urine pH Ur Specific [place] Urine Protein Urine Glucose (UA) Urine Ketones Urine Blood Urine Nitrite Urine Bilirubin Urine Urobilinogen Ur Leukocyte Esterase Urine WBC (Auto) Urine RBC (Auto) U Hyaline Cast (Auto) U Epithel Cells (Auto) Urine Bacteria (Auto) SARS-CoV-2, RNA, NAAT Staphylococcus sp PCR mecA/C-Methicil Resis Gene Staph epidermidis (PCR) Bld Cult ID Panel PCR 10/01/22 10/01/22 10/01/22 12:06 17:25 17:26 WBC RBC Hgb Hct MCV MCH MCHC RDW Std Deviation RDW Coeff of Geetha Plt Count MPV Immature Gran % (Auto) Neut % (Auto) Lymph % (Auto) Chambers % (Auto) Eos % (Auto) Baso % (Auto) Neut # (Auto) Lymph # (Auto) Chambers # (Auto) Eos # (Auto) Baso # (Auto) Immature Gran # (Auto) Sodium Potassium Chloride Carbon Dioxide Anion Gap BUN Creatinine Est Cr Clr Drug Dosing Est GFR ( Amer) Est GFR (Non-Af Amer) BUN/Creatinine Ratio Glucose POC Glucose Lactate 1.8 Calcium Phosphorus Magnesium Total Bilirubin AST ALT Alkaline Phosphatase Total Creatine Kinase Troponin I High Sens C-Reactive Protein Total Protein Albumin Globulin Albumin/Globulin Ratio Lipase Procalcitonin < 0.05 TSH Urine Color Urine Appearance Urine pH Ur Specific [place] Urine Protein Urine Glucose (UA) Urine Ketones Urine Blood Urine Nitrite Urine Bilirubin Urine Urobilinogen Ur Leukocyte Esterase Urine WBC (Auto) Urine RBC (Auto) U Hyaline Cast (Auto) U Epithel Cells (Auto) Urine Bacteria (Auto) SARS-CoV-2, RNA, NAAT Staphylococcus sp PCR DETECTED A mecA/C-Methicil Resis Gene DETECTED A Staph epidermidis (PCR) DETECTED A Bld Cult ID Panel PCR See PCR Comment 10/01/22 10/01/22 10/01/22 19:21 19:21 22:09 WBC RBC Hgb Hct MCV MCH MCHC RDW Std Deviation RDW Coeff of Geetha Plt Count MPV Immature Gran % (Auto) Neut % (Auto) Lymph % (Auto) Chambers % (Auto) Eos % (Auto) Baso % (Auto) Neut # (Auto) Lymph # (Auto) Chambers # (Auto) Eos # (Auto) Baso # (Auto) Immature Gran # (Auto) Sodium Potassium Chloride Carbon Dioxide Anion Gap BUN Creatinine Est Cr Clr Drug Dosing Est GFR ( Amer) Est GFR (Non-Af Amer) BUN/Creatinine Ratio Glucose POC Glucose 103 H Lactate Calcium Phosphorus Magnesium Total Bilirubin AST ALT Alkaline Phosphatase Total Creatine Kinase Troponin I High Sens C-Reactive Protein Total Protein Albumin Globulin Albumin/Globulin Ratio Lipase Procalcitonin TSH Urine Color Yellow Urine Appearance Cloudy A Urine pH 5.0 Ur Specific [place] 1.015 Urine Protein Negative Urine Glucose (UA) Negative Urine Ketones Negative Urine Blood Trace H Urine Nitrite Negative Urine Bilirubin Negative Urine Urobilinogen Negative Ur Leukocyte Esterase 2+ H Urine WBC (Auto) >30 H Urine RBC (Auto) 0-4 U Hyaline Cast (Auto) 5-10 H U Epithel Cells (Auto) >30 H Urine Bacteria (Auto) Negative SARS-CoV-2, RNA, NAAT NEGATIVE Staphylococcus sp PCR mecA/C-Methicil Resis Gene Staph epidermidis (PCR) Bld Cult ID Panel PCR 10/02/22 10/02/22 10/02/22 07:29 08:35 11:35 WBC RBC Hgb Hct MCV MCH MCHC RDW Std Deviation RDW Coeff of Geetha Plt Count MPV Immature Gran % (Auto) Neut % (Auto) Lymph % (Auto) Chambers % (Auto) Eos % (Auto) Baso % (Auto) Neut # (Auto) Lymph # (Auto) Chambers # (Auto) Eos # (Auto) Baso # (Auto) Immature Gran # (Auto) Sodium Potassium Chloride Carbon Dioxide Anion Gap BUN Creatinine Est Cr Clr Drug Dosing Est GFR ( Amer) Est GFR (Non-Af Amer) BUN/Creatinine Ratio Glucose POC Glucose 78 102 H Lactate Calcium Phosphorus Magnesium 1.6 L Total Bilirubin AST ALT Alkaline Phosphatase Total Creatine Kinase Troponin I High Sens C-Reactive Protein 1.22 H Total Protein Albumin Globulin Albumin/Globulin Ratio Lipase Procalcitonin TSH Urine Color Urine Appearance Urine pH Ur Specific [place] Urine Protein Urine Glucose (UA) Urine Ketones Urine Blood Urine Nitrite Urine Bilirubin Urine Urobilinogen Ur Leukocyte Esterase Urine WBC (Auto) Urine RBC (Auto) U Hyaline Cast (Auto) U Epithel Cells (Auto) Urine Bacteria (Auto) SARS-CoV-2, RNA, NAAT Staphylococcus sp PCR mecA/C-Methicil Resis Gene Staph epidermidis (PCR) Bld Cult ID Panel PCR 10/02/22 10/02/22 10/03/22 16:01 20:37 05:59 WBC 15.01 H RBC 4.67 Hgb 13.6 Hct 40.0 MCV 85.7 MCH 29.1 MCHC 34.0 RDW Std Deviation 48.8 H RDW Coeff of Geetha 15.6 H Plt Count 243 MPV 12.0 Immature Gran % (Auto) Neut % (Auto) Lymph % (Auto) Chambers % (Auto) Eos % (Auto) Baso % (Auto) Neut # (Auto) Lymph # (Auto) Chambers # (Auto) Eos # (Auto) Baso # (Auto) Immature Gran # (Auto) Sodium Potassium Chloride Carbon Dioxide Anion Gap BUN Creatinine Est Cr Clr Drug Dosing Est GFR ( Amer) Est GFR (Non-Af Amer) BUN/Creatinine Ratio Glucose POC Glucose 104 H 145 H Lactate Calcium Phosphorus Magnesium Total Bilirubin AST ALT Alkaline Phosphatase Total Creatine Kinase Troponin I High Sens C-Reactive Protein Total Protein Albumin Globulin Albumin/Globulin Ratio Lipase Procalcitonin TSH Urine Color Urine Appearance Urine pH Ur Specific [place] Urine Protein Urine Glucose (UA) Urine Ketones Urine Blood Urine Nitrite Urine Bilirubin Urine Urobilinogen Ur Leukocyte Esterase Urine WBC (Auto) Urine RBC (Auto) U Hyaline Cast (Auto) U Epithel Cells (Auto) Urine Bacteria (Auto) SARS-CoV-2, RNA, NAAT Staphylococcus sp PCR mecA/C-Methicil Resis Gene Staph epidermidis (PCR) Bld Cult ID Panel PCR 10/03/22 10/03/22 05:59 07:17 WBC RBC Hgb Hct MCV MCH MCHC RDW Std Deviation RDW Coeff of Geetha Plt Count MPV Immature Gran % (Auto) Neut % (Auto) Lymph % (Auto) Chambers % (Auto) Eos % (Auto) Baso % (Auto) Neut # (Auto) Lymph # (Auto) Chambers # (Auto) Eos # (Auto) Baso # (Auto) Immature Gran # (Auto) Sodium 140 Potassium 4.0 Chloride 104 Carbon Dioxide 29 Anion Gap 7 BUN 36 H Creatinine 2.01 H Est Cr Clr Drug Dosing 36.7 Est GFR ( Amer) 29.4 Est GFR (Non-Af Amer) 25.4 BUN/Creatinine Ratio 17.9 Glucose 97 POC Glucose 100 H Lactate Calcium 9.5 Phosphorus Magnesium 1.5 L Total Bilirubin AST ALT Alkaline Phosphatase Total Creatine Kinase Troponin I High Sens C-Reactive Protein Total Protein Albumin Globulin Albumin/Globulin Ratio Lipase Procalcitonin TSH Urine Color Urine Appearance Urine pH Ur Specific [place] Urine Protein Urine Glucose (UA) Urine Ketones Urine Blood Urine Nitrite Urine Bilirubin Urine Urobilinogen Ur Leukocyte Esterase Urine WBC (Auto) Urine RBC (Auto) U Hyaline Cast (Auto) U Epithel Cells (Auto) Urine Bacteria (Auto) SARS-CoV-2, RNA, NAAT Staphylococcus sp PCR mecA/C-Methicil Resis Gene Staph epidermidis (PCR) Bld Cult ID Panel PCR Microbiology 10/01/22 19:21 Urine,Clean Catch Urine Culture - Preliminary Proteus mirabilis 10/01/22 17:44 Blood Anaerobic Blood Culture - Final 10/01/22 17:26 Blood Aerobic Blood Culture - Preliminary Gram positive cocci clusters 10/01/22 17:26 Blood Anaerobic Blood Culture - Final Diagnostic Findings Chest X-Ray 10/01/22 12:51 XR chest 1V portable HISTORY: 66 years-old Female dizziness COMPARISON: 07/25/2022 TECHNIQUE: AP view of the chest FINDINGS: Cardiac silhouette is enlarged. No pneumothorax, large pleural effusion, airspace consolidation or pulmonary edema. Degenerative changes of the shoulders and spine. IMPRESSION: Cardiomegaly without acute process. ACT 112: Negative or not required by law. The above report was generated using voice recognition software. It may contain grammatical, syntax or spelling errors. Electronically signed by: Bernabe Vilchis M.D. 10/01/2022 1:12 PM Abdomen/Pelvis CT 10/01/22 15:00 CT abd pelvis wo con CLINICAL HISTORY: abd pain, nausea, acute on chronic RI TECHNIQUE: Helical axial images of the abdomen and pelvis were obtained. Automated dose lowering techniques and/or adjustment according to patient size were utilized for this exam. This exam was performed without intravenous contrast. COMPARISON: None available at the time of this dictation. FINDINGS: Lower chest: No acute abnormality. Liver: Hepatic steatosis is noted. Gallbladder and biliary tree: Cholelithiasis is seen without evidence of cholecystitis. No intra- or extrahepatic biliary ductal dilation. Pancreas: Fatty replacement of the pancreas is seen. Spleen: Unremarkable. Adrenals: Unremarkable. Kidneys and ureters: Perinephric stranding is noted bilaterally. Bladder: Unremarkable. Reproductive organs: Unremarkable. Bowel: The appendix is normal. Lymph nodes Retroperitoneal: Unremarkable. Pelvic: Unremarkable. Mesenteric: Unremarkable. Peritoneum: Normal. Vessels: Unremarkable. Abdominal wall: Unremarkable. Bones: Degenerative changes in the visualized spine. IMPRESSION: 1. No acute abnormalities are seen. 2. Cholelithiasis without cholecystitis. ACT 112: Negative or not required by law. Electronically signed by: Bryan Krishnan M.D. 10/01/2022 4:[address] 10/01/22 15:00 CT head/brain wo con CLINICAL HISTORY: 66 years-old Female with Dizziness, nausea. Acute dizziness with nausea TECHNIQUE: Multiple axial CT images of the head were obtained without contrast. A dose lowering technique was utilized adhering to the principles of ALARA. CT DOSE: 2572.59 mGy.cm COMPARISON: None. FINDINGS: No acute intracranial hemorrhage, midline shift, intracranial mass, hydrocephalus, territorial ischemia or abnormal extra-axial collection. The calvarium is intact. The paranasal sinuses, mastoid air cells, and middle e ar cavities are clear. IMPRESSION: No acute intracranial abnormality. ACT 112: Negative or not required by law. The above report was generated using voice recognition software. It may contain grammatical, syntax or spelling errors. Electronically signed by: Bernabe Vilchis M.D. 10/01/2022 4:[address] PM [address] Tissue Neck CT 10/01/22 15:01 CT soft tissue neck wo con HISTORY: 66 years-old Female weakness, leukocytosis, h/o neck/shoul infection acute weakness with leukocytosis COMPARISON: 07/21/2022, 06/25/2022 TECHNIQUE: Multiple axial CT images of the soft tissues of the neck were obtained without the use of IV contrast. FINDINGS: Extensive inflammatory stranding with soft tissue thickening is again noted within the right superior back involving the superior fibers of the latissimus dorsi muscle. Evaluation for any potential abscess is limited without the use of IV contrast. Additional stranding extending into the right supraclavicular tis sues and right upper chest the degree of inflammation has mildly decreased compared to the most recent comparison. No new or progressive inflammatory changes. Atherosclerosis of the left greater than right carotid bulbs. Subcentimeter benign appearing cervical chain lymph nodes. Patent airway. No prevertebral or parapharyngeal inflammation. Lung apices are clear. Mastoid air cells and paranasal sinuses are clear. Multilevel degenerative changes of the cervical spine. IMPRESSION: 1. Prominent inflammatory changes of the right upper back extending into the latissimus dorsi muscle are again noted suggestive of an infectious myositis and cellulitis with findings mildly improved compared to the 07/21/2022 exam. No definite abscess identified, however evaluation is limited without the use of IV contrast. 2. Subcentimeter reactive cervical chain lymph nodes. 3. No new or worsening inflammatory changes. ACT 112: Negative or not required by law. The above report was generated using voice recognition software. It may contain grammatical, syntax or spelling errors. Electronically signed by: Bernabe Vilchis M.D. 10/01/2022 4:55 PM Medications Administered Current Inpatient Medications Albuterol (Albuterol Hfa 8 Gm Inhaler) 2 puffs INH Q4R PRN PRN Reason: shortness of breath or wheezin Stop: 10/31/22 23:43 Aspirin (Aspirin 81 Mg Ectab) 81 mg PO DAILY LUCITA Stop: 11/01/22 08:59 Last Admin: 10/02/22 09:15 Dose: 81 mg Dextrose (Dextrose 50% 50 Ml Syringe) 25 - 50 ml IV UD PRN; Protocol PRN Reason: Hypoglycemia Protocol Stop: 10/31/22 23:43 Docusate Sodium (Docusate Sodium 100 Mg Cap) 100 mg PO BID [facility] Stop: 11/01/22 21:59 Last Admin: 10/02/22 22:25 Dose: 100 mg Glucagon (Glucagon For Inj 1 Mg Vial) 1 mg SQ UD PRN; Protocol PRN Reason: Hypoglycemia Protocol Stop: 10/31/22 23:43 Glucose (Glucose 10 Tab/Tube) 4 - 8 tab PO UD PRN; Protocol PRN Reason: Hypoglycemia Treatment Stop: 10/31/22 23:43 Glucose (Glucose 40% Gel 15 Gm Tube) 15 - 30 gm PO UD PRN; Protocol PRN Reason: Hypoglycemia Protocol Stop: 10/31/22 23:43 Daptomycin 350 mg/ Syringe 7 mls @ 3.5 mls/min IV Q24H [facility]; Protocol Stop: 10/09/22 00:00 Last Admin: 10/02/22 23:57 Dose: 3.5 mls/min Ceftriaxone Sodium 2,000 mg/ (Dextrose) 70 mls @ 140 mls/hr IV Q24H [facility]; Protocol Stop: 10/09/22 00:00 Last Infusion: 10/03/22 00:30 Dose: Infused Insulin Aspart (Insulin Aspart Per Unit Charge) 0 units SC ACHS [facility] Stop: 11/01/22 00:00 Last Admin: 10/02/22 21:23 Dose: 1 units Insulin Glargine (Lantus Per Unit Charge) 12 units SQ BID [facility] Stop: 11/01/22 00:00 Last Admin: 10/02/22 21:23 Dose: 12 units Magnesium Oxide (Magnesium Oxide 400 Mg Tab) 400 mg PO BID [facility] Stop: 10/31/22 20:59 Last Admin: 10/02/22 22:25 Dose: 400 mg Melatonin (Melatonin 3 Mg Tab) 3 mg PO HS PRN PRN Reason: Sleep Stop: 10/31/22 23:43 Metoprolol Succinate (Metoprolol Succ 25mg Ext Rel Tab) 25 mg PO DAILY [facility] Stop: 11/01/22 08:59 Last Admin: 10/02/22 09:16 Dose: 25 mg Miscellaneous (Carbohydrates For Hypoglycemia ) 15 - 30 gm PO UD PRN PRN Reason: Hypoglycemia Protocol Stop: 10/31/22 23:43 Montelukast Sodium (Montelukast Sodium 10 Mg Tablet) 10 mg PO DAILY [facility] Stop: 11/01/22 08:59 Last Admin: 10/02/22 09:16 Dose: 10 mg Nystatin (Nystatin Powder 15gm Btl) 1 appln EXT TID LUCITA Stop: 11/01/22 20:59 Last Admin: 10/02/22 21:23 Dose: 1 appln Ondansetron HCl (Ondansetron 4 Mg Od Tab) 4 mg PO BID PRN PRN Reason: NAUSEA/VOMITING Stop: 10/31/22 23:43 Last Admin: 10/02/22 13:29 Dose: 4 mg Pantoprazole Sodium (Pantoprazole 40 Mg Tab) 40 mg PO DAILY [facility] Stop: 11/01/22 08:59 Last Admin: 10/02/22 09:16 Dose: 40 mg Sertraline HCl (Sertraline Hcl 100 Mg Tablet) 100 mg PO DAILY [facility] Stop: 11/01/22 08:59 Last Admin: 10/02/22 09:16 Dose: 100 mg Tramadol HCl (Tramadol Hcl 50 Mg Tablet) 50 mg PO DAILY PRN PRN Reason: pain Stop: 10/31/22 23:43
[2022-10-03] MEDS: METOPROLOL SUCC 25MG EXT REL TAB PO SCH (08:40)
[2022-10-03] MEDS: MONTELUKAST SODIUM 10 MG TABLET PO SCH (08:41)
[2022-10-03] MEDS: SERTRALINE HCL 100 MG TABLET PO SCH (08:41)
[2022-10-03] MEDS: ASPIRIN 81 MG ECTAB PO SCH (08:41)
[2022-10-03] MEDS: MAGNESIUM OXIDE 400 MG TAB PO SCH ×2 (08:41→21:05)
[2022-10-03] MEDS: PANTOprazole 40 MG TAB PO SCH (08:41)
[2022-10-03] MEDS: DOCUSATE SODIUM 100 MG CAP PO SCH ×2 (08:42→21:05)
[2022-10-03] MEDS: ONDANSETRON 4 MG OD TAB PO PRN ×2 (08:42→21:04)
[2022-10-03] MEDS: NYSTATIN POWDER 15GM BTL EXT SCH ×3 (08:42→21:06)
[2022-10-03] MEDS: INSULIN ASPART PER UNIT CHARGE SC SCH ×4 (08:48→21:07)
[2022-10-03] MEDS: LANTUS PER UNIT CHARGE SQ SCH ×2 (08:49→21:06)
--- NOTE | 2022-10-03 09:28 | Hospitalist Progress Note ---
Date of Service October 03, 2022 Assessment & Plan (1) Myositis: Plan: -Right neck myositis/cellulitis, acute on chronic with history of GAS and MRSA -CTneck without contrast soft tissue: 1. Prominent inflammatory changes of the right upper back extending into the latissimus dorsi muscle are again noted suggestive of an infectious myositis and cellulitis with findings mildly improved compared to the 07/21/2022 exam. No definite abscess identified, however evaluation is limited without the use of IV contrast.2. Subcentimeter reactive cervical chain lymph nodes. 3. No new or worsening inflammatory changes. -CThead: No acute findings -BCx 10/01 growing coagulase negative staph not lugdunensis in 1/2 bottles, suspect contaminant, repeat blood cultures collected 10/03 -Follow cultures and progression, ID consulted and appreciate recommendations, case discussed with Dr. Delarosa -Leukocytosis relatively stable at 15, no longer hypotensive, continue daptomycin/ceftriaxone for now (2) OCHOA (acute kidney injury): Plan: OCHOA on CKD, acute on chronic, improving Baseline creatinine around 1.55, acutely elevated on admission to 2.17-> 2.01 Encourage fluids, deferring IV fluids given slow improvement without them and given history of CHF. Trend BMP (3) Diabetes mellitus: Plan: -On metformin 1 g twice daily, glipizide 5 mg XR twice daily; holding these in favor of basal/bolus insulin (4) Hypertension: Plan: -Hypotensive on admission but resolved at this time -Home antihypertensives changed due to insurance changes, has been moved to lisinopril/HCTZ -Continue to hold lisinopril/HCTZ, continue beta-matilde given history of A-fib; BP 110s systolic (5) Paroxysmal A-fib: Plan: -Reports 1 episode at [place] in the setting of bacteremia. This was noted at prior [facility] hospitalization as reported, but no EKG documenting such was seen -[id number] 5 -If she has recurrent paroxysmal A-fib A-fib she is high risk for cardioembolic stroke and should be on anticoagulation. However, no episodes of AFib this admission. 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 Declines home therapy on discharge, continue to reassess if ambulatory function declines (8) Sepsis: Plan: -Sepsis on admission, resolved -Presented from her PCP with reported hypotension of 60/50. She is being treated for a right neck cellulitis, infectious myositis, possible UTI, and OCHOA - +2/4 SIRS, SOFA score 2, leukocytosis 15.32, OCHOA with creatinine 2.17, 1/2 blood cultures positive for Staph not lugdunensis (likely contaminant), urine culture showing gram-negative bacilli (possible UTI, ruled out as has no urinary symptoms) Plan May need IV abx on discharge, hopefully can transition to PO, follow with ID Admission and Anticipated Discharge Date Admission Date: October 01, 2022 Subjective Patient without any acute events overnight. Minimal neck pain, no dizziness/lightheadedness today. No complaints of chest pain or shortness of breath. Review of Systems Review of Systems: All systems reviewed & are unremarkable except as noted in Subjective Physical Exam Constitutional: WD/WN, vitals as above Respiratory: normal respiratory effort, lungs clear to auscultation Gastrointestinal (Abdomen): normal bowel sounds, soft, nontender, no hepatosplenomegaly Skin: no rashes, warm and dry Right low neck/trap area of scarring with minimal outer wound, no surrounding erythema, with few areas of mild tenderness to palpation Psychiatric: A+Ox3, euthymic affect Results & Data Results & Data Vital Signs (Past 12 Hours) Vital Signs Temp Pulse Pulse Pulse Resp BP BP 10/03/22 08:57 62 10/03/22 07:44 36.9 C 59 L 16 118/87 10/03/22 04:00 36.6 C 64 18 133/83 10/02/22 22:04 65 10/02/22 23:05 36.8 C 62 18 117/75 Pulse Ox O2 Del Method 10/03/22 08:57 10/03/22 07:44 94 Room Air 10/03/22 04:00 94 Room Air 10/02/22 22:04 10/02/22 23:05 94 Room Air PG Care Time/CCT Total # of Minutes Spent Total Time Spent with Patient: Total time spent is greater than 50% in coordination of care (as documented) at patient's floor/unit and/or counseling patient: Coding Level of Care Code 83471 SUB INP/OBS CARE MIN Diagnoses Myositis M60.9 OCHOA (acute kidney injury) N17.9 Diabetes mellitus E11.9 Hypertension I10 Paroxysmal A-fib I48.0 CHF (congestive heart failure) I50.9 Ambulatory dysfunction R26.2 Sepsis A41.9 Sepsis acute organ dysfunction status: unspecified Sepsis type: sepsis due to unspecified organism (8) Sepsis Sepsis acute organ dysfunction status: unspecified Sepsis type: sepsis due to unspecified organism Qualified Code(s): A41.9 - Sepsis, unspecified organism
--- NOTE | 2022-10-03 17:11 | XCELERA ---
[id number] \\[id number]
[2022-10-03] MEDS: PROMETHAZINE HCL 25 MG TAB PO PRN (21:33)
[2022-10-04] MEDS: cefTRIAXone SODIUM 2,000 MG in DEXTROSE 5% 50 ML IV SCH (00:09)
[2022-10-04] MEDS: DAPTOmycin 350 MG in SYRINGE 0 ML IV SCH (00:09)
[2022-10-04] MEDS ORDERED: CALCIUM CARBONATE 500 MG CHEWABLE TAB PO STA (01:33)
[2022-10-04] MEDS: INSULIN ASPART PER UNIT CHARGE SC SCH ×4 (09:20→21:12)
[2022-10-04] MEDS: LANTUS PER UNIT CHARGE SQ SCH ×2 (09:20→21:23)
[2022-10-04] MEDS: METOPROLOL SUCC 25MG EXT REL TAB PO SCH (09:22)
[2022-10-04] MEDS: PANTOprazole 40 MG TAB PO SCH (09:22)
[2022-10-04] MEDS: DOCUSATE SODIUM 100 MG CAP PO SCH ×3 (09:22→21:27)
[2022-10-04] MEDS: MONTELUKAST SODIUM 10 MG TABLET PO SCH (09:22)
[2022-10-04] MEDS: MAGNESIUM OXIDE 400 MG TAB PO SCH ×2 (09:22→21:23)
[2022-10-04] MEDS: SERTRALINE HCL 100 MG TABLET PO SCH (09:22)
[2022-10-04] MEDS: ASPIRIN 81 MG ECTAB PO SCH (09:22)
[2022-10-04] MEDS: NYSTATIN POWDER 15GM BTL EXT SCH ×3 (09:23→21:23)
[2022-10-04 11:30] LABS: Hematocrit (blood only) 37.5 % (37.0-47.0); Hemoglobin 12.7 g/dl (12.0-16.0); Mean Corpuscular Hemoglobin 29.1 pg (25.0-34.0); Mean Corpuscular Hgb Conc 33.9 g/dL (32.0-36.0); Mean Corpuscular Volume 85.8 fL (80.0-100.0); Mean Platelet Volume 11.9 fL (9.4-12.4); Platelet Count 220 K/uL (130-400); RDW Coefficient of Variation 15.3 % (11.5-14.5); RDW Standard Deviation 48.4 fL (36.4-46.3); Red Blood Count 4.37 M/uL (4.20-5.40); White Blood Count 15.53 K/ul (4.8-10.8)
[2022-10-04 11:41] LABS: BUN Creatinine Ratio 19.9 (10-20); Calcium 9.3 mg/dl (8.6-10.3); Creatinine Clr Calc Pharmacy 45.2 ml/min; Est GFR (African American) 37.1 ml/min; Potassium 4.5 mmol/L (3.5-5.1)
--- NOTE | 2022-10-04 12:10 | Hospitalist Progress Note ---
Date of Service October 04, 2022 Assessment & Plan (1) Myositis: Plan: -Right neck myositis/cellulitis, acute on chronic with history of GAS and MRSA -CTneck without contrast soft tissue: 1. Prominent inflammatory changes of the right upper back extending into the latissimus dorsi muscle are again noted suggestive of an infectious myositis and cellulitis with findings mildly improved compared to the 07/21/2022 exam. No definite abscess identified, however evaluation is limited without the use of IV contrast.2. Subcentimeter reactive cervical chain lymph nodes. 3. No new or worsening inflammatory changes. -CThead: No acute findings -BCx 10/01 growing coagulase negative staph not lugdunensis in 1/2 bottles, suspect contaminant, repeat blood cultures collected 10/03 -Follow cultures and progression, ID consulted and appreciate recommendations, case discussed with Dr. Delarosa -Leukocytosis relatively stable at 15, no longer hypotensive, continue daptomycin/ceftriaxone for now with plan for discharge if possible tomorrow if blood cultures remain negative (2) OCHOA (acute kidney injury): Plan: OCHOA on CKD, acute on chronic, improving Baseline creatinine around 1.55, acutely elevated on admission to 2.17-> 1.66 Encourage fluids, deferring IV fluids given slow improvement without them and given history of CHF. Trend BMP (3) Diabetes mellitus: Plan: -On metformin 1 g twice daily, glipizide 5 mg XR twice daily; holding these in favor of basal/bolus insulin (4) Hypertension: Plan: -Hypotensive on admission but resolved at this time -Home antihypertensives changed due to insurance changes, has been moved to lisinopril/HCTZ -Continue to hold lisinopril/HCTZ, continue beta-matilde given history of A-fib; BP 110s systolic (5) Paroxysmal A-fib: Plan: -Reports 1 episode at [place] in the setting of bacteremia. This was noted at prior [facility] hospitalization as reported, but no EKG documenting such was seen -[id number] 5 -If she has recurrent paroxysmal A-fib A-fib she is high risk for cardioembolic stroke and should be on anticoagulation. However, no episodes of AFib this admission. 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 Declines home therapy on discharge, continue to reassess if ambulatory function declines (8) Sepsis: Plan: -Sepsis on admission, resolved -Presented from her PCP with reported hypotension of 60/50. She is being treated for a right neck cellulitis, infectious myositis, possible UTI, and OCHOA - +2/4 SIRS, SOFA score 2, leukocytosis 15.32, OCHOA with creatinine 2.17, 1/2 blood cultures positive for Staph not lugdunensis (likely contaminant), urine culture showing gram-negative bacilli (possible UTI, ruled out as has no urinary symptoms) Plan May need IV abx on discharge, hopefully can transition to PO, follow with ID with hopeful discharge tomorrow Admission and Anticipated Discharge Date Admission Date: October 01, 2022 Subjective Patient without any acute events overnight. Denies chest pain, shortness of breath, lightheadedness or dizziness, neck pain. Review of Systems Review of Systems: All systems reviewed & are unremarkable except as noted in Subjective Physical Exam Constitutional: WD/WN, vitals as above Respiratory: normal respiratory effort, lungs clear to auscultation Gastrointestinal (Abdomen): normal bowel sounds, soft, nontender, no hepatosplenomegaly Skin: no rashes, warm and dry Right low neck/trap area of healed scar, no surrounding erythema, with few areas of mild tenderness to palpation Psychiatric: A+Ox3, euthymic affect Results & Data Results & Data Vital Signs (Past 12 Hours) Vital Signs Temp Pulse Pulse Resp BP BP Pulse Ox 10/04/22 11:51 36.7 C 75 14 112/78 93 10/04/22 08:13 36.7 C 76 14 136/84 90 10/04/22 03:22 37.1 C 70 18 126/62 91 O2 Del Method 10/04/22 11:51 Room Air 10/04/22 08:13 Room Air 10/04/22 03:22 Room Air PG Care Time/CCT Total # of Minutes Spent Total Time Spent with Patient: Total time spent is greater than 50% in coordination of care (as documented) at patient's floor/unit and/or counseling patient: Coding Level of Care Code 64747 SUB INP/OBS CARE 3/50MIN Diagnoses Myositis M60.9 OCHOA (acute kidney injury) N17.9 Diabetes mellitus E11.9 Hypertension I10 Paroxysmal A-fib I48.0 CHF (congestive heart failure) I50.9 Ambulatory dysfunction R26.2 Sepsis A41.9 Sepsis acute organ dysfunction status: unspecified Sepsis type: sepsis due to unspecified organism (8) Sepsis Sepsis acute organ dysfunction status: unspecified Sepsis type: sepsis due to unspecified organism Qualified Code(s): A41.9 - Sepsis, unspecified organism
[2022-10-04 12:16] LABS: ALC (manual) 8.23 K/uL (1.2-3.4); ANC (manual) 5.44 K/uL (1.4-6.5); Basophils # (manual) 0.16 K/uL (0-0.2); Basophils % (manual) 1 %; Eosinophils # (manual) 0.93 K/uL (0-0.50); Eosinophils % (manual) 6 %; Large Granular Lymph # (manua 4.19 K/uL; Large Granular Lymph % (manual) 27 %; Lymphocytes # (manual) 4.04 K/uL (1.2-3.4); Lymphocytes % (manual) 26 %; Monocytes # (manual) 0.62 K/uL (0.11-0.59); Monocytes % (manual) 4 %; Neutrophils # (manual) 5.44 K/uL (1.40-6.50); Neutrophils % (manual) 35 %
[2022-10-04 12:17] LABS: Smudge Cells Present
[2022-10-04] MEDS: PROMETHAZINE HCL 25 MG TAB PO PRN (21:24)
[2022-10-05] MEDS: cefTRIAXone SODIUM 2,000 MG in DEXTROSE 5% 50 ML IV SCH (00:47)
[2022-10-05] MEDS: DAPTOmycin 350 MG in SYRINGE 0 ML IV SCH (00:47)
[2022-10-05 07:24] LABS: BUN Creatinine Ratio 18.4 (10-20); Calcium 9.1 mg/dl (8.6-10.3); Creatinine Clr Calc Pharmacy 41.9 ml/min; Est GFR (African American) 33.9 ml/min; Est GFR (Non-African American) 29.2 ml/min; Hematocrit (blood only) 38.1 % (37.0-47.0); Hemoglobin 12.7 g/dl (12.0-16.0); Mean Corpuscular Hemoglobin 29.1 pg (25.0-34.0); Mean Corpuscular Hgb Conc 33.3 g/dL (32.0-36.0); Mean Corpuscular Volume 87.4 fL (80.0-100.0); Mean Platelet Volume 12.4 fL (9.4-12.4); Platelet Count 234 K/uL (130-400); Potassium 4.2 mmol/L (3.5-5.1); RDW Coefficient of Variation 15.2 % (11.5-14.5); RDW Standard Deviation 48.9 fL (36.4-46.3); Red Blood Count 4.36 M/uL (4.20-5.40); White Blood Count 16.05 K/ul (4.8-10.8)
[2022-10-05] MEDS: LANTUS PER UNIT CHARGE SQ SCH ×2 (08:58→21:08)
[2022-10-05] MEDS: INSULIN ASPART PER UNIT CHARGE SC SCH ×4 (08:58→21:08)
[2022-10-05] MEDS: ASPIRIN 81 MG ECTAB PO SCH (09:02)
[2022-10-05] MEDS: PANTOprazole 40 MG TAB PO SCH (09:02)
[2022-10-05] MEDS: SERTRALINE HCL 100 MG TABLET PO SCH (09:02)
[2022-10-05] MEDS: METOPROLOL SUCC 25MG EXT REL TAB PO SCH (09:02)
[2022-10-05] MEDS: MONTELUKAST SODIUM 10 MG TABLET PO SCH (09:02)
[2022-10-05] MEDS: MAGNESIUM OXIDE 400 MG TAB PO SCH ×2 (09:02→21:10)
[2022-10-05] MEDS: NYSTATIN POWDER 15GM BTL EXT SCH ×4 (09:02→21:29)
[2022-10-05] MEDS: DOCUSATE SODIUM 100 MG CAP PO SCH ×2 (09:02→21:10)
--- NOTE | 2022-10-05 10:44 | Hospitalist Progress Note ---
Date of Service October 05, 2022 Assessment & Plan (1) Myositis: Plan: -Right neck myositis/cellulitis, acute on chronic with history of GAS and MRSA -CTneck without contrast soft tissue: 1. Prominent inflammatory changes of the right upper back extending into the latissimus dorsi muscle are again noted suggestive of an infectious myositis and cellulitis with findings mildly improved compared to the 07/21/2022 exam. No definite abscess identified, however evaluation is limited without the use of IV contrast.2. Subcentimeter reactive cervical chain lymph nodes. 3. No new or worsening inflammatory changes. -CThead: No acute findings -BCx 10/01 growing coagulase negative staph not lugdunensis in 1/2 bottles, suspect contaminant, repeat blood cultures collected 10/03, negative to date. Collected again 10/05 after 12 hours no Abx -Leukocytosis increase to 16 today despite Zosyn/dapto, unclear etiology of worsening, peripheral smear and repeat cultures ordered, Abx held to see if leukocytosis worsens -Follow cultures and progression, ID consulted and appreciate recommendations, case discussed with Dr. Delarosa (2) OCHOA (acute kidney injury): Plan: OCHOA on CKD, acute on chronic, improving Baseline creatinine around 1.55, acutely elevated on admission to 2.17-> 1.79 Encourage fluids, deferring IV fluids given slow improvement without them and given history of CHF. Trend BMP (3) Diabetes mellitus: Plan: -On metformin 1 g twice daily, glipizide 5 mg XR twice daily; holding these in favor of basal/bolus insulin (4) Hypertension: Plan: -Hypotensive on admission but resolved at this time -Home antihypertensives changed due to insurance changes, has been moved to lisinopril/HCTZ -Continue to hold lisinopril/HCTZ, continue beta-matilde given history of A-fib; BP 110s systolic (5) Paroxysmal A-fib: Plan: -Reports 1 episode at [place] in the setting of bacteremia. This was noted [place] [facility] [place] as reported, but no EKG documenting such was seen -[id number] 5 -If she has recurrent paroxysmal A-fib A-fib she is high risk for cardioembolic stroke and should be on anticoagulation. However, no episodes of AFib this admission. 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 Declines home therapy on discharge, continue to reassess if ambulatory function declines (8) Sepsis: Plan: -Sepsis on admission, resolved -Presented from her PCP with reported hypotension of 60/50. She is being treated for a right neck cellulitis, infectious myositis, possible UTI, and OCHOA - +2/4 SIRS, SOFA score 2, leukocytosis 15.32, OCHOA with creatinine 2.17, 1/2 bl ood cultures positive for Staph not lugdunensis (likely contaminant), urine culture showing gram-negative bacilli (possible UTI, ruled out as has no urinary symptoms) Admission and Anticipated Discharge Date Admission Date: October 01, 2022 Subjective No acute events overnight. Denies diarrhea, chest pain, SOB, nausea, headaches. Review of Systems Review of Systems: All systems reviewed & are unremarkable except as noted in Subjective Physical Exam Constitutional: WD/WN, vitals as above Respiratory: normal respiratory effort, lungs clear to auscultation Gastrointestinal (Abdomen): normal bowel sounds, soft, nontender, no hepatosplenomegaly Skin: no rashes, warm and dry Psychiatric: A+Ox3, euthymic affect Results & Data Results & Data Vital Signs (Past 12 Hours) Vital Signs Temp Pulse Pulse Pulse Resp BP Pulse Ox 10/05/22 07:21 55 L 10/05/22 07:20 36.9 C 58 L 14 118/78 92 10/05/22 02:00 36.7 C 63 18 102/55 L 92 10/05/22 01:17 69 O2 Del Method 10/05/22 07:21 10/05/22 07:20 Room Air 10/05/22 02:00 Room Air 10/05/22 01:17 PG Care Time/CCT Total # of Minutes Spent Total Time Spent with Patient: Total time spent is greater than 50% in coordination of care (as documented) at patient's floor/unit and/or counseling patient: Coding Level of Care Code 92959 SUB INP/OBS CARE 3/50MIN Diagnoses Myositis M60.9 OCHOA (acute kidney injury) N17.9 Diabetes mellitus E11.9 Hypertension I10 Paroxysmal A-fib I48.0 CHF (congestive heart failure) I50.9 Ambulatory dysfunction R26.2 Sepsis A41.9 Sepsis acute organ dysfunction status: unspecified Sepsis type: sepsis due to unspecified organism (8) Sepsis Sepsis acute organ dysfunction status: unspecified Sepsis type: sepsis due to unspecified organism Qualified Code(s): A41.9 - Sepsis, unspecified organism
[2022-10-05] MEDS: HEPARIN SOD 5,000 UNIT/0.5 ML VIAL SQ SCH (21:09)
[2022-10-05] MEDS: PROMETHAZINE HCL 25 MG TAB PO PRN (21:12)
[2022-10-06 07:53] LABS: Hematocrit (blood only) 37.9 % (37.0-47.0); Hemoglobin 12.7 g/dl (12.0-16.0); Mean Corpuscular Hemoglobin 28.7 pg (25.0-34.0); Mean Corpuscular Hgb Conc 33.5 g/dL (32.0-36.0); Mean Corpuscular Volume 85.7 fL (80.0-100.0); Platelet Count 251 K/uL (130-400); RDW Coefficient of Variation 15.7 % (11.5-14.5); RDW Standard Deviation 48.8 fL (36.4-46.3); Red Blood Count 4.42 M/uL (4.20-5.40); White Blood Count 15.27 K/ul (4.8-10.8)
[2022-10-06] MEDS: DOCUSATE SODIUM 100 MG CAP PO SCH (07:53)
[2022-10-06] MEDS: HEPARIN SOD 5,000 UNIT/0.5 ML VIAL SQ SCH (07:53)
[2022-10-06] MEDS: INSULIN ASPART PER UNIT CHARGE SC SCH ×2 (07:59→12:04)
[2022-10-06] MEDS: METOPROLOL SUCC 25MG EXT REL TAB PO SCH (07:59)
[2022-10-06] MEDS: LANTUS PER UNIT CHARGE SQ SCH (07:59)
[2022-10-06] MEDS: ASPIRIN 81 MG ECTAB PO SCH (08:00)
[2022-10-06] MEDS: PANTOprazole 40 MG TAB PO SCH (08:00)
[2022-10-06] MEDS: MONTELUKAST SODIUM 10 MG TABLET PO SCH (08:00)
[2022-10-06] MEDS: NYSTATIN POWDER 15GM BTL EXT SCH (08:00)
[2022-10-06] MEDS: SERTRALINE HCL 100 MG TABLET PO SCH (08:00)
[2022-10-06] MEDS: MAGNESIUM OXIDE 400 MG TAB PO SCH (08:00)
[2022-10-06 08:13] LABS: BUN Creatinine Ratio 18.3 (10-20); Calcium 9.2 mg/dl (8.6-10.3); Creatinine Clr Calc Pharmacy 44.3 ml/min; Est GFR (African American) 36.3 ml/min; Est GFR (Non-African American) 31.3 ml/min
[2022-10-06 09:08] LABS: Basophils # (auto) 0.14 K/uL (0-0.2); Basophils % (auto) 0.9 %; Eosinophils # (auto) 1.57 K/uL (0-0.50); Eosinophils % (auto) 10.3 %; Immature Granulocytes # (auto) 0.04 K/uL (0.01-0.20); Immature Granulocytes % (auto) 0.3 %; Lymphocytes # (auto) 7.65 K/uL (1.2-3.4); Lymphocytes % (auto) 50.1 %; Monocytes # (auto) 1.18 K/uL (0.11-0.59); Monocytes % (auto) 7.7 %; Neutrophils # (auto) 4.69 K/uL (1.40-6.50); Neutrophils % (auto) 30.7 %
--- NOTE | 2022-10-06 11:47 | Discharge Summary ---
Date of Service October 06, 2022 Admission HPI Per Admitting Provider Celeste Siegel is a 66-year-old female with a past medical history of HFrEF, paroxysmal A-fib, hypertension, hyperlipidemia, type II DM, GERD, depression who presents from PCPs office for weakness, lightheadedness over the last month with lightheadedness and presyncopal episodes, and hypotension while in the wound clinic. Celeste reports went to the PCPs today and had a BP of 60/50 and was recommended to go to the ER. Bp is normally high and takes BP medications. Yesterday and today did not take her blood pressure medications. Was also on afib in the past on toprol which she took this morning. She is not on blood thinners. Takes a baby aspirin. No hx of bleeding problems. No history of stomach ulcers or GI bleeding. Occasional 'burp that needs to come out' otherwise no epigastric pain. No recent fevers or chills, thinks the room is a little cold in ER Gets shakey intermittently. NO shaking chills. No chest pain or chest pressure No shortness of breath +nausea, no vomiting or diarrhea. Nausea is chronic. Hx of neck cellulitis with abscess. Per pt first episode was around thanks giving of this year. She was not seen until Apr 16 and was taken by ambulance to [facility] who lif[facility]ed to [place] for sepsis. At that time was on antibiotics, does not remember which but was on three different ones by IV. Had PICC line at th etinh. [facility]ak[facility] tto rehab and was on IV abx for 3 weeks while at rehab. Then continued oral antibiotics she think sfor a few eweek sbut does not remember. Developed worsening pain in April. Was discharged home, several days later again became fatigued and weak. REports she got mroe antibiotics but does not remember what and it upset her stomach. In June had I&D with Dr. Chase and then woundvac placed. Seemed to get better until this week when her BP and BSG have been low. Medical History: Reviewed Medications: Reviewed. Took AM medications Surgical History: Reviewed Family history: Reviewed Allergies: Reviewed Social History: No tobacco product use, no alcohol Code Status: DNR/DNI. Principal Diagnosis Recurrent cellulitis, acute on chronic kidney disease Discharge Exam General-alert and oriented x3, no fevers, no chills HEENT-head atraumatic and normocephalic, pupils equal and reactive to light, extraocular muscles intact Neck-no lymphadenopathy or thyromegaly, trachea midline. Resolving cellulitic changes right neck and right shoulder area Chest-clear to auscultation percussion. No rales wheezing or rhonchi Cardiac-regular rate and rhythm, normal S1 and S2 Abdomen-normal bowel sounds, nontender, no hepatosplenomegaly Extremities-no cyanosis, clubbing, or edema Neuro-cranial nerves II through XII intact, motor and sensory function within normal limits, strength symmetrical, no focal deficits Psych-normal affect, normal mood Discharge Data Allergies Allergy/AdvReac Type Severity Reaction Status Date / Time amoxicillin [From Augmentin] Allergy Intermediate BLISTERED Verified 10/01/22 10:39 HANDS & FEET clavulanic acid Allergy Intermediate BLISTERED Verified 10/01/22 10:39 [From Augmentin] HANDS & FEET simvastatin AdvReac Intermediate MUSCLE Verified 10/01/22 10:39 PAIN IN SHOULDERS Consultations 10/01/22 17:07 ED Decision to Admit Stat 10/02/22 14:14 Consult Infectious Diseases Routine Ordered Studies 10/01/22 15:00 CT abd pelvis wo con Stat CT head/brain wo con Stat 10/01/22 15:01 CT soft tissue neck wo con Stat Hospital Course (1) Myositis: Right neck myositis/cellulitis, acute on chronic with history of GAS and MRSA. On admission, CTneck without contrast soft tissue: 1. Prominent inflammatory changes of the right upper back extending into the latissimus dorsi muscle are again noted suggestive of an infectious myositis and cellulitis with findings mildly improved compared to the 07/21/2022 exam. No definite abscess identified, however evaluation is limited without the use of IV contrast.2. Subcentimeter reactive cervical chain lymph nodes. 3. No new or worsening inflammatory changes. Home on oral Bactrim DS. Creatinine is 1.6. Message sent to PCP regarding Bactrim therapy and PCP may decide to recheck renal function in 1 week. BCx 10/01 growing coagulase negative staph not lugdunensis in 1/2 bottles, suspect contaminant, repeat blood cultures collected 10/03, negative to date. Collected again 6/11 and still negative. (2) OCHOA (acute kidney injury): OCHOA on CKD, acute on chronic, improving. Creatinine now 1.6. Baseline creatinine around 1.5. (3) Diabetes mellitus: ADA diet. Sliding scale coverage. Metformin held while hospitalized. Will restart at discharge (4) Hypertension: Hypotensive on admission but resolved with IV fluids. Resume usual home medications at discharge (5) Paroxysmal A-fib: Stable. Continue current medical management. Telemetry (6) CHF (congestive heart failure): Stable. Diastolic. Normal ejection fraction. Monitor intake and output (7) Ambulatory dysfunction: Uses a cane for ambulation, is at her baseline. Declines home therapy on discharge. (8) Sepsis: Sepsis on admission, resolved. Plan Home today, October 06, on oral Bactrim DS therapy Total Time Total Time Spent Total Time Spent (In Minutes): 40 minutes Discharge Plan Discharge Items Patient Disposition: Home - Self-Care Reason For Visit: DIZZINESS, LIGHTHEADED, HYPOTENSION Discharge Diagnosis: Recurrent cellulitis right neck area, transient hypotension, acute on chronic soheila brandt disease Activity: Resume your previous activity Non-emergency contact: Primary Care Provider Call non-emergency contact if: your symptoms worsen Follow-up/Referrals: Van Jane MD [Primary Care Provider] - Diet: Carb Consistent or DM2 and Heart Healthy Addtl Attending Provider Instructions: Take sulfamethoxazole/trimethoprim (Bactrim DS) for 10 days. All other medications remain the same Pending Studies at Discharge: No Stand-Alone Forms: My [facility] [employer], Smoking Cessation Medications and DC Order Prescriptions: New sulfamethoxazole-trimethoprim 800-160 mg tablet 1 tab PO BID 10 Days Qty: 20 0RF Continued albuterol sulfate 90 mcg/actuation HFA aerosol inhaler 1 - 2 puff inhalation Q4H PRN (Reason: shortness of breath or wheezing) Qty: 8.5 5RF metformin 1,000 mg tablet 1,000 mg PO Q12H Qty: 180 3RF Rx Instructions: TAKE 1 TABLET EVERY 12 HOURS WITH FOOD lisinopril-hydrochlorothiazide 20-12.5 mg tablet 1 tab PO DAILY Qty: 90 3RF Hold Instructions: pt told to hold sertraline 100 mg tablet 100 mg PO DAILY Qty: 90 3RF montelukast 10 mg tablet 10 mg PO DAILY Qty: 90 3RF atorvastatin 10 mg tablet 10 mg PO HS Qty: 90 1RF glipizide 5 mg tablet extended release 24hr 5 mg PO BID Qty: 180 1RF melatonin 5 mg capsule 10 mg PO HS PRN (Reason: Sleep) Patient Comments: as directed metoprolol succinate [Toprol XL] 25 mg tablet extended release 24 hr 25 mg PO DAILY Qty: 90 3RF ondansetron 4 mg tablet,disintegrating 4 mg PO BID PRN (Reason: NAUSEA/VOMITING) Qty: 60 1RF pantoprazole 40 mg tablet,delayed release (DR/EC) 40 mg PO DAILY Qty: 90 3RF tramadol 50 mg tablet 50 mg PO DAILY PRN (Reason: pain) Qty: 30 1RF aspirin [Adult Low Dose Aspirin] 81 mg tablet,delayed release (DR/EC) 81 mg PO DAILY Qty: 90 3RF desloratadine 5 mg tablet 5 mg PO DAILY psyllium Packet 1 packet PO DAILY Rx Instructions: mix into at least 8 oz of water or juice before administering Discharge Orders: Discharge Order (Routine); Ordered 10/06/22 Ordered By: Lucien Tolentino Admission Data Admit Date/Time: 10/01/22 18:26 Attending Provider: Lucien Tolentino Admit Provider: Mele Call Primary Care Provider: Van Jane V. Other Providers: Mele Call ; Terra Menjivar ; Ryan Sosa ; Mayra Alvarado ; Sara Guerrero ; Zelda Gregorio ; Yesi Delarosa ; Willow Morales ; Cheryl Bedoya ; Nieves Nuno Coding Level of Care Code 37630 INP/OBS DISCH >30 MIN Diagnoses Myositis M60.9 OCHOA (acute kidney injury) N17.9 Diabetes mellitus E11.9 Hypertension I10 Paroxysmal A-fib I48.0 CHF (congestive heart failure) I50.9 Ambulatory dysfunction R26.2 Sepsis A41.9 Sepsis acute organ dysfunction status: unspecified Sepsis type: sepsis due to unspecified organism
== END 2022-10-06 14:45 | disposition home or self-care (01) | DRG 872 ==
LOC: ED 11:40 → SUATTDRO 18:26 → 2W 18:26